=== PATIENT | female | born 1945 | race Caucasian/White ===

== ENCOUNTER → 2016-10-04 | Outpatient (CLI) | payer MEDICARE, OTHER ==
[~2016-10-04] MED LIST: DENOSUMAB 60 MG/ML 1 ML SYRINGE SQ ONE
[2016-10-04 10:45] VITALS: BP 161/76; PULSE 93; RESP 18; TEMP 97.6
== END | disposition home or self-care (01) ==
LOC: PROCWHC3 10:34
PROVIDERS: ATTEND Family Medicine
DX: M81.0 Age-related osteoporosis without current pathological fracture (principal)
CPT/HCPCS: 96372; J0897

== ENCOUNTER 2016-10-30 10:58 | Day surgery (SDC) | payer MEDICARE, OTHER ==
[2016-10-26 15:29] VITALS: BMI 18.6
[~2016-10-30 10:58] MED LIST changes: -DENOSUMAB 60 MG/ML 1 ML SYRINGE SQ ONE; +LACTATED RINGERS 1,000 ML IV SCH; +LIDOCAINE 1% 20 ML VIAL (10MG/ML) FOR IV START INTRADERMA PRN
[2016-10-30 11:48] VITALS: RESP 16; TEMP 98.3
[2016-10-30] MEDS ORDERED: PROPOFOL 10 MG/ML 20 ML VIAL IV ONE (13:12)
[2016-10-30] MEDS ORDERED: LIDOCAINE 1% INJ 10MG/ML (20 ML MDV) ONE (13:12)
--- NOTE | 2016-10-30 13:41 | P.PCN ---
Date of Procedure: 10/30/16 Preoperative Diagnosis: Postoperative Diagnosis: Procedure(s) Performed: Procedure: Esophagogastroduodenoscopy and biopsy. Preoperative diagnosis: Hansen's esophagus. Postoperative diagnosis: Hansen's esophagus, multiple biopsies obtained to rule out dysplasia. Preparation and sedation: Were provided by anesthesia. Brief clinical history: The patient is a 71-year-old female with history of reflux disease and Hansen's esophagus. Last evaluation in November 2014 did not reveal any evidence of dysplasia. This is part of her screening. At this time, she has no complaints or alarm symptoms. Procedure: With the patient on her left lateral decubitus position and after informed consent and adequate sedation, I passed the Olympus-GIF 160 video upper endoscope through the cricopharyngeus down the esophagus. GE junction was irregular and stented at around 29-30 cm from the incisors, as previously described. The tubular esophagus continued to around 36 cm from the incisors defining a segment of Hansen's esophagus then there was a 3 cm sliding hiatal hernia. The esophagus proximal and distal to the GE junction did not show erosions, ulcers or strictures. The stomach was then insufflated with air and inspected in detail including the retroflex view in the cardia. Finally, the endoscope was passed through the pylorus into the duodenum. Pyloric channel, duodenal bulb, post bulbar area and descending duodenum appeared within normal limits. No abnormalities were seen the stomach. I obtained multiple biopsies from the Hansen's segment then the endoscope was withdrawn. The patient tolerated the procedure well. Plan: The patient was reassured. I anticipate repeating this exam in 2-3 years or sooner depending on the pathology results. She will follow-up with you as planned. Implants: Indications for Procedure: Operative Findings: Description of Procedure:
[2016-10-30 14:23] VITALS: BP 131/84; PULSE 76
== END 2016-10-30 14:38 | disposition home or self-care (01) ==
LOC: ORWHC2ENDO 10:58
DX: K22.70 Barrett's esophagus without dysplasia (principal); K21.9 Gastro-esophageal reflux disease without esophagitis; J44.9 Chronic obstructive pulmonary disease, unspecified; M19.90 Unspecified osteoarthritis, unspecified site; E78.5 Hyperlipidemia, unspecified; Z79.82 Long term (current) use of aspirin; Z79.51 Long term (current) use of inhaled steroids; Z79.899 Other long term (current) drug therapy; Z88.8 Allergy status to other drugs, medicaments and biological substances
CPT/HCPCS: 88305; 43239; J2001; J2704

== ENCOUNTER → 2016-12-20 | Outpatient (CLI) | payer MEDICARE, OTHER ==
--- NOTE | 2016-12-21 10:01 | MM ---
Reason for exam: screening (asymptomatic). Last mammogram was performed 1 year ago. History: Patient is postmenopausal, has history of other cancer at age 70, and is nulliparous. Benign u/S right breast needle core of the right breast, June 10, 2013. Cancelled Right Mammotome of the right breast, June 10, 2013. Excisional biopsy of the left breast. Physical Findings: A clinical breast exam by your physician is recommended on an annual basis and results should be correlated with mammographic findings. MG 3D Screening Mammo W/Cad Bilateral CC and MLO view(s) were taken. Prior study comparison: December 20, 2015, bilateral MG 3d screening mammo w/cad. December 28, 2014, left breast MG work up mamm w CAD LT. December 16, 2014, bilateral MG screening mammo w CAD. The breast tissue is heterogeneously dense. This may lower the sensitivity of mammography. Finding: There are few typically benign round calcifications in the right breast. Previous mammotome biopsy in the right breast. There is no discrete abnormality. ASSESSMENT: Benign, BI-RAD 2 RECOMMENDATION: Routine screening mammogram of both breasts in 1 year.
== END | disposition home or self-care (01) ==
LOC: RADMAMWWP 10:40
PROVIDERS: ATTEND Family Medicine
DX: Z12.31 Encounter for screening mammogram for malignant neoplasm of breast (principal)
CPT/HCPCS: 77063; G0202

== ENCOUNTER → 2017-04-09 | Outpatient (CLI) | payer MEDICARE, OTHER ==
[~2017-04-09] MED LIST changes: +DENOSUMAB 60 MG/ML 1 ML SYRINGE SQ ONE; -LACTATED RINGERS 1,000 ML IV SCH; -LIDOCAINE 1% 20 ML VIAL (10MG/ML) FOR IV START INTRADERMA PRN
[2017-04-09 11:00] VITALS: BP 146/80; PULSE 86; RESP 18; TEMP 98.2
== END | disposition home or self-care (01) ==
LOC: PROCWHC3 10:42
PROVIDERS: ATTEND Family Medicine
DX: M81.0 Age-related osteoporosis without current pathological fracture (principal)
CPT/HCPCS: 96372; J0897

== ENCOUNTER → 2017-10-08 | Outpatient (CLI) | payer MEDICARE, OTHER ==
[~2017-10-08] MED LIST changes: +DENOSUMAB 60 MG/ML 1 ML SYRINGE SQ NR; -DENOSUMAB 60 MG/ML 1 ML SYRINGE SQ ONE
[2017-10-08 10:06] VITALS: BP 145/80; PULSE 95; RESP 18; TEMP 97.9
== END | disposition home or self-care (01) ==
LOC: PROCWHC3 09:40
PROVIDERS: ATTEND Physician Assistant
DX: M81.0 Age-related osteoporosis without current pathological fracture (principal)
CPT/HCPCS: 96372; J0897

== ENCOUNTER → 2017-10-26 | Outpatient (CLI) | payer MEDICARE, OTHER ==
--- NOTE | 2017-10-26 13:17 | XR ---
EXAMINATION TYPE: XR Hip Limited LT DATE OF EXAM: 10/26/2017 CLINICAL HISTORY: Left hip pain TECHNIQUE: AP solitary view of the left hip was obtained. COMPARISON: None. FINDINGS: There is no acute fracture/dislocation evident in the left hip on this single frontal view . Moderate femoral acetabular arthropathy is seen as marginal osteophytes, acetabular roof sclerosis and joint space narrowing. Calcific atheromatous changes are seen of the left common iliac artery and its branches. The overlying soft tissue appears unremarkable. IMPRESSION: There is no acute fracture or dislocation in the left hip on this single view. Moderate left femoral acetabular arthropathy.
== END | disposition home or self-care (01) ==
LOC: RADXRMAIN 12:53
PROVIDERS: ATTEND Family Medicine
DX: M16.12 Unilateral primary osteoarthritis, left hip (principal)
CPT/HCPCS: 73501

== ENCOUNTER 2017-12-10 08:01 | Day surgery (SDC) | payer MEDICARE, OTHER ==
[2017-12-06 10:45] VITALS: BMI 18.8
[~2017-12-10 08:01] MED LIST changes: -DENOSUMAB 60 MG/ML 1 ML SYRINGE SQ NR; +LACTATED RINGERS 1,000 ML IV SCH; +LIDOCAINE 1% 20 ML VIAL (10MG/ML) FOR IV START INTRADERMA PRN
[2017-12-10 09:03] VITALS: TEMP 97.9
[2017-12-10] MEDS ORDERED: PROPOFOL 10 MG/ML 20 ML VIAL IV ONE (09:45)
--- NOTE | 2017-12-10 09:46 | P.PCN ---
Date of Procedure: 12/10/17 Procedure(s) Performed: Procedure: Total colonoscopy. Preoperative diagnosis: Screening for neoplasia, patient has history of polyps. Postoperative diagnosis: Sigmoid diverticulosis with no evidence of acute diverticulitis, strictures, significant polyps or other pathology. Preparation: HalfLytely prep. Sedation: Was provided by anesthesia. Brief clinical history: The patient is a 72-year-old female who is scheduled for this evaluation for screening for neoplasia age being her risk factor. She has no abdominal complaints, bleeding or anemia. Her last exam was around 5 years ago. Procedure: With the patient on her left lateral decubitus position and after informed consent and adequate sedation, the perianal area was inspected and it did not show any fissures or fistulas. There were no masses felt on digital rectal examination. The Olympus CFQ 160L video colonoscope was then inserted in the rectum in the usual fashion and advanced to the cecum. There were a few diverticular orifices seen scattered in the sigmoid but I saw no evidence of acute diverticulitis or strictures. No significant polyps or tumors were seen. I retroflexed the endoscope in the rectum before the endoscope was withdrawn. The patient tolerated the procedure well. Plan: The patient was reassured. Discussed dietary measures. She will follow- up with you as planned and I recommended repeat exam in 5 years.
[2017-12-10 10:03] VITALS: BP 130/86; PULSE 79; RESP 18
== END 2017-12-10 10:32 | disposition home or self-care (01) ==
LOC: ORWHC2ENDO 08:01
DX: Z12.11 Encounter for screening for malignant neoplasm of colon (principal); K57.30 Diverticulosis of large intestine without perforation or abscess without bleeding; J44.9 Chronic obstructive pulmonary disease, unspecified; K21.9 Gastro-esophageal reflux disease without esophagitis; M19.90 Unspecified osteoarthritis, unspecified site; E78.5 Hyperlipidemia, unspecified; Z79.51 Long term (current) use of inhaled steroids; Z79.899 Other long term (current) drug therapy; Z88.8 Allergy status to other drugs, medicaments and biological substances
CPT/HCPCS: J2704; G0121; 45378

== ENCOUNTER → 2017-12-21 | Outpatient (CLI) | payer MEDICARE, OTHER ==
--- NOTE | 2017-12-26 10:48 | MM ---
Reason for exam: screening (asymptomatic). Last mammogram was performed 1 year ago. History: Patient is postmenopausal, has history of other cancer at age 70, and is nulliparous. Benign u/S right breast needle core of the right breast, June 10, 2013. Cancelled Right Mammotome of the right breast, June 10, 2013. Excisional biopsy of the left breast. Physical Findings: A clinical breast exam by your physician is recommended on an annual basis and results should be correlated with mammographic findings. MG 3D Screening Mammo Wo Cad Bilateral CC and MLO view(s) were taken. Prior study comparison: December 20, 2016, bilateral MG 3d screening mammo w/cad. December 20, 2015, bilateral MG 3d screening mammo w/cad. The breast tissue is heterogeneously dense. This may lower the sensitivity of mammography. Previous mammotome biopsy in the right breast. There is no discrete abnormality. ASSESSMENT: Benign, BI-RAD 2 RECOMMENDATION: Routine screening mammogram of both breasts in 1 year.
== END | disposition home or self-care (01) ==
LOC: RADMAMWWP 09:42
PROVIDERS: ATTEND Family Medicine
DX: Z12.31 Encounter for screening mammogram for malignant neoplasm of breast (principal)
CPT/HCPCS: 77063; 77067

== ENCOUNTER 2018-01-15 20:42 | Emergency (ER) | payer MEDICARE, OTHER ==
[2018-01-15 21:16] VITALS: RESP 18
[2018-01-15] MEDS ORDERED: AMOXIC-POT CLAV 875MG STARTER 2 EACH TABLET PO STA (22:44)
[2018-01-15] MEDS ORDERED: ACET/COD 300 MG/30 MG STARTER PACK 6 TAB BTL PO STA (22:44)
[2018-01-15] MEDS ORDERED: DIPH,PERTUS(ACELL)TETVAC-LF 0.5 ML VIAL IM ONE (22:44)
--- NOTE | 2018-01-15 23:12 | ED ---
Animal Bite HPI - General Source: patient Mode of arrival: ambulatory Limitations: no limitations <Koki Mcdowell - Last Filed: 01/16/18 03:27> <Kimberlee Napoles - Last Filed: 01/18/18 08:39> - General Chief Complaint: Animal Bite Stated Complaint: Cat Bite Time Seen by Provider: 01/15/18 22:32 - History of Present Illness Initial Comments: 72-year-old female patient presents to the emergency department today with complaints of Bite and scratches to the right arm. Patient states that her neighbor's cat got into her home and started to fight with her cat. States that she picked Up to get him out of her house when he scratched her arm and possibly bit her. Patient is unsure when her last tetanus vaccine was given. States that she does have the address and phone number of the cats home, she is unsure if the cat is up-to-date on his vaccinations. States that she did clean the wounds immediately with both soap and water and peroxide. States that she began to have increased pain to the arm so she presented here for further evaluation and antibiotics. She denies any other injuries. Patient denies any headache, neck pain, back pain, chest pain, shortness of breath, dizziness, weakness, abdominal pain, nausea, vomiting, or difficulties with bowel movements or urination. (Koki Mcdowell) - Related Data Home Medications Medication Instructions Recorded Confirmed Omeprazole [PriLOSEC] 20 mg PO AC-BRKFST 03/31/14 01/16/18 Simvastatin [Zocor] 20 mg PO HS 03/31/14 01/16/18 Albuterol Sulfate [Ventolin HFA] 1 - 2 puff INHALATION RT-QID PRN 04/21/1401/16 Budesonide-Formot 160-4.5 Mcg 2 puff INHALATION RT-BID 04/21/14 01/16/18 [Symbicort 160-4.5 Mcg Inhaler] Multivitamins, Thera [Multivitamin 1 tab PO DAILY 05/01/14 01/16/18 (formulary)] Tiotropium 18 Mcg/Puff [Spiriva] 1 cap INHALATION RT-DAILY 05/29/14 01/16/18 Vitamin B Complex 1 tab PO DAILY 09/22/14 01/16/18 Vitamin E 1,200 unit PO DAILY 09/22/14 01/16/18 Acetaminophen/Diphenhydramine 2 tab PO HS 10/24/14 01/16/18 [Tylenol PM 500-25mg] Denosumab [Prolia] 60 mg SQ Q180D 10/24/14 01/16/18 Aspirin [Adult Low Dose Aspirin EC] 81 mg PO DAILY 04/04/16 01/16/18 Acetaminophen [Tylenol Extra 1,000 mg PO DAILY 12/06/17 01/16/18 Strength] Calcium/Magnesium/Zinc 1 tab PO DAILY 12/06/17 01/16/18 [Ckawrqn-Qvsswruta-Nkbp Tablet] Cholecalciferol [Vitamin D3] 4,000 unit PO DAILY 12/06/17 01/16/18 Previous Rx's Medication Instructions Recorded Amoxic-Pot Clav 875-125Mg 1 tab PO Q12HR #20 tablet 01/15/18 [Augmentin 875-125] Allergies Allergy/AdvReac Type Severity Reaction Status Date / Time bupropion HCl Allergy Rash/Hives Verified 01/16/18 12:25 [From Wellbutrin] Review of Systems ROS Other: All systems not noted in ROS Statement are negative. <Koki Mcdowell M - Last Filed: 01/16/18 03:27> ROS Other: All systems not noted in ROS Statement are negative. <Kimberlee Napoles - Last Filed: 01/18/18 08:39> ROS Statement: Those systems with pertinent positive or pertinent negative responses have been documented in the HPI. Past Medical History Past Medical History: Cancer, COPD, GERD/Reflux, Hyperlipidemia, Osteoarthritis (OA) Additional Past Medical History / Comment(s): HIATAL HERNIA, HX SKIN CANCER & CURRENT SKIN CANCER ON HER BACK. ,JAEGER'S DISEASE, OSTEOPOROSIS., HX OF COLON POLYPS. History of Any Multi-Drug Resistant Organisms: None Reported Past Surgical History: Breast Surgery, Tubal Ligation Additional Past Surgical History / Comment(s): BRONCHOSCOPY, BREAST BX, EGD., PROCEDURE TO "CUT NERVES IN NECK" Past Anesthesia/Blood Transfusion Reactions: Motion Sickness, Postoperative Nausea & Vomiting (PONV) Past Psychological History: No Psychological Hx Reported Smoking Status: Former smoker Past Alcohol Use History: Rare Past Drug Use History: None Reported - Past Family History Brother(s) Family Medical History: Cancer Additional Family Medical History / Comment(s): BROTHER # 1 PANCREAS CA. BROTHER #2 KIDNEY CA <Koki Mcdowell M - Last Filed: 01/16/18 03:27> General Exam Limitations: no limitations General appearance: alert, in no apparent distress, other (This is a well- developed, well-nourished elderly female patient in no acute distress. Vital signs upon presentation are temperature 98.2F, pulse 89, respirations 18, blood pressure 155/84, pulse ox 98% on room air.) Eye exam: Present: normal appearance, PERRL, EOMI. Absent: scleral icterus, conjunctival injection, periorbital swelling Respiratory exam: Present: normal lung sounds bilaterally. Absent: respiratory distress, wheezes, rales, rhonchi, stridor Cardiovascular Exam: Present: regular rate, normal rhythm, normal heart sounds. Absent: systolic murmur, diastolic murmur, rubs, gallop, clicks Extremities exam: Present: full ROM, tenderness (Tenderness surrounding punctures to the right forearm), normal capillary refill, other (Patient has 2 scratches and a puncture wound to the right lateral forearm. There is surrounding swelling and erythema noted to the puncture area. Radial pulses [address] and equal bilaterally. Skin to the right forearm is otherwise pink, warm , and dry. Cap refills less than 3 seconds.). Absent: normal inspection, pedal edema, joint swelling, calf tenderness Neurological exam: Present: alert, oriented X3, CN II-XII intact Psychiatric exam: Present: normal affect, normal mood Skin exam: Present: warm, dry, intact, normal color. Absent: rash <Koki Mcdowell M - Last Filed: 01/16/18 03:27> Vital Signs 01/15/18 01/15/18 21:14 23:23 Temperature 98.2 F 98.3 F Pulse Rate 89 80 Respiratory 18 18 Rate Blood Pressure 155/84 115/73 O2 Sat by Pulse 98 99 Oximetry Medical Decision Making - Radiology Data Radiology results: report reviewed, image reviewed <Koki Mcdowell M - Last Filed: 01/16/18 03:27> <Kimberlee Napoles - Last Filed: 01/18/18 08:39> - Medical Decision Making 72-year-old female patient presents emergency department today for evaluation of cat scratches and a Right the right forearm. Physical examination does reveal surrounding erythema and swelling to one of the puncture sites at the lateral forearm. X-ray was negative for any evidence of foreign body or fracture. A line was drawn around the area of redness. Patient will be started on Augmentin, her tetanus is updated. She is instructed to return if the redness should spread, she has increase in her pain, or she develops any fevers. The cat will be monitored and patient will return for rabies vaccination if necessary. Patient is instructed to follow-up with her primary care physician for recheck in 1-2 days. Return parameters discussed in detail. She verbalizes understanding and agrees with this plan. (Koki Mcdowell) I personally saw and examined the patient. I used a sharpie marker to marked the borders of the patient's cellulitis and advised her that should her cellulitis extend greater than 1 cm beyond these borders within the next 24 hours she needs to return to the ER for possible IV antibiotics. I reviewed and agree with the mid-level provider findings including all diagnostic interpretations and treatment plans as written unless otherwise stated. I was present for lugo portions of any procedures performed. (Kimberlee Napoles) - Radiology Data Two-view x-ray of the right forearm are obtained. There is some calcification at the triangular cartilage. Radius and ulna appear intact. Elbow joint appears intact. Impression by Dr. Stanford shows no fracture seen. Chondrocalcinosis. Did review the image myself, no evidence of foreign body. ( Koki Mcdowell) Disposition Is patient prescribed a controlled substance at d/c from ED?: No Time of Disposition: 23:11 <Koki Mcdowell - Last Filed: 01/16/18 03:27> <Kimberlee Napoles - Last Filed: 01/18/18 08:39> Clinical Impression: Cat bite involving extremity, Cellulitis Disposition: HOME SELF-CARE Condition: Good Instructions: Animal Bite (ED), Cellulitis (ED) Additional Instructions: Complete antibiotic prescription in full. Return here tomorrow if you're redness has worsened, he develop a fever, or start to feel an increase in ear pain. Follow-up with your primary care physician for recheck in 1-2 days. Prescriptions: Amoxic-Pot Clav 875-125Mg [Augmentin 875-125] 1 tab PO Q12HR #20 tablet Referrals: Armando Morgan DO [Primary Care Provider] - 1-2 days
[2018-01-15 23:24] VITALS: BP 115/73; PULSE 80; TEMP 98.3
--- NOTE | 2018-01-15 23:31 | XR ---
EXAMINATION TYPE: XR forearm RT DATE OF EXAM: 01/15/2018 COMPARISON: NONE HISTORY: Cat bites. Pain. TECHNIQUE: 2 views FINDINGS: There is some calcification at the triangular cartilage. Radius and ulna appear intact. Elb ow joint appears intact. IMPRESSION: No fracture seen. Chondrocalcinosis.
== END 2018-01-15 23:24 | disposition home or self-care (01) ==
LOC: EC 20:42
DX: S51.851A Open bite of right forearm, initial encounter (principal); L03.113 Cellulitis of right upper limb; J44.9 Chronic obstructive pulmonary disease, unspecified; K21.9 Gastro-esophageal reflux disease without esophagitis; E78.5 Hyperlipidemia, unspecified; M81.0 Age-related osteoporosis without current pathological fracture; Z87.891 Personal history of nicotine dependence; Z79.82 Long term (current) use of aspirin; Z79.899 Other long term (current) drug therapy; Z88.8 Allergy status to other drugs, medicaments and biological substances; Z85.828 Personal history of other malignant neoplasm of skin; Z23 Encounter for immunization; W55.01XA Bitten by cat, initial encounter; Y92.89 Other specified places as the place of occurrence of the external cause
CPT/HCPCS: 90471; 90715; 99283

== ENCOUNTER 2018-01-16 11:13 | Inpatient (IN) | payer MEDICARE, OTHER ==
[2018-01-16] MEDS ORDERED: PIPERACILLIN-TAZOBACTAM 3.375 GM in DEXTROSE/WATER 1 50ML.BAG IVPB STA (11:22)
--- NOTE | 2018-01-16 11:25 | ED ---
General Adult HPI - General Chief complaint: Recheck/Abnormal Lab/Rx Stated complaint: Cat Bite-Revisit Time Seen by Provider: 01/16/18 11:17 Source: patient, RN notes reviewed Mode of arrival: ambulatory Limitations: no limitations - History of Present Illness Initial comments: 72-year-old female presents emergency department for recheck of right arm infection. Patient states she was given by A few days prior. She was seen in emergency department for infection placed on Augmentin she's taken 2 doses states has worsened. Patient states that she's had no fever no chills. She did notice there is some streaking redness up her right arm. She did have a tetanus was updated. - Related Data Home Medications Medication Instructions Recorded Confirmed Omeprazole [PriLOSEC] 20 mg PO AC-BRKFST 03/31/14 12/06/17 Simvastatin [Zocor] 20 mg PO HS 03/31/14 12/06/17 Albuterol Sulfate [Ventolin HFA] 1 - 2 puff INHALATION Q6HR PRN 04/21/14 Budesonide-Formot 160-4.5 Mcg 2 puff INHALATION DAILY PRN 04/21/14 12/06/17 [Symbicort 160-4.5 Mcg Inhaler] Multivitamins, Thera [Multivitamin 1 tab PO DAILY 05/01/14 12/06/17 (formulary)] Tiotropium 18 Mcg/Puff [Spiriva] 1 puff INHALATION DAILY PRN 05/29/14 12/06/17 Vitamin B Complex 1 tab PO DAILY 09/22/14 12/06/17 Vitamin E 1,200 unit PO DAILY 09/22/14 12/06/17 Acetaminophen/Diphenhydramine 1 - 2 tab PO HS PRN 10/24/14 12/06/17 [Tylenol PM 500-25mg] Denosumab [Prolia] 60 mg SQ Q180D 10/24/14 12/06/17 Aspirin [Adult Low Dose Aspirin EC] 81 mg PO DAILY 04/04/16 12/06/17 Acetaminophen [Tylenol Extra 1,000 mg PO DAILY 12/06/17 12/06/17 Strength] Calcium/Magnesium/Zinc 1 each PO DAILY 12/06/17 12/06/17 [Hzlrodw-Ydzaqjsfl-Otal Tablet] Cholecalciferol [Vitamin D3] 4,000 unit PO DAILY 12/06/17 12/06/17 Previous Rx's Medication Instructions Recorded Amoxic-Pot Clav 875-125Mg 1 tab PO Q12HR #20 tablet 01/15/18 [Augmentin 875-125] Allergies Allergy/AdvReac Type Severity Reaction Status Date / Time bupropion HCl Allergy Rash/Hives Verified 01/16/18 11:16 [From Wellbutrin] Review of Systems ROS Statement: Those systems with pertinent positive or pertinent negative responses have been documented in the HPI. ROS Other: All systems not noted in ROS Statement are negative. Past Medical History Past Medical History: Cancer, COPD, GERD/Reflux, Hyperlipidemia, Osteoarthritis (OA) Additional Past Medical History / Comment(s): HIATAL HERNIA, HX SKIN CANCER & CURRENT SKIN CANCER ON HER BACK. ,JAEGER'S DISEASE, OSTEOPOROSIS., HX OF COLON POLYPS. History of Any Multi-Drug Resistant Organisms: None Reported Past Surgical History: Breast Surgery, Tubal Ligation Additional Past Surgical History / Comment(s): BRONCHOSCOPY, BREAST BX, EGD., PROCEDURE TO "CUT NERVES IN NECK" Past Anesthesia/Blood Transfusion Reactions: Motion Sickness, Postoperative Nausea & Vomiting (PONV) Past Psychological History: No Psychological Hx Reported Smoking Status: Former smoker Past Alcohol Use History: Rare Past Drug Use History: None Reported - Past Family History Brother(s) Family Medical History: Cancer Additional Family Medical History / Comment(s): BROTHER # 1 PANCREAS CA. BROTHER #2 KIDNEY CA General Exam Limitations: no limitations General appearance: alert, in no apparent distress Head exam: Present: atraumatic, normocephalic, normal inspection Respiratory exam: Present: normal lung sounds bilaterally. Absent: respiratory distress, wheezes, rales, rhonchi, stridor Cardiovascular Exam: Present: regular rate, normal rhythm, normal heart sounds. Absent: systolic murmur, diastolic murmur, rubs, gallop, clicks Skin exam: Present: warm, dry, intact, normal color, other (Right arm there is an area of erythema which has doubled in size outside of the marker, there are multiple puncture wounds in streaking erythema to the right antecubital fossa region there is no noted epitrochlear nodes or right axilla nodes). Absent: rash Course Vital Signs 01/16/18 11:14 Temperature 97.8 F Pulse Rate 108 H Respiratory 20 Rate Blood Pressure 120/76 O2 Sat by Pulse 98 Oximetry Medical Decision Making - Lab Data Result diagrams: 01/16/18 11:43 01/16/18 11:43 Lab Results 01/16/18 01/16/18 01/16/18 Range/Units 11:43 11:43 11:43 WBC 12.1 H (3.8-10.6) k/uL RBC 4.47 (3.80-5.40) m/uL Hgb 14.1 (11.4-16.0) gm/dL Hct 41.8 (34.0-46.0) % MCV 93.6 (80.0-100.0) fL MCH 31.6 (25.0-35.0) pg MCHC 33.7 (31.0-37.0) g/dL RDW 13.3 (11.5-15.5) % Plt Count 320 (150-450) k/uL Neutrophils % 76 % Lymphocytes % 14 % Monocytes % 7 % Eosinophils % 2 % Basophils % 0 % Neutrophils # 9.2 H (1.3-7.7) k/uL Lymphocytes # 1.7 (1.0-4.8) k/uL Monocytes # 0.9 (0-1.0) k/uL Eosinophils # 0.2 (0-0.7) k/uL Basophils # 0.0 (0-0.2) k/uL Sodium 133 L (137-145) mmol/L Potassium 4.7 (3.5-5.1) mmol/L Chloride 98 (98-107) mmol/L Carbon Dioxide 24 (22-30) mmol/L Anion Gap 11 mmol/L BUN 18 H (7-17) mg/dL Creatinine 0.68 (0.52-1.04) mg/dL Est GFR (CKD-EPI)AfAm >90 (>60 ml/min/1.73 sqM) Est GFR (CKD-EPI)NonAf 88 (>60 ml/min/1.73 sqM) Glucose 103 H (74-99) mg/dL Plasma Lactic Acid Mohit 1.1 (0.7-2.0) mmol/L Calcium 9.4 (8.4-10.2) mg/dL Total Bilirubin 0.9 (0.2-1.3) mg/dL AST 28 (14-36) U/L ALT 22 (9-52) U/L Alkaline Phosphatase 58 (38-126) U/L Total Protein 6.7 (6.3-8.2) g/dL Albumin 3.9 (3.5-5.0) g/dL Disposition Clinical Impression: Cat bite involving extremity, Infected cat bite of forearm, Failure of outpatient treatment Disposition: ADMITTED IP TO THIS [facility] Condition: Stable Referrals: Armando Morgan DO [Primary Care Provider] - 1-2 days
[2018-01-16 12:01] LABS: Basophils % (A) 0 %; Eosinophils # (A) 0.2 k/uL (0-0.7); Eosinophils % (A) 2 %; HCT 41.8 % (34.0-46.0); HGB 14.1 gm/dL (11.4-16.0); Lymphocytes # (A) 1.7 k/uL (1.0-4.8); Lymphocytes % (A) 14 %; MCH 31.6 pg (25.0-35.0); MCHC 33.7 g/dL (31.0-37.0); MCV 93.6 fL (80.0-100.0); Mean Platelet Volume 6.9; Monocytes # (A) 0.9 k/uL (0-1.0); Monocytes % (A) 7 %; Neutrophils # (A) 9.2 k/uL (1.3-7.7); Neutrophils % (A) 76 %; Platelet Count 320 k/uL (150-450); RBC 4.47 m/uL (3.80-5.40); RDW 13.3 % (11.5-15.5); WBC 12.1 k/uL (3.8-10.6)
[2018-01-16 12:07] LABS: ALT 22 U/L (9-52); AST 28 U/L (14-36); Albumin 3.9 g/dL (3.5-5.0); Alkaline Phosphatase 58 U/L (38-126); Anion Gap 11 mmol/L; Blood Urea Nitrogen 18 mg/dL (7-17); Calcium 9.4 mg/dL (8.4-10.2); Carbon Dioxide 24 mmol/L (22-30); Chloride 98 mmol/L (98-107); Glucose 103 mg/dL (74-99); Potassium 4.7 mmol/L (3.5-5.1); Sodium 133 mmol/L (137-145); Total Bilirubin 0.9 mg/dL (0.2-1.3); Total Protein 6.7 g/dL (6.3-8.2)
[2018-01-16] MEDS ORDERED: ACETAMINOPHEN TAB 325 MG TAB PO PRN (12:23)
[2018-01-16] MEDS ORDERED: ALBUTEROL NEBULIZED 2.5 MG/3 ML INHALATION PRN (14:01)
[2018-01-16] MEDS ORDERED: DENOSUMAB 60 MG/ML 1 ML SYRINGE SQ SCH (14:15)
--- NOTE | 2018-01-16 14:35 | P.HPIM ---
History of Present Illness 72-year-old female came [facility] today with multiple areas of Bite on the right arm with significant cellulitis. Patient was discharged on Augmentin patient had worsening symptoms without any significant impairment because of which she came back to ER and patient was started on Zosyn significant improvement since the patient was given IV antibiotics. Patient is being admitted because of failed outpatient therapy. Patient has some induration and possibility of abscess, but will watch her on antibiotics in the of the cellulitis and possible induration or abscess doesn't improve we'll consult general surgery at that time. Patient denied any fever at home patient does have history of COPD doesn't smoke presently and that not in COPD exacerbation denied any shortness of breath Review of Systems REVIEW OF SYSTEMS: CONSTITUTIONAL: No fever, no malaise, no fatigue. HEENT: No recent visual problems or hearing problems. Denied any sore throat. CARDIOVASCULAR: No chest pain, orthopnea, PND, no palpitations, no syncope. PULMONARY: No shortness of breath, no cough, no hemoptysis. GASTROINTESTINAL: No diarrhea, no nausea, no vomiting, no abdominal pain. Normoactive bowel sounds. NEUROLOGICAL: No headaches, no weakness, no numbness. HEMATOLOGICAL: Denies any bleeding or petechiae. GENITOURINARY: Denies any burning micturition, frequency, or urgency. MUSCULOSKELETAL/RHEUMATOLOGICAL: As mentioned in HPI ENDOCRINE: Denies any polyuria or polydipsia. The rest of the 14-point review of systems is negative. Past Medical History Past Medical History: Cancer, COPD, GERD/Reflux, Hyperlipidemia, Osteoarthritis (OA) Additional Past Medical History / Comment(s): HIATAL HERNIA, HX SKIN CANCER & CURRENT SKIN CANCER ON HER BACK. ,JAEGER'S DISEASE, OSTEOPOROSIS., HX OF COLON POLYPS. History of Any Multi-Drug Resistant Organisms: None Reported Past Surgical History: Breast Surgery, Tubal Ligation Additional Past Surgical History / Comment(s): BRONCHOSCOPY, BREAST BX, EGD., PROCEDURE TO "CUT NERVES IN NECK" Past Anesthesia/Blood Transfusion Reactions: Motion Sickness, Postoperative Nausea & Vomiting (PONV) Past Psychological History: No Psychological Hx Reported Smoking Status: Former smoker Past Alcohol Use History: Rare Past Drug Use History: None Reported - Past Family History Brother(s) Family Medical History: Cancer Additional Family Medical History / Comment(s): BROTHER # 1 PANCREAS CA. BROTHER #2 KIDNEY CA Medications and Allergies Home Medications Medication Instructions Recorded Confirmed Type Omeprazole [PriLOSEC] 20 mg PO AC-BRKFST 03/31/14 01/16/18 History Simvastatin [Zocor] 20 mg PO HS 03/31/14 01/16/18 History Albuterol Sulfate [Ventolin HFA] 1 - 2 puff INHALATION RT-QID PRN 04/21/1401/16 History Budesonide-Formot 160-4.5 Mcg 2 puff INHALATION RT-BID 04/21/14 01/16/18 History [Symbicort 160-4.5 Mcg Inhaler] Multivitamins, Thera [Multivitamin 1 tab PO DAILY 05/01/14 01/16/18 History (formulary)] Tiotropium 18 Mcg/Puff [Spiriva] 1 cap INHALATION RT-DAILY 05/29/14 01/16/18 History Vitamin B Complex 1 tab PO DAILY 09/22/14 01/16/18 History Vitamin E 1,200 unit PO DAILY 09/22/14 01/16/18 History Acetaminophen/Diphenhydramine 2 tab PO HS 10/24/14 01/16/18 History [Tylenol PM 500-25mg] Denosumab [Prolia] 60 mg SQ Q180D 10/24/14 01/16/18 History Aspirin [Adult Low Dose Aspirin EC] 81 mg PO DAILY 04/04/16 01/16/18 History Acetaminophen [Tylenol Extra 1,000 mg PO DAILY 12/06/17 01/16/18 History Strength] Calcium/Magnesium/Zinc 1 tab PO DAILY 12/06/17 01/16/18 History [Lwocjca-Bockunris-Etga Tablet] Cholecalciferol [Vitamin D3] 4,000 unit PO DAILY 12/06/17 01/16/18 History Amoxic-Pot Clav 875-125Mg 1 tab PO Q12HR #20 tablet 01/15/18 01/16/18 Rx [Augmentin 875-125] Allergies Allergy/AdvReac Type Severity Reaction Status Date / Time bupropion HCl Allergy Rash/Hives Verified 01/16/18 12:25 [From Wellbutrin] Physical Exam Vitals: Vital Signs Temp Pulse Resp BP Pulse Ox 01/16/18 13:24 97.8 F 95 18 113/68 98 01/16/18 11:14 97.8 F 108 H 20 120/76 98 Intake and Output 01/15/18 01/16/18 01/16/18 22:59 06:59 14:59 Other: Weight 49.895 kg PHYSICAL EXAMINATION: GENERAL: The patient is alert and oriented x3, not in any acute distress. Well developed, well nourished. HEENT: Pupils are round and equally reacting to light. EOMI. No scleral icterus. No conjunctival pallor. Normocephalic, atraumatic. No pharyngeal erythema. No thyromegaly. CARDIOVASCULAR: S1 and S2 present. No murmurs, rubs, or gallops. PULMONARY: Chest is clear to auscultation, no wheezing or crackles. ABDOMEN: Soft, nontender, nondistended, normoactive bowel sounds. No palpable organomegaly. MUSCULOSKELETAL: No joint swelling or deformity. EXTREMITIES: No cyanosis, clubbing, or pedal edema. NEUROLOGICAL: Gross neurological examination did not reveal any focal deficits. SKIN: Multiple areas of cat bite in the right hand and the right forearm and in the hand as well. Patient does have induration and redness local is of temperature in the mid forearm area posteriorly (dorsal) Results CBC & Chem 7: 01/16/18 11:43 01/16/18 11:43 Labs: Abnormal Lab Results - Last 24 Hours (Table) 01/16/18 01/16/18 Range/Units 11:43 11:43 WBC 12.1 H (3.8-10.6) k/uL Neutrophils # 9.2 H (1.3-7.7) k/uL Sodium 133 L (137-145) mmol/L BUN 18 H (7-17) mg/dL Glucose 103 H (74-99) mg/dL Assessment and Plan Plan: -Cellulitis: Secondary to cat bite there is any duration/abscess will monitor if patient doesn't have improvement in the clinical findings of cellulitis of the right arm will consult general surgery and probably are not an ultrasound to evaluate for an abscess. -COPD without any acute exacerbation, continue with inhaled steroids Spiriva and as needed albuterol -Hyperlipidemia -Gastroesophageal reflux disease -Hyponatremia possibly hypervolemic hyponatremia patient will be started on IV fluids and repeat the basic metabolic profile tomorrow.
[2018-01-16] MEDS: SODIUM CHLORIDE 0.9% 1,000 ML IV SCH ×2 (17:43→23:12)
[2018-01-16] MEDS: PIPERACILLIN-TAZOBACTAM 3.375 GM in DEXTROSE/WATER 1 50ML.BAG IVPB SCH ×2 (18:11→23:10)
[2018-01-16] MEDS: SYMBICORT 160-4.5 MCG INHALER INHALATION SCH (19:02)
[2018-01-16] MEDS: IPRATROPIUM 0.5 MG/2.5 ML NEBU INHALATION SCH (19:03)
[2018-01-16] MEDS: ACETAMINOPHEN TAB 500 MG TAB PO SCH (21:12)
[2018-01-16] MEDS: ATORVASTATIN 10 MG TAB PO SCH (21:13)
[2018-01-16] MEDS: HYDROcodone/APAP 5-325MG 1 EACH TAB PO PRN (21:13)
[2018-01-16] MEDS: diphenhydrAMINE 50 MG CAP PO SCH (21:13)
[2018-01-17] MEDS: SYMBICORT 160-4.5 MCG INHALER INHALATION SCH ×2 (07:10→19:05)
[2018-01-17] MEDS: IPRATROPIUM 0.5 MG/2.5 ML NEBU INHALATION SCH ×4 (07:10→19:05)
[2018-01-17] MEDS: CALCIUM CARBONATE 500 MG CHEWABLE PO SCH (08:08)
[2018-01-17] MEDS: VITAMIN E (DL,TOCOPHERYL ACET) 400 UNIT CAP PO SCH (08:08)
[2018-01-17] MEDS: ZINC SULFATE 220 MG CAP PO SCH (08:08)
[2018-01-17] MEDS: ASPIRIN 81 MG PO SCH (08:09)
[2018-01-17] MEDS: MULTIVITAMINS, THERA 1 EACH TAB PO SCH (08:09)
[2018-01-17] MEDS: CHOLECALCIFEROL 1,000 UNIT TAB PO SCH (08:09)
[2018-01-17] MEDS: PANTOPRAZOLE 40 MG TABLET PO SCH (08:09)
[2018-01-17] MEDS: VITAMIN B COMPLEX PO SCH (08:09)
[2018-01-17] MEDS: MAGNESIUM OXIDE 400 MG TAB PO SCH (08:09)
[2018-01-17] MEDS: ACETAMINOPHEN TAB 500 MG TAB PO SCH ×2 (08:15→20:55)
[2018-01-17] MEDS: PIPERACILLIN-TAZOBACTAM 3.375 GM in DEXTROSE/WATER 1 50ML.BAG IVPB SCH ×2 (08:15→17:56)
[2018-01-17] MEDS: SODIUM CHLORIDE 0.9% 1,000 ML IV SCH ×2 (13:29→20:51)
[2018-01-17] MEDS ORDERED: VANCOMYCIN IV PER PHARMACY 1 EACH MISC MISCELLANE PRN (14:23)
[2018-01-17 14:46] VITALS: BMI 18.8
[2018-01-17] MEDS: VANCOMYCIN 750 MG in SODIUM CHLORIDE 0.9% 250 ML IVPB SCH (16:08)
--- NOTE | 2018-01-17 16:52 | US ---
EXAMINATION TYPE: US extremity nonvascular ltd RT DATE OF EXAM: 01/17/2018 COMPARISON: NONE CLINICAL HISTORY: cat scratch. Pt states recent scratch or bite by cat/ redness and swelling to right forearm/ rule out abscess Soft tissue edema right forearm with 0.8cm hypoechoic area with tract to skin surface at puncture s ite Soft tissue edema channels are present. IMPRESSION: Findings compatible with phlegmon, cellulitis and edema, follow-up as indicated
--- NOTE | 2018-01-17 18:22 | P.PN ---
Subjective Progress Note Date: 01/17/18 Progress note being dictated for Dr. Mortensen. Interval history:72-year-old female came to [facility] today with multiple areas of Bite on the right arm with significant cellulitis. Patient was discharged on Augmentin patient had worsening symptoms without any significant impairment because of which she came back to ER and patient was started on Zosyn significant improvement since the patient was given IV antibiotics. Patient is being admitted because of failed outpatient therapy. Patient has some induration and possibility of abscess, but will watch her on antibiotics in the of the cellulitis and possible induration or abscess doesn't improve we' ll consult general surgery at that time. Patient denied any fever at home patient does have history of COPD doesn't smoke presently and that not in COPD exacerbation denied any shortness of breath Review of Systems REVIEW OF SYSTEMS: CONSTITUTIONAL: No fever, no malaise, no fatigue. HEENT: No recent visual problems or hearing problems. Denied any sore throat. CARDIOVASCULAR: No chest pain, orthopnea, PND, no palpitations, no syncope. PULMONARY: No shortness of breath, no cough, no hemoptysis. GASTROINTESTINAL: No diarrhea, no nausea, no vomiting, no abdominal pain. Normoactive bowel sounds. NEUROLOGICAL: No headaches, no weakness, no numbness. HEMATOLOGICAL: Denies any bleeding or petechiae. GENITOURINARY: Denies any burning micturition, frequency, or urgency. MUSCULOSKELETAL/RHEUMATOLOGICAL: As mentioned in HPI ENDOCRINE: Denies any polyuria or polydipsia. The rest of the 14-point review of systems is negative. 01/17/2018 maintained on Zosyn , redness extended beyond outlined tracings traveling up right forearm. afebrile, preliminary blood cultures negative. Good diet intake, no nausea vomiting or diarrhea. Denies chest pain, palpitations or increased shortness of breath. Objective - Vital Signs Vital signs: Vital Signs Temp 98.5 F 01/17/18 15:00 Pulse 86 01/17/18 16:11 Resp 16 01/17/18 15:00 BP 128/73 01/17/18 15:00 Pulse Ox 95 01/17/18 15:00 Intake & Output 01/16/18 01/17/18 01/17/18 18:59 06:59 18:59 Intake Total 1025 Balance 1025 Weight 49.895 kg 49.895 kg Intake: Oral 1025 Other: Voiding Method Toilet # Voids 1 2 - Exam GENERAL: The patient is alert and oriented x3, not in any acute distress. HEENT: Pupils are round and equally reacting to light. EOMI. No scleral icterus. No conjunctival pallor. Normocephalic, atraumatic. No pharyngeal erythema. No thyromegaly. CARDIOVASCULAR: S1 and S2 present. No murmurs, rubs, or gallops. PULMONARY: Chest is clear to auscultation, no wheezing or crackles. ABDOMEN: Soft, nontender, nondistended, normoactive bowel sounds. No palpable organomegaly. MUSCULOSKELETAL: No joint swelling or deformity. EXTREMITIES: No cyanosis, clubbing, or pedal edema. NEUROLOGICAL: Gross neurological examination did not reveal any focal deficits. SKIN: Multiple areas of cat bite/scratch in the right hand and the right forearm and in the hand as well. No induration and redness local is of temperature in the mid forearm area posteriorly (dorsal),extending beyond outlined tracings, traveling up right forearm. - Labs CBC & Chem 7: 01/16/18 11:43 01/16/18 11:43 Labs: Microbiology - Last 24 Hours (Table) 01/16/18 11:43 Blood Culture - Preliminary Blood No Growth after 24 hours Assessment and Plan Assessment: -Cellulitis: Secondary to cat bite, cat scratch -COPD without any acute exacerbation -Hyperlipidemia -Gastroesophageal reflux disease -Hyponatremia possibly hypervolemic hyponatremia Plan: Continue on current medication regime ,monitoring and symptomatic treatment. Patient stating that cat did not bite her but did scratch her in multiple places. Vancomycin added to antibiotic regime. Infectious disease consulted. Ultrasound ordered to evaluate for abscess. If ultrasound positive for abscess will consult surgery. Close monitoring of electrolytes with repeat labs ordered for a.m. The impression and plan of care has been dictated as directed. : I performed a history and examination of this patient, discussed the same with the dictator. I agree with the dictator's note ,documented as a scribe. Any additional findings or plans will be noted.
[2018-01-17] MEDS: HYDROcodone/APAP 5-325MG 1 EACH TAB PO PRN (18:33)
[2018-01-17] MEDS: diphenhydrAMINE 50 MG CAP PO SCH (20:50)
[2018-01-17] MEDS: ATORVASTATIN 10 MG TAB PO SCH (20:50)
[2018-01-18] MEDS: AMPICILLIN-SULBACTAM 3 GM in SODIUM CHLORIDE 0.9% 100 ML IVPB SCH ×5 (00:09→23:33)
[2018-01-18] MEDS: VANCOMYCIN 750 MG in SODIUM CHLORIDE 0.9% 250 ML IVPB SCH ×2 (04:45→15:51)
[2018-01-18] MEDS: SODIUM CHLORIDE 0.9% 1,000 ML IV SCH ×2 (06:48→17:18)
--- NOTE | 2018-01-18 07:14 | CONS ---
CONSULTATION DATE OF SERVICE: 01/17/2018 REASON FOR CONSULTATION: Right arm cellulitis and cat bite. HISTORY OF PRESENT ILLNESS: The patient is a 72-year-old female who was bitten by a cat that lives in the apartment complex when she was trying to break up a fight between that cat and her own cat that had been on Sunday afternoon. The patient said she had slight bleeding from the area and subsequently because of the pain and the cat bite, she was seen at [facility] ER on 01/15/2018. The patient was diagnosed with cat bite cellulitis. She was prescribed Augmentin. The patient took 2 pills; however, presenting with the next day with more swelling and pain to the right forearm area. The patient described it to be more of a throbbing in nature, 5 to 6 out of 10, no radiation with significant redness. The patient denies high-grade fever however did have some chills. With these symptoms, the patient has been evaluated by the ER physician. She did not have any high fever. White count was elevated at 12.1. Creatinine was 0.68. The patient was started on Zosyn at 3.375 g q.8 hours. She was noticed today to have worsening of the redness. Hence, Infectious Disease was consulted for further recommendation regarding antibiotic therapy. REVIEW OF SYSTEMS: CONSTITUTIONAL: Positive for weakness and chills. EYES: No complaint. ENT: No complaint. RESPIRATORY: No complaint. CARDIOVASCULAR: No complaint. GENITOURINARY: No complaint. GASTROINTESTINAL: No complaint. MUSCULOSKELETAL: As per HPI. INTEGUMENTARY: As per HPI. PSYCHOLOGICAL: No complaint. ENDOCRINE: No complaint. NEUROLOGICAL: No complaint. PAST MEDICAL HISTORY: Her past medical history is significant for COPD, gastroesophageal reflux disease, hyperlipidemia, osteoarthritis, skin cancer, hiatal hernia, Hansen's esophagus, osteoporosis, colon polyps. PAST SURGICAL HISTORY: Bronchoscopy, breast biopsy, EGD, and tubal ligation. SOCIAL HISTORY: Remote history of smoking, rarely drinks. No drug use. FAMILY HISTORY: Brother history of pancreatic cancer and another brother with kidney cancer. ALLERGIES: BUPROPION. MEDICATIONS: Medications include the patient is currently on zinc sulfate, vitamin E, vancomycin, Zosyn, Protonix, vitamin B complex, Theragran, Mag oxide, Benadryl, vitamin D3, Tums, Symbicort, Lipitor, aspirin, [place], Tylenol. PHYSICAL EXAMINATION: On examination, blood pressure 128/73 with a pulse of 79, temperature 98.5. She is 95% on room air. General description is an elderly female up in the bed in no distress. No tachypnea or accessory muscle of respiration use. HEENT examination shows no pallor or scleral icterus. Oral mucous membrane is dry. No pharyngeal erythema or thrush. NECK: Trachea central. No thyromegaly. LUNGS: Unlabored breathing, clear to auscultation anteriorly. No wheeze or crackle. HEART: S1, S2. Regular rate and rhythm. No added sounds. ABDOMEN: Soft, no tenderness. No guarding or rigidity. EXTREMITIES: No edema of feet. Examination the right forearm did show some swelling and redness which is warm to touch, slightly tender. No fluctuation or induration. NEUROLOGICALLY: Patient is awake, alert, oriented x3. Mood and affect normal. LABS: Hemoglobin is 14.8, white count 12.1 with a BUN of 18, creatinine . Electrolytes have been normal. Liver enzymes are normal. Ultrasound was negative for any abscess. DIAGNOSTIC IMPRESSION AND PLAN: Patient with acute right forearm cat bite cellulitis that seemed to have responded not very well to the Zosyn the likely organism will be the oral alondra of the cat including Pasteurella. Clinical suspicion for a gram-positive such as methicillin- resistant Staphylococcus aureus less likely but not entirely excluded. PLAN: 1. We will discontinue the Zosyn and start the patient on Unasyn 3 grams q.6 hours. 2. Vancomycin to continue while watching her kidney function very closely. 3. Keep the right arm elevated. 4. We will follow on her clinical condition and culture to further adjust medication if needed. Thank you for this consultation. Will follow this patient along with you. MMODL / IJN: [id number] /
[2018-01-18] MEDS: SYMBICORT 160-4.5 MCG INHALER INHALATION SCH ×2 (07:20→19:56)
[2018-01-18] MEDS: IPRATROPIUM 0.5 MG/2.5 ML NEBU INHALATION SCH ×4 (07:20→19:56)
[2018-01-18] MEDS: ASPIRIN 81 MG PO SCH (08:18)
[2018-01-18] MEDS: ZINC SULFATE 220 MG CAP PO SCH (08:18)
[2018-01-18] MEDS: CALCIUM CARBONATE 500 MG CHEWABLE PO SCH (08:18)
[2018-01-18] MEDS: MULTIVITAMINS, THERA 1 EACH TAB PO SCH (08:18)
[2018-01-18] MEDS: PANTOPRAZOLE 40 MG TABLET PO SCH (08:18)
[2018-01-18] MEDS: VITAMIN E (DL,TOCOPHERYL ACET) 400 UNIT CAP PO SCH (08:18)
[2018-01-18] MEDS: VITAMIN B COMPLEX PO SCH (08:19)
[2018-01-18] MEDS: MAGNESIUM OXIDE 400 MG TAB PO SCH (08:19)
[2018-01-18] MEDS: CHOLECALCIFEROL 1,000 UNIT TAB PO SCH (08:19)
[2018-01-18] MEDS: HYDROcodone/APAP 5-325MG 1 EACH TAB PO PRN ×2 (08:23→15:50)
[2018-01-18] MEDS: ACETAMINOPHEN TAB 500 MG TAB PO SCH ×2 (08:24→20:57)
[2018-01-18 09:47] LABS: Basophils % (A) 0 %; Eosinophils # (A) 0.3 k/uL (0-0.7); Eosinophils % (A) 4 %; HCT 37.6 % (34.0-46.0); HGB 12.3 gm/dL (11.4-16.0); Lymphocytes # (A) 1.7 k/uL (1.0-4.8); Lymphocytes % (A) 22 %; MCH 31.8 pg (25.0-35.0); MCHC 32.7 g/dL (31.0-37.0); MCV 97.2 fL (80.0-100.0); Mean Platelet Volume 7.1; Monocytes # (A) 0.6 k/uL (0-1.0); Monocytes % (A) 8 %; Neutrophils # (A) 5.1 k/uL (1.3-7.7); Neutrophils % (A) 66 %; Platelet Count 268 k/uL (150-450); RBC 3.87 m/uL (3.80-5.40); RDW 13.4 % (11.5-15.5); WBC 7.7 k/uL (3.8-10.6)
[2018-01-18 10:17] LABS: Anion Gap 9 mmol/L; Blood Urea Nitrogen 17 mg/dL (7-17); Calcium 8.6 mg/dL (8.4-10.2); Carbon Dioxide 23 mmol/L (22-30); Chloride 103 mmol/L (98-107); Glucose 141 mg/dL (74-99); Potassium 4.4 mmol/L (3.5-5.1); Sodium 135 mmol/L (137-145)
--- NOTE | 2018-01-18 18:17 | PN ---
PROGRESS NOTE DATE OF SERVICE: 01/18/2018 REASON FOR FOLLOWUP: Right hand cat bite cellulitis. INTERVAL HISTORY: The patient is afebrile. She still has significant swelling and redness to the right upper extremity. She did have an area of pustules but no drainage. The patient denies having any chest pain, shortness of breath or cough. No abdominal pain or any diarrhea. PHYSICAL EXAMINATION: Blood pressure 142/86, pulse of 76, temperature 97.8. She is 93% on room air. General description is an elderly female up in the bed in no distress. RESPIRATORY SYSTEM: Unlabored breathing. Clear to auscultation anteriorly. HEART: S1, S2. Regular rate and rhythm. ABDOMEN: Soft. No tenderness. Right upper extremity still has some swelling and redness and area of pustules that was cultured. LABS: White count of 7.7, BUN of 17, creatinine 0.66. Blood culture has been negative. DIAGNOSTIC IMPRESSION AND PLAN: Patient with acute right upper extremity cellulitis from a cat bite. Antibiotic was adjusted to Unasyn and vancomycin yesterday. We did obtain a culture from a pustule. Will wait for those cultures and clinical response before determining her discharge antibiotics. Plan of care was discussed with the nurse practitioner on the floor. Will need to monitor her clinical course closely. Continue with supportive care. MMODL / IJN: [id number] /
--- NOTE | 2018-01-18 19:49 | P.PN ---
Subjective Progress Note Date: 01/18/18 Progress note being dictated for Dr. Mortensen. Interval history:72-year-old female came to [facility] today with multiple areas of Bite on the right arm with significant cellulitis. Patient was discharged on Augmentin patient had worsening symptoms without any significant impairment because of which she came back to ER and patient was started on Zosyn significant improvement since the patient was given IV antibiotics. Patient is being admitted because of failed outpatient therapy. Patient has some induration and possibility of abscess, but will watch her on antibiotics in the of the cellulitis and possible induration or abscess doesn't improve we' ll consult general surgery at that time. Patient denied any fever at home patient does have history of COPD doesn't smoke presently and that not in COPD exacerbation denied any shortness of breath Review of Systems REVIEW OF SYSTEMS: CONSTITUTIONAL: No fever, no malaise, no fatigue. HEENT: No recent visual problems or hearing problems. Denied any sore throat. CARDIOVASCULAR: No chest pain, orthopnea, PND, no palpitations, no syncope. PULMONARY: No shortness of breath, no cough, no hemoptysis. GASTROINTESTINAL: No diarrhea, no nausea, no vomiting, no abdominal pain. Normoactive bowel sounds. NEUROLOGICAL: No headaches, no weakness, no numbness. HEMATOLOGICAL: Denies any bleeding or petechiae. GENITOURINARY: Denies any burning micturition, frequency, or urgency. MUSCULOSKELETAL/RHEUMATOLOGICAL: As mentioned in HPI ENDOCRINE: Denies any polyuria or polydipsia. The rest of the 14-point review of systems is negative. 01/17/2018 maintained on Zosyn , redness extended beyond outlined tracings traveling up right forearm. afebrile, preliminary blood cultures negative. Good diet intake, no nausea vomiting or diarrhea. Denies chest pain, palpitations or increased shortness of breath. 01/18/2018 maintained on Unasyn and vancomycin as per infectious disease, slow to improve. Edema, redness persisted up right forearm. Ultrasound of the affected extremity reported phlegmon, cellulitis and edema. Afebrile. Culture of pustule from affected site obtained. Denies any chest pain, palpitations or increasing shortness of breath. Objective - Vital Signs Vital signs: Vital Signs Temp 97.1 F L 01/18/18 15:00 Pulse 84 08/24/18 15:56 Resp 16 01/18/18 15:00 BP 119/67 01/18/18 15:00 Pulse Ox 95 01/18/18 15:00 Intake & Output 01/17/18 01/18/18 01/18/18 18:59 06:59 18:59 Intake Total 1025 Balance 1025 Weight 49.895 kg Intake: Oral 1025 Other: Voiding Method Toilet Toilet # Voids 2 2 4 # Bowel Movements 0 - Exam GENERAL: The patient is alert and oriented x3, not in any acute distress. HEENT: Pupils are round and equally reacting to light. EOMI. No scleral icterus. No conjunctival pallor. Normocephalic, atraumatic. Oral mucosa moist. CARDIOVASCULAR: S1 and S2 present. No murmurs, rubs, or gallops. PULMONARY: Chest is clear to auscultation, no wheezing or crackles. ABDOMEN: Soft, nontender, nondistended, normoactive bowel sounds. No palpable organomegaly. MUSCULOSKELETAL: No joint swelling or deformity. EXTREMITIES: No cyanosis, clubbing, or pedal edema. NEUROLOGICAL: Gross neurological examination did not reveal any focal deficits. SKIN: Multiple areas of cat bite/scratch in the right hand and the right forearm and in the hand as well. No induration;redness , edema, few pustules of mid forearm area posteriorly (dorsal),extending beyond outlined tracings, traveling up right forearm . - Labs CBC & Chem 7: 01/18/18 08:47 01/18/18 08:47 Labs: Abnormal Lab Results - Last 24 Hours (Table) 01/18/18 Range/Units 08:47 Sodium 135 L (137-145) mmol/L Glucose 141 H (74-99) mg/dL Microbiology - Last 24 Hours (Table) 01/16/18 11:43 Blood Culture - Preliminary Blood No Growth after 48 hours Assessment and Plan Assessment: -Cellulitis: Secondary to cat bite, cat scratch -COPD without any acute exacerbation -Hyperlipidemia -Gastroesophageal reflux disease -Hyponatremia possibly hypervolemic hyponatremia Plan: Continue on current medication regime ,monitoring and symptomatic treatment. Culture obtained of affected area- results pending. Continues on Unasyn and vancomycin as per infectious disease. Close monitoring of electrolytes with repeat labs ordered for a.m. The impression and plan of care has been dictated as directed. : I performed a history and examination of this patient, discussed the same with the dictator. I agree with the dictator's note ,documented as a scribe. Any additional findings or plans will be noted.
[2018-01-18] MEDS: diphenhydrAMINE 50 MG CAP PO SCH (20:57)
[2018-01-18] MEDS: ATORVASTATIN 10 MG TAB PO SCH (20:57)
[2018-01-19] MEDS: SODIUM CHLORIDE 0.9% 1,000 ML IV SCH ×2 (01:14→12:16)
[2018-01-19] MEDS: VANCOMYCIN 750 MG in SODIUM CHLORIDE 0.9% 250 ML IVPB SCH ×2 (04:22→17:19)
[2018-01-19] MEDS: AMPICILLIN-SULBACTAM 3 GM in SODIUM CHLORIDE 0.9% 100 ML IVPB SCH ×4 (05:58→18:17)
[2018-01-19] MEDS: IPRATROPIUM 0.5 MG/2.5 ML NEBU INHALATION SCH ×4 (07:16→20:07)
[2018-01-19] MEDS: SYMBICORT 160-4.5 MCG INHALER INHALATION SCH ×2 (07:19→20:07)
[2018-01-19] MEDS: ACETAMINOPHEN TAB 500 MG TAB PO SCH ×2 (08:21→20:55)
[2018-01-19] MEDS: CHOLECALCIFEROL 1,000 UNIT TAB PO SCH (08:22)
[2018-01-19] MEDS: PANTOPRAZOLE 40 MG TABLET PO SCH (08:22)
[2018-01-19] MEDS: ASPIRIN 81 MG PO SCH (08:22)
[2018-01-19] MEDS: MAGNESIUM OXIDE 400 MG TAB PO SCH (08:22)
[2018-01-19] MEDS: MULTIVITAMINS, THERA 1 EACH TAB PO SCH (08:22)
[2018-01-19] MEDS: CALCIUM CARBONATE 500 MG CHEWABLE PO SCH (08:22)
[2018-01-19] MEDS: VITAMIN B COMPLEX PO SCH (08:24)
[2018-01-19] MEDS: VITAMIN E (DL,TOCOPHERYL ACET) 400 UNIT CAP PO SCH (08:24)
[2018-01-19] MEDS: ZINC SULFATE 220 MG CAP PO SCH (08:25)
[2018-01-19] MEDS ORDERED: VANCOMYCIN TROUGH DUE 1 EACH MISC MISCELLANE ONE (16:00)
[2018-01-19] MEDS: diphenhydrAMINE 50 MG CAP PO SCH (20:55)
[2018-01-19] MEDS: ATORVASTATIN 10 MG TAB PO SCH (20:57)
--- NOTE | 2018-01-19 21:21 | PN ---
PROGRESS NOTE DATE OF SERVICE: January 19, 2018. PRESENTING COMPLAINT: Cat bite. INTERVAL HISTORY: This is a patient presented with a neighbor's cat bite who came inside her house and was given Augmentin, discharged home, became worse and got readmitted. The patient has been on IV antibiotics. Pain, swelling and redness is improving. The patient tolerating a diet. Has been up to the bathroom, being followed by Infectious Disease. REVIEW OF SYSTEMS: Done for constitutional, cardiovascular, GI, pulmonary, dermatologic; relevant findings as above. CURRENT MEDICATIONS: Reviewed that include IV Unasyn and vancomycin. PHYSICAL EXAMINATION: VITAL SIGNS: Temperature 97, pulse 79, respiratory 20, blood pressure 127/70. Pulse ox 95 percent on room air. GENERAL APPEARANCE: Sitting up, awake. Comfortable. EYES: Pupils equal. Conjunctivae normal. HEENT external appearance of nose and ears normal. Oral cavity normal. NECK: JVD not raised. Mass not palpable. RESPIRATORY: Effort normal. LUNGS are clear. CARDIOVASCULAR: 1st and second sounds normal. No edema. ABDOMEN: Soft, nontender. Liver and spleen not palpable. PSYCHIATRY: Alert and oriented times three. Mood and affect normal. DERMATOLOGICAL: Areas of redness in the right upper extremity with improvement as noted from the skin carrasco site that is a healing pustule and some redness around the elbow area with some loose skin. INVESTIGATIONS: White count 7.7, potassium 4.4. BUN and creatinine is normal. Wound cultures growing gram-negative bacilli. ASSESSMENT: 1. Acute cellulitis of multiple sites in the right upper extremity secondary to cat bite. 2. Gastroesophageal reflux disease. 3. Hyperlipidemia. 4. Primary osteoarthritis. 5. Hiatal hernia. 6. Chronic obstructive pulmonary disease in an ex-smoker. PLAN: Await culture results to come back. In the meantime, continue current medication and treatment plan including IV antibiotics. Care was discussed with the patient. Told the patient to keep her right arm elevated above the level of the heart. Questions were answered. MMODL / IJN: [id number] /
[2018-01-20] MEDS: AMPICILLIN-SULBACTAM 3 GM in SODIUM CHLORIDE 0.9% 100 ML IVPB SCH ×4 (00:13→18:38)
[2018-01-20] MEDS: SODIUM CHLORIDE 0.9% 1,000 ML IV SCH ×3 (00:22→18:38)
[2018-01-20] MEDS: VANCOMYCIN 750 MG in SODIUM CHLORIDE 0.9% 250 ML IVPB SCH ×2 (05:00→16:43)
[2018-01-20] MEDS: IPRATROPIUM 0.5 MG/2.5 ML NEBU INHALATION SCH ×4 (07:05→19:27)
[2018-01-20] MEDS: SYMBICORT 160-4.5 MCG INHALER INHALATION SCH ×2 (07:05→19:27)
[2018-01-20] MEDS: VITAMIN E (DL,TOCOPHERYL ACET) 400 UNIT CAP PO SCH (07:55)
[2018-01-20] MEDS: HYDROcodone/APAP 5-325MG 1 EACH TAB PO PRN ×2 (07:55→16:43)
[2018-01-20] MEDS: ZINC SULFATE 220 MG CAP PO SCH (07:55)
[2018-01-20] MEDS: CALCIUM CARBONATE 500 MG CHEWABLE PO SCH (07:56)
[2018-01-20] MEDS: MAGNESIUM OXIDE 400 MG TAB PO SCH (07:56)
[2018-01-20] MEDS: CHOLECALCIFEROL 1,000 UNIT TAB PO SCH ×2 (07:56→07:58)
[2018-01-20] MEDS: PANTOPRAZOLE 40 MG TABLET PO SCH (07:56)
[2018-01-20] MEDS: MULTIVITAMINS, THERA 1 EACH TAB PO SCH (07:56)
[2018-01-20] MEDS: ASPIRIN 81 MG PO SCH (07:56)
[2018-01-20] MEDS: ACETAMINOPHEN TAB 500 MG TAB PO SCH ×2 (07:56→21:16)
[2018-01-20] MEDS: VITAMIN B COMPLEX PO SCH (07:57)
[2018-01-20 10:02] LABS: Anion Gap 10 mmol/L; Calcium 8.6 mg/dL (8.4-10.2); Carbon Dioxide 20 mmol/L (22-30); Chloride 106 mmol/L (98-107); Glucose 116 mg/dL (74-99); Sodium 136 mmol/L (137-145)
[2018-01-20 10:03] LABS: Potassium 4.9 mmol/L (3.5-5.1)
[2018-01-20 10:04] LABS: Blood Urea Nitrogen 15 mg/dL (7-17)
[2018-01-20] MEDS: ATORVASTATIN 10 MG TAB PO SCH (21:16)
[2018-01-20] MEDS: diphenhydrAMINE 50 MG CAP PO SCH (21:16)
--- NOTE | 2018-01-20 21:56 | PN ---
PROGRESS NOTE DATE OF SERVICE: 01/20/2018. PRESENTING COMPLAINT: Cat bite. INTERVAL HISTORY: This is a patient who presented after a neighbor's cat bit her after coming in the house. Failed outpatient treatment with Augmentin, on IV antibiotics. Pain, swelling and redness continues to improve. Had got the Oc wrap to done and swelling has gone down. No nausea, vomiting. No fever. Tolerating a diet. REVIEW OF SYSTEMS: Done for constitutional, cardiovascular, GI, pulmonary, dermatological, relevant findings as above. CURRENT MEDICATIONS: Reviewed that include IV Unasyn and vancomycin. EXAMINATION: VITAL SIGNS: Temperature 98.6, pulse 83, respiratory rate 20, blood pressure 149/89, pulse ox 94 percent on room air. GENERAL APPEARANCE: Sitting on bed comfortable. EYES: Pupils equal. Conjunctivae normal. HEENT external appearance of nose and ears normal. Oral cavity normal. NECK: JVD not raised. Mass not palpable. RESPIRATORY effort normal. LUNGS are clear. CARDIOVASCULAR: 1st and 2nd sounds normal. No edema. ABDOMEN: Soft, nontender. Liver is not palpable. PSYCHIATRY: Alert and oriented times three. Mood and affect normal. NEUROLOGICAL: Oc wrap on the right upper extremity. Swelling seems to have gone down proximally. INVESTIGATIONS: Potassium 4.9, BUN and creatinine is normal. Gram stain did grow multocida. ASSESSMENT: 1. Acute cellulitis of multiple sites at the site of the bite on the right upper extremity secondary to cat bite with cultures growing Multocida. 2. Gastroesophageal reflux disease. 3. Hyperlipidemia. 4. Primary osteoarthritis. 5. Hiatal hernia. 6. Chronic obstructive pulmonary disease in an ex-smoker. PLAN: Continue current medication and treatment plan. Care was discussed with the patient. The patient hopefully should be able to switched over to oral antibiotic tomorrow and discharged home. MMODL / IJN: [id number] /
[2018-01-21] MEDS: AMPICILLIN-SULBACTAM 3 GM in SODIUM CHLORIDE 0.9% 100 ML IVPB SCH ×3 (00:38→11:29)
[2018-01-21] MEDS: SODIUM CHLORIDE 0.9% 1,000 ML IV SCH ×2 (06:25→12:44)
--- NOTE | 2018-01-21 06:33 | PN ---
PROGRESS NOTE DATE OF SERVICE: 01/20/2018. REASON FOR FOLLOWUP: Right hand cat bite cellulitis. INTERVAL HISTORY: The patient is currently afebrile. She is breathing comfortably. Denies having any chest pain, shortness of breath or cough. No abdominal pain. Overall pain, swelling and redness of the right arm has slightly decreased. EXAMINATION: Blood pressure 149/89 with a pulse of 80, temperature 98.6. She is 94% on room air. General description is an elderly female up in the bed in no distress. RESPIRATORY SYSTEM: Unlabored breathing. Clear to auscultation anteriorly. HEART: S1, S2. Regular rate and rhythm. ABDOMEN: Soft, no tenderness. Right upper extremity is currently swollen and red, but no drainage. LABS: BUN 15, creatinine 0.58. Wound culture reports Multocida. DIAGNOSTIC IMPRESSION AND PLAN: Patient with right forearm cat bite cellulitis. Culture showing positive Multocida. As no MRSA has been grown, discontinue the vancomycin. The patient continued to improve. To finish therapy with oral Augmentin and close outpatient followup. MMODL / IJN: [id number] /
[2018-01-21 06:38] VITALS: BP 143/78; RESP 16; TEMP 98.3
[2018-01-21] MEDS: VITAMIN B COMPLEX PO SCH (07:45)
[2018-01-21] MEDS: VITAMIN E (DL,TOCOPHERYL ACET) 400 UNIT CAP PO SCH (07:47)
[2018-01-21] MEDS: CALCIUM CARBONATE 500 MG CHEWABLE PO SCH (07:47)
[2018-01-21] MEDS: SYMBICORT 160-4.5 MCG INHALER INHALATION SCH (07:47)
[2018-01-21] MEDS: CHOLECALCIFEROL 1,000 UNIT TAB PO SCH (07:47)
[2018-01-21] MEDS: IPRATROPIUM 0.5 MG/2.5 ML NEBU INHALATION SCH ×2 (07:47→11:12)
[2018-01-21] MEDS: ZINC SULFATE 220 MG CAP PO SCH (07:48)
[2018-01-21] MEDS: MULTIVITAMINS, THERA 1 EACH TAB PO SCH (07:48)
[2018-01-21] MEDS: ASPIRIN 81 MG PO SCH (07:48)
[2018-01-21] MEDS: MAGNESIUM OXIDE 400 MG TAB PO SCH (07:48)
[2018-01-21] MEDS: PANTOPRAZOLE 40 MG TABLET PO SCH (07:48)
[2018-01-21] MEDS: ACETAMINOPHEN TAB 500 MG TAB PO SCH (07:51)
[2018-01-21 11:15] VITALS: PULSE 72
--- NOTE | 2018-01-21 12:09 | PN ---
PROGRESS NOTE DATE OF SERVICE: 01/21/2018 REASON FOR FOLLOWUP: Right forearm cat bite cellulitis. INTERVAL HISTORY: The patient is currently afebrile. She is breathing comfortably. Denies having any chest pain, shortness of breath, cough, no abdominal pain. Right forearm swelling has improved. No drainage. No diarrhea. PHYSICAL EXAMINATION: Blood pressure 143/70 with a pulse of 80, temperature 98.3, she is 94% on room air. General description is an elderly female, up in the bed in no distress. RESPIRATORY SYSTEM: Unlabored breathing, clear to auscultation anteriorly. HEART: S1, S2. Regular rate and rhythm. ABDOMEN: Soft, no tenderness. Right forearm swelling and redness improved, no drainage. LABS: The wound culture is positive for . DIAGNOSTIC IMPRESSION AND PLAN: Patient with right forearm cat bite cellulitis, culture positive for with finishing therapy with Augmentin 875 b.i.d. for 10 days. Prescription sent to pharmacy. Continue supportive care. MMODL / IJN: [id number] /
== END 2018-01-21 14:31 | disposition home or self-care (01) | DRG 603 ==
LOC: EC 11:13 → 4MS4W 12:35 → OBSVTOIN 01-17 08:17
PROVIDERS: ADMIT Hospitalist; ATTEND Hospitalist
DX: L03.113 Cellulitis of right upper limb (principal); E87.1 Hypo-osmolality and hyponatremia; J44.9 Chronic obstructive pulmonary disease, unspecified; S61.451A Open bite of right hand, initial encounter; E78.5 Hyperlipidemia, unspecified; K22.70 Barrett's esophagus without dysplasia; M81.0 Age-related osteoporosis without current pathological fracture; M19.91 Primary osteoarthritis, unspecified site; K44.9 Diaphragmatic hernia without obstruction or gangrene; K21.9 Gastro-esophageal reflux disease without esophagitis; Z79.82 Long term (current) use of aspirin; Z79.51 Long term (current) use of inhaled steroids; Z79.899 Other long term (current) drug therapy; Z85.828 Personal history of other malignant neoplasm of skin; Z86.010 Personal history of colon polyps; Z98.51 Tubal ligation status; Z87.891 Personal history of nicotine dependence; Z88.8 Allergy status to other drugs, medicaments and biological substances; Z80.0 Family history of malignant neoplasm of digestive organs; Z80.51 Family history of malignant neoplasm of kidney; W55.01XA Bitten by cat, initial encounter
CPT/HCPCS: 36415; 80048; 80053; 80202; 83605; 85025; 87040; 87070; 87075; 87205; 90471; 90715; 94640; 96365; 96366; 99283; 99284

== ENCOUNTER 2018-03-11 12:18 | Emergency (ER) | payer MEDICARE, OTHER ==
[2018-03-11 12:35] VITALS: RESP 18
--- NOTE | 2018-03-11 13:23 | ED ---
General Adult HPI - General Chief complaint: Urogenital Stated complaint: Poss UTI Time Seen by Provider: 03/11/18 12:42 Source: patient, RN notes reviewed Mode of arrival: ambulatory Limitations: no limitations - History of Present Illness Initial comments: Patient 72-year-old female presented to the emergency room today with a chief complaint of symptoms of urinary tract infection. Patient admits that over the last few days she's noticed increased pain with urination. She does admit that she's had increased frequency. She is concerned about a urinary tract infection. She states she was unable to the family doctor she came here to the emergency room. She denies any other complaints or symptoms at this time. Patient denies any recent fever, chills, shortness of breath, chest pain, back pain, abdominal pain, nausea or vomiting, numbness or tingling, headaches or visual changes, or any other complaints. - Related Data Home Medications Medication Instructions Recorded Confirmed Omeprazole [PriLOSEC] 20 mg PO AC-BRKFST 03/31/14 03/11/18 Simvastatin [Zocor] 20 mg PO HS 03/31/14 03/11/18 Albuterol Sulfate [Ventolin HFA] 1 - 2 puff INHALATION RT-QID PRN 04/21/1403/11 Budesonide-Formot 160-4.5 Mcg 2 puff INHALATION RT-BID 04/21/14 03/11/18 [Symbicort 160-4.5 Mcg Inhaler] Multivitamins, Thera [Multivitamin 1 tab PO DAILY 05/01/14 03/11/18 (formulary)] Tiotropium 18 Mcg/Puff [Spiriva] 1 cap INHALATION RT-DAILY 05/29/14 03/11/18 Vitamin B Complex 1 tab PO DAILY 09/22/14 03/11/18 Vitamin E 1,200 unit PO DAILY 09/22/14 03/11/18 Acetaminophen/Diphenhydramine 2 tab PO HS 10/24/14 03/11/18 [Tylenol PM 500-25mg] Denosumab [Prolia] 60 mg SQ Q180D 10/24/14 03/11/18 Aspirin [Adult Low Dose Aspirin EC] 81 mg PO DAILY 04/04/16 03/11/18 Calcium/Magnesium/Zinc 1 tab PO DAILY 12/06/17 03/11/18 [Ljdwjjs-Rykdmujht-Baer Tablet] Cholecalciferol [Vitamin D3] 4,000 unit PO DAILY 12/06/17 03/11/18 Previous Rx's Medication Instructions Recorded Acetaminophen Tab [Tylenol] 650 mg PO Q6HR PRN tab 01/18/18 Sulfamethox-Tmp 800-160Mg [Bactrim 1 tab PO Q12HR #14 tab 03/11/18 DS 800-160 mg] Allergies Allergy/AdvReac Type Severity Reaction Status Date / Time bupropion HCl Allergy Rash/Hives Verified 03/11/18 14:01 [From Wellbutrin] Review of Systems ROS Statement: Those systems with pertinent positive or pertinent negative responses have been documented in the HPI. ROS Other: All systems not noted in ROS Statement are negative. Past Medical History Past Medical History: Cancer, COPD, GERD/Reflux, Hyperlipidemia, Osteoarthritis (OA) Additional Past Medical History / Comment(s): 01/16/18 cat bite rt arm/ infection. other pmh:HIATAL HERNIA, HX SKIN CANCER & CURRENT SKIN CANCER ON HER BACK. ,JAEGER'S DISEASE, OSTEOPOROSIS., HX OF COLON POLYPS. History of Any Multi-Drug Resistant Organisms: None Reported Past Surgical History: Breast Surgery, Tubal Ligation Additional Past Surgical History / Comment(s): BRONCHOSCOPY, BREAST BX, EGD., PROCEDURE TO "CUT NERVES IN NECK" Past Anesthesia/Blood Transfusion Reactions: Motion Sickness, Postoperative Nausea & Vomiting (PONV) Past Psychological History: No Psychological Hx Reported Smoking Status: Former smoker Past Alcohol Use History: None Reported Past Drug Use History: None Reported - Past Family History Brother(s) Family Medical History: Cancer Additional Family Medical History / Comment(s): BROTHER # 1 PANCREAS CA. BROTHER #2 KIDNEY CA General Exam - General Exam Comments Initial Comments: General: The patient is awake and alert, in no distress, and does not appear acutely ill. Eye: Pupils are equal, round and reactive to light. Extra-ocular movements are intact. No nystagmus. There is normal conjunctiva bilaterally. No signs of icterus. Ears, nose, mouth and throat: There are moist mucous membranes and no oral lesions. Neck: The neck is supple, there is no tenderness or JVD. Cardiovascular: There is a regular rate and rhythm. No murmur, rub or gallop is appreciated. Respiratory: Lungs are clear to auscultation, respirations are non-labored, breath sounds are equal. No wheezes, stridor, rales, or rhonchi. Gastrointestinal: Soft, non-distended, non-tender abdomen without masses or organomegaly noted. There is no rebound or guarding present. No CVA tenderness. Musculoskeletal: Normal ROM, no tenderness. Sensation intact. Strength 5/5. Pulses equal bilaterally 2+. Neurological: A&O x 3. CN II-XII intact, There are no obvious motor or sensory deficits. Coordination appears grossly intact. Speech is normal. Skin: Skin is warm and dry and no rashes or lesions are noted. Psychiatric: Cooperative, appropriate mood & affect, normal judgment. Limitations: no limitations Course Vital Signs 03/11/18 12:33 Temperature 98 F Pulse Rate 87 Respiratory 18 Rate Blood Pressure 122/74 O2 Sat by Pulse 96 Oximetry Medical Decision Making - Medical Decision Making Patient's urinalysis does show evidence for urinary tract infection. Patient given dose Rocephin here in emergency room discharged home continue on antibiotics advised follow-up family doctor have repeat urinalysis later in the week. Advised return to emergency room if any symptoms increase or worsen. She states understanding and is in agreement - Lab Data Lab Results 03/11/18 Range/Units 13:03 Urine Color Yellow Urine Appearance Cloudy H (Clear) Urine pH 5.5 (5.0-8.0) Ur Specific [place] 1.012 (1.001-1.035) Urine Protein 1+ H (Negative) Urine Glucose (UA) Negative (Negative) Urine Ketones Negative (Negative) Urine Blood Moderate H (Negative) Urine Nitrite Negative (Negative) Urine Bilirubin Negative (Negative) Urine Urobilinogen <2.0 (<2.0) mg/dL Ur Leukocyte Esterase Large H (Negative) Urine RBC 82 H (0-5) /hpf Urine WBC >182 H (0-5) /hpf Urine WBC Clumps Many H (None) /hpf Ur Squamous Epith Cells 1 (0-4) /hpf Urine Bacteria Moderate H (None) /hpf Urine Mucus Rare H (None) /hpf Disposition Clinical Impression: UTI (urinary tract infection) Disposition: HOME SELF-CARE Condition: Good Instructions: Urinary Tract Infection in Women (ED) Additional Instructions: Please use medication as discussed. Please follow-up with family doctor in the next 2 days of symptoms have not improved. Please return to emergency room if the symptoms increase or worsen or for any other concerns. Prescriptions: Sulfamethox-Tmp 800-160Mg [Bactrim DS 800-160 mg] 1 tab PO Q12HR #14 tab Is patient prescribed a controlled substance at d/c from ED?: No Referrals: Armando Morgan DO [Primary Care Provider] - 1-2 days Time of Disposition: 14:27
[2018-03-11 13:36] LABS: Appearance,Urine Cloudy (Clear); Bacteria,Urine Moderate /hpf; Bilirubin,Urine Negative (Negative); Blood,Urine Moderate (Negative); Color,Urine Yellow; Glucose,Urine (UA) Negative (Negative); Ketones,Urine Negative (Negative); Leukocyte Esterase,Urine Large (Negative); Mucus,Urine Rare /hpf; Nitrite,Urine Negative (Negative); PH, Urine 5.5 (5.0-8.0); Protein,Urine 1+ (Negative); RBC,Urine 82 /hpf (0-5); Specific Gravity,Urine 1.012 (1.001-1.035); Squamous Epithelial Cell,Urine 1 /hpf (0-4); Urobilinogen,Urine <2.0 mg/dL (<2.0); WBC,Urine >182 /hpf (0-5)
[2018-03-11] MEDS ORDERED: cefTRIAXone 1,000 MG VIAL (IM USE) IM STA (14:21)
[2018-03-11 14:44] VITALS: BP 138/75; PULSE 73; TEMP 98.1
== END 2018-03-11 14:40 | disposition home or self-care (01) ==
LOC: EC 12:18
DX: N39.0 Urinary tract infection, site not specified (principal); J44.9 Chronic obstructive pulmonary disease, unspecified; K21.9 Gastro-esophageal reflux disease without esophagitis; E78.5 Hyperlipidemia, unspecified; M81.0 Age-related osteoporosis without current pathological fracture; Z87.891 Personal history of nicotine dependence; Z85.828 Personal history of other malignant neoplasm of skin; Z79.51 Long term (current) use of inhaled steroids; Z79.82 Long term (current) use of aspirin; Z79.899 Other long term (current) drug therapy; Z88.8 Allergy status to other drugs, medicaments and biological substances
CPT/HCPCS: 81001; 87086; 99283; 96372; J0696; 87077; 87186

== ENCOUNTER 2018-05-26 12:47 | Emergency (ER) | payer MEDICARE, OTHER ==
[2018-05-26 13:12] VITALS: BP 147/89; PULSE 99; RESP 20; TEMP 97.4
--- NOTE | 2018-05-26 14:29 | XR ---
EXAMINATION TYPE: XR chest 2V DATE OF EXAM: 05/26/2018 COMPARISON: 05/15/2015 HISTORY: Cough and congestion TECHNIQUE: Frontal and lateral views of the chest are obtained. FINDINGS: Heart and mediastinum are normal. Lungs are clear. Costophrenic angles are clear. Thoracic aorta shows mild atheromatous change. Bony thorax is intact. IMPRESSION: No active cardiopulmonary disease. There is probably COPD. No change.
[2018-05-26] MEDS ORDERED: AMOXIC-POT CLAV 875MG STARTER 2 EACH TABLET PO STA (14:35)
--- NOTE | 2018-05-26 14:37 | ED ---
URI HPI - General Chief Complaint: Upper Respiratory Infection Stated Complaint: Ear pain Time Seen by Provider: 05/26/18 13:59 Source: patient Mode of arrival: ambulatory Limitations: no limitations - History of Present Illness Initial Comments: This is a pleasant well-appearing 73-year-old male past medical history of COPD , Jaeger's esophagus and skin cancer presenting today for chief complaint of congestion, ear and sinus pressurex 5 days. Patient states that she began experiencing congestion and sinus pressure beginning . She also noted a mild cough and sore throat with cough. Patient denies any chest pain, dyspnea on exertion, or shortness of breath. Patient states she comes down with sinusitis every year and this feels identical to when she's had in the past. Patient does admit to bilateral ear pressure. Patient denies any ear drainage. Patient denies any headache, visual changes, diplopia, nausea, vomiting, abdominal pain, diarrhea, fever, chills or night sweats. Remainder of ROS negative. Upon arrival patient is well-appearing, afebrile vital signs within acceptable limits. - Related Data Home Medications Medication Instructions Recorded Confirmed Omeprazole [PriLOSEC] 20 mg PO AC-BRKFST 03/31/14 04/11/18 Simvastatin [Zocor] 20 mg PO HS 03/31/14 04/11/18 Albuterol Sulfate [Ventolin HFA] 1 - 2 puff INHALATION RT-QID PRN 04/21/1404/11 Budesonide-Formot 160-4.5 Mcg 2 puff INHALATION RT-BID 04/21/14 04/11/18 [Symbicort 160-4.5 Mcg Inhaler] Multivitamins, Thera [Multivitamin 1 tab PO DAILY 05/01/14 04/11/18 (formulary)] Tiotropium 18 Mcg/Puff [Spiriva] 1 cap INHALATION RT-DAILY 05/29/14 04/11/18 Vitamin B Complex 1 tab PO DAILY 09/22/14 04/11/18 Vitamin E 1,200 unit PO DAILY 09/22/14 04/11/18 Acetaminophen/Diphenhydramine 2 tab PO HS 10/24/14 04/11/18 [Tylenol PM 500-25mg] Denosumab [Prolia] 60 mg SQ Q180D 10/24/14 04/11/18 Aspirin [Adult Low Dose Aspirin EC] 81 mg PO DAILY 04/04/16 04/11/18 Calcium/Magnesium/Zinc 1 tab PO DAILY 12/06/17 04/11/18 [Wnayxrs-Zavwzbhst-Lxss Tablet] Cholecalciferol [Vitamin D3] 4,000 unit PO DAILY 12/06/17 04/11/18 Previous Rx's Medication Instructions Recorded Acetaminophen Tab [Tylenol] 650 mg PO Q6HR PRN tab 01/18/18 Amoxicillin/Potassium Clav 1 tab PO Q12HR 5 Days #10 tab 05/26/18 [Augmentin 875-125 Tablet] Ipratropium [place] 0.06%Nasal 2 spray EA NOSTRIL BID 4 Days #1 05/26/18 [Atrovent Nasal 0.06%] bottle Allergies Allergy/AdvReac Type Severity Reaction Status Date / Time bupropion HCl Allergy Rash/Hives Verified 05/26/18 13:12 [From Wellbutrin] Review of Systems ROS Statement: Those systems with pertinent positive or pertinent negative responses have been documented in the HPI. ROS Other: All systems not noted in ROS Statement are negative. Constitutional: Denies: fever, chills, night sweats Eyes: Denies: vision change ENT: Reports: throat pain, congestion (Sinus pressure), other. Denies: ear pain Respiratory: Reports: cough. Denies: dyspnea, wheezes, hemoptysis, stridor Cardiovascular: Denies: chest pain, palpitations, dyspnea on exertion Endocrine: Denies: fatigue Gastrointestinal: Denies: abdominal pain, nausea, vomiting, diarrhea Genitourinary: Denies: urgency, dysuria, frequency, hematuria Skin: Denies: rash, lesions Neurological: Denies: headache, weakness Past Medical History Past Medical History: Cancer, COPD, GERD/Reflux, Hyperlipidemia, Osteoarthritis (OA) Additional Past Medical History / Comment(s): HIATAL HERNIA, SKIN CANCER,JAEGER 'S DISEASE History of Any Multi-Drug Resistant Organisms: None Reported Past Surgical History: Breast Surgery, Tubal Ligation Additional Past Surgical History / Comment(s): BRONCHOSCOPY, BREAST BX, EGD., PROCEDURE TO "CUT NERVES IN NECK" Past Anesthesia/Blood Transfusion Reactions: Motion Sickness, Postoperative Nausea & Vomiting (PONV) Past Psychological History: No Psychological Hx Reported Smoking Status: Former smoker Past Alcohol Use History: None Reported Past Drug Use History: None Reported - Past Family History Brother(s) Family Medical History: Cancer Additional Family Medical History / Comment(s): BROTHER # 1 PANCREAS CA. BROTHER #2 KIDNEY CA General Exam - General Exam Comments Initial Comments: General: The patient is awake and alert, in no distress, and does not appear acutely ill. Eye: Pupils are equal, round and reactive to light, extra-ocular movements are intact. No nystagmus. There is normal conjunctiva bilaterally. No signs of icterus. Ears, nose, mouth and throat: There are moist mucous membranes and no oral lesions. Oropharynx is nonerythematous, no tonsillar enlargement To lesion. Uvula midline. Tympanic membranes are pearly, cone of light and malleus present bilaterally. No evidence of bulging or retractions, no effusion. Within normal limits bilaterally. External auditory canal not edematous or erythematous. No pain to palpation of the tragus or pulling of the auricle. No pain to palpation of the mastoid. No skin anterior cervical lymphadenopathy. Patient is tender to patient over the maxillary sinuses b/l. Pt admits to increased pressure with downward head position. Neck: The neck is supple, there is no tenderness or JVD. No nuchal rigidity Cardiovascular: There is a regular rate and rhythm. No murmur, rub or gallop is appreciated. Respiratory: Lungs are clear to auscultation, respirations are non-labored, breath sounds are equal. No wheezes, stridor, rales, or rhonchi. Musculoskeletal: Normal ROM, no tenderness. Strength 5/5. Sensation intact. Pulses equal bilaterally 2+. Neurological: A&O x 3. CN II-XII intact, There are no obvious motor or sensory deficits. Coordination appears grossly intact. Speech is normal. Skin: Skin is warm and dry and no rashes or lesions are noted. Psychiatric: Cooperative, appropriate mood & affect, normal judgment. Limitations: no limitations Course Vital Signs 05/26/18 13:09 Temperature 97.4 F L Pulse Rate 99 Respiratory 20 Rate Blood Pressure 147/89 O2 Sat by Pulse 98 Oximetry Medical Decision Making - Medical Decision Making 73-year-old female presenting today with sinus pressure. Ear exam within normal limits. She does have maxillary sinus pressure to palpation. Remainder of examination no marked findings. Chest x-ray negative. Patient denies any shortness of breath or chest pain. Patient's vital signs within acceptable limits. Patient is well-appearing. At this time I do feel patient has sinusitis. Patient be treated with Augmentin. Given normal examination with upper respiratory symptoms I feel patient has eustachian tube dysfunction. Patient was given nasal spray for symptomatic treatment. Discussed case with Dr. Almendarez, who agrees with impression and plan. Patient be discharged with primary care follow-up in the next 1-2 days. Patient is agreeable discharge. Patient appears happy with plan denies questions at this time. All return parameters discussed at length prior to discharge. Disposition Clinical Impression: Sinusitis, Eustachian tube dysfunction Disposition: HOME SELF-CARE Condition: Good Instructions: Sinusitis (ED) Additional Instructions: Please use medication as discussed. Please follow-up with family doctor in the next 2 days. Please return to emergency room if the symptoms increase or worsen or for any other concerns. Prescriptions: Amoxicillin/Potassium Clav [Augmentin 875-125 Tablet] 1 tab PO Q12HR 5 Days #10 tab Is patient prescribed a controlled substance at d/c from ED?: No Referrals: Armando Morgan DO [Primary Care Provider] - 1-2 days Time of Disposition: 14:37
== END 2018-05-26 14:49 | disposition home or self-care (01) ==
LOC: EC 12:47
DX: J32.9 Chronic sinusitis, unspecified (principal); H69.83 Other specified disorders of Eustachian tube, bilateral; J44.9 Chronic obstructive pulmonary disease, unspecified; K22.70 Barrett's esophagus without dysplasia; K21.9 Gastro-esophageal reflux disease without esophagitis; E78.5 Hyperlipidemia, unspecified; Z79.899 Other long term (current) drug therapy; Z79.51 Long term (current) use of inhaled steroids; Z79.82 Long term (current) use of aspirin; Z88.8 Allergy status to other drugs, medicaments and biological substances; Z87.891 Personal history of nicotine dependence; Z85.828 Personal history of other malignant neoplasm of skin
CPT/HCPCS: 71046; 99283

== ENCOUNTER → 2018-10-11 | Outpatient (CLI) | payer MEDICARE, OTHER ==
[~2018-10-11] MED LIST changes: +DENOSUMAB 60 MG/ML 1 ML SYRINGE SQ ONE; -LACTATED RINGERS 1,000 ML IV SCH; -LIDOCAINE 1% 20 ML VIAL (10MG/ML) FOR IV START INTRADERMA PRN
[2018-10-11 14:33] VITALS: BP 113/76; PULSE 99; RESP 16; TEMP 97.7
== END | disposition home or self-care (01) ==
LOC: PROCWHC3 13:39
PROVIDERS: ATTEND Family Medicine
DX: M81.0 Age-related osteoporosis without current pathological fracture (principal)
CPT/HCPCS: 96372; J0897

== ENCOUNTER → 2019-01-03 | Outpatient (CLI) | payer MEDICARE, OTHER ==
--- NOTE | 2019-01-03 15:26 | BD ---
EXAMINATION TYPE: Axial Bone Density DATE OF EXAM: 01/03/2019 COMPARISON: 10/30/2013 CLINICAL HISTORY: M 81.0 Height: 62.5 IN Weight: 110 LBS FRAX RISK QUESTIONS: Glucocorticoids (More than 3mos): SYMBICORT INHALER FOR 3 YEARS TWICE A DAY. PT DOES NOT KNOW DOSE. (Ex: prednisone, prednisolone, methylprednisolone, dexamethasone, and hydrocortisone). RISK FACTORS HISTORY OF: Family History of Osteoporosis: YES MATERNAL GRANDMOTHER Active: YES Postmenopausal woman: AGE 51 MEDICATIONS: Prednisone or other steroids: SYMBICORT INHALER TWICE A DAY FOR 3 YEARS. PT DOES NOT KNOW DOSE Osteoporosis Medications: YES Which medication: Prolia How Lon YEARS Additional Medications: CALCIUM, MAGNESIUM, VIT D, PROLIA, MULTI VIT, ZOCOR, OMEPRAZOLE, EXAM MEASUREMENTS: Bone mineral densitometry was performed using the [employer]. Bone mineral density as measured about the Lumbar spine is: ----- L1-L4(G/cm2): 1.229 T Score Values are as follows: ----- L2: -0.5 ----- L3: 0.6 ----- L4: 1.5 ----- L1-L4: 0.4 Bone mineral density has: Increased 13.0% since study of: 10/30/2013 Bone mineral density about the R hip (g/cm2): 0.689 Bone mineral density about the L hip (g/cm2): 0.714 T Score values are as follows: -----R Neck: -2.5 -----L Neck: -2.3 -----R Total: -1.7 -----L Total: -1.7 Bone mineral density has: Increased 7.4% since study of: 10/30/2013 IMPRESSION: Osteopenia (T Score between -2.5 and -1). Borderline osteoporosis. There is slightly increased risk of fracture and the patient may be considered for treatment. Re-Screen 2-5 years. NOTE: T-SCORE=SD OF THE YOUNG ADULT MEAN.
--- NOTE | 2019-01-06 10:06 | MM ---
Reason for exam: screening (asymptomatic). Last mammogram was performed 1 year ago. History: Patient is postmenopausal, has history of other cancer at age 70, and is nulliparous. Benign u/S right breast needle core of the right breast, June 10, 2013. Cancelled Right Mammotome of the right breast, June 10, 2013. Excisional biopsy of the left breast. Physical Findings: A clinical breast exam by your physician is recommended on an annual basis and results should be correlated with mammographic findings. MG 3D Screening Mammo W/Cad Bilateral CC and MLO view(s) were taken. Prior study comparison: December 21, 2017, bilateral MG 3d screening mammo wo cad. December 20, 2016, bilateral MG 3d screening mammo w/cad. The breast tissue is heterogeneously dense. This may lower the sensitivity of mammography. Previous mammotome biopsy in the right breast. No significant changes when compared with prior studies. ASSESSMENT: Benign, BI-RAD 2 RECOMMENDATION: Routine screening mammogram of both breasts in 1 year.
== END | disposition home or self-care (01) ==
LOC: RADMAMWWP 13:36
PROVIDERS: ATTEND Family Medicine
DX: Z12.31 Encounter for screening mammogram for malignant neoplasm of breast (principal); M85.80 Other specified disorders of bone density and structure, unspecified site
CPT/HCPCS: 77063; 77067; 77080

== ENCOUNTER → 2019-04-14 | Outpatient (CLI) | payer MEDICARE, OTHER ==
--- NOTE | 2019-04-14 14:09 | XR ---
EXAMINATION TYPE: XR chest 2V DATE OF EXAM: 04/14/2019 COMPARISON: 05/26/2018 HISTORY: Night sweats and COPD TECHNIQUE: Frontal and lateral views of the chest are obtained. FINDINGS: There is no focal air space opacity, pleural effusion, or pneumothorax seen. Pulmonary hyp erinflation and biapical lucency is indicative of underlying COPD. The cardiac silhouette size is wit hin normal limits. There is diffuse osseous demineralization seen. The osseous structures are intact . IMPRESSION: No acute cardiopulmonary process. Underlying advanced COPD.
== END | disposition home or self-care (01) ==
LOC: RADXRMAIN 13:29
PROVIDERS: ATTEND Family Medicine
DX: J44.9 Chronic obstructive pulmonary disease, unspecified (principal)
CPT/HCPCS: 71046

== ENCOUNTER → 2019-04-14 | Outpatient (CLI) | payer MEDICARE, OTHER ==
[2019-04-14 13:18] VITALS: BP 127/79; PULSE 93; RESP 16; TEMP 97.6
== END | disposition home or self-care (01) ==
LOC: PROCWHC3 12:48
PROVIDERS: ATTEND Family Medicine
DX: M81.0 Age-related osteoporosis without current pathological fracture (principal)
CPT/HCPCS: 96372; J0897

== ENCOUNTER 2019-05-05 08:30 | Day surgery (SDC) | payer MEDICARE, OTHER ==
[2019-05-01 10:04] VITALS: BMI 18.3
[~2019-05-05 08:30] MED LIST changes: -DENOSUMAB 60 MG/ML 1 ML SYRINGE SQ ONE; +LACTATED RINGERS 1,000 ML IV SCH; +LIDOCAINE 1% 20 ML VIAL (10MG/ML) FOR IV START INTRADERMA PRN
[2019-05-05 09:07] VITALS: TEMP 98.5
[2019-05-05] MEDS ORDERED: LIDOCAINE 1% INJ 10MG/ML (20 ML MDV) ONE (09:25)
[2019-05-05] MEDS ORDERED: PROPOFOL 10 MG/ML 20 ML VIAL IV ONE (09:25)
--- NOTE | 2019-05-05 09:58 | P.PCN ---
Date of Procedure: 05/05/19 Description of Procedure: BRIEF HISTORY: Patient is a 73-year-old, pleasant, female patient with a known history of reflux disease and Hansen's esophagus who is been seen in the past for follow- up of the Hansen's esophagus with prior EGDs and 2015 and 2017 which were negative for dysplasia consistent with history of Hansen's esophagus. She presents at this time reporting symptoms being fairly well-controlled on daily PPI therapy. No dysphagia or odynophagia. PROCEDURE PERFORMED: Esophagogastroduodenoscopy with biopsy. PREOPERATIVE DIAGNOSIS: Hansen's esophagus. ESTIMATED BLOOD LOSS: Minimal. IV sedation per anesthesia. PROCEDURE: After informed consent was obtained, the patient was brought into the endoscopy unit. IV sedation was administered by Anesthesia under continuous monitoring. Initially the Olympus GIF-190 video endoscope was inserted into the mouth. Esophagus intubated without any difficulty. It was gradually advanced into the stomach and duodenum and carefully examined. The bulb and the second part of the duodenum appeared normal, with biopsies taken. The scope at this time was withdrawn to the stomach, adequately insufflated with air, and upon careful examination, mucosa of the antrum, body, cardia and the fundus appeared normal, with biopsies taken of the antrum and body to rule out Helicobacter pylori . The scope was then withdrawn into the esophagus. The GE junction was located at 35 cm from the incisors, with a 5 cm hiatal hernia noted. The esophagus was significant for 10 cm of salmon-colored mucosa in the mid to distal esophagus from 25 cm to 35 cm from the incisors which was extensively biopsied. The patient tolerated the procedure well. IMPRESSION: 1. Hansen's esophagus, biopsied. 2. Large hiatal hernia. 3. Biopsies of the antrum and body and duodenum RECOMMENDATIONS: The findings of this examination were discussed with the patient and her family. Okay to resume diet. Okay to resume medications. Await pathology from biopsies. Anticipate repeat EGD in 2-3 years pending pathology from biopsies.
[2019-05-05 10:13] VITALS: BP 131/77; PULSE 80; RESP 15
== END 2019-05-05 10:45 | disposition home or self-care (01) ==
LOC: ORWHC2ENDO 08:30
PROVIDERS: ATTEND Internal Medicine
DX: K29.50 Unspecified chronic gastritis without bleeding (principal); K22.70 Barrett's esophagus without dysplasia; K44.9 Diaphragmatic hernia without obstruction or gangrene; E78.5 Hyperlipidemia, unspecified; J44.9 Chronic obstructive pulmonary disease, unspecified; Z85.828 Personal history of other malignant neoplasm of skin; K21.9 Gastro-esophageal reflux disease without esophagitis; Z80.51 Family history of malignant neoplasm of kidney; Z87.891 Personal history of nicotine dependence; Z80.0 Family history of malignant neoplasm of digestive organs; Z98.51 Tubal ligation status; Z97.2 Presence of dental prosthetic device (complete) (partial); Z79.82 Long term (current) use of aspirin; Z79.51 Long term (current) use of inhaled steroids; Z79.899 Other long term (current) drug therapy; Z88.8 Allergy status to other drugs, medicaments and biological substances
CPT/HCPCS: 88305; 43239; J2001; J2704

== ENCOUNTER 2019-05-31 02:13 | Emergency (ER) | payer MEDICARE, OTHER ==
[2019-05-31 02:29] VITALS: TEMP 98.1
[2019-05-31] MEDS ORDERED: IPRATROPIUM-ALBUTEROL 3 ML NEB INHALATION STA (02:45)
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
[2019-05-31 05:39] VITALS: BP 175/91; PULSE 90; RESP 18
== END 2019-05-31 06:11 | disposition home or self-care (01) ==
LOC: EC 02:13
DX: J70.5 Respiratory conditions due to smoke inhalation (principal); J44.9 Chronic obstructive pulmonary disease, unspecified; Z79.82 Long term (current) use of aspirin; Z79.899 Other long term (current) drug therapy; Z88.8 Allergy status to other drugs, medicaments and biological substances; Z85.828 Personal history of other malignant neoplasm of skin; Z87.891 Personal history of nicotine dependence
CPT/HCPCS: 71046; 93005; 94640; 99284

== ENCOUNTER → 2019-10-28 | Outpatient (CLI) | payer MEDICARE, OTHER ==
[~2019-10-28] MED LIST changes: +DENOSUMAB 60 MG/ML 1 ML SYRINGE SQ NR; -LACTATED RINGERS 1,000 ML IV SCH; -LIDOCAINE 1% 20 ML VIAL (10MG/ML) FOR IV START INTRADERMA PRN
[2019-10-28 13:25] VITALS: BP 109/58; PULSE 85; RESP 14; TEMP 98.1
== END | disposition home or self-care (01) ==
LOC: PROCWHC3 13:10
PROVIDERS: ATTEND Family Medicine
DX: M81.0 Age-related osteoporosis without current pathological fracture (principal)

== ENCOUNTER → 2020-02-12 | Outpatient (CLI) | payer MEDICARE, OTHER ==
--- NOTE | 2020-02-16 08:54 | MM ---
Reason for exam: screening (asymptomatic). Last mammogram was performed 1 year and 1 month ago. History: Patient is postmenopausal, has history of other cancer at age 70, and is nulliparous. Benign u/S right breast needle core of the right breast, June 10, 2013. Cancelled Right Mammotome of the right breast, June 10, 2013. Excisional biopsy of the left breast. Physical Findings: A clinical breast exam by your physician is recommended on an annual basis and results should be correlated with mammographic findings. MG 3D Screening Mammo W/Cad Bilateral CC and MLO view(s) were taken. Prior study comparison: January 03, 2019, bilateral MG 3d screening mammo w/cad. December 21, 2017, bilateral MG 3d screening mammo wo cad. The breast tissue is heterogeneously dense. This may lower the sensitivity of mammography. Benign calcifications in the right breast. No significant changes when compared with prior studies. ASSESSMENT: Benign, BI-RAD 2 RECOMMENDATION: Routine screening mammogram of both breasts in 1 year.
== END | disposition home or self-care (01) ==
LOC: RADMAMWWP 13:20
PROVIDERS: ATTEND Family Medicine
DX: Z12.31 Encounter for screening mammogram for malignant neoplasm of breast (principal)
CPT/HCPCS: 77063; 77067

== ENCOUNTER → 2020-02-26 | Outpatient (CLI) | payer MEDICARE, OTHER | END | disposition home or self-care (01) | LOC: LABWHC1 11:37 | PROVIDERS: ATTEND Family Medicine | DX: Z20.828 Contact with and (suspected) exposure to other viral communicable diseases (principal) ==

== ENCOUNTER → 2020-05-04 | Outpatient (CLI) | payer MEDICARE, OTHER ==
[2020-05-04 10:59] VITALS: BP 133/76; PULSE 91; RESP 16; TEMP 97.7
== END | disposition home or self-care (01) ==
LOC: PROCWHC3 10:47
PROVIDERS: ATTEND Family Medicine
DX: M81.0 Age-related osteoporosis without current pathological fracture (principal)
CPT/HCPCS: 96372; J0897

== ENCOUNTER 2020-10-24 11:31 | Emergency (ER) | payer MEDICARE, OTHER ==
[2020-10-24 11:40] VITALS: RESP 18
[2020-10-24 12:23] LABS: Basophils % (A) 0 %; Eosinophils # (A) 0.1 k/uL (0-0.7); Eosinophils % (A) 1 %; HCT 38.5 % (34.0-46.0); HGB 12.9 gm/dL (11.4-16.0); Lymphocytes # (A) 0.8 k/uL (1.0-4.8); Lymphocytes % (A) 7 %; MCHC 33.4 g/dL (31.0-37.0); MCV 92.8 fL (80.0-100.0); Mean Platelet Volume 7.1; Monocytes # (A) 0.8 k/uL (0-1.0); Monocytes % (A) 7 %; Neutrophils # (A) 10.3 k/uL (1.3-7.7); Neutrophils % (A) 84 %; Platelet Count 230 k/uL (150-450); RBC 4.15 m/uL (3.80-5.40); WBC 12.3 k/uL (3.8-10.6)
[2020-10-24 12:33] LABS: ALT 44 U/L (4-34); AST 57 U/L (14-36); African American GFR (CKD) >90 (>60 ml/min/1.73 sqM); Albumin 3.6 g/dL (3.5-5.0); Alkaline Phosphatase 79 U/L (38-126); Anion Gap 9 mmol/L; Blood Urea Nitrogen 11 mg/dL (7-17); Calcium 9.1 mg/dL (8.4-10.2); Carbon Dioxide 23 mmol/L (22-30); Chloride 95 mmol/L (98-107); Glucose 106 mg/dL (74-99); Magnesium 1.5 mg/dL (1.6-2.3); Non-African American GFR(CKD) 88 (>60 ml/min/1.73 sqM); Sodium 127 mmol/L (137-145); Total Bilirubin 0.6 mg/dL (0.2-1.3); Total Protein 6.1 g/dL (6.3-8.2)
[2020-10-24 12:38] LABS: Appearance,Urine Clear (Clear); Bacteria,Urine Rare /hpf; Bilirubin,Urine Negative (Negative); Blood,Urine Large (Negative); Color,Urine Yellow; Glucose,Urine (UA) Negative (Negative); Ketones,Urine Negative (Negative); Leukocyte Esterase,Urine Small (Negative); Mucus,Urine Rare /hpf; Nitrite,Urine Negative (Negative); Protein,Urine 2+ (Negative); RBC,Urine 29 /hpf (0-5); Specific Gravity,Urine 1.008 (1.001-1.035); Squamous Epithelial Cell,Urine <1 /hpf (0-4); Urobilinogen,Urine <2.0 mg/dL (<2.0); WBC,Urine 6 /hpf (0-5)
--- NOTE | 2020-10-24 12:39 | XR ---
EXAMINATION TYPE: XR chest 2V DATE OF EXAM: 10/24/2020 COMPARISON: Chest x-ray 05/31/2019 HISTORY: Difficulty breathing, cough and fever TECHNIQUE: Frontal and lateral views of the chest are obtained. FINDINGS: There has been interval development of some patchy increased density in the right upper lo be. No evident pneumothorax or pleural effusion. Prominent lung volumes consistent with COPD. The aor ta is dense. Cardiac mediastinal silhouette is stable. IMPRESSION: Findings suggest right upper lobe pneumonia. Patient with pre-existing emphysema. Follow -up is recommended to resolution.
[2020-10-24 12:49] LABS: D-Dimer 0.54 mg/L FEU (<0.60); INR 0.9 (<1.2); Partial Thromboplastin Time 25.5 sec (22.0-30.0); Prothrombin Time 10.2 sec (9.0-12.0)
--- NOTE | 2020-10-24 13:29 | ED ---
SOB HPI - General Source: patient Mode of arrival: ambulatory Limitations: no limitations <Venancio Daniels - Last Filed: 10/24/20 13:38> <Jesus Han - Last Filed: 10/24/20 13:55> - General Chief Complaint: Shortness of Breath Stated Complaint: SOB/Fever Time Seen by Provider: 10/24/20 11:47 - History of Present Illness Initial Comments: 75-year-old female presents to the emergency department with a chief complaint of shortness of breath. Patient reports she has history of COPD and uses multiple inhalers daily but is not oxygen dependent. Reports this feels somewhat like her COPD exacerbation but she denies any wheezing. She reports a chest discomfort in the right upper region whenever she states in a deep breath. She does report having night sweats in the morning but denies any fevers. She denies any significant coughing and has already been vaccinated for Covid. She denies any nausea vomiting lightheaded and his dizziness headache vision changes. (Venancio Daniels) - Related Data Home Medications Medication Instructions Recorded Confirmed Omeprazole [PriLOSEC] 20 mg PO AC-BRKFST 03/31/14 05/04/20 Simvastatin [Zocor] 10 mg PO HS 03/31/14 05/04/20 Albuterol Sulfate [Ventolin HFA] 1 - 2 puff INHALATION RT-QID PRN 04/21/14 1 07/05/19 Budesonide-Formot 160-4.5 Mcg 2 puff INHALATION RT-BID 04/21/14 05/04/20 [Symbicort 160-4.5 Mcg Inhaler] Multivitamins, Thera [Multivitamin 1 tab PO DAILY 05/01/14 05/04/20 (formulary)] Tiotropium 18 Mcg/Puff [Spiriva] 1 cap INHALATION RT-DAILY 05/29/14 05/04/20 Vitamin B Complex 1 tab PO DAILY 09/22/14 05/04/20 Vitamin E (Dl,Tocopheryl Acet) 1,200 unit PO DAILY 09/22/14 05/04/20 [Vitamin E] Acetaminophen/Diphenhydramine 2 tab PO HS 10/24/14 05/04/20 [Tylenol PM 500-25mg] Denosumab [Prolia] 60 mg SQ Q180D 10/24/14 05/04/20 Aspirin [Adult Low Dose Aspirin EC] 81 mg PO DAILY 04/04/16 05/04/20 Calcium/Magnesium/Zinc 1 tab PO DAILY 12/06/17 05/04/20 [Glcrdqt-Qsgawxope-Bveo Tablet] Cholecalciferol [Vitamin D3 (25 4,000 unit PO DAILY 12/06/17 05/04/20 Mcg = 1000 Iu)] Biotin 5 mg PO DAILY 10/11/18 05/04/20 Sertraline [Zoloft] 100 mg PO DAILY 10/28/19 05/04/20 Previous Rx's Medication Instructions Recorded Acetaminophen Tab [Tylenol] 650 mg PO Q6HR PRN tab 01/18/18 Amoxicillin/Potassium Clav 1 tab PO Q12HR #20 tab 10/24/20 [Augmentin 875-125 Tablet] Azithromycin [Zithromax Z-pack (6 0 mg PO DIRECTED #1 pack 10/24/20 tabs)] Allergies Allergy/AdvReac Type Severity Reaction Status Date / Time bupropion HCl Allergy Rash/Hives Verified 10/24/20 11:39 [From Wellbutrin] Review of Systems ROS Other: All systems not noted in ROS Statement are negative. <Venancio Daniels - Last Filed: 10/24/20 13:38> ROS Other: All systems not noted in ROS Statement are negative. <Jesus Han - Last Filed: 10/24/20 13:55> ROS Statement: Those systems with pertinent positive or pertinent negative responses have been documented in the HPI. Past Medical History Past Medical History: COPD Additional Past Medical History / Comment(s): HIATAL HERNIA, SKIN CANCER,JAEGER'S DISEASE History of Any Multi-Drug Resistant Organisms: None Reported Past Surgical History: Breast Surgery, Tubal Ligation Additional Past Surgical History / Comment(s): BRONCHOSCOPY, BREAST BX, EGD., PROCEDURE TO "CUT NERVES IN NECK" Past Anesthesia/Blood Transfusion Reactions: Motion Sickness, Postoperative Nausea & Vomiting (PONV) Past Psychological History: No Psychological Hx Reported Smoking Status: Former smoker Past Alcohol Use History: None Reported Past Drug Use History: None Reported - Past Family History Brother(s) Family Medical History: Cancer Additional Family Medical History / Comment(s): BROTHER # 1 PANCREAS CA. BROTHER #2 KIDNEY CA <Venancio Daniels - Last Filed: 10/24/20 13:38> General Exam Limitations: no limitations General appearance: alert, in no apparent distress Head exam: Present: atraumatic, normocephalic, normal inspection Eye exam: Present: normal appearance, PERRL, EOMI Pupils: Present: normal accommodation ENT exam: Present: normal exam, normal oropharynx, mucous membranes moist, TM's normal bilaterally, normal external ear exam Neck exam: Present: normal inspection, full ROM. Absent: tenderness Respiratory exam: Present: normal lung sounds bilaterally. Absent: respiratory distress, wheezes, rales, rhonchi, stridor Cardiovascular Exam: Present: regular rate, normal rhythm, normal heart sounds. Absent: systolic murmur GI/Abdominal exam: Present: soft. Absent: distended, tenderness, guarding, rebound Extremities exam: Present: normal inspection, full ROM, normal capillary refill. Absent: tenderness, pedal edema, joint swelling Back exam: Present: normal inspection, full ROM. Absent: tenderness, CVA tenderness (R), CVA tenderness (L) Neurological exam: Present: alert, oriented X3 Psychiatric exam: Present: normal affect, normal mood Skin exam: Present: warm, dry, intact, normal color <Venancio Daniels - Last Filed: 10/24/20 13:38> Course <Jesus Han - Last Filed: 10/24/20 13:55> Vital Signs 10/24/20 10/24/20 11:36 12:55 Temperature 98.3 F Pulse Rate 97 88 Respiratory 18 18 Rate Blood Pressure 140/82 124/85 O2 Sat by Pulse 97 99 Oximetry - Reevaluation(s) Reevaluation #1: 10/24/20 13:53 PA supervision: I personally evaluate this case with the present with complaints shortness of breath. She was found have evidence of a infiltrate on the right upper lobe. Patient was offered admission and would rather be discharged at this time she is breathing with improvement. Strict return parameters were suggested patient will discharged and follow-up with her doctor. (Jesus Han) Medical Decision Making - Lab Data Result diagrams: 10/24/20 12:12 10/24/20 12:12 <Venancio Daniels - Last Filed: 10/24/20 13:38> - Lab Data Result diagrams: 10/24/20 12:12 10/24/20 12:12 <Jesus Han - Last Filed: 10/24/20 13:55> - Medical Decision Making 75-year-old female with history of COPD presents to emergency Department with a chief complaint shortness of breath. On physical examination, patient is well- appearing with lungs sounding clear and auscultation. CBC reveals mild leukocytosis of 12.2 K. CMP reveals hyponatremia with a sodium of 127. Magnesium of 1.5. Potassium within normal limits. No acute EKG changes. Chest x-ray reveals a right upper lobe pneumonia. Negative d-dimer. I recommended admission, she declined. I will start patient 1 g Rocephin give her an incentive spirometer. We'll discharge her with Augmentin and a Z-Bogdan. Advised her to continue using the inhalers at home. Strict return parameters were thoroughly discussed the patient is standing and agreeable. Case discussed with Dr. Han. (Venancio Daniels) - Lab Data Lab Results 10/24/20 10/24/20 10/24/20 Range/Units 12:12 12:12 12:12 WBC 12.3 H (3.8-10.6) k/uL RBC 4.15 (3.80-5.40) m/uL Hgb 12.9 (11.4-16.0) gm/dL Hct 38.5 (34.0-46.0) % MCV 92.8 (80.0-100.0) fL MCH 31.0 (25.0-35.0) pg MCHC 33.4 (31.0-37.0) g/dL RDW 13.0 (11.5-15.5) % Plt Count 230 (150-450) k/uL MPV 7.1 Neutrophils % 84 % Lymphocytes % 7 % Monocytes % 7 % Eosinophils % 1 % Basophils % 0 % Neutrophils # 10.3 H (1.3-7.7) k/uL Lymphocytes # 0.8 L (1.0-4.8) k/uL Monocytes # 0.8 (0-1.0) k/uL Eosinophils # 0.1 (0-0.7) k/uL Basophils # 0.0 (0-0.2) k/uL PT 10.2 (9.0-12.0) sec INR 0.9 (<1.2) APTT 25.5 (22.0-30.0) sec D-Dimer 0.54 (<0.60) mg/L FEU Sodium 127 L (137-145) mmol/L Potassium 4.0 (3.5-5.1) mmol/L Chloride 95 L (98-107) mmol/L Carbon Dioxide 23 (22-30) mmol/L Anion Gap 9 mmol/L BUN 11 (7-17) mg/dL Creatinine 0.64 (0.52-1.04) mg/dL Est GFR (CKD-EPI)AfAm >90 (>60 ml/min/1.73 sqM) Est GFR (CKD-EPI)NonAf 88 (>60 ml/min/1.73 sqM) Glucose 106 H (74-99) mg/dL Calcium 9.1 (8.4-10.2) mg/dL Magnesium 1.5 L (1.6-2.3) mg/dL Total Bilirubin 0.6 (0.2-1.3) mg/dL AST 57 H (14-36) U/L ALT 44 H (4-34) U/L Alkaline Phosphatase 79 (38-126) U/L Troponin I (0.000-0.034) ng/mL Total Protein 6.1 L (6.3-8.2) g/dL Albumin 3.6 (3.5-5.0) g/dL Urine Color Urine Appearance (Clear) Urine pH (5.0-8.0) Ur Specific Lolo (1.001-1.035) Urine Protein (Negative) Urine Glucose (UA) (Negative) Urine Ketones (Negative) Urine Blood (Negative) Urine Nitrite (Negative) Urine Bilirubin (Negative) Urine Urobilinogen (<2.0) mg/dL Ur Leukocyte Esterase (Negative) Urine RBC (0-5) /hpf Urine WBC (0-5) /hpf Ur Squamous Epith Cells (0-4) /hpf Urine Bacteria (None) /hpf Urine Mucus (None) /hpf Coronavirus (PCR) (Not Detectd) 10/24/20 10/24/20 10/24/20 Range/Units 12:12 12:12 12:12 WBC (3.8-10.6) k/uL RBC (3.80-5.40) m/uL Hgb (11.4-16.0) gm/dL Hct (34.0-46.0) % MCV (80.0-100.0) fL MCH (25.0-35.0) pg MCHC (31.0-37.0) g/dL RDW (11.5-15.5) % Plt Count (150-450) k/uL MPV Neutrophils % % Lymphocytes % % Monocytes % % Eosinophils % % Basophils % % Neutrophils # (1.3-7.7) k/uL Lymphocytes # (1.0-4.8) k/uL Monocytes # (0-1.0) k/uL Eosinophils # (0-0.7) k/uL Basophils # (0-0.2) k/uL PT (9.0-12.0) sec INR (<1.2) APTT (22.0-30.0) sec D-Dimer (<0.60) mg/L FEU Sodium (137-145) mmol/L Potassium (3.5-5.1) mmol/L Chloride (98-107) mmol/L Carbon Dioxide (22-30) mmol/L Anion Gap mmol/L BUN (7-17) mg/dL Creatinine (0.52-1.04) mg/dL Est GFR (CKD-EPI)AfAm (>60 ml/min/1.73 sqM) Est GFR (CKD-EPI)NonAf (>60 ml/min/1.73 sqM) Glucose (74-99) mg/dL Calcium (8.4-10.2) mg/dL Magnesium (1.6-2.3) mg/dL Total Bilirubin (0.2-1.3) mg/dL AST (14-36) U/L ALT (4-34) U/L Alkaline Phosphatase (38-126) U/L Troponin I <0.012 (0.000-0.034) ng/mL Total Protein (6.3-8.2) g/dL Albumin (3.5-5.0) g/dL Urine Color Yellow Urine Appearance Clear (Clear) Urine pH 6.0 (5.0-8.0) Ur Specific Lolo 1.008 (1.001-1.035) Urine Protein 2+ H (Negative) Urine Glucose (UA) Negative (Negative) Urine Ketones Negative (Negative) Urine Blood Large H (Negative) Urine Nitrite Negative (Negative) Urine Bilirubin Negative (Negative) Urine Urobilinogen <2.0 (<2.0) mg/dL Ur Leukocyte Esterase Small H (Negative) Urine RBC 29 H (0-5) /hpf Urine WBC 6 H (0-5) /hpf Ur Squamous Epith Cells <1 (0-4) /hpf Urine Bacteria Rare H (None) /hpf Urine Mucus Rare H (None) /hpf Coronavirus (PCR) Not Detected (Not Detectd) - EKG Data EKG Comments: Sinus rhythm without acute ischemic changes Ventricular rate 91, NE 144, QRS 6, QTC 423. (Venancio Daniels) Disposition Is patient prescribed a controlled substance at d/c from ED?: No Time of Disposition: 13:41 <Venancio Daniels - Last Filed: 10/24/20 13:38> <Jesus Han - Last Filed: 10/24/20 13:55> Clinical Impression: Pneumonia Disposition: HOME SELF-CARE Condition: Stable Instructions (If sedation given, give patient instructions): Community Acquired Pneumonia (DC) Additional Instructions: Take prescribed medication as directed. Drink plenty of fluids. Return to emergency department if symptoms worsen. Follow with the primary care physician. Prescriptions: Amoxicillin/Potassium Clav [Augmentin 875-125 Tablet] 1 tab PO Q12HR #20 tab Azithromycin [Zithromax Z-pack (6 tabs)] 0 mg PO DIRECTED #1 pack Referrals: Armando Morgan DO [Primary Care Provider] - 1-2 days
[2020-10-24] MEDS ORDERED: cefTRIAXone IN SWFI 1,000 MG/10 ML SYRINGE IVP STA (13:42)
[2020-10-24 13:54] VITALS: BP 142/79; PULSE 90; TEMP 98.1
== END 2020-10-24 14:24 | disposition home or self-care (01) ==
LOC: EC 11:31
DX: J18.9 Pneumonia, unspecified organism (principal); J44.0 Chronic obstructive pulmonary disease with (acute) lower respiratory infection; Z98.51 Tubal ligation status; Z87.891 Personal history of nicotine dependence; Z79.82 Long term (current) use of aspirin; Z85.828 Personal history of other malignant neoplasm of skin
CPT/HCPCS: 36415; 93005; 85379; 80053; 83735; 84484; 85025; 85610; 85730; 81001; 87635; 71046; 99285; 96374; J0696

== ENCOUNTER → 2020-11-03 | Outpatient (CLI) | payer MEDICARE, OTHER ==
[2020-11-03 13:15] VITALS: BP 159/82; PULSE 76; RESP 15; TEMP 97.7
== END ==
LOC: PROCWHC3 13:01
PROVIDERS: ATTEND Family Medicine
DX: M81.0 Age-related osteoporosis without current pathological fracture (principal); Z88.5 Allergy status to narcotic agent; Z87.891 Personal history of nicotine dependence
CPT/HCPCS: 96372; J0897

== ENCOUNTER → 2021-03-02 | Outpatient (CLI) | payer MEDICARE, OTHER ==
--- NOTE | 2021-03-02 15:11 | XR ---
EXAMINATION TYPE: XR chest 2V DATE OF EXAM: 03/02/2021 CLINICAL HISTORY: COPD with pneumonia. TECHNIQUE: Frontal and lateral views of the chest are obtained. COMPARISON: Chest x-ray October 24, 2020 FINDINGS: There is background chronic emphysematous change without suspicious focal air space opacit y, pleural effusion, or pneumothorax seen. The cardiac silhouette size is stable and within normal l imits with atherosclerotic change aortic knob. The osseous structures are demineralized. IMPRESSION: Chronic emphysematous change without acute pulmonary process.
== END | disposition home or self-care (01) ==
LOC: RADXRMAIN 14:46
PROVIDERS: ATTEND Family Medicine
DX: J44.9 Chronic obstructive pulmonary disease, unspecified (principal)
CPT/HCPCS: 71046

== ENCOUNTER → 2021-03-10 | Outpatient (CLI) | payer MEDICARE, OTHER ==
--- NOTE | 2021-03-11 10:37 | MM ---
Reason for exam: screening (asymptomatic). Last mammogram was performed 1 year and 1 month ago. History: Patient is postmenopausal, has history of other cancer at age 70, and is nulliparous. Benign u/S right breast needle core of the right breast, June 10, 2013. Cancelled Right Mammotome of the right breast, June 10, 2013. Excisional biopsy of the left breast. Physical Findings: A clinical breast exam by your physician is recommended on an annual basis and results should be correlated with mammographic findings. MG 3D Screening Mammo W/Cad Bilateral CC and MLO view(s) were taken. Prior study comparison: February 12, 2020, bilateral MG 3d screening mammo w/cad. January 03, 2019, bilateral MG 3d screening mammo w/cad. The breast tissue is heterogeneously dense. This may lower the sensitivity of mammography. Finding #1: There is a new 2.7cm architectural distortion in the posterior position of the left breast on MLO 13/39. Finding #2: There are typically benign dystrophic, round calcifications in both breasts. Previous mammotome biopsy in the right breast. Stable distortion anterior lower outer left breast. ASSESSMENT: Incomplete: need additional imaging evaluation, BI-RAD 0 RECOMMENDATION: Ultrasound of the left breast. [facility] will attempt to contact patient to return for ultrasound.
== END | disposition home or self-care (01) ==
LOC: RADMAMWWP 12:04
PROVIDERS: ATTEND Family Medicine
DX: Z12.31 Encounter for screening mammogram for malignant neoplasm of breast (principal); Z78.0 Asymptomatic menopausal state
CPT/HCPCS: 77063; 77067

== ENCOUNTER → 2021-03-24 | Outpatient (CLI) | payer MEDICARE, OTHER ==
--- NOTE | 2021-03-25 09:56 | USB ---
Reason for exam: additional evaluation requested from abnormal screening. History: Patient is postmenopausal, has history of other cancer at age 70, and is nulliparous. Benign u/S right breast needle core of the right breast, June 10, 2013. Cancelled Right Mammotome of the right breast, June 10, 2013. Excisional biopsy of the left breast. Physical Findings: Nurse Summary: 1cm movable nodule left breast 2-3 o'clock (nurse TM). US Breast Workup Limited LT Left limited breast ultrasound including focal area of concern, retroareolar and axilla demonstrates a 0.9 x 0.8 x 0.7cm irregular, hypoechoic lesion at 3 o'clock. Biopsy recommended. These results were verbally communicated with the patient and result sheet given to the patient on 03/24/21. ASSESSMENT: Suspicious, BI-RAD 4 RECOMMENDATION: Ultrasound core biopsy of the left breast. Called office with mammographic findings and has scheduled an appointment for the patient for 05/02/21 at 1:[address] Morgan. Biopsy scheduled for 04/25/21 at 1:00. PRELIMINARY REPORT CALLED AND FAXED TO DR. MORGAN ON 03/25/21.
== END | disposition home or self-care (01) ==
LOC: RADUSWWP 14:49
PROVIDERS: ATTEND Family Medicine
DX: N63.21 Unspecified lump in the left breast, upper outer quadrant (principal); N64.89 Other specified disorders of breast

== ENCOUNTER → 2021-04-25 | Day surgery (SDC) | payer MEDICARE, OTHER ==
[2021-04-25 12:24] VITALS: RESP 16
[2021-04-25 13:44] VITALS: BP 138/79; PULSE 85; TEMP 98
--- NOTE | 2021-04-25 13:49 | USB ---
Ultrasound core biopsy left 3:00 breast. HISTORY: N63 BREAST LUMP The lesion in question within the left 3:00 breast were targeted by the undersigned. Procedure was performed by the undersigned. Informed consent was obtained and all of the patients questions were answered. The standard sterile technique was utilized and appropriate local anesthesia was obtained with 1% lidocaine. Mammotome probe was advanced and multiple core samples were obtained and sent to pathology for interpretation. Microclip marker was deployed at the site of biopsy. Post procedural mammogram demonstrates appropriate deployment of radiopaque clip marker. The patient tolerated the procedure well and left the department in stable condition. Pathology results are pending. IMPRESSION: Successful ultrasound core biopsy left 3:00 breast with pathology results pending. Pathology Results: Malignant LEFT BREAST, 3:00 POSITION, CORE BIOPSY: Invasive lobular carcinoma, Grade 2, with background fibrocystic change and focal microcalcification. See Surgical Pathology Cancer Case Summary and comment. Recommendation Surgical consult of the left breast. ANNA
== END ==
LOC: RADUSWWP 11:50
PROVIDERS: ATTEND Family Medicine
DX: C50.912 Malignant neoplasm of unspecified site of left female breast (principal); Z17.0 Estrogen receptor positive status [ER+]; Z91.09 Other allergy status, other than to drugs and biological substances
CPT/HCPCS: 19083; 88305; 88342; 88341; 77065; A4648; J2001

== ENCOUNTER → 2021-05-06 | Outpatient (CLI) | payer MEDICARE, OTHER ==
[2021-05-06 12:48] VITALS: BP 130/76; PULSE 94; RESP 16; TEMP 98.5
--- NOTE | 2021-05-06 13:31 | P.GSHP ---
History of Present Illness H&P Date: 05/06/21 Chief Complaint: invasive lobular cancer left breast Roxy is a 75 -year-old white female status post bilateral screening mammogram on [id number]. This revealed an area of concern in the left breast for which an ultrasound was recommended. This was performed on [id number] and revealed an 0.9 x 0.7 cm irregular lesion at 3:00 and biopsy was recommended. Biopsy was done on [id number] which revealed invasive lobular carcinoma. The patient is seen in consultation for Dr. Morgan. The patient does not feel anything of concern in her breast. She has had breast biopsies in the past and these have always been benign. She is not complaining of any nipple discharge or skin changes. She is not complaining of any trauma or infection in the breast. 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; no liver damage Family History: brother: pancreatic cancer brother: kidney cancer paternal aunt: colon cancer Hormonal History: menarche: 15 G0 menopause: 51 BCP: 2 years in 20's hormones: none Surgical History: bilateral breast biopsies skin cancers removed basal cell (follows with dermatology) tubaligation Medical History: COPD osteo high cholesterol Jaeger's esophagitis Social History: Nicotine: A 30 pack per day stopped for 2 years but at the most both smoked 1 pack per day 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 Drugs: none - Constitutional Constitutional: Reports sweats - EENT Comment: macular degeneration Eyes: denies blurred vision, denies pain Ears: bilateral: decreased hearing Ears, nose, mouth and throat: Denies headache, Denies sore throat - Breasts Breasts: bilateral: as per HPI - Cardiovascular Cardiovascular: Reports shortness of breath, Denies chest pain - Respiratory Comment: COPD/smoker - Gastrointestinal Gastrointestinal: Reports as per HPI, Denies abdominal pain, Denies diarrhea, Denies nausea, Denies vomiting - Menstruation Menstruation: Reports postmenopausal - Musculoskeletal Musculoskeletal: Reports as per HPI - Integumentary Integumentary: Denies pruritus, Denies rash - Neurological Neurological: Denies numbness, Denies weakness - Psychiatric Psychiatric: Reports anxiety - Endocrine Endocrine: Denies fatigue, Denies weight change - Hematologic/Lymphatic Comment: none - Allergic/Immunologic Allergic/Immunologic: Reports as per HPI Past Medical History Past Medical History: COPD Additional Past Medical History / Comment(s): HIATAL HERNIA, SKIN CANCER,JAEGER'S DISEASE History of Any Multi-Drug Resistant Organisms: None Reported Past Surgical History: Breast Surgery, Tubal Ligation Additional Past Surgical History / Comment(s): BRONCHOSCOPY, BREAST BX, EGD., PROCEDURE TO "CUT NERVES IN NECK" Past Anesthesia/Blood Transfusion Reactions: Motion Sickness, Postoperative Nausea & Vomiting (PONV) Past Psychological History: No Psychological Hx Reported Additional Psychological History / Comment(s): [place] [facility] [place] [facility] 12 steps to reach. pt is independant Smoking Status: Former smoker Past Alcohol Use History: None Reported Additional Past Alcohol Use History / Comment(s): STARTED SMOKING AT AGE 19 QUIT JULY 2016 SMOKED 1PPD Past Drug Use History: None Reported - Past Family History Brother(s) Family Medical History: Cancer Additional Family Medical History / Comment(s): BROTHER # 1 PANCREAS CA. BROTHER #2 KIDNEY CA Medications and Allergies Home Medications Medication Instructions Recorded Confirmed Type Omeprazole [PriLOSEC] 20 mg PO AC-BRKFST 03/31/14 05/06/21 History Simvastatin [Zocor] 10 mg PO HS 03/31/14 05/06/21 History Albuterol Sulfate [Ventolin HFA] 1 - 2 puff INHALATION RT-QID PRN 04/21/14 05/06/21 History Budesonide-Formot 160-4.5 Mcg 2 puff INHALATION RT-BID 04/21/14 05/06/21 History [Symbicort 160-4.5 Mcg Inhaler] Multivitamins, Thera [Multivitamin 1 tab PO DAILY 05/01/14 05/06/21 History (formulary)] Vitamin B Complex 1 tab PO DAILY 09/22/14 05/06/21 History Vitamin E (Dl,Tocopheryl Acet) 1,200 unit PO DAILY 09/22/14 05/06/21 History [Vitamin E] Acetaminophen/Diphenhydramine 2 tab PO HS 10/24/14 05/06/21 History [Tylenol PM 500-25mg] Denosumab [Prolia] 60 mg SQ Q180D 10/24/14 05/06/21 History Aspirin [Adult Low Dose Aspirin EC] 81 mg PO DAILY 04/04/16 05/06/21 History Calcium/Magnesium/Zinc 1 tab PO DAILY 12/06/17 05/06/21 History [Arfdoxs-Yuwicnffk-Cryo Tablet] Cholecalciferol [Vitamin D3 (25 5,000 unit PO DAILY 12/06/17 05/06/21 History Mcg = 1000 Iu)] Acetaminophen Tab [Tylenol] 650 mg PO Q6HR PRN tab 01/18/18 05/06/21 Rx Biotin 5 mg PO DAILY 10/11/18 05/06/21 History Lutein 20 mg PO DAILY 11/03/20 05/06/21 History Gordon-3 Fatty Acids [Gordon-3] 1,200 mg PO DAILY 11/03/20 05/06/21 History Tiotropium 2.5 Mcg/Puff [Spiriva 2 puff INHALATION DAILY 11/03/20 05/06/21 History Respimat 2.5 Mcg] Magnesium Oxide [Mag-Oxide] 250 mg PO BID 04/12/21 05/06/21 History Allergies Allergy/AdvReac Type Severity Reaction Status Date / Time bupropion HCl Allergy Rash/Hives Verified 05/06/21 12:40 [From Wellbutrin] Surgical - Exam Vital Signs Temp Pulse Resp BP 98.5 F 94 16 130/76 05/06/21 12:43 05/06/21 12:43 05/06/21 12:43 05/06/21 12:43 BMI 18.9 - General moderate distress - Eyes normal ocular movement - ENT no hearing loss, no congestion - Neck trachea midline - Respiratory normal respiratory effort - Cardiovascular Heart Sounds: normal: S1, S2 - Abdomen Abdomen: soft - Integumentary normal turgor - Neurologic no disoriented, no combative - Musculoskeletal normal gait - Psychiatric oriented to time, oriented to person, oriented to place, speech is normal, memory intact Breast Exam: BRA: 34A inspection: grade 2 ptosis bilateral palpation: right breast: Positional exam, fibrocystic changes no dominant masses or nodules of concern Right axilla: Shoddy adenopathy Patient has a soft tissue fullness in the border of the posterior right axillary fold probable lipoma Left breast: Multi-positional exam fibrocystic changes without dominant masses or nodules of concern Left axilla: No adenopathy of concern Results Patient's mammogram and ultrasound reviewed in detail with Dr. Rahman Assessment and Plan Assessment: Impression: 1. Stage IA invasive lobular carcinoma left breast 2. Probable lipoma right axillary posterior forearm 3. Prior history of alcohol use 4. COPD Plan: 1. Presentation of case at tumor board 2. Clearance from Dr. Morgan 3. Probable surgical intervention at this time for the invasive lobular carcinoma left breast/ patient would prefer lumpectomy 4. Bilateral breast MRI/ if not ultrasound 5. right axillary ultrasound and ultrasound of soft tissue lesion 6. appointment after tumor board 7. Surgery to be scheduled 8. follow up after presentation at tumor board Cc: Dr. Morgan
== END ==
LOC: WWCWWP 12:16
PROVIDERS: ATTEND Surgery
DX: C50.912 Malignant neoplasm of unspecified site of left female breast (principal); J44.9 Chronic obstructive pulmonary disease, unspecified; E78.00 Pure hypercholesterolemia, unspecified; Z86.59 Personal history of other mental and behavioral disorders; Z87.891 Personal history of nicotine dependence; Z79.51 Long term (current) use of inhaled steroids; Z79.899 Other long term (current) drug therapy; Z88.8 Allergy status to other drugs, medicaments and biological substances

== ENCOUNTER → 2021-05-06 | Outpatient (CLI) | payer MEDICARE, OTHER ==
--- NOTE | 2021-05-09 09:54 | USB ---
Reason for exam: clinical finding. History: Patient is postmenopausal, has history of breast cancer at age 75, has history of other cancer at age 70, and is nulliparous. Malignant US biopsy breast VAD LT of the left breast, April 25, 2021. Benign u/S right breast needle core of the right breast, June 10, 2013. Cancelled Right Mammotome of the right breast, June 10, 2013. Excisional biopsy of the left breast. US Breast Limited BILAT Technologist: Kimberlee Stephens Left complete breast ultrasound includes all four quadrants, the retroareolar region and axilla. Finding demonstrates a 1.0 x 0.7 x 0.6cm spiculated, solid lesion at 3 o'clock, biopsy proven neoplasm and a 0.7 x 0.6 x 0.4cm questionable small hematoma at 3 o'clock. Left limited breast ultrasound including focal area of concern, retroareolar and axilla demonstrates a 4.0 x 3.0 x 1.0cm mobile, probable benign lesion inferior to axilla. These results were verbally communicated with the patient and result sheet given to the patient on 05/06/21. ASSESSMENT: Probably benign, BI-RAD 3 RECOMMENDATION: Treatment plan of the right breast. Therapy and follow up for invasive lobular cancer.
== END | disposition home or self-care (01) ==
LOC: RADUSWWP 14:20
PROVIDERS: ATTEND Surgery
DX: C50.812 Malignant neoplasm of overlapping sites of left female breast (principal); Z78.0 Asymptomatic menopausal state

== ENCOUNTER → 2021-05-06 | Outpatient (CLI) | payer MEDICARE, OTHER ==
[2021-05-06 13:52] VITALS: BP 136/77; PULSE 98; RESP 15; TEMP 98.5
== END ==
LOC: PROCWHC3 13:40
PROVIDERS: ATTEND Family Medicine
DX: M81.0 Age-related osteoporosis without current pathological fracture (principal); Z87.891 Personal history of nicotine dependence; Z88.8 Allergy status to other drugs, medicaments and biological substances
CPT/HCPCS: 96372; J0897

== ENCOUNTER 2021-05-11 09:26 | Day surgery (SDC) | payer MEDICARE, OTHER ==
[2021-05-09 14:15] VITALS: BMI 18.8
[~2021-05-11 09:26] MED LIST changes: -DENOSUMAB 60 MG/ML 1 ML SYRINGE SQ NR; +LACTATED RINGERS 1,000 ML IV SCH; +LIDOCAINE 1% (10MG/ML) FOR IV START INTRADERMA PRN
[2021-05-11 09:57] VITALS: RESP 16; TEMP 97.6
[2021-05-11] MEDS ORDERED: LIDOCAINE 1% INJ 10MG/ML (20 ML MDV) ONE (10:27)
[2021-05-11] MEDS ORDERED: PROPOFOL 10 MG/ML 20 ML VIAL IV ONE (10:27)
[2021-05-11] MEDS ORDERED: ONDANSETRON 4 MG/2 ML VIAL ONE (10:27)
--- NOTE | 2021-05-11 10:45 | P.PCN ---
Date of Procedure: 05/11/21 Procedure(s) Performed: BRIEF HISTORY: Patient is a 75-year-old, pleasant, white female scheduled for an upper endoscopy as a part of evaluation of GERD and Hansen's esophagus. Presently maintained on omeprazole 20 mg daily.. PROCEDURE PERFORMED: Esophagogastroduodenoscopy. PREOPERATIVE DIAGNOSIS: Lungs any history of GERD/Hansen's esophagus. IV sedation per anesthesia. PROCEDURE: After informed consent was obtained, the patient was brought into the endoscopy unit. IV sedation was administered by Anesthesia under continuous monitoring. Initially the Olympus GIF-140 video endoscope was inserted into the mouth. Esophagus intubated without any difficulty. It was gradually advanced into the stomach and duodenum and carefully examined. The bulb and the second part of the duodenum appeared normal. The scope at this time was withdrawn to the stomach, adequately insufflated with air, and upon careful examination, mucosa of the antrum, body, cardia and the fundus appeared normal. The scope was then withdrawn into the esophagus. Small hiatal hernia noted. The GE junction was located at 39 cm from the incisors. Long segment of Hansen's esophagus extending from 28-38 cm from the incisors and multiple biopsies were done from the segment of Hansen's esophagus. There were no nodules identified. The rest of the esophagus appeared normal. There were no erosions or ulcerations seen and the patient tolerated the procedure well. IMPRESSION: 1. Long segment of Hansen's esophagus extending from 28-38 cm from the incisors status post multiple biopsies to rule out dysplasia. 2. Small hiatal hernia.. RECOMMENDATIONS: The findings of this examination were discussed with the patien t well as her family. She was advised to follow with the biopsy results. If the biopsy does not reveal any evidence of dysplasia, she can have a repeat upper endoscopy in 3 years. In the meantime she will continue with omeprazole 20 mg daily and follow antireflux measures..
[2021-05-11 11:19] VITALS: BP 124/68; PULSE 80
== END 2021-05-11 11:38 | disposition home or self-care (01) ==
LOC: ORWHC2ENDO 09:26
PROVIDERS: ATTEND Internal Medicine Gastroenterology
DX: K22.70 Barrett's esophagus without dysplasia (principal); K21.9 Gastro-esophageal reflux disease without esophagitis
CPT/HCPCS: 43239; 88305; J2405; J2001; J2704

== ENCOUNTER → 2021-06-16 | Outpatient (CLI) | payer MEDICARE, OTHER ==
[2021-06-16 11:43] VITALS: BP 146/82; PULSE 75; RESP 18; TEMP 97.7
--- NOTE | 2021-06-16 12:22 | P.PN ---
Subjective Progress Note Date: 06/16/21 Principal diagnosis: left breast invasive lobular cancer Roxy is a 76 -year-old white female status post bilateral screening mammogram on [id number]. This revealed an area of concern in the left breast for which an ultrasound was recommended. This was performed on 865531 and revealed an 0.9 x 0.7 cm irregular lesion at 3:00 and biopsy was recommended. Biopsy was done on 129814 which revealed invasive lobular carcinoma. The patient was seen in consultation for Dr. Morgan. The patient did not feel anything of concern in her breast. She had had breast biopsies in the past and these have always been benign. She was not complaining of any nipple discharge or skin changes. She was not complaining of any trauma or infection in the breast. Her case was presented at tumor board and genetic testing and MRI of the breast was suggested. She was given the option of genetic testing which she declined. She had a bilateral MRI performed on 1821. This really feel the lesion of concern in the left breast with no additional lesions in the left breast and no evidence for any suspicious lesion in the right breast. She also had a bilateral breast ultrasound which revealed in the right axillary area most likely a lipoma. No new lesion of concern was identified in the left breast. This was performed on [id number]. 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; no liver damage Family History: brother: pancreatic cancer brother: kidney cancer paternal aunt: colon cancer Hormonal History: menarche: 15 G0 menopause: 51 BCP: 2 years in 20's hormones: none Surgical History: bilateral breast biopsies skin cancers removed basal cell (follows with dermatology) tubaligation Medical History: COPD osteoarthritis high cholesterol Hansen's esophagitis Social History: Nicotine: A 30 pack per day stopped for 2 years but at the most both smoked 1 pack per day 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 Drugs: none - Constitutional Constitutional: Reports sweats - EENT Comment: macular degeneration Eyes: denies blurred vision, denies pain Ears: bilateral: decreased hearing Ears, nose, mouth and throat: Denies headache, Denies sore throat - Breasts Breasts: bilateral: as per HPI - Cardiovascular Cardiovascular: Reports shortness of breath, Denies chest pain - Respiratory Comment: COPD/smoker - Gastrointestinal Gastrointestinal: Reports as per HPI, Denies abdominal pain, Denies diarrhea, Denies nausea, Denies vomiting - Menstruation Menstruation: Reports postmenopausal - Musculoskeletal Musculoskeletal: Reports as per HPI - Integumentary Integumentary: Denies pruritus, Denies rash - Neurological Neurological: Denies numbness, Denies weakness - Psychiatric Psychiatric: Reports anxiety - Endocrine Endocrine: Denies fatigue, Denies weight change - Hematologic/Lymphatic Comment: none - Allergic/Immunologic Allergic/Immunologic: Reports as per HPI Objective - Vital Signs Vital signs: Vital Signs Temp 97.7 F 06/16/21 11:33 Pulse 75 06/16/21 11:33 Resp 18 06/16/21 11:33 BP 146/82 06/16/21 11:33 Pulse Ox 99 06/16/21 11:33 Intake & Output 06/15/21 06/16/21 06/16/21 18:59 06:59 18:59 Weight 49.895 kg - Constitutional General appearance: Present: cooperative - EENT Eyes: Present: EOMI ENT: Present: hearing grossly normal - Neck Neck: Present: normal ROM - Respiratory Respiratory: bilateral: CTA - Cardiovascular Heart sounds: normal: S1, S2 - Gastrointestinal General gastrointestinal: Present: soft - Integumentary Integumentary: Present: normal turgor - Musculoskeletal Musculoskeletal: Present: gait normal - Psychiatric Psychiatric: Present: A&O x's 3, appropriate affect, intact judgment & insight - Additional findings Additional findings: Breast Exam: BRA: 34A inspection: Bilateral grade 2 ptosis Palpation: Right breast: Multi-positional exam fibrocystic changes no dominant masses or nodules of concern Right axilla shotty adenopathy posterior axillary soft tissue fullness most likely lipoma Left breast: Multi-positional exam fibrocystic changes without dominant masses or nodules of concern Left axilla: No adenopathy of concern Assessment and Plan Assessment: Impression: 1. Stage I invasive lobular left breast carcinoma 2. Bilateral MRI no evidence of right breast lesion or multifocal disease in the left breast 3. COPD Plan: 1. Needle localization left breast lumpectomy, sentinel node injection left, left sentinel node biopsy, possible left axillary node dissection, possible bronchoplasty tissue transfer 2. Medical clearance from Dr. Morgan The skin benefits of the procedure I discussed with the patient. Risks include but are not limited to bleeding, infection, reaction to the anesthetic. She understands that if the margins were to be negative she may require further surgery to re-excise that area. Additionally we have discussed sentinel node biopsy and the patient understands that we could forego the biopsy but she wishes it to be performed for peace of mind. She also understands that if the nodes were to be positive that further treatment will be discussed. CC: Dr. Morgan
== END ==
LOC: WWCWWP 11:08
PROVIDERS: ATTEND Surgery
DX: C50.912 Malignant neoplasm of unspecified site of left female breast (principal); J44.9 Chronic obstructive pulmonary disease, unspecified; M19.90 Unspecified osteoarthritis, unspecified site; Z87.891 Personal history of nicotine dependence; Z88.5 Allergy status to narcotic agent

== ENCOUNTER 2021-06-28 09:49 | Day surgery (SDC) | payer MEDICARE, OTHER ==
[2021-06-23 11:16] VITALS: BMI 18.8
[~2021-06-28 09:49] MED LIST changes: +DEXAMETHASONE SOD PHOSPHATE 4 MG/ML 1 ML VIAL IV ONE; +HEPARIN SODIUM,PORCINE/PF 5,000 UNIT/0.5 ML SYRINGE SQ PRN; +HYDROmorphone 0.5 MG/0.5 ML SYRINGE IVP PRN; +ONDANSETRON 4 MG/2 ML VIAL IVP ONE; +Pre Op ABX Message 1 EACH MISC MISCELLANE ONE
[2021-06-28] MEDS ORDERED: ALPRAZolam 0.25 MG TAB ONE (10:48)
[2021-06-28] MEDS ORDERED: LIDOCAINE 1% INJ 10MG/ML (20 ML MDV) SQ ONE (11:23)
--- NOTE | 2021-06-28 12:31 | NM ---
EXAMINATION TYPE: NM sentinel node injection DATE OF EXAM: 06/28/2021 COMPARISON: NONE HISTORY: Left-sided breast cancer TECHNIQUE AND FINDINGS: The procedure of sentinel lymph node injection was explained to the patient. The benefits, alternatives, and risks were discussed. An informed consent was then obtained. Overlying skin is cleaned with sterile alcohol. Following this, 479 uCi Tc99m Tilmanocept was inject ed in the upper outer aspect of the left nipple intradermally. The patient tolerated the procedure well without any immediate complication. The patient was kept in the radiology department for short stay after the procedure and then taken to surgery for surgical p rocedure what is presumed intraoperative gamma probe will be used for sentinel lymph node detection. IMPRESSION: Left breast radiotracer injection for sentinel node localization as above.
--- NOTE | 2021-06-28 13:42 | P.NAPBC ---
NAPBC Queries - NAPBC Queries Was patient's case review presented at [facility] tumor board? If no, comment.: Yes Was patient's pathology reviewed at [facility]? If no, comment.: Yes Was breast conservation surgery offered? If no, comment.: Yes Was sentinel node biopsy offered? If no, comment.: Yes Was diagnosis confirmed by percutaneous core biopsy? If no, comment.: Yes Is patient mastectomy patient?: No Was a preop referral to reconstructive surgeon offered?: No Clinical Stage: stage IA; patient given option of no SNB and declined; she wishes one to be done for peace of mind
[2021-06-28] MEDS ORDERED: GLYCOPYRROLATE 0.2 MG/ML 2 ML VIAL ONE (14:39)
[2021-06-28] MEDS ORDERED: PROPOFOL 10 MG/ML 20 ML VIAL IV ONE (14:39)
[2021-06-28] MEDS ORDERED: LIDOCAINE 1% INJ 10MG/ML (20 ML MDV) ONE (14:39)
[2021-06-28] MEDS ORDERED: NEOSTIGMINE 1 MG/ML 10 ML VIAL ONE (14:39)
[2021-06-28] MEDS ORDERED: ONDANSETRON 4 MG/2 ML VIAL ONE (14:39)
[2021-06-28] MEDS ORDERED: SUCCINYLCHOLINE CHLORIDE 100 MG/5 ML SYR IV ONE (14:39)
[2021-06-28] MEDS ORDERED: fentaNYL (PF) 50 MCG/ML 2 ML AMP ONE (14:39)
[2021-06-28] MEDS ORDERED: ROCURONIUM 10 MG/ML (5 ML VIAL) IV ONE (14:39)
[2021-06-28] MEDS ORDERED: LACTATED RINGERS 1,000 ML IV ONE (15:56)
--- NOTE | 2021-06-28 16:15 | P.OP ---
Date of Procedure: 06/28/21 Preoperative Diagnosis: Left breast invasive ductal carcinoma Postoperative Diagnosis: Same Procedure(s) Performed: Left breast needle localization lumpectomy," onco-plastic tissue transfer cavity approximately 15 cm, superior pillar 15 cm, inferior pillar 10 cm, total tissue transfer 40 cm, left sentinel node biopsy Anesthesia: FLORENCE Surgeon: Nisha Romero Estimated Blood Loss (ml): 10 IV fluids (ml): 800 Pathology: other (Breast tissue and sentinel node) Condition: stable Disposition: same day Indications for Procedure: Biopsy-proven left breast invasive ductal carcinoma Operative Findings: Fibrofatty breast tissue Description of Procedure: The patient was taken to the operating room following needle localization of the area of concern in the left breast and injection for radioactive lymph node. The patient was brought to the operating room and following induction of anesthesia the axilla was interrogated for radioactivity. Radioactivity was noted to be present in the axilla. The left breast and axilla were then prepped and draped in a sterile fashion. The area of the axilla was approached initially. Using the [place] counter the area of greatest radioactivity was iden tified. An incision was made at this site. The tissues were grasped using an Allis clamp. Dissection was performed and the lymph node was identified. This was excised. The 10 second radioactive count was 3417. The background 10 second count was 27. The wound was irrigated. No other lymph nodes of concern were identified. The deep tissues were closed using 3-0 Vicryl suture. The skin was closed using 4-0 Monocryl. The area of the breast was then approached. An incision was made near the hook of the needle. Dissection was performed down to the area of the needle. Surrounding tissue was excised. The cavity was approximately 5 cm x 3 cm for 15 cm total. The specimen was painted for orientation and radiograph revealed the clip of concern was in the specimen. There was some concern that the superior and anterior margin may be close and new superior and anterior margins were obtained. Posterior dissection was carried down to the pectoralis muscle. The superior pillar was mobilized this was 5 x 3 cm 15 cm, and inferior pillar was 5 x 2 cm for 10 cm. A total of 40 cm were mobalized. Titanium clips were placed. The pillars were brought together using 3-0 Vicryl suture. The subcutaneous tissue was closed using 3-0 Vicryl suture. The skin was closed using 4-0 Monocryl. Steri-Strips were applied. The patient tolerated the procedure in stable condition. All instruments and sponge counts were correct at the end of the case.
--- NOTE | 2021-06-28 16:16 | P.NAPBC ---
NAPBC Queries - NAPBC Queries Was patient's case review presented at [facility] tumor board? If no, comment.: Yes Was patient's pathology reviewed at [facility]? If no, comment.: Yes Was breast conservation surgery offered? If no, comment.: Yes Was sentinel node biopsy offered? If no, comment.: Yes Was diagnosis confirmed by percutaneous core biopsy? If no, comment.: Yes Is patient mastectomy patient?: No Was a preop referral to reconstructive surgeon offered?: No Clinical Stage: stage IA
--- NOTE | 2021-06-28 16:18 | P.DS ---
Providers Attending physician: Nisha Romero Primary care physician: Armando Morgan Plan - Discharge Summary Discharge Rx Participant: Yes New Discharge Prescriptions: No Action Simvastatin [Zocor] 10 mg PO HS Omeprazole [PriLOSEC] 20 mg PO AC-BRKFST Budesonide-Formot 160-4.5 Mcg [Symbicort 160-4.5 Mcg Inhaler] 2 puff INHALATION BID Albuterol Sulfate [Ventolin HFA] 1 - 2 puff INHALATION QID Multivitamins, Thera [Multivitamin (formulary)] 1 tab PO DAILY Vitamin E (Dl,Tocopheryl Acet) [Vitamin E] 1,200 unit PO DAILY Vitamin B Complex 1 tab PO DAILY Acetaminophen/Diphenhydramine [Tylenol PM 500-25mg] 2 tab PO HS PRN PRN Reason: Insomnia Denosumab [Prolia] 60 mg SQ Q180D Aspirin [Adult Low Dose Aspirin EC] 81 mg PO DAILY Cholecalciferol [Vitamin D3 (25 Mcg = 1000 Iu)] 5,000 unit PO DAILY Acetaminophen Tab [Tylenol] 650 mg PO Q6HR PRN tab PRN Reason: Mild Pain Or Fever > 100.5 Biotin 5 mg PO DAILY Sterling-3 Fatty Acids [Sterling-3] 1,200 mg PO DAILY Lutein 20 mg PO DAILY Vitamin C (Unknown Dose) 1 tab PO DAILY Tiotropium 2.5 Mcg/Puff [Spiriva Respimat 2.5 Mcg] 2 puff INHALATION DAILY Magnesium Oxide [Mag-Oxide] 250 mg PO BID Zinc 25 mg PO DAILY Discharge Medication List Omeprazole [PriLOSEC] 20 mg PO AC-BRKFST 03/31/14 [History] Simvastatin [Zocor] 10 mg PO HS 03/31/14 [History] Albuterol Sulfate [Ventolin HFA] 1 - 2 puff INHALATION QID 04/21/14 [History] Budesonide-Formot 160-4.5 Mcg [Symbicort 160-4.5 Mcg Inhaler] 2 puff INHALATION BID 04/21/14 [History] Multivitamins, Thera [Multivitamin (formulary)] 1 tab PO DAILY 05/01/14 [Histor y] Vitamin B Complex 1 tab PO DAILY 09/22/14 [History] Vitamin E (Dl,Tocopheryl Acet) [Vitamin E] 1,200 unit PO DAILY 09/22/14 [History] Acetaminophen/Diphenhydramine [Tylenol PM 500-25mg] 2 tab PO HS PRN 10/24/14 [History] Denosumab [Prolia] 60 mg SQ Q180D 10/24/14 [History] Aspirin [Adult Low Dose Aspirin EC] 81 mg PO DAILY 04/04/16 [History] Cholecalciferol [Vitamin D3 (25 Mcg = 1000 Iu)] 5,000 unit PO DAILY 12/06/17 [History] Acetaminophen Tab [Tylenol] 650 mg PO Q6HR PRN tab 01/18/18 [Rx] Biotin 5 mg PO DAILY 10/11/18 [History] Lutein 20 mg PO DAILY 11/03/20 [History] Sterling-3 Fatty Acids [Sterling-3] 1,200 mg PO DAILY 11/03/20 [History] Tiotropium 2.5 Mcg/Puff [Spiriva Respimat 2.5 Mcg] 2 puff INHALATION DAILY 11/03/20 [History] Magnesium Oxide [Mag-Oxide] 250 mg PO BID 04/12/21 [History] Vitamin C (Unknown Dose) 1 tab PO DAILY 05/09/21 [History] Zinc 25 mg PO DAILY 05/09/21 [History] Follow up Appointment(s)/Referral(s): Nisha Romero MD [STAFF PHYSICIAN] - 07/08/21 2:40 pm Activity/Diet/Wound Care/Special Instructions: may shower after [address] if taking narcotic pain medicine, or for 24 hours after discharge wear bra at all times Discharge Disposition: HOME SELF-CARE
[2021-06-28 16:42] VITALS: TEMP 96.8
[2021-06-28 17:23] VITALS: RESP 15
[2021-06-28 17:41] VITALS: BP 164/72; PULSE 82
--- NOTE | 2021-06-28 22:47 | USB ---
EXAM: Needle localization with wire placement. CLINICAL HISTORY: Biopsy proven cancer left breast, invasive lobular carcinoma. TECHNIQUE: Needle localization with wire placement and surgical excision of area of concern in the left breast. COMPARISON: Prior mammogram and ultrasound April 25, 2021 and older studies FINDINGS: The procedure of needle localization with wire placement and than surgical excision was explained to the patient. Benefits, alternatives, and risks were discussed. An informed consent was then obtained. Ultrasound-guided approach shows as original lesion was sampled under ultrasound. Preprocedure ultrasound redemonstrates roughly 10 mm regular hypoechoic lesion 3:00 position left breast. The overlying skin was prepped and draped in usual sterile fashion. Lidocaine is used as anesthetic into the skin and subcutaneous tissue up to the level of area of concern. A 5 cm needle was used. It was placed via ultrasound guidance. At this point, wire was placed and the needle was withdrawn. The wire was fixed to patient's skin. Images were marked for surgeon. Post procedure mammogram performed as surgeon desires mammographic views for surgical planning. There is successful visualization of wire tip at level of the biopsy clip from a lateral approach. The patient tolerated the procedure well without any immediate complication. The patient was kept in the radiology department for short stay after the procedure and then taken to surgery for surgical excision. Targeted biopsy clip and wire are identified in specimen mammogram. The patient was kept in hospital for short stay after the procedure and then discharged home in stable condition. IMPRESSION: Successful, uncomplicated needle localization with wire placement and surgical excision of targeted lesion and clip in the left breast, full pathology results to follow. Pathology Results: Malignant A. LEFT SENTINEL LYMPH NODE, EXCISION: One sentinel lymph node, negative for metastatic macrometastasis or micrometastasis. CK7 on blocks A1 and A2 negative. DARWIN staining on block A2 negative. DARWIN staining on block A1 positive within rare single subcapsular cell, cannot exclude incidence of isolated tumor cell within block A1. All immunostains for specimen A performed with appropriate controls. B. BREAST, NEW ANTERIOR MARGIN, EXCISION: Invasive lobular carcinoma, grade 2, with focal adjacent ALH/LCIS (see Surgical Pathology Cancer Case Summary and Comment). New anterior margin negative for invasive carcinoma. Carcinoma measures greater than 1 mm from true new anterior margin. C. BREAST, NEW SUPERIOR MARGIN, EXCISION: Focal invasive lobular carcinoma, grade 2 (see Surgical Pathology Cancer Case Summary and Comment). New superior margin negative for invasive carcinoma with carcinoma measuring 2 mm from the closest new superior margin. D. LEFT BREAST, LUMPECTOMY: Invasive lobular carcinoma, grade 2, with associated focal ALH/LCIS (see Surgical Pathology Cancer Case Summary and Comment). Anterior margin positive for invasive lobular carcinoma. All other margins negative for invasive lobular carcinoma. Recommendation Surgical consult of the left breast. MTDD
== END 2021-06-28 17:47 | disposition home or self-care (01) ==
LOC: OR 09:49
PROVIDERS: ATTEND Surgery
DX: C50.912 Malignant neoplasm of unspecified site of left female breast (principal); F17.210 Nicotine dependence, cigarettes, uncomplicated; Z80.0 Family history of malignant neoplasm of digestive organs; Z80.51 Family history of malignant neoplasm of kidney; Z85.828 Personal history of other malignant neoplasm of skin; Z98.890 Other specified postprocedural states; J44.9 Chronic obstructive pulmonary disease, unspecified; Z98.51 Tubal ligation status; M19.90 Unspecified osteoarthritis, unspecified site; E78.00 Pure hypercholesterolemia, unspecified; K22.70 Barrett's esophagus without dysplasia; F41.9 Anxiety disorder, unspecified; Z79.82 Long term (current) use of aspirin; Z79.51 Long term (current) use of inhaled steroids; Z79.899 Other long term (current) drug therapy
CPT/HCPCS: 19301; 38525; 14301; 88342; 88307; 77065; 76098; 19285; 38792; A9520; J1100; J2710; J2405; J2001; J3010; J0330; J2704; J1644

== ENCOUNTER → 2021-07-08 | Outpatient (CLI) | payer MEDICARE, OTHER ==
[2021-07-08 14:50] VITALS: BP 147/76; PULSE 77; RESP 18; TEMP 97.6
--- NOTE | 2021-07-08 15:02 | P.PN ---
Progress Note - Text Progress Note Date: 07/08/21 Roxy is status post left breast lumpectomy and sentinel node biopsy on 2121 for invasive lobular carcinoma. Initial anterior margin was positive but new excised anterior margin is negative. She has a question of one isolated tumor cell and sentinel lymph node. Physical Exam: lungs: clear heart: RRR Left breast incision clean and dry no evidence of infection, left axillary incision clean and dry Patient's bilateral mammogram had been performed on [id number] this led to an ultrasound bilateral in the left breast was demonstrated a 1 x 0.7 cm spiculated solid lesion biopsy-proven neoplasia and in the believed to be right breast a 1 cm mobile probable benign lesion inferior to the axilla patient subsequently underwent bilateral MRI on 1821 which revealed no lesions of concern in the right breast and biopsy-proven cancer left breast Impression: Patient status post left breast lumpectomy and sentinel node biopsy on 06-28-21; initial anterior margin positive new anterior margin negative, sentinel lymph node question of isolated tumor cell Plan: Follow up radiation oncology Follow-up medical oncology Bone density Ultrasound right breast in 4 months with physician exam here at that time CC: Dr. Morgan
== END ==
LOC: WWCWWP 14:37
PROVIDERS: ATTEND Surgery
DX: C50.912 Malignant neoplasm of unspecified site of left female breast (principal); Z98.890 Other specified postprocedural states; Z88.5 Allergy status to narcotic agent; Z87.891 Personal history of nicotine dependence

== ENCOUNTER → 2021-07-11 | Outpatient (CLI) | payer MEDICARE, OTHER ==
--- NOTE | 2021-07-11 15:37 | BD ---
EXAMINATION TYPE: Axial Bone Density DATE OF EXAM: 07/11/2021 COMPARISON: 01/03/2019 CLINICAL HISTORY: Postmenopausal screening Height: 62 IN Weight: 107 LBS RISK FACTORS HISTORY OF: Family History of Osteoporosis: GRANDMOTHER Active: YES Postmenopausal woman: AGE 51 MEDICATIONS: Additional Medications: CALCIUM, VIT D, ZOCOR, OMEPRAZOLE, TYLENOL, TYLENOL PM, PROLIA EVERY 6 MONTHS Additional History: BREAST CANCER EXAM MEASUREMENTS: Bone mineral densitometry was performed using the [employer] System. Bone mineral density as measured about the Lumbar spine is: ----- L1-L4(G/cm2): 1.293 T Score Values are as follows: ----- L2: 0.3 ----- L3: 1.2 ----- L4: 1.7 ----- L1-L4: 0.9 Bone mineral density has: Increased 4.8% since study of: 01/03/2019 Bone mineral density about the R hip (g/cm2): 0.700 Bone mineral density about the L hip (g/cm2): 0.740 T Score values are as follows: -----R Neck: -2.4 -----L Neck: -2.1 -----R Total: -1.5 -----L Total: -1.6 Bone mineral density has: Increased 2.0% since study of: 01/03/2019 IMPRESSION: Osteopenia (T Score between -2.5 and -1). Note that measurements border on osteoporosis at the right hip. There is slightly increased risk of fracture and the patient may be considered for treatment. Re-Screen 2-5 years. NOTE: T-SCORE=SD OF THE YOUNG ADULT MEAN.
== END | disposition home or self-care (01) ==
LOC: RADBDWWP 13:21
PROVIDERS: ATTEND Family Medicine
DX: M85.89 Other specified disorders of bone density and structure, multiple sites (principal); Z78.0 Asymptomatic menopausal state
CPT/HCPCS: 77080

== ENCOUNTER → 2021-11-07 | Outpatient (CLI) | payer MEDICARE, OTHER ==
[~2021-11-07] MED LIST changes: +DENOSUMAB 60 MG/ML 1 ML SYRINGE SQ NR; -DEXAMETHASONE SOD PHOSPHATE 4 MG/ML 1 ML VIAL IV ONE; -HEPARIN SODIUM,PORCINE/PF 5,000 UNIT/0.5 ML SYRINGE SQ PRN; -HYDROmorphone 0.5 MG/0.5 ML SYRINGE IVP PRN; -LACTATED RINGERS 1,000 ML IV SCH; -LIDOCAINE 1% (10MG/ML) FOR IV START INTRADERMA PRN; -ONDANSETRON 4 MG/2 ML VIAL IVP ONE; -Pre Op ABX Message 1 EACH MISC MISCELLANE ONE
[2021-11-07 13:18] VITALS: BP 139/76; PULSE 88; RESP 16; TEMP 97.2
== END ==
LOC: PROCWHC3 12:57
PROVIDERS: ATTEND Family Medicine
DX: M81.0 Age-related osteoporosis without current pathological fracture (principal); Z87.891 Personal history of nicotine dependence; Z88.8 Allergy status to other drugs, medicaments and biological substances
CPT/HCPCS: 96372; J0897

== ENCOUNTER → 2021-11-08 | Outpatient (CLI) | payer MEDICARE, OTHER ==
--- NOTE | 2021-11-08 15:01 | USB ---
Reason for Exam: Clinical finding. Patient History: Menarche at age 15. Patient has no children. Postmenopausal. Other cancer, age 70. Breast cancer, age 75. Excisional Biopsy on the Left side. 06/28/2021, Lumpectomy on the Left side. Malignant Core Biopsy. 04/25/2021, Malignant Core Biopsy on the left side. 06/10/2013, Benign Core Biopsy on the right side. 06/10/2013, Cancelled Right Mammotome on the right side. Technique: Method: Whole Breast Handheld. Prior Study Comparison: 03/10/2021 Bilateral Screening Mammogram, [facility]. 04/25/2021 Left Diagnostic Mammogram, [facility]. 06/28/2021 Left Diagnostic Mammogram, [facility]. Findings: The whole breast of the right breast, the axilla of the right breast and the retroareolar of the right breast were scanned. Finding 1: Mass. Laterality: Right. Size 6 x 4 x 6 mm. 11 O'clock Quadrant: Upper outer. 8 cm cm from nipple. Shape: Oval. Margin: Circumscribed (Well-Defined or Sharply-Defined). Finding 2: Lymph Nodes - Axillary findings. Laterality: Right. Size 5 mm. Region: Axilla. Finding 3: Mass. Laterality: Right. Palpable Abnormality seen. Size 38 x 10 x 33 mm. Region: Axilla. Shape: Oval. Margin: Circumscribed (Well-Defined or Sharply-Defined). Whole right breast ultrasound was performed including scanning of the subareolar region and axilla. At the 11:00 position, 8 cm from the nipple, there is an oval hypoechoic lesion measuring 6 x 6 x 4 mm. This corresponds to a previously biopsied lesion in 2013 which measured 6 mm at that time as well. Within the posterior right axilla at the patient's palpable site, there is a benign 3.8 x 3.3 x 1.0 cm oval, circumscribed, isoechoic lesion within the subcutaneous adipose layer abutting the superficial muscular fascia. No internal vascularity. This lesion was present on 05/06/2021. This is compatible with a benign lipoma. No other solid or cystic lesion. An incidental benign nonenlarged lymph nodes seen in the right axilla. Patient due for her annual exam in 4 months. Overall Assessment: Benign, BI-RAD 2 Management: Diagnostic Mammogram of both breasts in 4 months. 1. Benign 3.8 cm subcutaneous lipoma at the patient's palpable site posterior right axilla. Also, benign 6 mm lesion at 11:00, previously biopsied in 2013. 2. Patient due for annual exam in 4 months. This should be performed in diagnostic clinic. 3. Continue monthly self breast exams. Electronically signed and approved by: Robbie Power M.D. Radiologist
== END | disposition home or self-care (01) ==
LOC: RADUSWWP 13:52
PROVIDERS: ATTEND Surgery
DX: N64.89 Other specified disorders of breast (principal); Z85.3 Personal history of malignant neoplasm of breast; Z78.0 Asymptomatic menopausal state

== ENCOUNTER → 2021-11-17 | Outpatient (CLI) | payer MEDICARE, OTHER ==
[2021-11-17 13:35] VITALS: BP 152/79; PULSE 79; RESP 18; TEMP 98.1
--- NOTE | 2021-11-17 13:49 | P.PN ---
Subjective Progress Note Date: 11/17/21 Principal diagnosis: left breast stage IA invasive lobular cancer Plan: Needle localization breast lumpectomy, sentinel node injection, left sentinel node biopsy, possible left axillary node dissection, possible onco- plastic tissue transfer Addendum entered and electronically signed by Nisha Romero MD 06/16/21 12:27: Repeat right breast ultrasound and right axillary ultrasound in 6 months. Original Note: Subjective Progress Note Date: 06/16/21 Principal diagnosis: left breast invasive lobular cancer Roxy is a 76 -year-old white female status post bilateral screening mammogram on [id number]. This revealed an area of concern in the left breast for which an ultrasound was recommended. This was performed on [id number] and revealed an 0.9 x 0.7 cm irregular lesion at 3:00 and biopsy was recommended. Biopsy was done on [id number] which revealed invasive lobular carcinoma. The patient was seen in consultation for Dr. Morgan. The patient did not feel anything of concern in her breast. She had had breast biopsies in the past and these have always been benign. She was not complaining of any nipple discharge or skin changes. She was not complaining of any trauma or infection in the breast. Her case was presented at tumor board and genetic testing and MRI of the breast was suggested. She was given the option of genetic testing which she declined. She had a bilateral MRI performed on 1821. This really feel the lesion of concern in the left breast with no additional lesions in the left breast and no evidence for any suspicious lesion in the right breast. She also had a bilateral breast ultrasound which revealed in the right axillary area most likely a lipoma. No new lesion of concern was identified in the left breast. This was performed on [id number]. 11-17-21 [id number] invasive lobular cancer left breast The patient underwent a left breast lumpectomy and SNB on 06-28-21. Questioin isolated tumor cell in sentinal node. finished radiation on 08-22-21 Note radiation oncology 09-20-21 reviewed Patient is on Anestrazole US right breast done on 11-08-21 benign BIRAD 2 She is not complaining of any new nodules in her breast. 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; no liver damage Family History: brother: pancreatic cancer brother: kidney cancer paternal aunt: colon cancer Hormonal History: menarche: 15 G0 menopause: 51 BCP: 2 years in 20's hormones: none Surgical History: bilateral breast biopsies skin cancers removed basal cell (follows with dermatology) tubaligation left lumpectomy and SNB Medical History: COPD osteoarthritis high cholesterol Hansen's esophagitis Social History: Nicotine: A 30 pack per day stopped for 2 years but at the most both smoked 1 pack per day 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 Drugs: none - Constitutional Constitutional: Reports sweats - EENT Comment: macular degeneration Eyes: denies blurred vision, denies pain Ears: bilateral: decreased hearing Ears, nose, mouth and throat: Denies headache, Denies sore throat - Breasts Breasts: bilateral: as per HPI - Cardiovascular Cardiovascular: Reports shortness of breath, Denies chest pain - Respiratory Comment: COPD/smoker - Gastrointestinal Gastrointestinal: Reports as per HPI, Denies abdominal pain, Denies diarrhea, Denies nausea, Denies vomiting - Menstruation Menstruation: Reports postmenopausal - Musculoskeletal Musculoskeletal: Reports as per HPI - Integumentary Integumentary: Denies pruritus, Denies rash - Neurological Neurological: Denies numbness, Denies weakness - Psychiatric Psychiatric: Reports anxiety - Endocrine Endocrine: Denies fatigue, Denies weight change - Hematologic/Lymphatic Comment: none - Allergic/Immunologic Allergic/Immunologic: Reports as per HPI Objective - Vital Signs Vital signs: Vital Signs Temp 98.1 F 11/17/21 13:33 Pulse 79 11/17/21 13:33 Resp 18 11/17/21 13:33 BP 152/79 11/17/21 13:33 Pulse Ox 99 11/17/21 13:33 FiO2 Intake & Output 11/16/21 11/17/21 11/17/21 18:59 06:59 18:59 Weight 50.349 kg - Exam BMI: 20.3 - Constitutional General appearance: Present: cooperative - EENT Eyes: Present: EOMI ENT: Present: hearing grossly normal - Neck Neck: Present: normal ROM - Respiratory Respiratory: bilateral: CTA - Cardiovascular Rhythm: regular Heart sounds: normal: S1, S2 - Gastrointestinal General gastrointestinal: Present: soft - Integumentary Integumentary: Present: normal turgor - Musculoskeletal Musculoskeletal: Present: gait normal - Psychiatric Psychiatric: Present: A&O x's 3, appropriate affect, intact judgment & insight - Additional findings Additional findings: Breast Exam: BRA: 34A inspection: bilateral grade 2 ptosis palpation: right breast: Multiple positional exam no dominant masses or nodules of concern Right axilla: No adenopathy of concern Left breast: Multiple positional exam no dominant masses or nodules of concern well-healed scar from prior surgery Left axilla: No adenopathy of concern Assessment and Plan Assessment: Impression: 1. Patient status post lumpectomy for left breast stage IA invasive lobular carcinoma no evidence of recurrence 2. Patient has completed radiation therapy 3. Patient has completed is presently on anastrozole Plan: Bilateral mammogram in 4 months with physician exam here at that time Continue to follow with medical and radiation oncology Patient has some questions regarding bone pain and anastrozole which she will ad dressed with medical oncology Cc: Dr. Morgan
== END ==
LOC: WWCWWP 13:08
PROVIDERS: ATTEND Surgery
DX: Z08 Encounter for follow-up examination after completed treatment for malignant neoplasm (principal); Z85.3 Personal history of malignant neoplasm of breast; Z98.890 Other specified postprocedural states; Z92.3 Personal history of irradiation; Z79.811 Long term (current) use of aromatase inhibitors; J44.9 Chronic obstructive pulmonary disease, unspecified; M19.90 Unspecified osteoarthritis, unspecified site; E78.00 Pure hypercholesterolemia, unspecified; Z87.891 Personal history of nicotine dependence; Z88.8 Allergy status to other drugs, medicaments and biological substances

== ENCOUNTER → 2022-03-30 | Outpatient (CLI) | payer MEDICARE, OTHER ==
[2022-03-30 13:43] VITALS: BP 147/79; PULSE 78; RESP 18; TEMP 97.9
--- NOTE | 2022-03-30 14:15 | P.PN ---
Subjective Progress Note Date: 03/30/22 Principal diagnosis: Left breast invasive lobular carcinoma 2020 Progress Note Date: 06/16/21 Principal diagnosis: left breast invasive lobular cancer Roxy is a 76 -year-old white female status post bilateral screening mammogram on [id number]. This revealed an area of concern in the left breast for which an ultrasound was recommended. This was performed on [id number] and revealed an 0.9 x 0.7 cm irregular lesion at 3:00 and biopsy was recommended. Biopsy was done on [id number] which revealed invasive lobular carcinoma. The patient was seen in consultation for Dr. Morgan. The patient did not feel anything of concern in her breast. She had had breast biopsies in the past and these have always been benign. She was not complaining of any nipple discharge or skin changes. She was not complaining of any trauma or infection in the breast. Her case was presented at tumor board and genetic testing and MRI of the breast was suggested. She was given the option of genetic testing which she declined. She had a bilateral MRI performed on 1821. This really feel the lesion of concern in the left breast with no additional lesions in the left breast and no evidence for any suspicious lesion in the right breast. She also had a bilateral breast ultrasound which revealed in the right axillary area most likely a lipoma. No new lesion of concern was identified in the left breast. This was performed on [id number]. 11-17-21 [id number] invasive lobular cancer left breast The patient underwent a left breast lumpectomy and SNB on 06-28-21. Questioin isolated tumor cell in sentinal node. finished radiation on 08-22-21 Note radiation oncology 09-20-21 reviewed Patient is on Anestrazole US right breast done on 11-08-21 benign BIRAD 2 She is not complaining of any new nodules in her breast. 03-30-22 The patient had a bilateral mammogram on 03-30-22. She does not complain of any new lumps pressor nodules of concern in either breast. The patient is continuing the anastrozole and is tolerating that without difficulty. 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; no liver damage Family History: brother: pancreatic cancer brother: kidney cancer paternal aunt: colon cancer Hormonal History: menarche: 15 G0 menopause: 51 BCP: 2 years in 20's hormones: none Surgical History: bilateral breast biopsies skin cancers removed basal cell (follows with dermatology) tubaligation left lumpectomy and SNB Medical History: COPD osteoarthritis high cholesterol Hansen's esophagitis Social History: Nicotine: A 30 pack per day stopped for 2 years but at the most both smoked 1 pack per day 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 Drugs: none - Constitutional Constitutional: Reports sweats - EENT Comment: macular degeneration Eyes: denies blurred vision, denies pain Ears: bilateral: decreased hearing Ears, nose, mouth and throat: Denies headache, Denies sore throat - Breasts Breasts: bilateral: as per HPI - Cardiovascular Cardiovascular: Reports shortness of breath, Denies chest pain - Respiratory Comment: COPD/smoker - Gastrointestinal Gastrointestinal: Reports as per HPI, Denies abdominal pain, Denies diarrhea, Denies nausea, Denies vomiting - Menstruation Menstruation: Reports postmenopausal - Musculoskeletal Musculoskeletal: Reports as per HPI - Integumentary Integumentary: Denies pruritus, Denies rash - Neurological Neurological: Denies numbness, Denies weakness - Psychiatric Psychiatric: Reports anxiety - Endocrine Endocrine: Denies fatigue, Denies weight change - Hematologic/Lymphatic Comment: none - Allergic/Immunologic Allergic/Immunologic: Reports as per HPI Objective - Vital Signs Vital signs: Vital Signs Temp 97.9 F 03/30/22 13:41 Pulse 78 03/30/22 13:41 Resp 18 03/30/22 13:41 BP 147/79 03/30/22 13:41 Pulse Ox 98 03/30/22 13:41 FiO2 Intake & Output 03/29/22 03/30/22 03/30/22 18:59 06:59 18:59 Weight 49.895 kg - Constitutional General appearance: Present: cooperative - EENT Eyes: Present: EOMI ENT: Present: hearing grossly normal - Neck Neck: Present: normal ROM - Respiratory Respiratory: bilateral: CTA - Cardiovascular Heart sounds: normal: S1, S2 - Integumentary Integumentary: Present: normal turgor - Musculoskeletal Musculoskeletal: Present: gait normal - Psychiatric Psychiatric: Present: A&O x's 3, appropriate affect, intact judgment & insight - Additional findings Additional findings: Breast Exam: BRA: 34A Inspection: Well-healed scar left breast from prior surgery, bilateral grade 2 ptosis Palpation: Right breast: Multiple positional exam fibrocystic changes no discrete dominant masses or notches of concern Right axilla: Shotty adenopathy, soft tissue fullness posterior area of the axilla consistent with a lipoma Left breast: Well-healed scar from prior surgery, no dominant masses or nodules of concern multi-positional exam Left axilla: No adenopathy of concern Assessment and Plan Assessment: Impression: Stage I invasive lobular carcinoma left breast/status post lumpectomy, sentinel node biopsy, radiation therapy, patient on anastrozole, patient did not have any chemotherapy Plan: Repeat left breast mammogram in 6 months with physician exam at that time Continue anastrozole Continue follow-up with medical and radiation oncology CC: Dr. Morgan
== END | disposition home or self-care (01) ==
LOC: WWCWWP 12:54
PROVIDERS: ATTEND Surgery
DX: Z53.9 Procedure and treatment not carried out, unspecified reason (principal)

== ENCOUNTER → 2022-05-11 | Outpatient (CLI) | payer MEDICARE, OTHER ==
[2022-05-11 11:45] VITALS: BP 155/87; PULSE 105; RESP 15; TEMP 97.4
== END ==
LOC: PROCWHC3 11:30
PROVIDERS: ATTEND Family Medicine
DX: M81.0 Age-related osteoporosis without current pathological fracture (principal); Z87.891 Personal history of nicotine dependence; Z88.8 Allergy status to other drugs, medicaments and biological substances
CPT/HCPCS: 96372

== ENCOUNTER 2022-08-23 03:21 | Emergency (ER) | payer MEDICARE, OTHER ==
[2022-08-23 03:30] VITALS: PULSE 81; RESP 16; TEMP 98.8
--- NOTE | 2022-08-23 03:56 | ED ---
General Adult HPI - General Chief complaint: Recheck/Abnormal Lab/Rx Stated complaint: Hypertension Time Seen by Provider: 08/23/22 03:21 Source: patient, EMS, RN notes reviewed, old records reviewed Mode of arrival: EMS Limitations: no limitations - History of Present Illness Initial comments: 77-year-old female presenting for evaluation of elevated blood pressure. Patient has no prior history of hypertension. She is currently being treated for upper respiratory infection and was diagnosed with coronavirus within the last 1 week. Her symptoms have been present for 7 days. She is currently finishing a course of steroids. No fever. She states overall she feels quite well but she has been checking her blood pressure at home and had noted that it was high. Denies chest pain or abdominal pain. No focal numbness or weakness. - Related Data Home Medications Medication Instructions Recorded Confirmed Omeprazole [PriLOSEC] 20 mg PO AC-BRKFST 03/31/14 05/11/22 Simvastatin [Zocor] 10 mg PO HS 03/31/14 05/11/22 Albuterol Sulfate [Ventolin HFA] 1 - 2 puff INHALATION QID 04/21/14 05/11/22 Budesonide-Formot 160-4.5 Mcg 2 puff INHALATION BID 04/21/14 05/11/22 [Symbicort 160-4.5 Mcg Inhaler] Multivitamins, Thera [Multivitamin 1 tab PO DAILY 05/01/14 05/11/22 (formulary)] Vitamin B Complex 1 tab PO DAILY 09/22/14 05/11/22 Vitamin E (Dl,Tocopheryl Acet) 1,200 unit PO DAILY 09/22/14 05/11/22 [Vitamin E] Acetaminophen/Diphenhydramine 2 tab PO HS PRN 10/24/14 05/11/22 [Tylenol PM 500-25mg] Denosumab [Prolia] 60 mg SQ Q180D 10/24/14 05/11/22 Aspirin [Adult Low Dose Aspirin EC] 81 mg PO DAILY 04/04/16 05/11/22 Cholecalciferol [Vitamin D3 (25 5,000 unit PO DAILY 12/06/17 05/11/22 Mcg = 1000 Iu)] Biotin 5 mg PO DAILY 10/11/18 05/11/22 Lutein 20 mg PO DAILY 11/03/20 05/11/22 Ibapah-3 Fatty Acids [Ibapah-3] 1,200 mg PO DAILY 11/03/20 05/11/22 Tiotropium 2.5 Mcg/Puff [Spiriva 2 puff INHALATION DAILY 11/03/20 05/11/22 Respimat 2.5 Mcg] Magnesium Oxide [Mag-Oxide] 250 mg PO BID 04/12/21 05/11/22 Vitamin C (Unknown Dose) 1 tab PO DAILY 05/09/21 05/11/22 Zinc 25 mg PO DAILY 05/09/21 05/11/22 Anastrozole [Arimidex] 1 mg PO DAILY 11/17/21 05/11/22 Previous Rx's Medication Instructions Recorded Acetaminophen Tab [Tylenol] 650 mg PO Q6HR PRN tab 01/18/18 Allergies Allergy/AdvReac Type Severity Reaction Status Date / Time bupropion HCl Allergy Rash/Hives Verified 03/30/22 13:38 [From Wellbutrin] Review of Systems ROS Statement: Those systems with pertinent positive or pertinent negative responses have been documented in the HPI. ROS Other: All systems not noted in ROS Statement are negative. Past Medical History Past Medical History: Cancer, COPD Additional Past Medical History / Comment(s): HIATAL HERNIA, SKIN CANCER, NEWLY DIAGNOSED BREAST CANCER- had radiation only, JAEGER'S DISEASE History of Any Multi-Drug Resistant Organisms: None Reported Past Surgical History: Breast Surgery, Tubal Ligation Additional Past Surgical History / Comment(s): BRONCHOSCOPY, BREAST BX, EGD., PROCEDURE TO "CUT NERVES IN NECK" Past Anesthesia/Blood Transfusion Reactions: Motion Sickness, Postoperative Nausea & Vomiting (PONV) Past Psychological History: No Psychological Hx Reported Smoking Status: Never smoker Past Alcohol Use History: None Reported Past Drug Use History: None Reported - Past Family History Brother(s) Family Medical History: Cancer Additional Family Medical History / Comment(s): BROTHER # 1 PANCREATIC CANCER. BROTHER #2 KIDNEY CANCER. General Exam Limitations: no limitations General appearance: alert, in no apparent distress Head exam: Present: atraumatic, normocephalic Eye exam: Present: normal appearance, PERRL ENT exam: Present: mucous membranes moist Neck exam: Present: normal inspection. Absent: tenderness, meningismus Respiratory exam: Present: normal lung sounds bilaterally. Absent: respiratory distress, wheezes, rales Cardiovascular Exam: Present: regular rate, normal rhythm GI/Abdominal exam: Present: soft. Absent: distended, tenderness Extremities exam: Present: normal inspection, normal capillary refill. Absent: pedal edema Neurological exam: Present: alert, oriented X3, CN II-XII intact. Absent: motor sensory deficit Psychiatric exam: Present: normal affect, normal mood Skin exam: Present: warm, dry, intact. Absent: cyanosis, diaphoretic Course Vital Signs 08/23/22 03:25 Temperature 98.8 F Pulse Rate 81 Respiratory 16 Rate Blood Pressure 175/91 O2 Sat by Pulse 98 Oximetry EKG Findings - EKG Comments: EKG Findings:: EKG: Sinus rhythm rate of 78, ID interval 157, QRS duration 80, QTC 398, no ST segment elevation - EKG Results: EKG: interpreted by DRU Medical Decision Making - Medical Decision Making Was pt. sent in by a medical professional or institution (JOE William, COMB MACHINE OPERATOR, urgent care, hospital, or fpc...) When possible be specific @ -No Did you speak to anyone other than the patient for history (EMS, parent, family, police, friend...)? What history was obtained from this source @ -No Did you review nursing and triage notes (agree or disagree)? Why? @ -I reviewed and agree with nursing and triage notes Were old charts reviewed (outside hosp., previous admission, EMS record, old EKG, old radiological studies, urgent care reports/EKG's, fpc records)? Report findings @ -No old charts were reviewed Differential Diagnosis (chest pain, altered mental status, abdominal pain women, abdominal pain men, vaginal bleeding, weakness, fever, dyspnea, syncope, headache, dizziness, GI bleed, back pain, seizure, CVA, palpatations, mental health, musculoskeletal)? @ -Hypertension EKG interpreted by me (3pts min.). @ -As above X-rays interpreted by me (1pt min.). @ -Chest x-ray reviewed, hyperinflation, no focal pneumonia or acute findings CT interpreted by me (1pt min.). @ -None done U/S interpreted by me (1pt. min.). @ -None done What testing was considered but not performed or refused? (CT, X-rays, U/S, labs)? Why? @ -None What meds were considered but not given or refused? Why? @ -None Did you discuss the management of the patient with other professionals (professionals i.e. , PA, COMB MACHINE OPERATOR, lab, RT, psych nurse, manager social, ironworker, teacher, community liaison officer, classification case manager)? Give summary @ -No Was smoking cessation discussed for >3mins.? @ -No Was critical care preformed (if so, how long)? @ -No Were there social determinants of health that impacted care today? How? (Homelessness, low income, unemployed, alcoholism, drug addiction, transporta tion, low edu. Level, literacy, decrease access to med. care, usp, rehab)? @ -No Was there de-escalation of care discussed even if they declined (Discuss DNR or withdrawal of care, Hospice)? DNR status @ -No What co-morbidities impacted this encounter? (DM, HTN, Smoking, COPD, CAD, Cancer, CVA, ARF, Chemo, Hep., AIDS, mental health diagnosis, sleep apnea, morbid obesity)? @ -None Was patient admitted / discharged? Hospital course, mention meds given and route, prescriptions, significant lab abnormalities, going to OR and other pertinent info. @ -77-year-old female with asymptomatic hypertension likely related to steroids that the patient is currently on. Other vital signs are stable. No chest pain or abdominal pain. Patient will monitor symptoms and return with any new symptoms including chest pain, headache, abdominal pain. Undiagnosed new problem with uncertain prognosis? @ -No Drug Therapy requiring intensive monitoring for toxicity (Heparin, Nitro, Insulin, Cardizem)? @ -No Were any procedures done? @ -No Diagnosis/symptom? @ -[Hypertension Acute, or Chronic, or Acute on Chronic? @ -Acute Disposition Clinical Impression: Hypertension Disposition: HOME SELF-CARE Condition: Good Instructions (If sedation given, give patient instructions): Hypertension (ED) Additional Instructions: Please monitor blood pressure at home. Please follow up with her primary care physician. Return to the emergency department with new or worsening symptoms. Is patient prescribed a controlled substance at d/c from ED?: No Referrals: None,Stated [Primary Care Provider] - 1-2 days Time of Disposition: 04:21
--- NOTE | 2022-08-23 04:40 | XR ---
EXAMINATION TYPE: XR chest 2V DATE OF EXAM: 08/23/2022 COMPARISON: 03/02/2021 HISTORY: Pneumonia TECHNIQUE: 2 view FINDINGS: There is pulmonary hyperinflation and flattening of the diaphragm. Heart size is normal. Th oracic aorta is atheromatous. No pleural effusion. There are chest leads. The bony thorax is intact. IMPRESSION: No active cardiopulmonary disease. COPD. No change.
[2022-08-23 04:45] VITALS: BP 150/76
== END 2022-08-23 04:59 | disposition home or self-care (01) ==
LOC: EC 03:21
DX: I10 Essential (primary) hypertension (principal); J44.9 Chronic obstructive pulmonary disease, unspecified; Z79.82 Long term (current) use of aspirin; Z79.51 Long term (current) use of inhaled steroids; Z79.899 Other long term (current) drug therapy; Z88.8 Allergy status to other drugs, medicaments and biological substances
CPT/HCPCS: 71046; 93005; 99284

== ENCOUNTER 2022-08-24 14:24 | Inpatient (IN) | payer MEDICARE, OTHER ==
[2022-08-24] MEDS ORDERED: ONDANSETRON 4 MG/2 ML VIAL IVP STA (14:52)
[2022-08-24] MEDS ORDERED: SODIUM CHLORIDE 0.9% 1,000 ML IV STA (14:52)
--- NOTE | 2022-08-24 14:56 | ED ---
General Adult HPI - General Chief complaint: Weakness Stated complaint: weakness Time Seen by Provider: 08/24/22 14:25 Source: patient, EMS, RN notes reviewed, old records reviewed Mode of arrival: EMS Limitations: no limitations - History of Present Illness Initial comments: This is a 77-year-old female presents emergency Department complaining of gene ralized weakness. Patient states she had a diagnosis of COVID 1 week ago and since then she seems to got progressively more weak and just extremely fatigued. Patient denies any recent fever chills per patient denies any chest pain shortness of breath or fever. Patient denies any abdominal pain patient states she did vomit once about 4 hours ago and is a little nauseous still. Patient denies any diarrhea. Patient denies any dysuria hematuria urinary frequency - Related Data Home Medications Medication Instructions Recorded Confirmed Omeprazole [PriLOSEC] 20 mg PO DAILY 03/31/14 08/24/22 Albuterol Sulfate [Ventolin HFA] 2 puff INHALATION RT-Q6H PRN 04/21/14 08/24/22 Budesonide-Formot 160-4.5 Mcg 2 puff INHALATION RT-BID 04/21/14 08/24/22 [Symbicort 160-4.5 Mcg Inhaler] Vitamin B Complex 1 cap PO DAILY 09/22/14 08/24/22 Vitamin E (Dl,Tocopheryl Acet) 1,000 unit PO DAILY 09/22/14 08/24/22 [Vitamin E] Acetaminophen/Diphenhydramine 2 tab PO HS 10/24/14 08/24/22 [Tylenol PM 500-25mg] Denosumab [Prolia] 60 mg SQ Q180D 10/24/14 08/24/22 Aspirin [Adult Low Dose Aspirin EC] 81 mg PO DAILY 04/04/16 08/24/22 Biotin 5 mg PO DAILY 10/11/18 08/24/22 Lutein 20 mg PO DAILY 11/03/20 08/24/22 Tiotropium 2.5 Mcg/Puff [Spiriva 2 puff INHALATION RT-DAILY 11/03/20 08/24/22 Respimat 2.5 Mcg] Magnesium Oxide [Mag-Oxide] 250 mg PO BID 04/12/21 08/24/22 Zinc 50 mg PO DAILY 05/09/21 08/24/22 Anastrozole [Arimidex] 1 mg PO DAILY 11/17/21 08/24/22 Acetaminophen [Tylenol Extra 1,000 mg PO DAILY 08/24/22 08/24/22 Strength] Ascorbic Acid [Vitamin C] 1,000 mg PO DAILY 08/24/22 08/24/22 Cholecalciferol [Vitamin D3 (125 125 mcg PO DAILY 08/24/22 08/24/22 Mcg = 5000 Iu)] Magnesium 250 mg PO BID 08/24/22 08/24/22 Simvastatin [Zocor] 10 mg PO HS 08/24/22 08/24/22 Vitamin A 2,400 mcg PO DAILY 08/24/22 08/24/22 Allergies Allergy/AdvReac Type Severity Reaction Status Date / Time bupropion HCl Allergy Rash/Hives Verified 08/24/22 14:40 [From Wellbutrin] Review of Systems ROS Statement: Those systems with pertinent positive or pertinent negative responses have been documented in the HPI. ROS Other: All systems not noted in ROS Statement are negative. Past Medical History Past Medical History: Cancer, COPD Additional Past Medical History / Comment(s): HIATAL HERNIA, SKIN CANCER, NEWLY DIAGNOSED BREAST CANCER- had radiation only, JAEGER'S DISEASE History of Any Multi-Drug Resistant Organisms: None Reported Past Surgical History: Breast Surgery, Tubal Ligation Additional Past Surgical History / Comment(s): BRONCHOSCOPY, BREAST BX, EGD., PROCEDURE TO "CUT NERVES IN NECK" Past Anesthesia/Blood Transfusion Reactions: Motion Sickness, Postoperative Nausea & Vomiting (PONV) Past Psychological History: No Psychological Hx Reported Smoking Status: Never smoker Past Alcohol Use History: None Reported Past Drug Use History: None Reported - Past Family History Brother(s) Family Medical History: Cancer Additional Family Medical History / Comment(s): BROTHER # 1 PANCREATIC CANCER. BROTHER #2 KIDNEY CANCER. General Exam - General Exam Comments Initial Comments: GENERAL: Patient is well-developed and well-nourished. Patient is nontoxic and well- hydrated and is in mild distress. ENT: Neck is soft and supple. No significant lymphadenopathy is noted. Oropharynx is clear. Moist mucous membranes. Neck has full range of motion without eliciting any pain. EYES: The sclera were anicteric and conjunctiva were pink and moist. Extraocular movements were intact and pupils were equal round and reactive to light. Eyelids were unremarkable. PULMONARY: Unlabored respirations. Good breath sounds bilaterally. No audible rales rhonchi or wheezing was noted. CARDIOVASCULAR: There is a regular rate and rhythm without any murmurs gallops or rubs. ABDOMEN: Soft and nontender with normal bowel sounds. SKIN: Skin is clear with no lesions or rashes and otherwise unremarkable. NEUROLOGIC: Patient is alert and oriented x3. Cranial nerves II through XII are grossly intact. Motor and sensory are also intact. Normal speech, volume and content. Symmetrical smile. MUSCULOSKELETAL: Normal extremities with adequate strength and full range of motion. No lower extremity swelling or edema. No calf tenderness. LYMPHATICS: No significant lymphadenopathy is noted PSYCHIATRIC: Normal psychiatric evaluation. [id number] Limitations: no limitations Course Vital Signs 08/24/22 08/24/22 08/24/22 14:29 14:37 15:00 Temperature 98.9 F Pulse Rate 80 80 82 Respiratory 18 Rate Blood Pressure 169/90 164/90 O2 Sat by Pulse 99 99 99 Oximetry 08/24/22 08/24/22 08/24/22 15:30 16:00 16:30 Temperature Pulse Rate 80 87 Respiratory Rate Blood Pressure 167/90 150/126 172/94 O2 Sat by Pulse 96 Oximetry 08/24/22 08/24/22 17:00 17:30 Temperature 97.8 F Pulse Rate 84 Respiratory Rate Blood Pressure 141/84 153/85 O2 Sat by Pulse 95 Oximetry Medical Decision Making - Medical Decision Making EKG was reviewed by myself EKG shows sinus rhythm at 82 bpm DE interval 256 QRS is 86 QT interval 372 QTC is 411. Patient's EKG shows no ST segment elevation or depression. Was pt. sent in by a medical professional or institution (, PA, FISHER EEL, urgent care, hospital, or custodial...) When possible be specific @ -No Did you speak to anyone other than the patient for history (EMS, parent, family, police, friend...)? What history was obtained from this source @ -No Did you review nursing and triage notes (agree or disagree)? Why? @ -I reviewed and agree with nursing and triage notes Were old charts reviewed (outside hosp., previous admission, EMS record, old EKG, old radiological studies, urgent care reports/EKG's, custodial records)? Report findings @ -I reviewed prior lab work and compared to today's. Differential Diagnosis (chest pain, altered mental status, abdominal pain women, abdominal pain men, vaginal bleeding, weakness, fever, dyspnea, syncope, headache, dizziness, GI bleed, back pain, seizure, CVA, palpatations, mental health, musculoskeletal)? @ -Differential Weakness: Hypoglycemia, shock, sepsis, hyponatremia, anemia, infection, [place], ETOH, adverse medicine reaction, overdose, stroke, this is not meant to be an all-inclusive list. EKG interpreted by me (3pts min.). @ -As above X-rays interpreted by me (1pt min.). @ -Chest x-ray was interpreted by myself as no acute abnormalities. CT interpreted by me (1pt min.). @ -None done U/S interpreted by me (1pt. min.). @ -None done What testing was considered but not performed or refused? (CT, X-rays, U/S, labs)? Why? @ -None What meds were considered but not given or refused? Why? @ -None Did you discuss the management of the patient with other professionals (professionals i.e. , PA, FISHER EEL, lab, RT, psych nurse, social insurance administrator, geriatrics physician, teacher, credit control officer, block and case maker)? Give summary @ -I discussed the case with [facility] hospitalist and they agreed to admit the patient Was smoking cessation discussed for >3mins.? @ -No Was critical care preformed (if so, how long)? @ -35 minutes Were there social determinants of health that impacted care today? How? (Homelessness, low income, unemployed, alcoholism, drug addiction, transportation, low edu. Level, literacy, decrease access to med. care, alf, rehab)? @ -No Was there de-escalation of care discussed even if they declined (Discuss DNR or withdrawal of care, Hospice)? DNR status @ -No What co-morbidities impacted this encounter? (DM, HTN, Smoking, COPD, CAD, Cancer, CVA, ARF, Chemo, Hep., AIDS, mental health diagnosis, sleep apnea, morbid obesity)? @ -None Was patient admitted / discharged? Hospital course, mention meds given and route, prescriptions, significant lab abnormalities, going to OR and other pertinent info. @ -Patient was seen for weakness and fatigue. Patient had a sodium of 116. Patient was given a bolus of normal saline emergency department. I spoke with [facility] agreed to admit the patient admitted the patient and wrote admitting orders and I consult the nephrology Undiagnosed new problem with uncertain prognosis? @ -No Drug Therapy requiring intensive monitoring for toxicity (Heparin, Nitro, Insulin, Cardizem)? @ -No Were any procedures done? @ -No Diagnosis/symptom? @ -Hyponatremia Acute, or Chronic, or Acute on Chronic? @ -Acute Uncomplicated (without systemic symptoms) or Complicated (systemic symptoms)? @ -Complicated Side effects of treatment? @ -No Exacerbation, Progression, or Severe Exacerbation? @ -No Poses a threat to life or bodily function? How? (Chest pain, [place], [place], pneumonia, PE, COPD, DKA, ARF, appy, cholecystitis, CVA, Diverticulitis, Homicidal, Suicidal, threat to staff... and all critical care pts) @ -Yes is currently to continued weakness and altered mental status Diagnosis/symptom? @ -COVID Acute, or Chronic, or Acute on Chronic? @ -default Uncomplicated (without systemic symptoms) or Complicated (systemic symptoms)? @ -default Side effects of treatment? @ -none Exacerbation, Progression, or Severe Exacerbation] @ -no Poses a threat to life or bodily function? @ -no - Lab Data Result diagrams: 08/24/22 15:45 08/24/22 15:45 Lab Results 08/24/22 08/24/22 08/24/22 Range/Units 15:45 15:45 15:45 WBC 7.3 (3.8-10.6) k/uL RBC 4.51 (3.80-5.40) m/uL Hgb 14.5 (11.4-16.0) gm/dL Hct 40.6 (34.0-46.0) % MCV 90.1 (80.0-100.0) fL MCH 32.1 (25.0-35.0) pg MCHC 35.6 (31.0-37.0) g/dL RDW 12.2 (11.5-15.5) % Plt Count 295 (150-450) k/uL MPV 7.3 Neutrophils % 62 % Lymphocytes % 21 % Monocytes % 13 % Eosinophils % 1 % Basophils % 0 % Neutrophils # 4.6 (1.3-7.7) k/uL Lymphocytes # 1.5 (1.0-4.8) k/uL Monocytes # 1.0 (0-1.0) k/uL Eosinophils # 0.1 (0-0.7) k/uL Basophils # 0.0 (0-0.2) k/uL PT 10.0 (9.0-12.0) sec INR 0.9 (<1.2) APTT 21.5 L (22.0-30.0) sec Sodium (137-145) mmol/L Potassium (3.5-5.1) mmol/L Chloride (98-107) mmol/L Carbon Dioxide (22-30) mmol/L Anion Gap mmol/L BUN (7-17) mg/dL Creatinine (0.52-1.04) mg/dL Est GFR (CKD-EPI)AfAm (>60 ml/min/1.73 sqM) Est GFR (CKD-EPI)NonAf (>60 ml/min/1.73 sqM) Glucose (74-99) mg/dL Plasma Lactic Acid [place] (0.7-2.0) mmol/L Calcium (8.4-10.2) mg/dL Magnesium (1.6-2.3) mg/dL Total Bilirubin (0.2-1.3) mg/dL AST (14-36) U/L ALT (4-34) U/L Alkaline Phosphatase (38-126) U/L Troponin I (0.000-0.034) ng/mL Total Protein (6.3-8.2) g/dL Albumin (3.5-5.0) g/dL Urine Color Urine Appearance (Clear) Urine pH (5.0-8.0) Ur Specific [place] (1.001-1.035) Urine Protein (Negative) Urine Glucose (UA) (Negative) Urine Ketones (Negative) Urine Blood (Negative) Urine Nitrite (Negative) Urine Bilirubin (Negative) Urine Urobilinogen (<2.0) mg/dL Ur Leukocyte Esterase (Negative) Urine RBC (0-5) /hpf Urine WBC (0-5) /hpf Ur Squamous Epith Cells (0-4) /hpf Urine Mucus (None) /hpf Coronavirus (PCR) Detected A (Not Detectd) 08/24/22 08/24/22 08/24/22 Range/Units 15:45 15:45 15:45 WBC (3.8-10.6) k/uL RBC (3.80-5.40) m/uL Hgb (11.4-16.0) gm/dL Hct (34.0-46.0) % MCV (80.0-100.0) fL MCH (25.0-35.0) pg MCHC (31.0-37.0) g/dL RDW (11.5-15.5) % Plt Count (150-450) k/uL MPV Neutrophils % % Lymphocytes % % Monocytes % % Eosinophils % % Basophils % % Neutrophils # (1.3-7.7) k/uL Lymphocytes # (1.0-4.8) k/uL Monocytes # (0-1.0) k/uL Eosinophils # (0-0.7) k/uL Basophils # (0-0.2) k/uL PT (9.0-12.0) sec INR (<1.2) APTT (22.0-30.0) sec Sodium 116 L* (137-145) mmol/L Potassium 3.9 (3.5-5.1) mmol/L Chloride 81 L (98-107) mmol/L Carbon Dioxide 26 (22-30) mmol/L Anion Gap 9 mmol/L BUN 11 (7-17) mg/dL Creatinine 0.49 L (0.52-1.04) mg/dL Est GFR (CKD-EPI)AfAm >90 (>60 ml/min/1.73 sqM) Est GFR (CKD-EPI)NonAf >90 (>60 ml/min/1.73 sqM) Glucose 93 (74-99) mg/dL Plasma Lactic Acid [place] 1.2 (0.7-2.0) mmol/L Calcium 9.1 (8.4-10.2) mg/dL Magnesium 1.6 (1.6-2.3) mg/dL Total Bilirubin 0.9 (0.2-1.3) mg/dL AST 36 (14-36) U/L ALT 36 H (4-34) U/L Alkaline Phosphatase 63 (38-126) U/L Troponin I <0.012 (0.000-0.034) ng/mL Total Protein 6.1 L (6.3-8.2) g/dL Albumin 3.6 (3.5-5.0) g/dL Urine Color Urine Appearance (Clear) Urine pH (5.0-8.0) Ur Specific [place] (1.001-1.035) Urine Protein (Negative) Urine Glucose (UA) (Negative) Urine Ketones (Negative) Urine Blood (Negative) Urine Nitrite (Negative) Urine Bilirubin (Negative) Urine Urobilinogen (<2.0) mg/dL Ur Leukocyte Esterase (Negative) Urine RBC (0-5) /hpf Urine WBC (0-5) /hpf Ur Squamous Epith Cells (0-4) /hpf Urine Mucus (None) /hpf Coronavirus (PCR) (Not Detectd) 08/24/22 Range/Units 17:34 WBC (3.8-10.6) k/uL RBC (3.80-5.40) m/uL Hgb (11.4-16.0) gm/dL Hct (34.0-46.0) % MCV (80.0-100.0) fL MCH (25.0-35.0) pg MCHC (31.0-37.0) g/dL RDW (11.5-15.5) % Plt Count (150-450) k/uL MPV Neutrophils % % Lymphocytes % % Monocytes % % Eosinophils % % Basophils % % Neutrophils # (1.3-7.7) k/uL Lymphocytes # (1.0-4.8) k/uL Monocytes # (0-1.0) k/uL Eosinophils # (0-0.7) k/uL Basophils # (0-0.2) k/uL PT (9.0-12.0) sec INR (<1.2) APTT (22.0-30.0) sec Sodium (137-145) mmol/L Potassium (3.5-5.1) mmol/L Chloride (98-107) mmol/L Carbon Dioxide (22-30) mmol/L Anion Gap mmol/L BUN (7-17) mg/dL Creatinine (0.52-1.04) mg/dL Est GFR (CKD-EPI)AfAm (>60 ml/min/1.73 sqM) Est GFR (CKD-EPI)NonAf (>60 ml/min/1.73 sqM) Glucose (74-99) mg/dL Plasma Lactic Acid [place] (0.7-2.0) mmol/L Calcium (8.4-10.2) mg/dL Magnesium (1.6-2.3) mg/dL Total Bilirubin (0.2-1.3) mg/dL AST (14-36) U/L ALT (4-34) U/L Alkaline Phosphatase (38-126) U/L Troponin I (0.000-0.034) ng/mL Total Protein (6.3-8.2) g/dL Albumin (3.5-5.0) g/dL Urine Color Colorless Urine Appearance Clear (Clear) Urine pH 8.0 (5.0-8.0) Ur Specific [place] 1.003 (1.001-1.035) Urine Protein Trace H (Negative) Urine Glucose (UA) Negative (Negative) Urine Ketones Negative (Negative) Urine Blood Small H (Negative) Urine Nitrite Negative (Negative) Urine Bilirubin Negative (Negative) Urine Urobilinogen <2.0 (<2.0) mg/dL Ur Leukocyte Esterase Negative (Negative) Urine RBC 5 (0-5) /hpf Urine WBC <1 (0-5) /hpf Ur Squamous Epith Cells <1 (0-4) /hpf Urine Mucus Rare H (None) /hpf Coronavirus (PCR) (Not Detectd) Critical Care Time Critical Care Time: Yes Total Critical Care Time: 35 Disposition Clinical Impression: Hyponatremia, COVID Disposition: ADMITTED IP TO THIS [facility] Time of Disposition: 18:23
--- NOTE | 2022-08-24 16:15 | XR ---
EXAMINATION TYPE: XR chest 2V DATE OF EXAM: 08/24/2022 COMPARISON: 08/23/2022 INDICATION: Weakness code with TECHNIQUE: Frontal and lateral views of the chest are obtained. FINDINGS: The heart size is normal. The pulmonary vasculature is normal. The lungs are clear. There is hyperinflation and flattening the diaphragms compatible COPD. IMPRESSION: 1. No acute pulmonary process. 2. COPD
[2022-08-24 16:23] LABS: Basophils % (A) 0 %; Eosinophils # (A) 0.1 k/uL (0-0.7); Eosinophils % (A) 1 %; HCT 40.6 % (34.0-46.0); HGB 14.5 gm/dL (11.4-16.0); Lymphocytes # (A) 1.5 k/uL (1.0-4.8); Lymphocytes % (A) 21 %; MCH 32.1 pg (25.0-35.0); MCHC 35.6 g/dL (31.0-37.0); MCV 90.1 fL (80.0-100.0); Mean Platelet Volume 7.3; Monocytes % (A) 13 %; Neutrophils # (A) 4.6 k/uL (1.3-7.7); Neutrophils % (A) 62 %; Platelet Count 295 k/uL (150-450); RBC 4.51 m/uL (3.80-5.40); RDW 12.2 % (11.5-15.5); WBC 7.3 k/uL (3.8-10.6)
[2022-08-24 16:35] LABS: ALT 36 U/L (4-34); AST 36 U/L (14-36); African American GFR (CKD) >90 (>60 ml/min/1.73 sqM); Albumin 3.6 g/dL (3.5-5.0); Alkaline Phosphatase 63 U/L (38-126); Anion Gap 9 mmol/L; Blood Urea Nitrogen 11 mg/dL (7-17); Calcium 9.1 mg/dL (8.4-10.2); Carbon Dioxide 26 mmol/L (22-30); Chloride 81 mmol/L (98-107); Glucose 93 mg/dL (74-99); Magnesium 1.6 mg/dL (1.6-2.3); Non-African American GFR(CKD) >90 (>60 ml/min/1.73 sqM); Potassium 3.9 mmol/L (3.5-5.1); Total Bilirubin 0.9 mg/dL (0.2-1.3); Total Protein 6.1 g/dL (6.3-8.2)
[2022-08-24 16:48] LABS: INR 0.9 (<1.2)
[2022-08-24 16:53] LABS: Partial Thromboplastin Time 21.5 sec (22.0-30.0); Sodium 116 mmol/L (137-145)
[2022-08-24 18:23] LABS: Appearance,Urine Clear (Clear); Bilirubin,Urine Negative (Negative); Blood,Urine Small (Negative); Color,Urine Colorless; Glucose,Urine (UA) Negative (Negative); Ketones,Urine Negative (Negative); Leukocyte Esterase,Urine Negative (Negative); Mucus,Urine Rare /hpf; Nitrite,Urine Negative (Negative); Protein,Urine Trace (Negative); RBC,Urine 5 /hpf (0-5); Specific Gravity,Urine 1.003 (1.001-1.035); Squamous Epithelial Cell,Urine <1 /hpf (0-4); Urobilinogen,Urine <2.0 mg/dL (<2.0); WBC,Urine <1 /hpf (0-5)
[2022-08-24] MEDS ORDERED: SODIUM CHLORIDE 0.9% 1,000 ML IV ONE (18:24)
[2022-08-24] MEDS ORDERED: ONDANSETRON 4 MG/2 ML VIAL IVP PRN (23:28)
[2022-08-24] MEDS: ACETAMINOPHEN TAB 500 MG TAB PO PRN (23:56)
[2022-08-24] MEDS: diphenhydrAMINE 25 MG CAP PO PRN (23:56)
[2022-08-25] MEDS: SODIUM CHLORIDE 0.9% 1,000 ML IV SCH (08:00)
[2022-08-25] MEDS: TIOTROPIUM 2.5 MCG INHALER INHALATION SCH (09:49)
[2022-08-25] MEDS: ALBUTEROL HFA INHALER INHALATION PRN ×4 (09:49→21:15)
[2022-08-25] MEDS: SYMBICORT 160-4.5 MCG INHALER INHALATION SCH ×2 (09:49→21:14)
[2022-08-25 10:19] LABS: ALT 34 U/L (4-34); AST 38 U/L (14-36); African American GFR (CKD) >90 (>60 ml/min/1.73 sqM); Albumin 3.6 g/dL (3.5-5.0); Alkaline Phosphatase 54 U/L (38-126); Anion Gap 8 mmol/L; Blood Urea Nitrogen 8 mg/dL (7-17); Calcium 8.7 mg/dL (8.4-10.2); Carbon Dioxide 27 mmol/L (22-30); Chloride 93 mmol/L (98-107); Glucose 89 mg/dL (74-99); Magnesium 1.7 mg/dL (1.6-2.3); Non-African American GFR(CKD) >90 (>60 ml/min/1.73 sqM); Potassium 3.9 mmol/L (3.5-5.1); Sodium 128 mmol/L (137-145); Total Bilirubin 0.8 mg/dL (0.2-1.3)
--- NOTE | 2022-08-25 10:27 | P.NPCON ---
History of Present Illness - Reason for Consult hyponatremia - History of Present Illness Patient is a 77-year-old female with history of dyslipidemia and gastroesophageal reflux disease. Patient is admitted to the hospital with complaints of increased weakness extreme fatigue, nausea and emesis times one. Patient states she has not been eating much for the last week or so but was drinking large amounts of water. Patient admits to history of hyponatremia about 2-3 years ago. Sodium was 116 on admission. Blood pressure was not low. Patient was maintained on normal saline. Now discontinued. We do not have a repeat sodium back yet. Patient has been voiding. No history of any new medications started recently. No significant pain No diuretics on board. Patient tested positive for COVID-19. O2 sats 94% room air. Chest x-ray shows no acute findings. Review of Systems As per HPI Past Medical History Past Medical History: Cancer, COPD Additional Past Medical History / Comment(s): HIATAL HERNIA, SKIN CANCER, NEWLY DIAGNOSED BREAST CANCER- had radiation only, JAEGER'S DISEASE History of Any Multi-Drug Resistant Organisms: None Reported Past Surgical History: Breast Surgery, Tubal Ligation Additional Past Surgical History / Comment(s): BRONCHOSCOPY, BREAST BX, EGD., PROCEDURE TO "CUT NERVES IN NECK" Past Anesthesia/Blood Transfusion Reactions: Motion Sickness, Postoperative Nausea & Vomiting (PONV) Past Psychological History: No Psychological Hx Reported Additional Psychological History / Comment(s): . Smoking Status: Former smoker Past Alcohol Use History: None Reported Additional Past Alcohol Use History / Comment(s): STARTED SMOKING AT AGE 19 QUIT JULY 2016 Past Drug Use History: None Reported - Past Family History Brother(s) Family Medical History: Cancer Additional Family Medical History / Comment(s): BROTHER # 1 PANCREATIC CANCER. BROTHER #2 KIDNEY CANCER. Medications and Allergies Home Medications Medication Instructions Recorded Confirmed Type Omeprazole [PriLOSEC] 20 mg PO DAILY 03/31/14 08/24/22 History Albuterol Sulfate [Ventolin HFA] 2 puff INHALATION RT-Q6H PRN 04/21/14 08/24/22 History Budesonide-Formot 160-4.5 Mcg 2 puff INHALATION RT-BID 04/21/14 08/24/22 History [Symbicort 160-4.5 Mcg Inhaler] Vitamin B Complex 1 cap PO DAILY 09/22/14 08/24/22 History Vitamin E (Dl,Tocopheryl Acet) 1,000 unit PO DAILY 09/22/14 08/24/22 History [Vitamin E] Acetaminophen/Diphenhydramine 2 tab PO HS 10/24/14 08/24/22 History [Tylenol PM 500-25mg] Denosumab [Prolia] 60 mg SQ Q180D 10/24/14 08/24/22 History Aspirin [Adult Low Dose Aspirin EC] 81 mg PO DAILY 04/04/16 08/24/22 History Biotin 5 mg PO DAILY 10/11/18 08/24/22 History Lutein 20 mg PO DAILY 11/03/20 08/24/22 History Tiotropium 2.5 Mcg/Puff [Spiriva 2 puff INHALATION RT-DAILY 11/03/20 08/24/22 History Respimat 2.5 Mcg] Magnesium Oxide [Mag-Oxide] 250 mg PO BID 04/12/21 08/24/22 History Zinc 50 mg PO DAILY 05/09/21 08/24/22 History Anastrozole [Arimidex] 1 mg PO DAILY 11/17/21 08/24/22 History Acetaminophen [Tylenol Extra 1,000 mg PO DAILY 08/24/22 08/24/22 History Strength] Ascorbic Acid [Vitamin C] 1,000 mg PO DAILY 08/24/22 08/24/22 History Cholecalciferol [Vitamin D3 (125 125 mcg PO DAILY 08/24/22 08/24/22 History Mcg = 5000 Iu)] Magnesium 250 mg PO BID 08/24/22 08/24/22 History Simvastatin [Zocor] 10 mg PO HS 08/24/22 08/24/22 History Vitamin A 2,400 mcg PO DAILY 08/24/22 08/24/22 History Allergies Allergy/AdvReac Type Severity Reaction Status Date / Time bupropion HCl Allergy Rash/Hives Verified 08/24/22 14:40 [From Wellbutrin] Physical Exam Vitals: Vital Signs Temp Pulse Pulse Resp BP BP Pulse Ox 08/25/22 04:00 97.3 F L 94 18 131/79 94 L 08/25/22 02:00 82 18 08/25/22 00:00 98.3 F 82 18 134/77 92 L 08/24/22 21:57 86 18 08/24/22 21:38 98.0 F 86 18 142/81 95 08/24/22 19:00 98.6 F 80 175/91 08/24/22 18:00 155/84 08/24/22 17:30 97.8 F 153/85 08/24/22 17:00 84 141/84 95 08/24/22 16:30 87 172/94 96 08/24/22 16:00 80 150/126 08/24/22 15:30 167/90 08/24/22 15:00 82 164/90 99 08/24/22 14:37 80 99 08/24/22 14:29 98.9 F 80 18 169/90 99 Intake and Output 08/24/22 08/25/22 08/25/22 22:59 06:59 14:59 Other: Voiding Method Toilet Toilet # Voids 1 Weight 47.627 kg Patient is awake, comfortable, alert oriented 3 No acute distress Examination of the heart S1 and S2 Examination of the lungs bilateral breath sounds are heard Abdomen is soft nontender Examination of the lower extremity shows no edema JACK SPINNER exam grossly intact Results - Lab Results Most recent lab results Calcium 9.1 mg/dL (8.4-10.2) 08/24/22 15:45 Magnesium 1.6 mg/dL (1.6-2.3) 08/24/22 15:45 08/24/22 15:45 08/24/22 15:45 Assessment and Plan Assessment: 1. Hyponatremia, possibly hypovolemic. Status post normal saline, repeat sodium is currently pending. Check urine osmolality and random urine sodium. Blood pressure was not low on initial admission. Patient did admit to excessive intake of free water. 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 We will follow-up on the urine osmolality. 2. COVID-19 infection 3. Gastroesophageal reflux disease 4. Dyslipidemia Plan: Recheck sodium now Check urine osmolality and random urine sodium Patient is advised to decrease intake of plain water Increase oral protein intake Thank you for the consultation. We will continue to follow the patient with you during her hospitalization.
[2022-08-25 12:14] LABS: African American GFR (CKD) >90 (>60 ml/min/1.73 sqM); Anion Gap 5 mmol/L; Blood Urea Nitrogen 12 mg/dL (7-17); Calcium 8.3 mg/dL (8.4-10.2); Carbon Dioxide 27 mmol/L (22-30); Chloride 94 mmol/L (98-107); Glucose 94 mg/dL (74-99); Non-African American GFR(CKD) 88 (>60 ml/min/1.73 sqM); Potassium 3.9 mmol/L (3.5-5.1); Sodium 126 mmol/L (137-145)
[2022-08-25] MEDS: ASCORBIC ACID 500 MG TAB PO SCH (12:29)
[2022-08-25] MEDS: ZINC SULFATE 220 MG CAP PO SCH (12:29)
[2022-08-25] MEDS: ASPIRIN 81 MG PO SCH (12:29)
[2022-08-25] MEDS: CHOLECALCIFEROL 125 MCG (5000 IU) TABLET PO SCH (12:29)
[2022-08-25] MEDS: ACETAMINOPHEN TAB 500 MG TAB PO PRN ×2 (12:30→23:03)
[2022-08-25] MEDS: diphenhydrAMINE 25 MG CAP PO SCH (12:31)
[2022-08-25] MEDS: PANTOPRAZOLE 40 MG TABLET PO SCH (12:32)
[2022-08-25 12:40] LABS: Basophils % (A) 0 %; Eosinophils # (A) 0.1 k/uL (0-0.7); Eosinophils % (A) 1 %; HCT 37.8 % (34.0-46.0); HGB 13.2 gm/dL (11.4-16.0); Lymphocytes # (A) 0.8 k/uL (1.0-4.8); Lymphocytes % (A) 14 %; MCH 32.4 pg (25.0-35.0); MCHC 34.8 g/dL (31.0-37.0); MCV 93.3 fL (80.0-100.0); Monocytes # (A) 0.8 k/uL (0-1.0); Monocytes % (A) 13 %; Neutrophils # (A) 4.2 k/uL (1.3-7.7); Neutrophils % (A) 71 %; Platelet Count 297 k/uL (150-450); RBC 4.05 m/uL (3.80-5.40); RDW 12.4 % (11.5-15.5)
[2022-08-25 12:56] LABS: C Reactive Protein 0.6 mg/dL (<1.0)
--- NOTE | 2022-08-25 14:31 | P.CNPUL ---
History of Present Illness Consult date: 08/25/22 Reason for consult: COPD History of present illness: 77-year-old female patient with known history of COPD, who started getting sick approximately 10 days ago. She started having generalized weakness, fatigue, tiredness, nausea, emesis and diarrhea. She is known to have COPD and there was no significant worsening in her shortness of breath. No reported fever or chills. She came into the hospital for the above-mentioned complaint. The pa charo was diagnosed having Covid 19 infection approximately a week ago. She has not been vaccinated in the past and she has taken to original vaccination in addition to 3 boosters. The patient was hospitalized as the patient also has significant electrode abnormalities. Sodium level was 116 and the patient also had a potassium level of 3.9. BUN was 11 with creatinine 0.49. Normal CBC. D-dimer was 0.39. Normal cognition profile. CRP level was 0.6. Lactic acid level was at 1.2. Chest x-ray was not was consistent with COPD without any acute abnormalities. Chest x-ray showed no evidence of pneumonia. The patient remains on room air oxygen. Pulse ox is in order of 92%. The patient is limited on examination Spiriva and Symbicort on outpatient basis. She is currently on a routine inhalers. No interval worsening in her breathing. Review of Systems Constitutional: Reports fatigue, Reports lethargy, Reports poor appetite, Reports weakness Eyes: denies as per HPI, denies blurred vision, denies bulging eye, denies d ecreased vision, denies diplopia, denies discharge, denies dry eye, denies irritation, denies itching, denies pain, denies photophobia, denies loss of peripheral vision, denies loss of vision, denies tunnel vision/blind spots Ears: deny: decreased hearing, ear discharge, earache, tinnitus Ears, nose, mouth and throat: Reports as per HPI Breasts: absent: as per HPI, change in shape, gynecomastia, masses, nipple discharge, pain, skin changes, swelling Cardiovascular: Reports decreased exercise tolerance Respiratory: Reports dyspnea (Chronic) Gastrointestinal: Reports diarrhea, Reports nausea, Reports vomiting Genitourinary: Reports as per HPI Menstruation: Reports as per HPI Musculoskeletal: Reports as per HPI Musculoskeletal: absent: ankle pain, ankle stiffness, ankle swelling Integumentary: Reports as per HPI Neurological: Reports as per HPI Psychiatric: Reports as per HPI Endocrine: Reports as per HPI Hematologic/Lymphatic: Reports as per HPI Allergic/Immunologic: Reports as per HPI Past Medical History Past Medical History: Cancer, COPD Additional Past Medical History / Comment(s): HIATAL HERNIA, SKIN CANCER, NEWLY DIAGNOSED BREAST CANCER- had radiation only, JAEGER'S DISEASE History of Any Multi-Drug Resistant Organisms: None Reported Past Surgical History: Breast Surgery, Tubal Ligation Additional Past Surgical History / Comment(s): BRONCHOSCOPY, BREAST BX, EGD., PROCEDURE TO "CUT NERVES IN NECK" Past Anesthesia/Blood Transfusion Reactions: Motion Sickness, Postoperative Nausea & Vomiting (PONV) Past Psychological History: No Psychological Hx Reported Additional Psychological History / Comment(s): . Smoking Status: Former smoker Past Alcohol Use History: None Reported Additional Past Alcohol Use History / Comment(s): STARTED SMOKING AT AGE 19 QUIT JULY 2016 Past Drug Use History: None Reported - Past Family History Brother(s) Family Medical History: Cancer Additional Family Medical History / Comment(s): BROTHER # 1 PANCREATIC CANCER. BROTHER #2 KIDNEY CANCER. Medications and Allergies Home Medications Medication Instructions Recorded Confirmed Type Omeprazole [PriLOSEC] 20 mg PO DAILY 03/31/14 08/24/22 History Albuterol Sulfate [Ventolin HFA] 2 puff INHALATION RT-Q6H PRN 04/21/14 08/24/22 History Budesonide-Formot 160-4.5 Mcg 2 puff INHALATION RT-BID 04/21/14 08/24/22 History [Symbicort 160-4.5 Mcg Inhaler] Vitamin B Complex 1 cap PO DAILY 09/22/14 08/24/22 History Vitamin E (Dl,Tocopheryl Acet) 1,000 unit PO DAILY 09/22/14 08/24/22 History [Vitamin E] Acetaminophen/Diphenhydramine 2 tab PO HS 10/24/14 08/24/22 History [Tylenol PM 500-25mg] Denosumab [Prolia] 60 mg SQ Q180D 10/24/14 08/24/22 History Aspirin [Adult Low Dose Aspirin EC] 81 mg PO DAILY 04/04/16 08/24/22 History Biotin 5 mg PO DAILY 10/11/18 08/24/22 History Lutein 20 mg PO DAILY 11/03/20 08/24/22 History Tiotropium 2.5 Mcg/Puff [Spiriva 2 puff INHALATION RT-DAILY 11/03/20 08/24/22 History Respimat 2.5 Mcg] Magnesium Oxide [Mag-Oxide] 250 mg PO BID 04/12/21 08/24/22 History Zinc 50 mg PO DAILY 05/09/21 08/24/22 History Anastrozole [Arimidex] 1 mg PO DAILY 11/17/21 08/24/22 History Acetaminophen [Tylenol Extra 1,000 mg PO DAILY 08/24/22 08/24/22 History Strength] Ascorbic Acid [Vitamin C] 1,000 mg PO DAILY 08/24/22 08/24/22 History Cholecalciferol [Vitamin D3 (125 125 mcg PO DAILY 08/24/22 08/24/22 History Mcg = 5000 Iu)] Magnesium 250 mg PO BID 08/24/22 08/24/22 History Simvastatin [Zocor] 10 mg PO HS 08/24/22 08/24/22 History Vitamin A 2,400 mcg PO DAILY 08/24/22 08/24/22 History Allergies Allergy/AdvReac Type Severity Reaction Status Date / Time bupropion HCl Allergy Rash/Hives Verified 08/24/22 14:40 [From Wellbutrin] Physical Exam Vitals: Vital Signs Temp Pulse Pulse Resp BP BP Pulse Ox 08/25/22 08:00 97.6 F 92 18 157/89 92 L 08/25/22 04:00 97.3 F L 94 18 131/79 94 L 08/25/22 02:00 82 18 08/25/22 00:00 98.3 F 82 18 134/77 92 L 08/24/22 21:57 86 18 08/24/22 21:38 98.0 F 86 18 142/81 95 08/24/22 19:00 98.6 F 80 175/91 08/24/22 18:00 155/84 08/24/22 17:30 97.8 F 153/85 08/24/22 17:00 84 141/84 95 08/24/22 16:30 87 172/94 96 08/24/22 16:00 80 150/126 08/24/22 15:30 167/90 08/24/22 15:00 82 164/90 99 08/24/22 14:37 80 99 08/24/22 14:29 98.9 F 80 18 169/90 99 Intake and Output 08/24/22 08/25/22 08/25/22 22:59 06:59 14:59 Intake Total 1615 Balance 1615 Intake: IV 1375 Sodium Chloride 0.9% 1, 375 000 ml @ 75 mls/hr IV . [id number] Rx#:[id number] Sodium Chloride 0.9% 1, 1000 000 ml @ 999 mls/hr IV . Q1H1M STA Rx#:[id number] Oral 240 Other: Voiding Method Toilet Toilet Toilet # Voids 1 Weight 47.627 kg Gen. appearance the patient is calm and comfortable currently on room air oxygen The patient appeared well nourished and normally developed. Vital signs as documented. Head exam is unremarkable. No scleral icterus or corneal arcus noted. Neck is without jugular venous distension, thyromegaly, or carotid bruits. Carotid upstrokes are brisk bilaterally. Lungs are clear to auscultation and percussion. Lung sounds are showing diminished breath tones bilaterally. Cardiac exam reveals the PMI to be normally sized and situated. Rhythm is regular. First and second heart sounds normal. No murmurs, rubs or gallops. Abdominal exam reveals normal bowel sounds, no masses, no organomegaly and no aortic enlargement. Extremities are nonedematous and both femoral and pedal pulses are normal. Examination of the skin revealed no evidence of significant rashes, suspicious appearing nevi or other concerning lesions. Neurologically, the patient is awake and alert and the patient does not have any focal neurological deficit. Cranial nerves are essentially intact. Results - Laboratory Findings CBC and BMP: 08/25/22 12:02 08/25/22 11:55 PT/INR, D-dimer PT 10.0 sec (9.0-12.0) 08/24/22 15:45 INR 0.9 (<1.2) 08/24/22 15:45 D-Dimer 0.39 mg/L FEU (<0.60) 08/25/22 12:02 Abnormal lab findings: Abnormal Labs 08/24/22 08/24/22 08/24/22 15:45 15:45 15:45 Lymphocytes # APTT 21.5 L Sodium 116 L* Chloride 81 L Creatinine 0.49 L Calcium AST ALT 36 H Total Protein 6.1 L Urine Protein Urine Blood Urine Mucus Coronavirus (PCR) Detected A 08/24/22 08/25/22 08/25/22 17:34 09:04 11:55 Lymphocytes # APTT Sodium 128 L 126 L Chloride 93 L 94 L Creatinine Calcium 8.3 L AST 38 H ALT Total Protein 6.0 L Urine Protein Trace H Urine Blood Small H Urine Mucus Rare H Coronavirus (PCR) 08/25/22 12:02 Lymphocytes # 0.8 L APTT Sodium Chloride Creatinine Calcium AST ALT Total Protein Urine Protein Urine Blood Urine Mucus Coronavirus (PCR) - Diagnostic Findings Chest x-ray: image reviewed Assessment and Plan Plan: Acute Covid 19 infection. The patient's symptoms started more than a week ago. She does have essentially gastrointestinal symptoms and she presented to the hospital because of an generalized weakness and electronically balance. No evidence of pneumonia at this point in time. Note that this is the patient's first infection and the patient has been heavily vaccinated for Covid 19. Inflammatory markers are lower including d-dimer and CRP Acute hypernatremia, improving with fluids Hypokalemia, replace COPD metabolic accommodation Symbicort Spiriva on outpatient basis. No interval worsening oxygenation the patient overall respiratory status is stable Early stage breast cancer post lumpectomy radiation therapy and the patient is currently on hormonal treatment History of Jaeger's esophagus with hiatal hernia History of skin cancer Plan No need for steroids No need for any alternative treatments regarding Covid 19 are then supportive treatment and the placement of fluid and electrolyte imbalance Resume all medication in form of Spiriva and Symbicort Monitor oxygenation Continue IV fluids Clinically the patient is improving. Resume all medications.
[2022-08-25 14:49] VITALS: BMI 18.6
--- NOTE | 2022-08-25 16:48 | P.HPIM ---
History of Present Illness H&P Date: 08/25/22 Chief Complaint: Generalized weakness/fatigue 77-year-old female presents emergency Department complaining of generalized weakness. Patient states she had a diagnosis of COVID 1 week ago and since then she seems to got progressively more weak and just extremely fatigued. Patient denies any recent fever chills per patient denies any chest pain shortness of breath or fever. Patient denies any abdominal pain patient states she did vomit once about 4 hours ago and is a little nauseous still. Patient denies any diarrhea. Patient denies any dysuria hematuria urinary frequency Sodium level was 116 and the patient also had a potassium level of 3.9. BUN was 11 with creatinine 0.49. Normal CBC. D-dimer was 0.39. Normal cognition profile. CRP level was 0.6. Lactic acid level was at 1.2. Chest x-ray was not was consistent with COPD without any acute abnormalities. Chest x-ray showed no evidence of pneumonia. Review of Systems REVIEW OF SYSTEMS: CONSTITUTIONAL: No fever, malaise, fatigue. HEENT: No recent visual problems or hearing problems. Denied any sore throat. CARDIOVASCULAR: No chest pain, orthopnea, PND, no palpitations, no syncope. PULMONARY: No shortness of breath, no cough, no hemoptysis. GASTROINTESTINAL: No diarrhea, no nausea, no vomiting, no abdominal pain. NEUROLOGICAL: No headaches, no weakness, no numbness. HEMATOLOGICAL: Denies any bleeding or petechiae. GENITOURINARY: Denies any burning micturition, frequency, or urgency. MUSCULOSKELETAL/RHEUMATOLOGICAL: Denies any joint pain, swelling, or any muscle pain. ENDOCRINE: Denies any polyuria or polydipsia. The rest of the 14-point review of systems is negative. Past Medical History Past Medical History: Cancer, COPD Additional Past Medical History / Comment(s): HIATAL HERNIA, SKIN CANCER, NEWLY DIAGNOSED BREAST CANCER- had radiation only, JAEGER'S DISEASE History of Any Multi-Drug Resistant Organisms: None Reported Past Surgical History: Breast Surgery, Tubal Ligation Additional Past Surgical History / Comment(s): BRONCHOSCOPY, BREAST BX, EGD., PROCEDURE TO "CUT NERVES IN NECK" Past Anesthesia/Blood Transfusion Reactions: Motion Sickness, Postoperative Nausea & Vomiting (PONV) Past Psychological History: No Psychological Hx Reported Additional Psychological History / Comment(s): . Smoking Status: Former smoker Past Alcohol Use History: None Reported Additional Past Alcohol Use History / Comment(s): STARTED SMOKING AT AGE 19 QUIT JULY 2016 Past Drug Use History: None Reported - Past Family History Brother(s) Family Medical History: Cancer Additional Family Medical History / Comment(s): BROTHER # 1 PANCREATIC CANCER. BROTHER #2 KIDNEY CANCER. Medications and Allergies Home Medications Medication Instructions Recorded Confirmed Type Omeprazole [PriLOSEC] 20 mg PO DAILY 03/31/14 08/24/22 History Albuterol Sulfate [Ventolin HFA] 2 puff INHALATION RT-Q6H PRN 04/21/14 08/24/22 History Budesonide-Formot 160-4.5 Mcg 2 puff INHALATION RT-BID 04/21/14 08/24/22 History [Symbicort 160-4.5 Mcg Inhaler] Vitamin B Complex 1 cap PO DAILY 09/22/14 08/24/22 History Vitamin E (Dl,Tocopheryl Acet) 1,000 unit PO DAILY 09/22/14 08/24/22 History [Vitamin E] Acetaminophen/Diphenhydramine 2 tab PO HS 10/24/14 08/24/22 History [Tylenol PM 500-25mg] Denosumab [Prolia] 60 mg SQ Q180D 10/24/14 08/24/22 History Aspirin [Adult Low Dose Aspirin EC] 81 mg PO DAILY 04/04/16 08/24/22 History Biotin 5 mg PO DAILY 10/11/18 08/24/22 History Lutein 20 mg PO DAILY 11/03/20 08/24/22 History Tiotropium 2.5 Mcg/Puff [Spiriva 2 puff INHALATION RT-DAILY 11/03/20 08/24/22 History Respimat 2.5 Mcg] Magnesium Oxide [Mag-Oxide] 250 mg PO BID 04/12/21 08/24/22 History Zinc 50 mg PO DAILY 05/09/21 08/24/22 History Anastrozole [Arimidex] 1 mg PO DAILY 11/17/21 08/24/22 History Acetaminophen [Tylenol Extra 1,000 mg PO DAILY 08/24/22 08/24/22 History Strength] Ascorbic Acid [Vitamin C] 1,000 mg PO DAILY 08/24/22 08/24/22 History Cholecalciferol [Vitamin D3 (125 125 mcg PO DAILY 08/24/22 08/24/22 History Mcg = 5000 Iu)] Magnesium 250 mg PO BID 08/24/22 08/24/22 History Simvastatin [Zocor] 10 mg PO HS 08/24/22 08/24/22 History Vitamin A 2,400 mcg PO DAILY 08/24/22 08/24/22 History Allergies Allergy/AdvReac Type Severity Reaction Status Date / Time bupropion HCl Allergy Rash/Hives Verified 08/24/22 14:40 [From Wellbutrin] Physical Exam Vitals: Vital Signs Temp Pulse Pulse Resp BP BP Pulse Ox 08/25/22 08:00 97.6 F 92 18 157/89 92 L 08/25/22 04:00 97.3 F L 94 18 131/79 94 L 08/25/22 02:00 82 18 08/25/22 00:00 98.3 F 82 18 134/77 92 L 08/24/22 21:57 86 18 08/24/22 21:38 98.0 F 86 18 142/81 95 08/24/22 19:00 98.6 F 80 175/91 08/24/22 18:00 155/84 08/24/22 17:30 97.8 F 153/85 08/24/22 17:00 84 141/84 95 08/24/22 16:30 87 172/94 96 08/24/22 16:00 80 150/126 08/24/22 15:30 167/90 08/24/22 15:00 82 164/90 99 08/24/22 14:37 80 99 08/24/22 14:29 98.9 F 80 18 169/90 99 Intake and Output 08/24/22 08/25/22 08/25/22 22:59 06:59 14:59 Intake Total 1615 Balance 1615 Intake: IV 1375 Sodium Chloride 0.9% 1, 375 000 ml @ 75 mls/hr IV . [id number] Rx#:[id number] Sodium Chloride 0.9% 1, 1000 000 ml @ 999 mls/hr IV . Q1H1M STA Rx#:[id number] Oral 240 Other: Voiding Method Toilet Toilet Toilet # Voids 1 Weight 47.627 kg PHYSICAL EXAMINATION: GENERAL: The patient is alert and oriented x3, not in any acute distress. Well developed, well nourished. HEENT: Pupils are round and equally reacting to light. EOMI. No scleral icterus. No conjunctival pallor. Normocephalic, atraumatic. No pharyngeal erythema. No thyromegaly. CARDIOVASCULAR: S1 and S2 present. No murmurs, rubs, or gallops. PULMONARY: Chest is clear to auscultation, no wheezing or crackles. ABDOMEN: Soft, nontender, nondistended, normoactive bowel sounds. No palpable organomegaly. MUSCULOSKELETAL: No joint swelling or deformity. EXTREMITIES: No cyanosis, clubbing, or pedal edema. NEUROLOGICAL: Gross neurological examination did not reveal any focal deficits. SKIN: No rashes. Results CBC & Chem 7: 08/25/22 12:02 08/25/22 11:55 Labs: Abnormal Lab Results - Last 24 Hours (Table) 08/24/22 08/24/22 08/24/22 Range/Units 15:45 15:45 15:45 APTT 21.5 L (22.0-30.0) sec Sodium 116 L* (137-145) mmol/L Chloride 81 L (98-107) mmol/L Creatinine 0.49 L (0.52-1.04) mg/dL AST (14-36) U/L ALT 36 H (4-34) U/L Total Protein 6.1 L (6.3-8.2) g/dL Urine Protein (Negative) Urine Blood (Negative) Urine Mucus (None) /hpf Coronavirus (PCR) Detected A (Not Detectd) 08/24/22 08/25/22 Range/Units 17:34 09:04 APTT (22.0-30.0) sec Sodium 128 L (137-145) mmol/L Chloride 93 L (98-107) mmol/L Creatinine (0.52-1.04) mg/dL AST 38 H (14-36) U/L ALT (4-34) U/L Total Protein 6.0 L (6.3-8.2) g/dL Urine Protein Trace H (Negative) Urine Blood Small H (Negative) Urine Mucus Rare H (None) /hpf Coronavirus (PCR) (Not Detectd) Thrombosis Risk Factor Assmnt - Choose All That Apply Any of the Below Risk Factors Present?: Yes Each Factor Represents 1 point: Abnormal pulmonary function (COPD) Other Risk Factors: Yes Each Risk Factor Represents 3 Points: Age 75 years or older Thrombosis Risk Factor Assessment Total Risk Factor Score: 4 Thrombosis Risk Factor Assessment Level: Moderate Risk Assessment and Plan Assessment: 1. COVID-19 viral infection - Chest x-ray is negative for pneumonia; d-dimer is negative - We will place patient on vitamin D, vitamin C and zinc sulfate - Patient has been evaluated by pulmonary service and no further treatment is r ecommended 2. Critical hyponatremia; patient is being followed by nephrology and remains on IV fluids; sodium levels are improving; we will continue to monitor 3. Hypokalemia; supplemented; we will monitor x-rays closely 4. COPD; not in exacerbation; continue with home inhaler therapy in form of Symbicort and Spiriva 5. Hyperlipidemia; continue with home dose of Zocor 6. History of breast cancer; status post lumpectomy/radiation therapy; currently on hormone therapy DVT prophylaxis; SCDs/heparin CODE STATUS; full code
[2022-08-25] MEDS: ATORVASTATIN 10 MG TAB PO SCH (20:46)
[2022-08-25] MEDS: HEPARIN SODIUM,PORCINE/PF 5,000 UNIT/0.5 ML SYRINGE SQ SCH (20:46)
[2022-08-25] MEDS: MAGNESIUM OXIDE 400 MG TAB PO SCH (20:46)
[2022-08-25] MEDS: diphenhydrAMINE 25 MG CAP PO PRN (23:04)
[2022-08-26] MEDS: PANTOPRAZOLE 40 MG TABLET PO SCH (06:13)
[2022-08-26] MEDS: SODIUM CHLORIDE 0.9% 1,000 ML IV SCH ×2 (06:14→20:05)
[2022-08-26 08:53] LABS: African American GFR (CKD) >90 (>60 ml/min/1.73 sqM); Anion Gap 6 mmol/L; Blood Urea Nitrogen 17 mg/dL (7-17); Calcium 8.2 mg/dL (8.4-10.2); Carbon Dioxide 27 mmol/L (22-30); Chloride 98 mmol/L (98-107); Glucose 70 mg/dL (74-99); Non-African American GFR(CKD) >90 (>60 ml/min/1.73 sqM); Potassium 4.1 mmol/L (3.5-5.1); Sodium 131 mmol/L (137-145)
[2022-08-26] MEDS: ZINC SULFATE 220 MG CAP PO SCH (09:11)
[2022-08-26] MEDS: ANASTROZOLE 1 MG TAB PO SCH (09:11)
[2022-08-26] MEDS: MAGNESIUM OXIDE 400 MG TAB PO SCH ×2 (09:11→20:04)
[2022-08-26] MEDS: ASPIRIN 81 MG PO SCH (09:11)
[2022-08-26] MEDS: CHOLECALCIFEROL 125 MCG (5000 IU) TABLET PO SCH (09:11)
[2022-08-26] MEDS: ASCORBIC ACID 500 MG TAB PO SCH (09:11)
[2022-08-26] MEDS: HEPARIN SODIUM,PORCINE/PF 5,000 UNIT/0.5 ML SYRINGE SQ SCH ×2 (09:11→20:04)
[2022-08-26] MEDS: diphenhydrAMINE 25 MG CAP PO SCH (09:12)
[2022-08-26] MEDS: ACETAMINOPHEN TAB 500 MG TAB PO PRN ×2 (09:17→21:28)
--- NOTE | 2022-08-26 09:28 | P.PN ---
Subjective Progress Note Date: 08/26/22 77-year-old female patient with known history of COPD, who started getting sick approximately 10 days ago. She started having generalized weakness, fatigue, tiredness, nausea, emesis and diarrhea. She is known to have COPD and there was no significant worsening in her shortness of breath. No reported fever or chills. She came into the hospital for the above-mentioned complaint. The patient was diagnosed having Covid 19 infection approximately a week ago. She has not been vaccinated in the past and she has taken to original vaccination in addition to 3 boosters. The patient was hospitalized as the patient also has significant electrode abnormalities. Sodium level was 116 and the patient also had a potassium level of 3.9. BUN was 11 with creatinine 0.49. Normal CBC. D- dimer was 0.39. Normal cognition profile. CRP level was 0.6. Lactic acid level was at 1.2. Chest x-ray was not was consistent with COPD without any acute abnormalities. Chest x-ray showed no evidence of pneumonia. The patient remains on room air oxygen. Pulse ox is in order of 92%. The patient is limited on examination Spiriva and Symbicort on outpatient basis. She is currently on a routine inhalers. No interval worsening in her breathing. On 08/26/22, the patient remains on room air oxygen.Is being seen for a follow- up. On today's evaluation, she is feeling slightly sluggish. No chest pain. No shortness of breath. No cough or sputum production. Electrodes are all sta ble, sodium level has come up to 131 with a BUN of 17 and a creatinine of 0.5. Bicarb is at 27. The patient remains on routine bronchodilators. She is on room air oxygen. Objective - Vital Signs Vital signs: Vital Signs Temp 98.3 F 08/26/22 04:00 Pulse 69 08/26/22 04:00 Resp 16 08/26/22 04:00 BP 144/74 08/26/22 04:00 Pulse Ox 96 08/26/22 04:00 FiO2 Intake & Output 08/25/22 08/26/22 08/26/22 18:59 06:59 18:59 Intake Total 1979 10 420 Balance 1979 10 420 Weight 47.627 kg Intake: IV 1385 10 Invasive Line 2 10 10 Sodium Chloride 0.9% 1, 375 000 ml @ 75 mls/hr IV . [id number] ONE Rx#:[id number] Sodium Chloride 0.9% 1, 1000 000 ml @ 999 mls/hr IV . Q1H1M STA Rx#:[id number] Oral 595 420 Other: Voiding Method Toilet Toilet # Voids 1 1 - Exam Gen. appearance the patient is calm and comfortable currently on room air oxygen The patient appeared well nourished and normally developed. Vital signs as documented. Head exam is unremarkable. No scleral icterus or corneal arcus noted. Neck is without jugular venous distension, thyromegaly, or carotid bruits. Carotid upstrokes are brisk bilaterally. Lungs are clear to auscultation and percussion. Lung sounds are showing diminished breath tones bilaterally. Cardiac exam reveals the PMI to be normally sized and situated. Rhythm is regular. First and second heart sounds normal. No murmurs, rubs or gallops. Abdominal exam reveals normal bowel sounds, no masses, no organomegaly and no aortic enlargement. Extremities are nonedematous and both femoral and pedal pulses are normal. Examination of the skin revealed no evidence of significant rashes, suspicious appearing nevi or other concerning lesions. Neurologically, the patient is awake and alert and the patient does not have any focal neurological deficit. Cranial nerves are essentially intact. - Labs CBC & Chem 7: 08/25/22 12:02 08/26/22 07:19 Labs: Abnormal Lab Results - Last 24 Hours (Table) 08/25/22 08/25/22 08/25/22 Range/Units 09:04 11:55 12:02 Lymphocytes # 0.8 L (1.0-4.8) k/uL Sodium 128 L 126 L (137-145) mmol/L Chloride 93 L 94 L (98-107) mmol/L Glucose (74-99) mg/dL Calcium 8.3 L (8.4-10.2) mg/dL AST 38 H (14-36) U/L Total Protein 6.0 L (6.3-8.2) g/dL 08/25/22 08/26/22 Range/Units 19:40 07:19 Lymphocytes # (1.0-4.8) k/uL Sodium 127 L 131 L (137-145) mmol/L Chloride (98-107) mmol/L Glucose 70 L (74-99) mg/dL Calcium 8.2 L (8.4-10.2) mg/dL AST (14-36) U/L Total Protein (6.3-8.2) g/dL Assessment and Plan Plan: Acute Covid 19 infection. The patient's symptoms started more than a week ago. She does have essentially gastrointestinal symptoms and she presented to the hospital because of an generalized weakness and electronically balance. No evidence of pneumonia at this point in time. Note that this is the patient's first infection and the patient has been heavily vaccinated for Covid 19. Inflammatory markers are lower including d-dimer and CRP Acute hypernatremia, recovered Hypokalemia, replace COPD metabolic accommodation Symbicort Spiriva on outpatient basis. No interval worsening oxygenation the patient overall respiratory status is stable Early stage breast cancer post lumpectomy radiation therapy and the patient is currently on hormonal treatment History of Hansen's esophagus with hiatal hernia History of skin cancer Plan Clinically stable Sodium level is normalized No active pulmonary manifestations of Covid 19 No need for steroids No need for any alternative treatments regarding Covid 19 are then supportive treatment and the placement of fluid and electrolyte imbalance Resume all medication in form of Spiriva and Symbicort Monitor oxygenation Continue IV fluids Clinically the patient is improving. Resume all medications. Possible home within the next 24 hours
[2022-08-26] MEDS: TIOTROPIUM 2.5 MCG INHALER INHALATION SCH (09:51)
[2022-08-26] MEDS: SYMBICORT 160-4.5 MCG INHALER INHALATION SCH ×2 (09:51→20:36)
--- NOTE | 2022-08-26 14:43 | P.PN ---
Subjective Progress Note Date: 08/26/22 Follow-up for hyponatremia. Feeling better today, tolerating diet. Objective - Vital Signs Vital signs: Vital Signs Temp 97.8 F 08/26/22 12:12 Pulse 72 08/26/22 12:12 Resp 16 08/26/22 12:12 BP 137/89 08/26/22 12:12 Pulse Ox 99 08/26/22 12:12 FiO2 Intake & Output 08/25/22 08/26/22 08/26/22 18:59 06:59 18:59 Intake Total 1979 10 1160 Balance 1979 10 1160 Weight 47.627 kg Intake: IV 1385 10 Invasive Line 2 10 10 Sodium Chloride 0.9% 1, 375 000 ml @ 75 mls/hr IV . [id number] ONE Rx#:[id number] Sodium Chloride 0.9% 1, 1000 000 ml @ 999 mls/hr IV . Q1H1M STA Rx#:[id number] Oral 595 1160 Other: Voiding Method Toilet Toilet Toilet # Voids 1 1 1 - Exam No acute distress S1-S2 Lungs clear No edema - Labs CBC & Chem 7: 08/25/22 12:02 08/26/22 07:19 Labs: Abnormal Lab Results - Last 24 Hours (Table) 08/25/22 08/26/22 Range/Units 19:40 07:19 Sodium 127 L 131 L (137-145) mmol/L Glucose 70 L (74-99) mg/dL Calcium 8.2 L (8.4-10.2) mg/dL Assessment and Plan Assessment: #1 hypovolemic hypotonic hyponatremia #2 Covid 19 infection #3 GERD Plan: #1 sodium improving. #2 tolerating diet, continue with IV fluids today. #3 repeat sodium in the morning. If stable can be discharged
[2022-08-26] MEDS: ALBUTEROL HFA INHALER INHALATION PRN ×2 (14:59→20:39)
[2022-08-26] MEDS: ATORVASTATIN 10 MG TAB PO SCH (20:04)
[2022-08-26] MEDS: diphenhydrAMINE 25 MG CAP PO PRN (21:28)
[2022-08-27] MEDS: PANTOPRAZOLE 40 MG TABLET PO SCH (06:22)
[2022-08-27] MEDS: SODIUM CHLORIDE 0.9% 1,000 ML IV SCH (06:22)
[2022-08-27 08:19] VITALS: RESP 18
[2022-08-27] MEDS: MAGNESIUM OXIDE 400 MG TAB PO SCH ×2 (08:19→20:28)
[2022-08-27] MEDS: ZINC SULFATE 220 MG CAP PO SCH (08:19)
[2022-08-27] MEDS: ASCORBIC ACID 500 MG TAB PO SCH (08:19)
[2022-08-27] MEDS: ASPIRIN 81 MG PO SCH (08:19)
[2022-08-27] MEDS: CHOLECALCIFEROL 125 MCG (5000 IU) TABLET PO SCH (08:19)
[2022-08-27] MEDS: diphenhydrAMINE 25 MG CAP PO SCH ×2 (08:29→23:13)
[2022-08-27] MEDS: ANASTROZOLE 1 MG TAB PO SCH (08:31)
[2022-08-27] MEDS: ACETAMINOPHEN TAB 500 MG TAB PO PRN ×2 (08:31→23:13)
[2022-08-27] MEDS: SYMBICORT 160-4.5 MCG INHALER INHALATION SCH ×2 (09:16→20:49)
[2022-08-27] MEDS: TIOTROPIUM 2.5 MCG INHALER INHALATION SCH (09:17)
[2022-08-27] MEDS: ALBUTEROL HFA INHALER INHALATION PRN ×3 (09:17→20:49)
[2022-08-27 09:22] LABS: African American GFR (CKD) >90 (>60 ml/min/1.73 sqM); Anion Gap 6 mmol/L; Blood Urea Nitrogen 19 mg/dL (7-17); Calcium 8.3 mg/dL (8.4-10.2); Carbon Dioxide 26 mmol/L (22-30); Chloride 96 mmol/L (98-107); Glucose 94 mg/dL (74-99); Non-African American GFR(CKD) 89 (>60 ml/min/1.73 sqM); Sodium 128 mmol/L (137-145)
--- NOTE | 2022-08-27 09:34 | P.PN ---
Subjective Progress Note Date: 08/27/22 77-year-old female patient with known history of COPD, who started getting sick approximately 10 days ago. She started having generalized weakness, fatigue, tiredness, nausea, emesis and diarrhea. She is known to have COPD and there was no significant worsening in her shortness of breath. No reported fever or chills. She came into the hospital for the above-mentioned complaint. The patient was diagnosed having Covid 19 infection approximately a week ago. She has not been vaccinated in the past and she has taken to original vaccination in addition to 3 boosters. The patient was hospitalized as the patient also has significant electrode abnormalities. Sodium level was 116 and the patient also had a potassium level of 3.9. BUN was 11 with creatinine 0.49. Normal CBC. D- dimer was 0.39. Normal cognition profile. CRP level was 0.6. Lactic acid level was at 1.2. Chest x-ray was not was consistent with COPD without any acute abnormalities. Chest x-ray showed no evidence of pneumonia. The patient remains on room air oxygen. Pulse ox is in order of 92%. The patient is limited on examination Spiriva and Symbicort on outpatient basis. She is currently on a routine inhalers. No interval worsening in her breathing. On 08/26/22, the patient remains on room air oxygen.Is being seen for a follow- up. On today's evaluation, she is feeling slightly sluggish. No chest pain. No shortness of breath. No cough or sputum production. Electrodes are all sta ble, sodium level has come up to 131 with a BUN of 17 and a creatinine of 0.5. Bicarb is at 27. The patient remains on routine bronchodilators. She is on room air oxygen. 08/27/2022, the patient is doing well and there is no respiratory difficulties. Blood pressure is mildly elevated this morning. Otherwise, the patient is hemodynamically stable. No nausea. No vomiting. No diarrhea.The sodium level is at 128, BUN is at 19 with a creatinine is 0.5. Objective - Vital Signs Vital signs: Vital Signs Temp 97.5 F L 08/27/22 08:18 Pulse 80 08/27/22 08:18 Resp 18 08/27/22 08:18 BP 160/76 08/27/22 08:18 Pulse Ox 95 08/27/22 08:18 FiO2 21 08/26/22 20:41 Intake & Output 08/26/22 08/27/22 08/27/22 18:59 06:59 18:59 Intake Total 1700 240 Balance 1700 240 Intake: Oral 1700 240 Other: Voiding Method Toilet Toilet # Voids 2 1 3 - Exam Gen. appearance the patient is calm and comfortable currently on room air oxygen The patient appeared well nourished and normally developed. Vital signs as documented. Head exam is unremarkable. No scleral icterus or corneal arcus noted. Neck is without jugular venous distension, thyromegaly, or carotid bruits. Carotid upstrokes are brisk bilaterally. Lungs are clear to auscultation and percussion. Lung sounds are showing diminished breath tones bilaterally. Cardiac exam reveals the PMI to be normally sized and situated. Rhythm is regular. First and second heart sounds normal. No murmurs, rubs or gallops. Abdominal exam reveals normal bowel sounds, no masses, no organomegaly and no aortic enlargement. Extremities are nonedematous and both femoral and pedal pulses are normal. Examination of the skin revealed no evidence of significant rashes, suspicious appearing nevi or other concerning lesions. Neurologically, the patient is awake and alert and the patient does not have any focal neurological deficit. Cranial nerves are essentially intact. - Labs CBC & Chem 7: 08/25/22 12:02 08/27/22 08:48 Labs: Abnormal Lab Results - Last 24 Hours (Table) 08/27/22 Range/Units 08:48 Sodium 128 L (137-145) mmol/L Chloride 96 L (98-107) mmol/L BUN 19 H (7-17) mg/dL Calcium 8.3 L (8.4-10.2) mg/dL Assessment and Plan Plan: Acute Covid 19 infection. The patient's symptoms started more than a week ago. She does have essentially gastrointestinal symptoms and she presented to the hospital because of an generalized weakness and electronically balance. No evidence of pneumonia at this point in time. Note that this is the patient's first infection and the patient has been heavily vaccinated for Covid 19. Inflammatory markers are lower including d-dimer and CRP Acute hypernatremia, recovered Hypokalemia, replace COPD metabolic accommodation Symbicort Spiriva on outpatient basis. No interval worsening oxygenation the patient overall respiratory status is stable Early stage breast cancer post lumpectomy radiation therapy and the patient is currently on hormonal treatment History of Hansen's esophagus with hiatal hernia History of skin cancer Plan Clinically stable Patient is on room air oxygen Sodium level is improving No active pulmonary manifestations of Covid 19 No need for steroids No need for any alternative treatments regarding Covid 19 are then supportive treatment and the placement of fluid and electrolyte imbalance Resume all medication in form of Spiriva and Symbicort Monitor oxygenation Continue IV fluids Clinically the patient is improving. Resume all medications. Possible home today Pulmonary will see this patient as needed
--- NOTE | 2022-08-27 09:42 | P.PN ---
Subjective Progress Note Date: 08/26/22 77-year-old female presents emergency Department complaining of generalized weakness. Patient states she had a diagnosis of COVID 1 week ago and since then she seems to got progressively more weak and just extremely fatigued. Patient denies any recent fever chills per patient denies any chest pain shortness of breath or fever. Patient denies any abdominal pain patient states she did vomit once about 4 hours ago and is a little nauseous still. Patient denies any diarrhea. Patient denies any dysuria hematuria urinary frequency Sodium level was 116 and the patient also had a potassium level of 3.9. BUN was 11 with creatinine 0.49. Normal CBC. D-dimer was 0.39. Normal cognition profile. CRP level was 0.6. Lactic acid level was at 1.2. Chest x-ray was not was consistent with COPD without any acute abnormalities. Chest x-ray showed no evidence of pneumonia. ---patient remains on room air oxygen.Is being seen for a follow-up. On today's evaluation, she is feeling slightly sluggish. No chest pain. No shortness of breath. No cough or sputum production. Electrodes are all stable, sodium level has come up to 131 with a BUN of 17 and a creatinine of 0.5. Bicarb is at 27. The patient remains on routine bronchodilators. She is on room air oxygen. Objective - Vital Signs Vital signs: Vital Signs Temp 98.4 F 08/26/22 08:15 Pulse 79 08/26/22 08:15 Resp 18 08/26/22 08:15 BP 128/64 08/26/22 08:15 Pulse Ox 95 08/26/22 08:15 FiO2 Intake & Output 08/25/22 08/26/22 08/26/22 18:59 06:59 18:59 Intake Total 1979 10 660 Balance 1979 10 660 Weight 47.627 kg Intake: IV 1385 10 Invasive Line 2 10 10 Sodium Chloride 0.9% 1, 375 000 ml @ 75 mls/hr IV . [id number] ONE Rx#:[id number] Sodium Chloride 0.9% 1, 1000 000 ml @ 999 mls/hr IV . Q1H1M STA Rx#:[id number] Oral 595 660 Other: Voiding Method Toilet Toilet Toilet # Voids 1 1 1 - Exam GENERAL: The patient is alert and oriented x3, not in any acute distress. Well developed, well nourished. HEENT: Pupils are round and equally reacting to light. EOMI. No scleral icterus. No conjunctival pallor. Normocephalic, atraumatic. No pharyngeal erythema. No thyromegaly. CARDIOVASCULAR: S1 and S2 present. No murmurs, rubs, or gallops. PULMONARY: Chest is clear to auscultation, no wheezing or crackles. ABDOMEN: Soft, nontender, nondistended, normoactive bowel sounds. No palpable organomegaly. MUSCULOSKELETAL: No joint swelling or deformity. EXTREMITIES: No cyanosis, clubbing, or pedal edema. NEUROLOGICAL: Gross neurological examination did not reveal any focal deficits. SKIN: No rashes. - Labs CBC & Chem 7: 08/25/22 12:02 08/27/22 08:48 Labs: Abnormal Lab Results - Last 24 Hours (Table) 08/25/22 08/25/22 08/25/22 Range/Units 11:55 12:02 19:40 Lymphocytes # 0.8 L (1.0-4.8) k/uL Sodium 126 L 127 L (137-145) mmol/L Chloride 94 L (98-107) mmol/L Glucose (74-99) mg/dL Calcium 8.3 L (8.4-10.2) mg/dL 08/26/22 Range/Units 07:19 Lymphocytes # (1.0-4.8) k/uL Sodium 131 L (137-145) mmol/L Chloride (98-107) mmol/L Glucose 70 L (74-99) mg/dL Calcium 8.2 L (8.4-10.2) mg/dL Assessment and Plan Assessment: 1. COVID-19 viral infection - Chest x-ray is negative for pneumonia; d-dimer is negative - We will place patient on vitamin D, vitamin C and zinc sulfate - Patient has been evaluated by pulmonary service and no further treatment is recommended 2. Critical hyponatremia; patient is being followed by nephrology and remains on IV fluids; sodium levels are improving; we will continue to monitor 3. Hypokalemia; supplemented; we will monitor x-rays closely 4. COPD; not in exacerbation; continue with home inhaler therapy in form of Symbicort and Spiriva 5. Hyperlipidemia; continue with home dose of Zocor 6. History of breast cancer; status post lumpectomy/radiation therapy; currently on hormone therapy DVT prophylaxis; SCDs/heparin CODE STATUS; full code
[2022-08-27] MEDS: HEPARIN SODIUM,PORCINE/PF 5,000 UNIT/0.5 ML SYRINGE SQ SCH ×2 (12:49→20:28)
--- NOTE | 2022-08-27 15:18 | P.PN ---
Subjective Progress Note Date: 08/27/22 Follow-up for hyponatremia. Feeling better today, tolerating diet. Objective - Vital Signs Vital signs: Vital Signs Temp 98.0 F 08/27/22 12:17 Pulse 79 08/27/22 12:17 Resp 18 08/27/22 12:17 BP 150/85 08/27/22 12:17 Pulse Ox 96 08/27/22 12:17 FiO2 21 08/26/22 20:41 Intake & Output 08/26/22 08/27/22 08/27/22 18:59 06:59 18:59 Intake Total 1700 358 Balance 1700 358 Intake: Oral 1700 358 Other: Voiding Method Toilet Toilet Toilet # Voids 2 1 1 - Exam No acute distress S1-S2 Lungs clear No edema - Labs CBC & Chem 7: 08/25/22 12:02 08/27/22 08:48 Labs: Abnormal Lab Results - Last 24 Hours (Table) 08/27/22 Range/Units 08:48 Sodium 128 L (137-145) mmol/L Chloride 96 L (98-107) mmol/L BUN 19 H (7-17) mg/dL Calcium 8.3 L (8.4-10.2) mg/dL Assessment and Plan Assessment: #1 hypotonic hyponatremia multi factorial. 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 #2 tolerating diet, stop IV fluids #3 Samsca 15 mg today, repeat labs in the morning if stable can be discharged tomorrow
--- NOTE | 2022-08-27 15:59 | P.PN ---
Subjective Progress Note Date: 08/27/22 Principal diagnosis: COVID-19 viral infection Electrolyte imbalance 77-year-old female presents emergency Department complaining of generalized weakness. Patient states she had a diagnosis of COVID 1 week ago and since then she seems to got progressively more weak and just extremely fatigued. Patient denies any recent fever chills per patient denies any chest pain shortness of breath or fever. Patient denies any abdominal pain patient states she did vomit once about 4 hours ago and is a little nauseous still. Patient denies any diarrhea. Patient denies any dysuria hematuria urinary frequency Sodium level was 116 and the patient also had a potassium level of 3.9. BUN was 11 with creatinine 0.49. Normal CBC. D-dimer was 0.39. Normal cognition profile. CRP level was 0.6. Lactic acid level was at 1.2. Chest x-ray was not was consistent with COPD without any acute abnormalities. Chest x-ray showed no evidence of pneumonia. ---patient remains on room air oxygen.Is being seen for a follow-up. On today's evaluation, she is feeling slightly sluggish. No chest pain. No shortness of breath. No cough or sputum production. Electrodes are all stable, sodium level has come up to 131 with a BUN of 17 and a creatinine of 0.5. Bicarb is at 27. The patient remains on routine bronchodilators. She is on room air oxygen. 08/27/2022 - Patient is seen and evaluated; reports feeling somewhat exhausted today; denies any chest pain or shortness of breath - Vital signs are reviewed which reveal slightly elevated blood pressure at 160/76 with O2 saturation 95% - Blood work reviewed reveals a sodium of 128 which is a trend down from 131 yesterday; we will continue with current IV fluids and continued to monitor electrolytes closely Objective - Vital Signs Vital signs: Vital Signs Temp 97.5 F L 08/27/22 08:18 Pulse 80 08/27/22 08:18 Resp 18 08/27/22 08:18 BP 160/76 08/27/22 08:18 Pulse Ox 95 08/27/22 08:18 FiO2 21 08/26/22 20:41 Intake & Output 08/26/22 08/27/22 08/27/22 18:59 06:59 18:59 Intake Total 1700 240 Balance 1700 240 Intake: Oral 1700 240 Other: Voiding Method Toilet Toilet # Voids 2 1 3 - Exam GENERAL: The patient is alert and oriented x3, not in any acute distress. Well developed, well nourished. HEENT: Pupils are round and equally reacting to light. EOMI. No scleral icterus. No conjunctival pallor. Normocephalic, atraumatic. No pharyngeal erythema. No thyromegaly. CARDIOVASCULAR: S1 and S2 present. No murmurs, rubs, or gallops. PULMONARY: Chest is clear to auscultation, no wheezing or crackles. ABDOMEN: Soft, nontender, nondistended, normoactive bowel sounds. No palpable organomegaly. MUSCULOSKELETAL: No joint swelling or deformity. EXTREMITIES: No cyanosis, clubbing, or pedal edema. NEUROLOGICAL: Gross neurological examination did not reveal any focal deficits. SKIN: No rashes. - Labs CBC & Chem 7: 08/25/22 12:02 08/27/22 08:48 Labs: Abnormal Lab Results - Last 24 Hours (Table) 08/27/22 Range/Units 08:48 Sodium 128 L (137-145) mmol/L Chloride 96 L (98-107) mmol/L BUN 19 H (7-17) mg/dL Calcium 8.3 L (8.4-10.2) mg/dL Assessment and Plan Assessment: 1. COVID-19 viral infection - Chest x-ray is negative for pneumonia; d-dimer is negative - We will place patient on vitamin D, vitamin C and zinc sulfate - Patient has been evaluated by pulmonary service and no further treatment is recommended 2. Critical hyponatremia; patient is being followed by nephrology and remains on IV fluids; sodium levels are improving; we will continue to monitor 3. Hypokalemia; supplemented; we will monitor x-rays closely 4. COPD; not in exacerbation; continue with home inhaler therapy in form of Symbicort and Spiriva 5. Hyperlipidemia; continue with home dose of Zocor 6. History of breast cancer; status post lumpectomy/radiation therapy; currently on hormone therapy DVT prophylaxis; SCDs/heparin CODE STATUS; full code
[2022-08-27] MEDS ORDERED: TOLVAPTAN 15 MG 1/2 TABLET PO ONE (17:00)
[2022-08-27] MEDS: ATORVASTATIN 10 MG TAB PO SCH (20:28)
[2022-08-28] MEDS: PANTOPRAZOLE 40 MG TABLET PO SCH (06:44)
[2022-08-28] MEDS: ACETAMINOPHEN TAB 500 MG TAB PO PRN (06:46)
[2022-08-28 08:47] LABS: African American GFR (CKD) >90 (>60 ml/min/1.73 sqM); Anion Gap 8 mmol/L; Blood Urea Nitrogen 24 mg/dL (7-17); Calcium 9.3 mg/dL (8.4-10.2); Carbon Dioxide 28 mmol/L (22-30); Chloride 98 mmol/L (98-107); Glucose 109 mg/dL (74-99); Non-African American GFR(CKD) >90 (>60 ml/min/1.73 sqM); Potassium 4.5 mmol/L (3.5-5.1); Sodium 134 mmol/L (137-145)
[2022-08-28] MEDS: TIOTROPIUM 2.5 MCG INHALER INHALATION SCH (09:09)
[2022-08-28] MEDS: ALBUTEROL HFA INHALER INHALATION PRN (09:09)
[2022-08-28] MEDS: SYMBICORT 160-4.5 MCG INHALER INHALATION SCH (09:09)
[2022-08-28] MEDS: ASCORBIC ACID 500 MG TAB PO SCH (09:19)
[2022-08-28] MEDS: ZINC SULFATE 220 MG CAP PO SCH (09:19)
[2022-08-28] MEDS: MAGNESIUM OXIDE 400 MG TAB PO SCH (09:19)
[2022-08-28] MEDS: HEPARIN SODIUM,PORCINE/PF 5,000 UNIT/0.5 ML SYRINGE SQ SCH (09:19)
[2022-08-28] MEDS: ASPIRIN 81 MG PO SCH (09:19)
[2022-08-28] MEDS: ANASTROZOLE 1 MG TAB PO SCH (09:19)
[2022-08-28] MEDS: CHOLECALCIFEROL 125 MCG (5000 IU) TABLET PO SCH (09:19)
--- NOTE | 2022-08-28 10:25 | P.PN ---
Subjective Patient is seen in follow-up for hyponatremia. Sodium level improved. Oral intake also better. No vomiting or diarrhea. No chest pain or shortness of breath. Vital signs are stable. General: No acute distress. HEENT: Head exam is unremarkable. LUNGS: No audible rhonchi or wheezes. HEART: Rate and Rhythm are regular. ABDOMEN: No distention. Nontender. EXTREMITITES: No edema. Objective - Vital Signs Vital signs: Vital Signs Temp 98.9 F 08/28/22 09:18 Pulse 83 08/28/22 09:18 Resp 18 08/28/22 09:18 BP 132/73 08/28/22 09:18 Pulse Ox 94 L 08/28/22 09:18 FiO2 21 08/26/22 20:41 Intake & Output 08/27/22 08/28/22 08/28/22 18:59 06:59 18:59 Intake Total 598 358 Balance 598 358 Intake: Oral 598 358 Other: Voiding Method Toilet Toilet # Voids 1 1 - Labs CBC & Chem 7: 08/25/22 12:02 08/28/22 07:46 Labs: Abnormal Lab Results - Last 24 Hours (Table) 08/28/22 Range/Units 07:46 Sodium 134 L (137-145) mmol/L BUN 24 H (7-17) mg/dL Glucose 109 H (74-99) mg/dL Assessment and Plan Plan: Assessment: 1. Hypotonic hypovolemic hyponatremia with component of excessive fluid intake and SIADH from respiratory infection. Improved. Status post [facility] this admission. Urine osmolality 146. TSH normal. 2. COVID-19 infection. 3. History of breast cancer. Plan: Encouraged oral intake, especially protein. Advised patient to maintain fluid restriction of less than 50 ounces per day. Repeat BMP 2-3 days postdischarge. Follow up outpatient in 1-2 weeks.
[2022-08-28 12:34] VITALS: BP 160/89; PULSE 74; TEMP 97.9
--- NOTE | 2022-08-29 19:54 | P.DS ---
Providers Date of admission: 08/24/22 18:26 Attending physician: Fidencio Donnelly Consults: 08/24/22 18:24 Consult Physician Urgent Consulting Provider: Lauren Colmenares Consult Reason/Comments: Hyponatremia Do you want consulting provider notified?: Yes 08/25/22 11:42 Consult Physician Routine Consulting Provider: Marisela Flores Consult Reason/Comments: COVID-19 infection Do you want consulting provider notified?: Yes Primary care physician: Armando Morgan [facility] Course: Final Diagnosis Acute covid 19 viral infection with no evidence of acute pneumonia Critical hyponatremia improved Hypokalemia resolved COPD with no acute exacerbation Hyperlipidemia History of breast cancer status post lumpectomy/radiation therapy maintained on daily hormone therapy Full Code Discharge Disposition Patient is stable for discharge home. Sodium has improved. Patient has been cleared by nephrology. Recommending repeat BMP and magnesium in 2 to 3 days. Patient is also recommended to limit fluid intake to less than 50 oz daily. Patient is recommended to see PCP in 1 to 2 days. Patient to follow up with nephrology in 1 week. Hospital Course This is a pleasant 77-year-old female presents emergency Department complaining of generalized weakness. Patient was diagnosed with covid 19 1 week and has become progressively weak and fatigued at home. Patient denies fever or chills. Denies shortness of breath. Patient denies chest pain. Does report feeling nauseas and had 1 episode of emesis, no diarrhea. Appetite is fair. Patient has been increasing her oral water intake at home. Initial work up reveals a sodium level of 116. Potassium of 3.9, BUN 11, creatinine 0.49. D-Dimor normal for age. Chest x-ray was not was consistent with COPD without any acute abnormalities. Chest x-ray showed no evidence of pneumonia. Patient was admitted for electrolyte replacement. Patient was hydrated. Nephrology and pulmonology evaluated the patient. Sodium improved to 134, kidney function remains stable. Patient is cleared for discharge. 08/28/2022 Patient is evaluated today sitting up in chair. Reports weakness has improved. Sodium has normalized. She is denying cough, no shortness of breath. Appetite has also improved. Lungs are clear, S1 S2 auscultated regular rate and rhythm. Alert x 3 and focal neurological exam is negative. Patient remains afebrile, oxygen saturation 96% on room air. Please see medication reconciliation for a list of current medication. Thank you for allowing us to participate in the care of this patient. The impression and plan of care has been dictated by Dea Polo, Nurse Practitioner as directed. Dr. Balbina MD I have performed a history and physical examination and medical decision making of this patient, discussed the same with the dictator, and agree with the dictators assessment and plan as written, documented as a scribe. Based on total visit time, I have performed more than 50% of this visit. Patient Condition at Discharge: Stable Plan - Discharge Summary Discharge Rx Participant: Yes New Discharge Prescriptions: Continue Omeprazole [PriLOSEC] 20 mg PO DAILY Budesonide-Formot 160-4.5 Mcg [Symbicort 160-4.5 Mcg Inhaler] 2 puff INHALATION RT-BID Albuterol Sulfate [Ventolin HFA] 2 puff INHALATION RT-Q6H PRN PRN Reason: Shortness Of Breath Vitamin E (Dl,Tocopheryl Acet) [Vitamin E] 1,000 unit PO DAILY Vitamin B Complex 1 cap PO DAILY Acetaminophen/Diphenhydramine [Tylenol PM 500-25mg] 2 tab PO HS Denosumab [Prolia] 60 mg SQ Q180D Aspirin [Adult Low Dose Aspirin EC] 81 mg PO DAILY Biotin 5 mg PO DAILY Lutein 20 mg PO DAILY Simvastatin [Zocor] 10 mg PO HS Magnesium 250 mg PO BID Ascorbic Acid [Vitamin C] 1,000 mg PO DAILY Tiotropium 2.5 Mcg/Puff [Spiriva Respimat 2.5 Mcg] 2 puff INHALATION RT-DAILY Zinc 50 mg PO DAILY Anastrozole [Arimidex] 1 mg PO DAILY Acetaminophen [Tylenol Extra Strength] 1,000 mg PO DAILY Cholecalciferol [Vitamin D3 (125 Mcg = 5000 Iu)] 125 mcg PO DAILY Vitamin A 2,400 mcg PO DAILY Magnesium Oxide [Mag-Oxide] 250 mg PO BID #30 tab Discharge Medication List Omeprazole [PriLOSEC] 20 mg PO DAILY 03/31/14 [History] Albuterol Sulfate [Ventolin HFA] 2 puff INHALATION RT-Q6H PRN 04/21/14 [History] Budesonide-Formot 160-4.5 Mcg [Symbicort 160-4.5 Mcg Inhaler] 2 puff INHALATION RT-BID 04/21/14 [History] Vitamin B Complex 1 cap PO DAILY 09/22/14 [History] Vitamin E (Dl,Tocopheryl Acet) [Vitamin E] 1,000 unit PO DAILY 09/22/14 [History] Acetaminophen/Diphenhydramine [Tylenol PM 500-25mg] 2 tab PO HS 10/24/14 [History] Denosumab [Prolia] 60 mg SQ Q180D 10/24/14 [History] Aspirin [Adult Low Dose Aspirin EC] 81 mg PO DAILY 04/04/16 [History] Biotin 5 mg PO DAILY 10/11/18 [History] Lutein 20 mg PO DAILY 11/03/20 [History] Tiotropium 2.5 Mcg/Puff [Spiriva Respimat 2.5 Mcg] 2 puff INHALATION RT-DAILY 11/03/20 [History] Zinc 50 mg PO DAILY 05/09/21 [History] Anastrozole [Arimidex] 1 mg PO DAILY 11/17/21 [History] Acetaminophen [Tylenol Extra Strength] 1,000 mg PO DAILY 08/24/22 [History] Ascorbic Acid [Vitamin C] 1,000 mg PO DAILY 08/24/22 [History] Cholecalciferol [Vitamin D3 (125 Mcg = 5000 Iu)] 125 mcg PO DAILY 08/24/22 [History] Magnesium 250 mg PO BID 08/24/22 [History] Simvastatin [Zocor] 10 mg PO HS 08/24/22 [History] Vitamin A 2,400 mcg PO DAILY 08/24/22 [History] Magnesium Oxide [Mag-Oxide] 250 mg PO BID #30 tab 08/28/22 [Rx] Follow up Appointment(s)/Referral(s): Armando Morgan DO [Primary Care Provider] - 09/05/22 9:15 am Jayce Day DO [STAFF PHYSICIAN] - 1 Week (Office will call you to schedule appoitment) [facility] Visiting Nurse, [NON-STAFF] - Ambulatory/Diagnostic Orders: Basic Metabolic Panel [LAB.AMB] Time Frame: 2 Days, Location: None Selected Patient Instructions/Handouts: Coronavirus Disease 2019 (COVID-19), Hyponatremia (GEN) Activity/Diet/Wound Care/Special Instructions: Limit oral water intake to less 50 fl oz per day Repeat labs in 2 to 3 days Follow up with PCP in 1 to 2 days See nephrology in 1 week Discharge Disposition: HOME SELF-CARE
== END 2022-08-28 16:36 | disposition home or self-care (01) | DRG 178 ==
LOC: EC 14:24 → 3SCARD 18:26
PROVIDERS: ADMIT Hospitalist; ATTEND Hospitalist
DX: U07.1 COVID-19 (principal); E22.2 Syndrome of inappropriate secretion of antidiuretic hormone; E87.0 Hyperosmolality and hypernatremia; E87.6 Hypokalemia; E78.5 Hyperlipidemia, unspecified; K21.9 Gastro-esophageal reflux disease without esophagitis; E86.1 Hypovolemia; K22.70 Barrett's esophagus without dysplasia; K44.9 Diaphragmatic hernia without obstruction or gangrene; Z85.828 Personal history of other malignant neoplasm of skin; Z85.3 Personal history of malignant neoplasm of breast; Z82.3 Family history of stroke; Z87.891 Personal history of nicotine dependence; Z79.899 Other long term (current) drug therapy; Z79.51 Long term (current) use of inhaled steroids; Z79.82 Long term (current) use of aspirin; Z79.811 Long term (current) use of aromatase inhibitors; Z88.8 Allergy status to other drugs, medicaments and biological substances; Z79.890 Hormone replacement therapy
CPT/HCPCS: 36415; 71046; 80048; 80053; 81001; 82728; 83605; 83735; 83935; 84145; 84295; 84443; 84484; 85025; 85379; 85610; 85730; 86140; 87635; 93005; 94640; 94760; 96374; 99291

== ENCOUNTER → 2022-09-28 | Outpatient (CLI) | payer MEDICARE, OTHER ==
[2022-09-28 13:17] VITALS: BP 135/76; PULSE 94; RESP 18; TEMP 97.9
--- NOTE | 2022-09-28 14:06 | P.PN ---
Subjective Progress Note Date: 09/28/22 Principal diagnosis: invasive lobular cancer [id number]- (dx. 2020) Left breast invasive lobular carcinoma 2020 Progress Note Date: 06/16/21 left breast invasive lobular cancer Roxy is a 76 -year-old white female status post bilateral screening mammogram on [id number]. This revealed an area of concern in the left breast for which an ultrasound was recommended. This was performed on [id number] and revealed an 0.9 x 0.7 cm irregular lesion at 3:00 and biopsy was recommended. Biopsy was done on [id number] which revealed invasive lobular carcinoma. The patient was seen in consultation for Dr. Morgan. The patient did not feel anything of concern in her breast. She had had breast biopsies in the past and these have always been benign. She was not complaining of any nipple discharge or skin changes. She was not complaining of any trauma or infection in the breast. Her case was presented at tumor board and genetic testing and MRI of the breast was suggested. She was given the option of genetic testing which she declined. She had a bilateral MRI performed on 1821. This really feel the lesion of concern in the left breast with no additional lesions in the left breast and no evidence for any suspicious lesion in the right breast. She also had a bilateral breast ultrasound which revealed in the right axillary area most likely a lipoma. No new lesion of concern was identified in the left breast. This was performed on [id number]. 11-17-21 [id number] invasive lobular cancer left breast The patient underwent a left breast lumpectomy and SNB on 06-28-21. Questioin isolated tumor cell in sentinal node. finished radiation on 08-22-21 Note radiation oncology 09-20-21 reviewed Patient is on Anestrazole US right breast done on 11-08-21 benign BIRAD 2 She is not complaining of any new nodules in her breast. 03-30-22 The patient had a bilateral mammogram on 03-30-22. She does not complain of any new lumps pressor nodules of concern in either breast. The patient is continuing the anastrozole and is tolerating that without difficulty. 09-28-22 left breast lumpectomy and SNB on 06-28-21. Question of isolated tumor cell in sentinal node. note radiation oncology 06-21-22 reviewed left breast mammogram 09-28-22 BIRAD 2 follow up bilateral mammogram in 6 months The patient was concerned about a small lump in her left breast scar, she was evaluated by Dr. Combs and he felt it was scar tissue. As no lumps masses or nodules of concern. 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 Drugs: none - Constitutional Constitutional: Reports sweats - EENT Comment: macular degeneration Eyes: denies blurred vision, denies pain Ears: bilateral: decreased hearing Ears, nose, mouth and throat: Denies headache, Denies sore throat - Breasts Breasts: bilateral: as per HPI - Cardiovascular Cardiovascular: Reports shortness of breath, Denies chest pain - Respiratory Comment: COPD/smoker - Gastrointestinal Gastrointestinal: Reports as per HPI, Denies abdominal pain, Denies diarrhea, Denies nausea, Denies vomiting - Menstruation Menstruation: Reports postmenopausal - Musculoskeletal Musculoskeletal: Reports as per HPI - Integumentary Integumentary: Denies pruritus, Denies rash - Neurological Neurological: Denies numbness, Denies weakness - Psychiatric Psychiatric: Reports anxiety - Endocrine Endocrine: Denies fatigue, Denies weight change - Hematologic/Lymphatic Comment: none - Allergic/Immunologic Allergic/Immunologic: Reports as per HPI Objective - Vital Signs Vital signs: Vital Signs Temp 97.9 F 09/28/22 13:11 Pulse 94 09/28/22 13:11 Resp 18 09/28/22 13:11 BP 135/76 09/28/22 13:11 Pulse Ox 96 09/28/22 13:11 FiO2 Intake & Output 09/27/22 09/28/22 09/28/22 18:59 06:59 18:59 Weight 49.442 kg - Constitutional General appearance: Present: cooperative - EENT Eyes: Present: EOMI ENT: Present: hearing grossly normal - Neck Neck: Present: normal ROM - Respiratory Respiratory: bilateral: CTA - Cardiovascular Rhythm: regular Heart sounds: normal: S1, S2 - Gastrointestinal General gastrointestinal: Present: soft - Integumentary Integumentary: Present: normal turgor - Musculoskeletal Musculoskeletal: Present: gait normal - Psychiatric Psychiatric: Present: A&O x's 3, appropriate affect, intact judgment & insight - Additional findings Additional findings: Breast Exam: BRA: 34A Inspection: Well-healed scar left breast from prior surgery, bilateral grade 2 ptosis Palpation: Right breast: Multi positional exam fibrocystic changes no discrete dominant masses or notches of concern Right axilla: no adenopathy of concern soft tissue fullness posterior area of the axilla consistent with a lipoma Left breast: Well-healed scar from prior surgery, no dominant masses or nodules of concern multi-positional exam Left axilla: No adenopathy of concern Assessment and Plan Assessment: Impression: Stage I invasive lobular carcinoma left breast/status post lumpectomy, sentinel node biopsy, radiation therapy, patient on anastrozole, patient did not have any chemotherapy Plan: Continue anastrozole Continue follow-up with medical and radiation oncology follow up in 6 months with a bilateral mammogram CC: Dr. Morgan
== END ==
LOC: WWCWWP 12:38
PROVIDERS: ATTEND Surgery
DX: C50.912 Malignant neoplasm of unspecified site of left female breast (principal); E78.00 Pure hypercholesterolemia, unspecified; J44.9 Chronic obstructive pulmonary disease, unspecified; M19.90 Unspecified osteoarthritis, unspecified site; Z79.811 Long term (current) use of aromatase inhibitors; Z80.0 Family history of malignant neoplasm of digestive organs; Z87.19 Personal history of other diseases of the digestive system; Z92.3 Personal history of irradiation; Z88.6 Allergy status to analgesic agent; Z79.82 Long term (current) use of aspirin; Z87.891 Personal history of nicotine dependence

== ENCOUNTER → 2022-09-28 | Outpatient (CLI) | payer MEDICARE, OTHER ==
--- NOTE | 2022-09-28 13:01 | MM ---
Reason for Exam: Follow-up at short interval from prior study. Last screening mammogram was performed 6 month(s) ago. Patient History: Menarche at age 15. Patient has no children. Postmenopausal. Other cancer, age 70. Breast cancer, left, age 75. Excisional Biopsy on the Left side. 06/28/2021, Lumpectomy on the Left side. Malignant Core Biopsy. 04/25/2021, Malignant Core Biopsy on the left side. 06/10/2013, Benign Core Biopsy on the right side. 06/10/2013, Cancelled Right Mammotome on the right side. Prior Study Comparison: 04/25/2021 Left Diagnostic Mammogram, [facility]. 06/28/2021 Left Diagnostic Mammogram, [facility]. 03/30/2022 Bilateral MG 3D diag mammo w/cad JANES, [facility]. Tissue Density: Left: The breast tissue is heterogeneously dense. This may lower the sensitivity of mammography. Findings: Analyzed By CAD. Persistent posttreatment change to the left breast with surgical clips posteriorly is again seen. Occasional tiny benign-appearing punctate calcifications in the left breast is redemonstrated. No suspicious new mass or distortion. Overall Assessment: Benign, BI-RAD 2 Management: Diagnostic Mammogram of both breasts in 6 months. Patient is due for bilateral breast mammogram in 6 months time. Results were given to the patient verbally at the time of exam. Patient should continue monthly self-breast exams. A clinical breast exam by your physician is recommended on an annual basis. This exam should not preclude additional follow-up of suspicious palpable abnormalities. Note on Iwona scores and lifetime risk: 1. A Iwona score greater than 3% is considered moderate risk. If this is the case, consider specialist referral to assess eligibility for a risk reducing agent. 2. If overall lifetime risk for the development of breast cancer is 20% or higher, the patient may qualify for future screening with alternating mammogram and breast MRI. Electronically signed and approved by: Richi Castillo M.D.
== END | disposition home or self-care (01) ==
LOC: RADMAMWWP 12:35
PROVIDERS: ATTEND Surgery
DX: R92.1 Mammographic calcification found on diagnostic imaging of breast (principal); Z78.0 Asymptomatic menopausal state; Z85.3 Personal history of malignant neoplasm of breast
CPT/HCPCS: 77065; G0279; 77061

== ENCOUNTER → 2022-11-10 | Outpatient (CLI) | payer MEDICARE, OTHER ==
[2022-11-10 13:28] VITALS: BP 154/76; PULSE 87; RESP 16; TEMP 97.9
== END ==
LOC: PROCWHC3 13:10
PROVIDERS: ATTEND Family Medicine
DX: M81.0 Age-related osteoporosis without current pathological fracture (principal)
CPT/HCPCS: 96372; J0897

== ENCOUNTER 2022-11-19 19:08 | Emergency (ER) | payer MEDICARE, OTHER ==
--- NOTE | 2022-11-19 20:33 | XR ---
EXAMINATION TYPE: XR chest 2V DATE OF EXAM: 11/19/2022 8:07 PM COMPARISON: Chest radiographs from 08/24/2022 TECHNIQUE: XR chest 2V Frontal and lateral views of the chest. CLINICAL INDICATION:Female, 77 years old with history of cough; FINDINGS: Lungs/Pleura: There is flattening of the diaphragm with increased lucency of the lungs. No evidence o f pneumothorax, pleural effusion or focal consolidation. Pulmonary vascularity: Unremarkable. Heart/mediastinum: Cardiomediastinal silhouette is unremarkable. Musculoskeletal: No acute osseous pathology. IMPRESSION: 1. No acute cardiopulmonary disease process. 2. COPD changes.
[2022-11-19 20:58] LABS: Appearance,Urine Clear (Clear); Bacteria,Urine Rare /hpf; Bilirubin,Urine Negative (Negative); Blood,Urine Moderate (Negative); Color,Urine Yellow; Glucose,Urine (UA) Negative (Negative); Ketones,Urine Negative (Negative); Leukocyte Esterase,Urine Negative (Negative); Nitrite,Urine Negative (Negative); PH, Urine 6.5 (5.0-8.0); Protein,Urine 1+ (Negative); RBC,Urine 30 /hpf (0-5); Squamous Epithelial Cell,Urine <1 /hpf (0-4); Urobilinogen,Urine <2.0 mg/dL (<2.0); WBC,Urine 1 /hpf (0-5)
[2022-11-19 20:59] LABS: Basophils # (A) 0.1 k/uL (0-0.2); Basophils % (A) 0 %; Eosinophils # (A) 0.1 k/uL (0-0.7); Eosinophils % (A) 1 %; HCT 41.2 % (34.0-46.0); HGB 13.7 gm/dL (11.4-16.0); Lymphocytes # (A) 1.1 k/uL (1.0-4.8); Lymphocytes % (A) 6 %; MCHC 33.2 g/dL (31.0-37.0); MCV 96.2 fL (80.0-100.0); Mean Platelet Volume 7.3; Monocytes # (A) 1.1 k/uL (0-1.0); Monocytes % (A) 6 %; Neutrophils # (A) 15.3 k/uL (1.3-7.7); Neutrophils % (A) 86 %; Platelet Count 312 k/uL (150-450); RBC 4.28 m/uL (3.80-5.40); RDW 12.7 % (11.5-15.5); WBC 17.8 k/uL (3.8-10.6)
[2022-11-19 21:14] LABS: ALT 23 U/L (4-34); AST 31 U/L (14-36); African American GFR (CKD) >90 (>60 ml/min/1.73 sqM); Alkaline Phosphatase 60 U/L (38-126); Anion Gap 10 mmol/L; Blood Urea Nitrogen 30 mg/dL (7-17); Calcium 9.4 mg/dL (8.4-10.2); Carbon Dioxide 25 mmol/L (22-30); Chloride 92 mmol/L (98-107); Glucose 110 mg/dL (74-99); Non-African American GFR(CKD) 85 (>60 ml/min/1.73 sqM); Potassium 4.8 mmol/L (3.5-5.1); Sodium 127 mmol/L (137-145); Total Bilirubin 0.8 mg/dL (0.2-1.3); Total Protein 6.5 g/dL (6.3-8.2)
--- NOTE | 2022-11-19 21:16 | ED ---
General Adult HPI - General Chief complaint: Fever Stated complaint: Left side poss jaw infection Source: patient Mode of arrival: ambulatory Limitations: no limitations - History of Present Illness Initial comments: 71-year-old female on Prolia presents to the ED with a chief complaint of left tooth infection/jaw pain. Patient states recently had tooth pulled however states that she was supposed to have 2 teeth pulled and mistakenly only had one tooth pulled. Patient states one day history of fever today T-max 102 via oral thermometer with associated dental pain/jaw pain. Jaw pain/dental pain started 3 days ago. Since onset patient states pain has been well controlled with ibuprofen and Tylenol however states that pain is still worsening in severity. Patient had tooth pulled on 10/20/22. Denies URI symptoms. No cough, sore throat, ear pain, congestion. Denies chest pain or shortness of breath. Note, patient states history of hyponatremia and notes that she currently follows with her doctor for this. No other complaints. - Related Data Home Medications Medication Instructions Recorded Confirmed Omeprazole [PriLOSEC] 20 mg PO DAILY 03/31/14 11/10/22 Albuterol Sulfate [Ventolin HFA] 2 puff INHALATION RT-Q6H PRN 04/21/14 11/10/22 Vitamin B Complex 1 cap PO DAILY 09/22/14 11/10/22 Vitamin E (Dl,Tocopheryl Acet) 1,000 unit PO DAILY 09/22/14 11/10/22 [Vitamin E] Acetaminophen/Diphenhydramine 2 tab PO HS 10/24/14 11/10/22 [Tylenol PM 500-25mg] Denosumab [Prolia] 60 mg SQ Q180D 10/24/14 11/10/22 Aspirin [Adult Low Dose Aspirin EC] 81 mg PO DAILY 04/04/16 11/10/22 Biotin 5 mg PO DAILY 10/11/18 11/10/22 Lutein 20 mg PO DAILY 11/03/20 11/10/22 Tiotropium 2.5 Mcg/Puff [Spiriva 2 puff INHALATION RT-DAILY 11/03/20 11/10/22 Respimat 2.5 Mcg] Zinc 50 mg PO DAILY 05/09/21 11/10/22 Anastrozole [Arimidex] 1 mg PO DAILY 11/17/21 11/10/22 Acetaminophen [Tylenol Extra 1,000 mg PO DAILY 08/24/22 11/10/22 Strength] Ascorbic Acid [Vitamin C] 1,000 mg PO DAILY 08/24/22 11/10/22 Cholecalciferol [Vitamin D3 (125 125 mcg PO DAILY 08/24/22 11/10/22 Mcg = 5000 Iu)] Magnesium 250 mg PO BID 08/24/22 11/10/22 Simvastatin [Zocor] 10 mg PO HS 08/24/22 11/10/22 Vitamin A 2,400 mcg PO DAILY 08/24/22 11/10/22 Calcium Carbonate [Calcium] 600 mg PO BID 09/20/22 11/10/22 Fluticasone/Vilanterol [Breo 1 puff INHALATION RT-DAILY 09/20/22 11/10/22 Ellipta 200-25 Mcg Inhaler] Mupirocin 2% Oint [Bactroban 2% 1 applic TOPICAL TID 09/20/22 11/10/22 Oint] Previous Rx's Medication Instructions Recorded Amoxic-Pot Clav 875-125Mg 1 tab PO Q12HR 7 Days #14 tab 11/20/22 [Augmentin 875-125] Allergies Allergy/AdvReac Type Severity Reaction Status Date / Time bupropion HCl Allergy Rash/Hives Verified 11/10/22 13:23 [From Wellbutrin] Review of Systems ROS Statement: Those systems with pertinent positive or pertinent negative responses have been documented in the HPI. ROS Other: All systems not noted in ROS Statement are negative. Past Medical History Past Medical History: Cancer, COPD Additional Past Medical History / Comment(s): HIATAL HERNIA, SKIN CANCER, NEWLY DIAGNOSED BREAST CANCER- had radiation only, JAEGER'S DISEASE History of Any Multi-Drug Resistant Organisms: None Reported Past Surgical History: Breast Surgery, Tubal Ligation Additional Past Surgical History / Comment(s): BRONCHOSCOPY, BREAST BX, EGD., PROCEDURE TO "CUT NERVES IN NECK" Past Anesthesia/Blood Transfusion Reactions: Motion Sickness, Postoperative Nausea & Vomiting (PONV) Past Psychological History: No Psychological Hx Reported Smoking Status: Former smoker Past Alcohol Use History: None Reported Past Drug Use History: None Reported - Past Family History Brother(s) Family Medical History: Cancer Additional Family Medical History / Comment(s): BROTHER # 1 PANCREATIC CANCER. BROTHER #2 KIDNEY CANCER. General Exam Limitations: no limitations Head exam: Present: atraumatic, normocephalic Eye exam: Present: normal appearance ENT exam: Present: mucous membranes moist, other (Cavity of the second molar with no surrounding abscess. Gums show no evidence of necrosis.) Respiratory exam: Present: normal lung sounds bilaterally Cardiovascular Exam: Present: regular rate, normal rhythm GI/Abdominal exam: Present: soft Neurological exam: Present: alert, oriented X3 Psychiatric exam: Present: normal affect, normal mood Skin exam: Present: warm, dry Course Vital Signs 11/19/22 11/19/22 19:31 23:58 Temperature 97.4 F L 99.7 F H Pulse Rate 92 Respiratory 16 Rate Blood Pressure 123/75 O2 Sat by Pulse 95 Oximetry Medical Decision Making - Medical Decision Making Was pt. sent in by a medical professional or institution (JOE William, MAIL OPENER, urgent care, hospital, or group home...) When possible be specific @ -No Did you speak to anyone other than the patient for history (EMS, parent, family, police, friend...)? What history was obtained from this source @ -No Did you review nursing and triage notes (agree or disagree)? Why? @ -I reviewed and agree with nursing and triage notes Were old charts reviewed (outside hosp., previous admission, EMS record, old EKG, old radiological studies, urgent care reports/EKG's, group home records)? Report findings @ -Charts reviewed showing history of hyponatremia and osteoporosis Differential Diagnosis (chest pain, altered mental status, abdominal pain women, abdominal pain men, vaginal bleeding, weakness, fever, dyspnea, syncope, headache, dizziness, GI bleed, back pain, seizure, CVA, palpatations, mental health, musculoskeletal)? @ -Pierre's angina, ANUG, periapical abscess, not meant to be an all-inclusive list EKG interpreted by me (3pts min.). @ -None X-rays interpreted by me (1pt min.). @ -X-ray showed no evidence of osteonecrosis however recommended computed tomography scan for further evaluation CT interpreted by me (1pt min.). @ -CT showed no evidence of osteonecrosis U/S interpreted by me (1pt. min.). @ -None done What testing was considered but not performed or refused? (CT, X-rays, U/S, labs)? Why? @ -None What meds were considered but not given or refused? Why? @ -None Did you discuss the management of the patient with other professionals (professionals i.e. , PA, MAIL OPENER, lab, RT, psych nurse, clinical social worker, die trimmer, teacher, commissioned police officer, upper caser)? Give summary @ -No Was smoking cessation discussed for >3mins.? @ -No Was critical care preformed (if so, how long)? @ -No Were there social determinants of health that impacted care today? How? (Homelessness, low income, unemployed, alcoholism, drug addiction, transportation, low edu. Level, literacy, decrease access to med. care, [facility], rehab)? @ -No Was there de-escalation of care discussed even if they declined (Discuss DNR or withdrawal of care, Hospice)? DNR status @ -No What co-morbidities impacted this encounter? (DM, HTN, Smoking, COPD, CAD, Cancer, CVA, ARF, Chemo, Hep., AIDS, mental health diagnosis, sleep apnea, morbid obesity)? @ -Osteoporosis Was patient admitted / discharged? Hospital course, mention meds given and route, prescriptions, significant lab abnormalities, going to OR and other pertinent info. @ -Discharge. Imaging showed no evidence of osteonecrosis. Laboratory studies significant for sodium of 127 however patient notes that this is a chronic issue and currently has no symptoms. CBC also significant for a white count of 17.8 consistent with current dental infection. Patient given starter pack of Augmentin here in the ED and discharged home with prescription for Augmentin. Patient has follow up with dentist tomorrow. Discussed return precautions with patient verbalizes agreement. Undiagnosed new problem with uncertain prognosis? @ -No Drug Therapy requiring intensive monitoring for toxicity (Heparin, Nitro, Insulin, Cardizem)? @ -No Were any procedures done? @ -No Diagnosis/symptom? @ -Dental cavity Acute, or Chronic, or Acute on Chronic? @ -Acute Uncomplicated (without systemic symptoms) or Complicated (systemic symptoms)? @ -Uncomplicated Side effects of treatment? @ -No Exacerbation, Progression, or Severe Exacerbation? @ -No Poses a threat to life or bodily function? How? (Chest pain, USA, LA, pneumonia, PE, COPD, DKA, ARF, appy, cholecystitis, CVA, Diverticulitis, Homicidal, Suicidal, threat to staff... and all critical care pts) @ -Yes, rule out osteonecrosis - Lab Data Result diagrams: 11/19/22 20:44 11/19/22 20:44 Lab Results 11/19/22 11/19/22 11/19/22 Range/Units 19:38 20:44 20:44 WBC 17.8 H (3.8-10.6) k/uL RBC 4.28 (3.80-5.40) m/uL Hgb 13.7 (11.4-16.0) gm/dL Hct 41.2 (34.0-46.0) % MCV 96.2 (80.0-100.0) fL MCH 32.0 (25.0-35.0) pg MCHC 33.2 (31.0-37.0) g/dL RDW 12.7 (11.5-15.5) % Plt Count 312 (150-450) k/uL MPV 7.3 Neutrophils % 86 % Lymphocytes % 6 % Monocytes % 6 % Eosinophils % 1 % Basophils % 0 % Neutrophils # 15.3 H (1.3-7.7) k/uL Lymphocytes # 1.1 (1.0-4.8) k/uL Monocytes # 1.1 H (0-1.0) k/uL Eosinophils # 0.1 (0-0.7) k/uL Basophils # 0.1 (0-0.2) k/uL Sodium (137-145) mmol/L Potassium (3.5-5.1) mmol/L Chloride (98-107) mmol/L Carbon Dioxide (22-30) mmol/L Anion Gap mmol/L BUN (7-17) mg/dL Creatinine (0.52-1.04) mg/dL Est GFR (CKD-EPI)AfAm (>60 ml/min/1.73 sqM) Est GFR (CKD-EPI)NonAf (>60 ml/min/1.73 sqM) Glucose (74-99) mg/dL Calcium (8.4-10.2) mg/dL Total Bilirubin (0.2-1.3) mg/dL AST (14-36) U/L ALT (4-34) U/L Alkaline Phosphatase (38-126) U/L Total Protein (6.3-8.2) g/dL Albumin (3.5-5.0) g/dL Urine Color Yellow Urine Appearance Clear (Clear) Urine pH 6.5 (5.0-8.0) Ur Specific [place] 1.010 (1.001-1.035) Urine Protein 1+ H (Negative) Urine Glucose (UA) Negative (Negative) Urine Ketones Negative (Negative) Urine Blood Moderate H (Negative) Urine Nitrite Negative (Negative) Urine Bilirubin Negative (Negative) Urine Urobilinogen <2.0 (<2.0) mg/dL Ur Leukocyte Esterase Negative (Negative) Urine RBC 30 H (0-5) /hpf Urine WBC 1 (0-5) /hpf Ur Squamous Epith Cells <1 (0-4) /hpf Urine Bacteria Rare H (None) /hpf Influenza Type A (PCR) Not Detected (Not Detectd) Influenza Type B (PCR) Not Detected (Not Detectd) RSV (PCR) Not Detected (Not Detectd) SARS-CoV-2 (PCR) Not Detected (Not Detectd) 11/19/22 Range/Units 20:44 WBC (3.8-10.6) k/uL RBC (3.80-5.40) m/uL Hgb (11.4-16.0) gm/dL Hct (34.0-46.0) % MCV (80.0-100.0) fL MCH (25.0-35.0) pg MCHC (31.0-37.0) g/dL RDW (11.5-15.5) % Plt Count (150-450) k/uL MPV Neutrophils % % Lymphocytes % % Monocytes % % Eosinophils % % Basophils % % Neutrophils # (1.3-7.7) k/uL Lymphocytes # (1.0-4.8) k/uL Monocytes # (0-1.0) k/uL Eosinophils # (0-0.7) k/uL Basophils # (0-0.2) k/uL Sodium 127 L (137-145) mmol/L Potassium 4.8 (3.5-5.1) mmol/L Chloride 92 L (98-107) mmol/L Carbon Dioxide 25 (22-30) mmol/L Anion Gap 10 mmol/L BUN 30 H (7-17) mg/dL Creatinine 0.68 (0.52-1.04) mg/dL Est GFR (CKD-EPI)AfAm >90 (>60 ml/min/1.73 sqM) Est GFR (CKD-EPI)NonAf 85 (>60 ml/min/1.73 sqM) Glucose 110 H (74-99) mg/dL Calcium 9.4 (8.4-10.2) mg/dL Total Bilirubin 0.8 (0.2-1.3) mg/dL AST 31 (14-36) U/L ALT 23 (4-34) U/L Alkaline Phosphatase 60 (38-126) U/L Total Protein 6.5 (6.3-8.2) g/dL Albumin 4.0 (3.5-5.0) g/dL Urine Color Urine Appearance (Clear) Urine pH (5.0-8.0) Ur Specific [place] (1.001-1.035) Urine Protein (Negative) Urine Glucose (UA) (Negative) Urine Ketones (Negative) Urine Blood (Negative) Urine Nitrite (Negative) Urine Bilirubin (Negative) Urine Urobilinogen (<2.0) mg/dL Ur Leukocyte Esterase (Negative) Urine RBC (0-5) /hpf Urine WBC (0-5) /hpf Ur Squamous Epith Cells (0-4) /hpf Urine Bacteria (None) /hpf Influenza Type A (PCR) (Not Detectd) Influenza Type B (PCR) (Not Detectd) RSV (PCR) (Not Detectd) SARS-CoV-2 (PCR) (Not Detectd) Disposition Clinical Impression: Dental cavity Disposition: HOME SELF-CARE Condition: Good Additional Instructions: Please return to the Emergency Department if symptoms worsen or any other concerns. Prescriptions: Amoxic-Pot Clav 875-125Mg [Augmentin 875-125] 1 tab PO Q12HR 7 Days #14 tab Is patient prescribed a controlled substance at d/c from ED?: No Referrals: Armando Morgan DO [Primary Care Provider] - 1-2 days Time of Disposition: 00:15
--- NOTE | 2022-11-19 21:46 | XR ---
EXAMINATION TYPE: XR mandible complete DATE OF EXAM: 11/19/2022 9:37 PM INDICATION: Patient age:Female; 77 years old; Reason for study: r/o osteonecrosis; . COMPARISON: None TECHNIQUE: 4 views of the mandible were obtained. FINDINGS: There is no fracture identified. No lytic or sclerotic bony lesion is present. The TMJs are within no rmal limits. The visualized facial bones are intact. The mastoid air cells and paranasal sinuses appe ar well-aerated. Hearing aid devices as well as dental work are noted. IMPRESSION: CT as a more sensitive exam for ruling out osteomyelitis. Consider CT evaluation for oste omyelitis.
--- NOTE | 2022-11-19 23:39 | CT ---
EXAMINATION TYPE: CT facial bones w con DATE OF EXAM: 11/19/2022 COMPARISON: Same date mandible x-ray. HISTORY: r/o osteonecrosis of the jaw on prilia. recent dental procedure 10/20. Pain. CT DLP: 381.1 mGycm Automated exposure control for dose reduction was used. CONTRAST: CT scan of the facial bones is performed with IV Contrast, patient injected with 100 mL of Isovue 300 . TECHNIQUE: CT scan of the facial bones is performed without contrast, axial images are obtained, rico nal reformatted images are also reviewed. FINDINGS: Exam is suboptimal as there is some motion artifact at level of the mandible angles. No acu te displaced fracture clearly seen otherwise. No suspicious bony destruction is seen. Streak artifact from dental cavities and crowns makes evaluation slightly suboptimal also. There is lack of dentitio n in the maxilla. Visualized airway remains patent. Visualized paranasal sinuses are clear. Bilateral aphakia incidentally noted. No well-formed fluid collection or abscess seen. IMPRESSION: Suboptimal study. No suspicious bony destruction of the mandible. No focal drainable abs cess noted.
[2022-11-19 23:58] VITALS: TEMP 99.7
[2022-11-20] MEDS ORDERED: ACETAMINOPHEN TAB 325 MG TAB PO STA
[2022-11-20] MEDS ORDERED: AMOXIC-POT CLAV 875MG STARTER PACK 2 TAB BTL PO STA (00:27)
[2022-11-20 00:46] VITALS: BP 122/67; PULSE 95; RESP 18
== END 2022-11-20 00:51 | disposition home or self-care (01) ==
LOC: EC 19:08
DX: K02.9 Dental caries, unspecified (principal); J44.9 Chronic obstructive pulmonary disease, unspecified; Z87.891 Personal history of nicotine dependence; Z79.82 Long term (current) use of aspirin; Z79.51 Long term (current) use of inhaled steroids; Z79.899 Other long term (current) drug therapy; Z88.8 Allergy status to other drugs, medicaments and biological substances; Z20.822 Contact with and (suspected) exposure to COVID-19
CPT/HCPCS: 36415; 80053; 85025; 81001; 87636; 70110; 71046; 70487; 99284; Q9967

== ENCOUNTER 2022-11-21 15:50 | Inpatient (IN) | payer MEDICARE, OTHER ==
[2022-11-21] MEDS ORDERED: NITROGLYCERIN OINT 1 INCH/GM PACKET TOPICAL STA (16:44)
[2022-11-21] MEDS ORDERED: ASPIRIN 81 MG PO STA (16:44)
[2022-11-21] MEDS ORDERED: SODIUM CHLORIDE 0.9% 500 ML 500 ML IV STA (16:44)
--- NOTE | 2022-11-21 16:46 | ED ---
General Adult HPI - General Chief complaint: Chest Pain Stated complaint: weakness Time Seen by Provider: 11/21/22 16:00 Source: patient, RN notes reviewed, old records reviewed Mode of arrival: EMS Limitations: no limitations - History of Present Illness Initial comments: This is a 77-year-old female presents emergency Department complaining that this morning she woke up with left-sided chest pain radiates to her back. Patient states it does seem a little bit worse with taking a deep breath. Patient states it does make her short of breath per patient denies any diaphoretic episode. Patient has any nausea. Patient denies any recent fever chills or cough per patient denies headache patient denies lightheadedness or dizziness. - Related Data Home Medications Medication Instructions Recorded Confirmed Omeprazole [PriLOSEC] 20 mg PO DAILY 03/31/14 11/21/22 Albuterol Sulfate [Ventolin HFA] 2 puff INHALATION RT-Q6H PRN 04/21/14 11/21/22 Vitamin B Complex 1 cap PO DAILY 09/22/14 11/21/22 Vitamin E (Dl,Tocopheryl Acet) 1,000 unit PO DAILY 09/22/14 11/21/22 [Vitamin E] Acetaminophen/Diphenhydramine 2 tab PO HS 10/24/14 11/21/22 [Tylenol PM 500-25mg] Denosumab [Prolia] 60 mg SQ Q180D 10/24/14 11/21/22 Aspirin [Adult Low Dose Aspirin EC] 81 mg PO DAILY 04/04/16 11/21/22 Biotin 5 mg PO DAILY 10/11/18 11/21/22 Lutein 20 mg PO DAILY 11/03/20 11/21/22 Tiotropium 2.5 Mcg/Puff [Spiriva 2 puff INHALATION RT-DAILY 11/03/20 11/21/22 Respimat 2.5 Mcg] Zinc 50 mg PO DAILY 05/09/21 11/21/22 Anastrozole [Arimidex] 1 mg PO DAILY 11/17/21 11/21/22 Acetaminophen [Tylenol Extra 1,000 mg PO DAILY 08/24/22 11/21/22 Strength] Ascorbic Acid [Vitamin C] 1,000 mg PO DAILY 08/24/22 11/21/22 Cholecalciferol [Vitamin D3 (125 125 mcg PO DAILY 08/24/22 11/21/22 Mcg = 5000 Iu)] Magnesium 250 mg PO BID 08/24/22 11/21/22 Simvastatin [Zocor] 10 mg PO HS 08/24/22 11/21/22 Vitamin A 2,400 mcg PO DAILY 08/24/22 11/21/22 Calcium Carbonate [Calcium] 600 mg PO BID 09/20/22 11/21/22 Fluticasone/Vilanterol [Breo 1 puff INHALATION RT-DAILY 09/20/22 11/21/22 Ellipta 200-25 Mcg Inhaler] Mupirocin 2% Oint [Bactroban 2% 1 applic TOPICAL TID 09/20/22 11/21/22 Oint] Amoxic-Pot Clav 875-125Mg 1 tab PO BID 11/21/22 11/21/22 [Augmentin 875-125] Allergies Allergy/AdvReac Type Severity Reaction Status Date / Time bupropion HCl Allergy Rash/Hives Verified 11/21/22 17:35 [From Wellbutrin] Review of Systems ROS Statement: Those systems with pertinent positive or pertinent negative responses have been documented in the HPI. ROS Other: All systems not noted in ROS Statement are negative. Past Medical History Past Medical History: Cancer, COPD Additional Past Medical History / Comment(s): HIATAL HERNIA, SKIN CANCER, NEWLY DIAGNOSED BREAST CANCER- had radiation only, JAEGER'S DISEASE History of Any Multi-Drug Resistant Organisms: None Reported Past Surgical History: Breast Surgery, Tubal Ligation Additional Past Surgical History / Comment(s): BRONCHOSCOPY, BREAST BX, EGD., PROCEDURE TO "CUT NERVES IN NECK" Past Anesthesia/Blood Transfusion Reactions: Motion Sickness, Postoperative Nausea & Vomiting (PONV) Past Psychological History: No Psychological Hx Reported Smoking Status: Former smoker Past Alcohol Use History: None Reported Past Drug Use History: None Reported - Past Family History Brother(s) Family Medical History: Cancer Additional Family Medical History / Comment(s): BROTHER # 1 PANCREATIC CANCER. BROTHER #2 KIDNEY CANCER. General Exam - General Exam Comments Initial Comments: GENERAL: Patient is well-developed and well-nourished. Patient is nontoxic and well- hydrated and is in mild distress. ENT: Neck is soft and supple. No significant lymphadenopathy is noted. Oropharynx is clear. Moist mucous membranes. Neck has full range of motion without eliciting any pain. EYES: The sclera were anicteric and conjunctiva were pink and moist. Extraocular movements were intact and pupils were equal round and reactive to light. Eyelids were unremarkable. PULMONARY: Unlabored respirations. Good breath sounds bilaterally. No audible rales rhonchi or wheezing was noted. CARDIOVASCULAR: There is a regular rate and rhythm without any murmurs gallops or rubs. Chest pain is not reproducible ABDOMEN: Soft and nontender with normal bowel sounds. SKIN: Skin is clear with no lesions or rashes and otherwise unremarkable. NEUROLOGIC: Patient is alert and oriented x3. Cranial nerves II through XII are grossly intact. Motor and sensory are also intact. Normal speech, volume and content. Symmetrical smile. MUSCULOSKELETAL: Normal extremities with adequate strength and full range of motion. No lower extremity swelling or edema. No calf tenderness. LYMPHATICS: No significant lymphadenopathy is noted PSYCHIATRIC: Normal psychiatric evaluation. Limitations: no limitations Course Vital Signs 11/21/22 15:53 Temperature 98.6 F Pulse Rate 89 Respiratory 16 Rate Blood Pressure 113/58 O2 Sat by Pulse 96 Oximetry Medical Decision Making - Medical Decision Making EKG shows sinus rhythm at 87 bpm [place] interval 155 QRS is 88 QT interval 336 QTC i s 31 per patient's EKG shows no ST segment elevation or depression. Was pt. sent in by a medical professional or institution (, PA, MANAGER RESTAURANT, urgent care, hospital, or longterm...) When possible be specific @ -No Did you speak to anyone other than the patient for history (EMS, parent, family, police, friend...)? What history was obtained from this source @ -No Did you review nursing and triage notes (agree or disagree)? Why? @ -I reviewed and agree with nursing and triage notes Were old charts reviewed (outside hosp., previous admission, EMS record, old EKG , old radiological studies, urgent care reports/EKG's, longterm records)? Report findings @ -Prior charts prior lab work and prior radiological studies in this patient Differential Diagnosis (chest pain, altered mental status, abdominal pain women, abdominal pain men, vaginal bleeding, weakness, fever, dyspnea, syncope, headache, dizziness, GI bleed, back pain, seizure, CVA, palpatations, mental health, musculoskeletal)? @ -Differential Chest Pain: Stable Angina, Unstable Angina, STEMI, NSTEMI Aortic Dissection, Pneumothorax, Musculoskeletal, Esophageal Spasm GERD, Cholecystitis, Pancreatitis, Zoster, this is not meant to be an all-inclusive list. EKG interpreted by me (3pts min.). @ -As above X-rays interpreted by me (1pt min.). @ -Chest x-ray showed infiltrate in the left side consistent with an atypical pneumonia CT interpreted by me (1pt min.). @ -None done U/S interpreted by me (1pt. min.). @ -None done What testing was considered but not performed or refused? (CT, X-rays, U/S, labs)? Why? @ -None What meds were considered but not given or refused? Why? @ -None Did you discuss the management of the patient with other professionals (professionals i.e. , PA, MANAGER RESTAURANT, lab, RT, psych nurse, social research assistant, ball assembler, teacher, media liaison officer, insurance case manager)? Give summary @ -I spoke with [facility] say agreed to admit the patient Was smoking cessation discussed for >3mins.? @ -No Was critical care preformed (if so, how long)? @ -No Were there social determinants of health that impacted care today? How? (Homelessness, low income, unemployed, alcoholism, drug addiction, transportation, low edu. Level, literacy, decrease access to med. care, fdc, rehab)? @ -No Was there de-escalation of care discussed even if they declined (Discuss DNR or withdrawal of care, Hospice)? DNR status @ -No What co-morbidities impacted this encounter? (DM, HTN, Smoking, COPD, CAD, Cancer, CVA, ARF, Chemo, Hep., AIDS, mental health diagnosis, sleep apnea, morbid obesity)? @ -None Was patient admitted / discharged? Hospital course, mention meds given and route, prescriptions, significant lab abnormalities, going to OR and other pertinent info. @ -Patient had pneumonia in the high white count on x-ray and lab work. Patient afebrile also indicated hyponatremia. I spoke with [facility] say agreed to admit the patient to the patient started antibiotics I did blood cultures. Undiagnosed new problem with uncertain prognosis? @ -No Drug Therapy requiring intensive monitoring for toxicity (Heparin, Nitro, Insulin, Cardizem)? @ -No Were any procedures done? @ -No Diagnosis/symptom? @ -Pneumonia Acute, or Chronic, or Acute on Chronic? @ -Acute Uncomplicated (without systemic symptoms) or Complicated (systemic symptoms)? @ -Complicated Side effects of treatment? @ -No Exacerbation, Progression, or Severe Exacerbation? @ -No Poses a threat to life or bodily function? How? (Chest pain, [place], [place], pneumonia, PE, COPD, DKA, ARF, appy, cholecystitis, CVA, Diverticulitis, Homicidal, Suicidal, threat to staff... and all critical care pts) @ -Yes this could lead to hypoxia and end organ dysfunction Diagnosis/symptom? @ -Hyponatremia Acute, or Chronic, or Acute on Chronic? @ -Acute Uncomplicated (without systemic symptoms) or Complicated (systemic symptoms)? @ -Complicated Side effects of treatment? @ -none Exacerbation, Progression, or Severe Exacerbation] @ -no Poses a threat to life or bodily function? @ -no Diagnosis/symptom? @ -Chest pain Acute, or Chronic, or Acute on Chronic? @ -Acute Uncomplicated (without systemic symptoms) or Complicated (systemic symptoms)? @ -Complicated Side effects of treatment? @ -none Exacerbation, Progression, or Severe Exacerbation] @ -no Poses a threat to life or bodily function? @ -no - Lab Data Result diagrams: 11/21/22 16:46 11/21/22 16:46 Lab Results 11/21/22 11/21/22 11/21/22 Range/Units 16:46 16:46 16:46 WBC 18.6 H (3.8-10.6) k/uL RBC 3.96 (3.80-5.40) m/uL Hgb 12.6 (11.4-16.0) gm/dL Hct 37.8 (34.0-46.0) % MCV 95.5 (80.0-100.0) fL MCH 31.9 (25.0-35.0) pg MCHC 33.4 (31.0-37.0) g/dL RDW 12.6 (11.5-15.5) % Plt Count 238 (150-450) k/uL MPV 7.6 Neutrophils % 93 % Lymphocytes % 2 % Monocytes % 3 % Eosinophils % 1 % Basophils % 0 % Neutrophils # 17.3 H (1.3-7.7) k/uL Lymphocytes # 0.4 L (1.0-4.8) k/uL Monocytes # 0.6 (0-1.0) k/uL Eosinophils # 0.2 (0-0.7) k/uL Basophils # 0.0 (0-0.2) k/uL PT 10.9 (9.0-12.0) sec INR 1.0 (<1.2) APTT 26.1 (22.0-30.0) sec Sodium 120 L (137-145) mmol/L Potassium 3.8 (3.5-5.1) mmol/L Chloride 88 L (98-107) mmol/L Carbon Dioxide 21 L (22-30) mmol/L Anion Gap 11 mmol/L BUN 35 H (7-17) mg/dL Creatinine 0.90 (0.52-1.04) mg/dL Est GFR (CKD-EPI)AfAm 72 (>60 ml/min/1.73 sqM) Est GFR (CKD-EPI)NonAf 63 (>60 ml/min/1.73 sqM) Glucose 126 H (74-99) mg/dL Calcium 9.0 (8.4-10.2) mg/dL Magnesium 1.9 (1.6-2.3) mg/dL Total Bilirubin 0.5 (0.2-1.3) mg/dL AST 57 H (14-36) U/L ALT 54 H (4-34) U/L Alkaline Phosphatase 96 (38-126) U/L Troponin I (0.000-0.034) ng/mL Total Protein 6.0 L (6.3-8.2) g/dL Albumin 3.4 L (3.5-5.0) g/dL 11/21/22 Range/Units 16:46 WBC (3.8-10.6) k/uL RBC (3.80-5.40) m/uL Hgb (11.4-16.0) gm/dL Hct (34.0-46.0) % MCV (80.0-100.0) fL MCH (25.0-35.0) pg MCHC (31.0-37.0) g/dL RDW (11.5-15.5) % Plt Count (150-450) k/uL MPV Neutrophils % % Lymphocytes % % Monocytes % % Eosinophils % % Basophils % % Neutrophils # (1.3-7.7) k/uL Lymphocytes # (1.0-4.8) k/uL Monocytes # (0-1.0) k/uL Eosinophils # (0-0.7) k/uL Basophils # (0-0.2) k/uL PT (9.0-12.0) sec INR (<1.2) APTT (22.0-30.0) sec Sodium (137-145) mmol/L Potassium (3.5-5.1) mmol/L Chloride (98-107) mmol/L Carbon Dioxide (22-30) mmol/L Anion Gap mmol/L BUN (7-17) mg/dL Creatinine (0.52-1.04) mg/dL Est GFR (CKD-EPI)AfAm (>60 ml/min/1.73 sqM) Est GFR (CKD-EPI)NonAf (>60 ml/min/1.73 sqM) Glucose (74-99) mg/dL Calcium (8.4-10.2) mg/dL Magnesium (1.6-2.3) mg/dL Total Bilirubin (0.2-1.3) mg/dL AST (14-36) U/L ALT (4-34) U/L Alkaline Phosphatase (38-126) U/L Troponin I 0.014 (0.000-0.034) ng/mL Total Protein (6.3-8.2) g/dL Albumin (3.5-5.0) g/dL Disposition Clinical Impression: Pneumonia, Chest pain, Hyponatremia Disposition: ADMITTED IP TO THIS HOSP Referrals: Armando Morgan DO [Primary Care Provider] - 1-2 days Time of Disposition: 19:57
[2022-11-21 17:14] LABS: Basophils % (A) 0 %; Eosinophils # (A) 0.2 k/uL (0-0.7); Eosinophils % (A) 1 %; HCT 37.8 % (34.0-46.0); HGB 12.6 gm/dL (11.4-16.0); Lymphocytes # (A) 0.4 k/uL (1.0-4.8); Lymphocytes % (A) 2 %; MCH 31.9 pg (25.0-35.0); MCHC 33.4 g/dL (31.0-37.0); MCV 95.5 fL (80.0-100.0); Mean Platelet Volume 7.6; Monocytes # (A) 0.6 k/uL (0-1.0); Monocytes % (A) 3 %; Neutrophils # (A) 17.3 k/uL (1.3-7.7); Neutrophils % (A) 93 %; Platelet Count 238 k/uL (150-450); RBC 3.96 m/uL (3.80-5.40); RDW 12.6 % (11.5-15.5); WBC 18.6 k/uL (3.8-10.6)
[2022-11-21 17:31] LABS: ALT 54 U/L (4-34); AST 57 U/L (14-36); African American GFR (CKD) 72 (>60 ml/min/1.73 sqM); Albumin 3.4 g/dL (3.5-5.0); Alkaline Phosphatase 96 U/L (38-126); Anion Gap 11 mmol/L; Blood Urea Nitrogen 35 mg/dL (7-17); Carbon Dioxide 21 mmol/L (22-30); Chloride 88 mmol/L (98-107); Glucose 126 mg/dL (74-99); Magnesium 1.9 mg/dL (1.6-2.3); Non-African American GFR(CKD) 63 (>60 ml/min/1.73 sqM); Potassium 3.8 mmol/L (3.5-5.1); Sodium 120 mmol/L (137-145); Total Bilirubin 0.5 mg/dL (0.2-1.3)
[2022-11-21 17:37] LABS: Partial Thromboplastin Time 26.1 sec (22.0-30.0); Prothrombin Time 10.9 sec (9.0-12.0)
--- NOTE | 2022-11-21 18:36 | XR ---
EXAMINATION TYPE: XR chest 2V DATE OF EXAM: 11/21/2022 COMPARISON: 11/19/2022 HISTORY: Shortness of breath TECHNIQUE: Frontal and lateral views of the chest are obtained. FINDINGS: Scattered senescent parenchymal changes noted. Hyperinflation compatible with COPD. There is reticulonodular infiltrate within the left upper lobe. Correlate for pneumonia or atypical p neumonia. The right lung is clear at this time. Heart size is stable. Mediastinal structures are stable and grossly unremarkable. No evidence for hilar prominence. Degenerative changes dorsal spine. IMPRESSION: 1. There is reticulonodular infiltrate within the left upper lobe. Correlate for pneumonia or atypica l pneumonia.
[2022-11-21] MEDS ORDERED: cefTRIAXone IN SWFI 1,000 MG/10 ML SYRINGE IVP STA (19:05)
[2022-11-21] MEDS ORDERED: AZITHROMYCIN 500 MG in SODIUM CHLORIDE 0.9% 250 ML IVPB STA ×2 (19:58→20:31)
[2022-11-21] MEDS ORDERED: PNEUMONIA PROTOCOL UTILIZED 1 EACH MISC PO PRN (19:58)
[2022-11-21] MEDS: SODIUM CHLORIDE 0.9% 1,000 ML IV SCH (20:57)
[2022-11-21] MEDS: ATORVASTATIN 10 MG TAB PO SCH (22:49)
[2022-11-21] MEDS: ACETAMINOPHEN TAB 325 MG TAB PO PRN (22:49)
[2022-11-21] MEDS: diphenhydrAMINE 25 MG CAP PO PRN (22:50)
--- NOTE | 2022-11-22 07:24 | XR ---
EXAMINATION TYPE: XR chest 1V portable DATE OF EXAM: 11/22/2022 6:06 AM COMPARISON: Chest radiograph from one day prior. TECHNIQUE: XR chest 1V portable Frontal view of the chest. CLINICAL INDICATION:Female, 77 years old with history of pneumonia; FINDINGS: Lungs/Pleura: Scattered reticular and hazy opacities throughout the left lung flattening of the diaph ragms bilaterally with increased lucency of the right lung apex. Here is no evidence of pleural effus ion, focal consolidation, or pneumothorax. Pulmonary vascularity: Unremarkable. Heart/mediastinum: Cardiomediastinal silhouette is unremarkable. Musculoskeletal: No acute osseous pathology. IMPRESSION: 1. Somewhat diffuse reticular left airspace opacities compatible with pneumonia. 2. COPD changes.
[2022-11-22] MEDS: SODIUM CHLORIDE 0.9% 1,000 ML IV SCH (08:49)
[2022-11-22] MEDS ORDERED: AZITHROMYCIN 500 MG TAB PO SCH (09:00)
[2022-11-22] MEDS: ASCORBIC ACID 500 MG TAB PO SCH (10:28)
[2022-11-22] MEDS: CHOLECALCIFEROL 125 MCG (5000 IU) TABLET PO SCH (10:28)
[2022-11-22] MEDS: ASPIRIN 81 MG PO SCH (10:28)
[2022-11-22] MEDS: ZINC SULFATE 220 MG CAP PO SCH (10:28)
[2022-11-22] MEDS: CALCIUM CARBONATE 500 MG CHEWABLE PO SCH ×2 (10:28→19:54)
[2022-11-22] MEDS: ACETAMINOPHEN TAB 325 MG TAB PO PRN ×2 (10:28→23:17)
[2022-11-22] MEDS: ANASTROZOLE 1 MG TAB PO SCH (10:30)
[2022-11-22 10:50] LABS: Basophils % (A) 0 %; Eosinophils # (A) 0.1 k/uL (0-0.7); Eosinophils % (A) 1 %; HGB 11.5 gm/dL (11.4-16.0); Lymphocytes # (A) 0.3 k/uL (1.0-4.8); Lymphocytes % (A) 2 %; MCH 32.5 pg (25.0-35.0); MCHC 34.7 g/dL (31.0-37.0); MCV 93.6 fL (80.0-100.0); Mean Platelet Volume 7.6; Monocytes # (A) 0.9 k/uL (0-1.0); Monocytes % (A) 6 %; Neutrophils # (A) 13.7 k/uL (1.3-7.7); Neutrophils % (A) 90 %; Platelet Count 236 k/uL (150-450); RBC 3.53 m/uL (3.80-5.40); RDW 12.8 % (11.5-15.5); WBC 15.2 k/uL (3.8-10.6)
--- NOTE | 2022-11-22 11:05 | P.CRDCN ---
History of Present Illness History of present illness: HISTORY OF PRESENT ILLNESS: This is a 77-year-old female with a past medical history significant for hyperlipidemia and former nicotine dependence. 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 We have been asked to see the patient in consultation for chest pain. Patient examined at the bedside. Patient states that she began to feel unwell on Sunday. Patient states on Sunday morning to began to have chest discomfort. She states that she was coughing quite a bit at home. She states the chest pain was worse with coughing and deep inspiration. She reports having fever and chills at home. She states that she did not feel short of breath initially but she feels short of breath this morning. The patient was found to have pneumonia and was started on antibiotics. * EKG sinus mechanism with no signs of acute ischemia * Chest xray reticular nodule infiltrate within the left upper lobe; correlate for pneumonia * Laboratory data: WBC 15.2. Hemoglobin 11.5. Platelet count 236. Sodium 120. Potassium 3.8. BUN 35. Creatinine 0.90. Magnesium 1.9. Troponin negative 3. * Current home cardiac medications include simvastatin 10 mg at night and aspirin 81 mg daily REVIEW OF SYSTEMS: At the time of my exam: CONSTITUTIONAL: Denies fever or chills. HEENT: Denies blurred vision, vision changes, or eye pain. Denies hemoptysis CARDIOVASCULAR: Denies chest pain. Denies orthopnea. Denies PND. Denies palpitations RESPIRATORY: Denies shortness of breath. GASTROINTESTINAL: Denies abdominal pain. Denies nausea or vomiting. HEMATOLOGIC: Denies bleeding disorders. GENITOURINARY: Denies any blood in urine. SKIN: Denies pruitis. Denies rash. PHYSICAL EXAM: VITAL SIGNS: Reviewed. GENERAL: Well-developed in no acute distress. HEENT: Head is normocephalic. Pupils are equal, round. Sclerae anicteric. Mucous membranes of the mouth are moist. Neck supple. No JVD or thyromegaly LUNGS: Respirations even and unlabored. Lungs essentially clear to auscultation bilaterally. HEART: Regular rate and rhythm. S1 and S2 heard. ABDOMEN: Soft. Nondistended. Nontender. EXTREMITIES: Normal range of motion. No clubbing or cyanosis. Peripheral pulses intact. No lower extremity edema NEUROLOGIC: Awake and alert. Oriented x 3. ASSESSMENT: Pneumonia Chest pain, pleuritic, troponin negative 3 Hyponatremia Leukocytosis with fever Hyperlipidemia Former nicotine dependence PLAN: An acute coronary event has been ruled out Obtain 2-D echo to assess cardiac structure and function Resume home cardiac medications Recommend outpatient stress testing once patient's acute medical conditions have resolved Further recommendations pain patient course Nurse practitioner note has been reviewed by physician. Signing provider agrees with the documented findings, assessment, and plan of care. Past Medical History Past Medical History: Cancer, COPD Additional Past Medical History / Comment(s): HIATAL HERNIA, SKIN CANCER, NEWLY DIAGNOSED BREAST CANCER- had radiation only, JAEGER'S DISEASE History of Any Multi-Drug Resistant Organisms: None Reported Past Surgical History: Breast Surgery, Tubal Ligation Additional Past Surgical History / Comment(s): BRONCHOSCOPY, BREAST BX, EGD., PROCEDURE TO "CUT NERVES IN NECK" Past Anesthesia/Blood Transfusion Reactions: Motion Sickness, Postoperative Nausea & Vomiting (PONV) Past Psychological History: No Psychological Hx Reported Additional Psychological History / Comment(s): . Smoking Status: Former smoker Past Alcohol Use History: None Reported Additional Past Alcohol Use History / Comment(s): STARTED SMOKING AT AGE 19 QUIT JULY 2016 Past Drug Use History: None Reported - Past Family History Brother(s) Family Medical History: Cancer Additional Family Medical History / Comment(s): BROTHER # 1 PANCREATIC CANCER. BROTHER #2 KIDNEY CANCER. Medications and Allergies Home Medications Medication Instructions Recorded Confirmed Type Omeprazole [PriLOSEC] 20 mg PO DAILY 03/31/14 11/21/22 History Albuterol Sulfate [Ventolin HFA] 2 puff INHALATION RT-Q6H PRN 04/21/14 11/21/22 History Vitamin B Complex 1 cap PO DAILY 09/22/14 11/21/22 History Vitamin E (Dl,Tocopheryl Acet) 1,000 unit PO DAILY 09/22/14 11/21/22 History [Vitamin E] Acetaminophen/Diphenhydramine 2 tab PO HS 10/24/14 11/21/22 History [Tylenol PM 500-25mg] Denosumab [Prolia] 60 mg SQ Q180D 10/24/14 11/21/22 History Aspirin [Adult Low Dose Aspirin EC] 81 mg PO DAILY 04/04/16 11/21/22 History Biotin 5 mg PO DAILY 10/11/18 11/21/22 History Lutein 20 mg PO DAILY 11/03/20 11/21/22 History Tiotropium 2.5 Mcg/Puff [Spiriva 2 puff INHALATION RT-DAILY 11/03/20 11/21/22 History Respimat 2.5 Mcg] Zinc 50 mg PO DAILY 05/09/21 11/21/22 History Anastrozole [Arimidex] 1 mg PO DAILY 11/17/21 11/21/22 History Acetaminophen [Tylenol Extra 1,000 mg PO DAILY 08/24/22 11/21/22 History Strength] Ascorbic Acid [Vitamin C] 1,000 mg PO DAILY 08/24/22 11/21/22 History Cholecalciferol [Vitamin D3 (125 125 mcg PO DAILY 08/24/22 11/21/22 History Mcg = 5000 Iu)] Magnesium 250 mg PO BID 08/24/22 11/21/22 History Simvastatin [Zocor] 10 mg PO HS 08/24/22 11/21/22 History Vitamin A 2,400 mcg PO DAILY 08/24/22 11/21/22 History Calcium Carbonate [Calcium] 600 mg PO BID 09/20/22 11/21/22 History Fluticasone/Vilanterol [Breo 1 puff INHALATION RT-DAILY 09/20/22 11/21/22 History Ellipta 200-25 Mcg Inhaler] Mupirocin 2% Oint [Bactroban 2% 1 applic TOPICAL TID 09/20/22 11/21/22 History Oint] Amoxic-Pot Clav 875-125Mg 1 tab PO BID 11/21/22 11/21/22 History [Augmentin 875-125] Allergies Allergy/AdvReac Type Severity Reaction Status Date / Time bupropion HCl Allergy Rash/Hives Verified 11/21/22 17:35 [From Wellbutrin] Physical Exam Vitals: Vital Signs Temp Pulse Pulse Resp BP BP Pulse Ox 11/22/22 04:00 101 H 16 118/59 93 L 11/21/22 22:15 98.9 F 106 H 16 120/63 91 L 11/21/22 21:00 100.7 F H 104 H 18 99/52 94 L 11/21/22 20:00 99.1 F 100 18 135/68 90 L 11/21/22 15:53 98.6 F 89 16 113/58 96 Intake and Output 11/21/22 11/22/22 11/22/22 22:59 06:59 14:59 Intake Total 540 Balance 540 Intake: Oral 540 Other: Voiding Method Toilet # Voids 1 Weight 49.895 kg Results 11/22/22 10:28 11/21/22 16:46 Cardiac Enzymes 11/21/22 11/21/22 11/21/22 Range/Units 16:46 16:46 20:46 AST 57 H (14-36) U/L Troponin I 0.014 <0.012 (0.000-0.034) ng/mL 11/21/22 Range/Units 23:24 AST (14-36) U/L Troponin I <0.012 (0.000-0.034) ng/mL Coagulation 11/21/22 Range/Units 16:46 PT 10.9 (9.0-12.0) sec APTT 26.1 (22.0-30.0) sec CBC 11/21/22 Range/Units 16:46 WBC 18.6 H (3.8-10.6) k/uL RBC 3.96 (3.80-5.40) m/uL Hgb 12.6 (11.4-16.0) gm/dL Hct 37.8 (34.0-46.0) % Plt Count 238 (150-450) k/uL Comprehensive Metabolic Panel 11/21/22 Range/Units 16:46 Sodium 120 L (137-145) mmol/L Potassium 3.8 (3.5-5.1) mmol/L Chloride 88 L (98-107) mmol/L Carbon Dioxide 21 L (22-30) mmol/L BUN 35 H (7-17) mg/dL Creatinine 0.90 (0.52-1.04) mg/dL Glucose 126 H (74-99) mg/dL Calcium 9.0 (8.4-10.2) mg/dL AST 57 H (14-36) U/L ALT 54 H (4-34) U/L Alkaline Phosphatase 96 (38-126) U/L Total Protein 6.0 L (6.3-8.2) g/dL Albumin 3.4 L (3.5-5.0) g/dL Current Medications Generic Name Dose Route Start Last Admin Trade Name Freq PRN Reason Stop Dose Admin Acetaminophen 650 mg 11/21/22 22:35 11/21/22 22:49 Acetaminophen Tab 325 Mg Tab PO 650 mg Q6HR PRN Administration Fever and/ or Pain Atorvastatin Calcium 10 mg 11/21/22 22:45 11/21/22 22:49 Atorvastatin 10 Mg Tab PO 10 mg HS GISSELLE Administration Azithromycin 500 mg 11/22/22 09:00 Azithromycin 500 Mg Tab PO 11/23/22 09:01 DAILY GISSELLE Protocol Diphenhydramine HCl 25 mg 11/21/22 22:35 11/21/22 22:50 Diphenhydramine 25 Mg Cap PO 25 mg HS PRN Administration Insomnia Ceftriaxone Sodium 2 gm/ 50 mls @ 100 mls/hr 11/22/22 09:00 Sodium Chloride IVPB 11/25/22 09:29 Q24HR GISSELLE Protocol Sodium Chloride 1,000 mls @ 75 mls/hr 11/21/22 20:15 11/21/22 20:57 Saline 0.9% IV 75 mls/hr .[id number] GISSELLE Administration Miscellaneous Information 1 each 11/21/22 19:58 Pneumonia Protocol Utilized 1 Each Misc PO ONCE PRN Per Protocol Intake and Output 11/21/22 11/22/22 11/22/22 22:59 06:59 14:59 Intake Total 540 Balance 540 Intake: Oral 540 Other: Voiding Method Toilet # Voids 1 Weight 49.895 kg 11/21/22 16:46 11/21/22 16:46
[2022-11-22 11:06] LABS: ALT 42 U/L (4-34); AST 39 U/L (14-36); African American GFR (CKD) >90 (>60 ml/min/1.73 sqM); Albumin 2.7 g/dL (3.5-5.0); Alkaline Phosphatase 104 U/L (38-126); Anion Gap 10 mmol/L; Blood Urea Nitrogen 20 mg/dL (7-17); Carbon Dioxide 19 mmol/L (22-30); Chloride 95 mmol/L (98-107); Glucose 125 mg/dL (74-99); Magnesium 1.8 mg/dL (1.6-2.3); Non-African American GFR(CKD) 89 (>60 ml/min/1.73 sqM); Potassium 3.7 mmol/L (3.5-5.1); Sodium 124 mmol/L (137-145); Total Bilirubin 0.2 mg/dL (0.2-1.3)
[2022-11-22] MEDS ORDERED: BUTALB/APAP/CAFF 50-325-40MG TAB PO STA (12:07)
--- NOTE | 2022-11-22 17:12 | P.HPIM ---
History of Present Illness H&P Date: 11/22/22 This is a pleasant 77 year old female with medical history of COPD, skin cancer, breast cancer with radiation, acevedo's disease, former smoker, hyponatremia. Presents to the with left sided chest pain radiates to the back reports as worse with deep breathing. Patient was recently diagnosed with covid pneumonia back in July of 2022, and a second hospitalization for hand cellulitis. Has been on and off antibiotics. Patient recently had a molar extracted with oral surgeon Dr. Cerna and has had pain to the left mandible since and felt possibly infected. Had fever of 104 at home. Sunday patient was evaluated in the [facility] had a facial CT done showing no drainable abscess of the tooth extraction site. Patient had viral panel done was negative for covid, influenza and RSV and patient was sent home. Patient returns to the [facility] not improving now with productive cough and shortness of breath. Worried about infection. Patient is requiring oxygen at 2L nasal cannula. Chest xray reveals a reticulonodular infiltrate within the left upper lobe, correlate for pneumonia or atypical pneumonia. There are COPD changes. Cardiology consulted for the chest pain. Echocardiogram has been ordered, troponin level is negative x 3. Patient does have significant elevated procalcitonin level at 5.33. Patient does have leukocytosis, and sputum culture and blood culture are ordered. Patient is started on antibiotics and admitted for pneumonia and cardiac work up. REVIEW OF SYSTEMS: CONSTITUTIONAL: No fever, no malaise, no fatigue. HEENT: No recent visual problems or hearing problems. Denied any sore throat. Reports dull achy pain to the left mandible. CARDIOVASCULAR: No chest pain, orthopnea, PND, no palpitations, no syncope. PULMONARY: No shortness of breath, Reports cough with sputum, no hemoptysis. GASTROINTESTINAL: No diarrhea, no nausea, no vomiting, no abdominal pain. NEUROLOGICAL: No headaches, no weakness, no numbness. HEMATOLOGICAL: Denies any bleeding or petechiae. GENITOURINARY: Denies any burning micturition, frequency, or urgency. MUSCULOSKELETAL/RHEUMATOLOGICAL: Denies any joint pain, swelling, or any muscle pain. ENDOCRINE: Denies any polyuria or polydipsia. The rest of the 14-point review of systems is negative. PHYSICAL EXAMINATION: GENERAL: The patient is alert and oriented x3, not in any acute distress. Well developed, well nourished. HEENT: Pupils are round and equally reacting to light. EOMI. No scleral icterus. No conjunctival pallor. Normocephalic, atraumatic. No pharyngeal erythema. No thyromegaly. Gum line is not reddened no facial swelling or erythema. CARDIOVASCULAR: S1 and S2 present. No murmurs, rubs, or gallops. PULMONARY: Chest is diminished with congested cough ABDOMEN: Soft, nontender, nondistended, normoactive bowel sounds. No palpable organomegaly. MUSCULOSKELETAL: No joint swelling or deformity. EXTREMITIES: No cyanosis, clubbing, or pedal edema. NEUROLOGICAL: Gross neurological examination did not reveal any focal deficits. SKIN: No rashes. Assessment Acute hypoxic respiratory failure secondary to acute COPD exacerbation and community acquired pneumonia present on admission Leukocytosis/fever and Sepsis secondary to above Chest pain pleuritic in nature ACS has been ruled out Hyponatremia from dehydration and poor oral intake, does have issues with low sodium follows with nephrology outpatient Elevated transaminases monitor trends Hyperlipidemia Former smoker History of Acevedo's esophagus with hiatal hernia History of skin cancer Hx breast cancer with lumpectomy and radiation on hormone therapy Recent hospitalization for acute covid infection GI prophylaxis DVT prophylaxis Plan Cardiology consultation, echocardiogram pending Outpatient stress test recommended when medically stable Blood culture and sputum culture pending Continue empiric antibiotics Continue supportive care Infectious disease consultation Follow up labs in AM The impression and plan of care has been dictated by Dea Polo Nurse Practitioner as directed. Dr. Balbina MD I have performed a history and physical examination and medical decision making of this patient, discussed the same with the dictator, and agree with the dictators assessment and plan as written, documented as a scribe. Based on total visit time, I have performed more than 50% of this visit. Past Medical History Past Medical History: Cancer, COPD Additional Past Medical History / Comment(s): HIATAL HERNIA, SKIN CANCER, NEWLY DIAGNOSED BREAST CANCER- had radiation only, ACEVEDO'S DISEASE History of Any Multi-Drug Resistant Organisms: None Reported Past Surgical History: Breast Surgery, Tubal Ligation Additional Past Surgical History / Comment(s): BRONCHOSCOPY, BREAST BX, EGD., PROCEDURE TO "CUT NERVES IN NECK" Past Anesthesia/Blood Transfusion Reactions: Motion Sickness, Postoperative Nausea & Vomiting (PONV) Past Psychological History: No Psychological Hx Reported Additional Psychological History / Comment(s): . Smoking Status: Former smoker Past Alcohol Use History: None Reported Additional Past Alcohol Use History / Comment(s): STARTED SMOKING AT AGE 19 QUIT JULY 2016 Past Drug Use History: None Reported - Past Family History Brother(s) Family Medical History: Cancer Additional Family Medical History / Comment(s): BROTHER # 1 PANCREATIC CANCER. BROTHER #2 KIDNEY CANCER. Medications and Allergies Home Medications Medication Instructions Recorded Confirmed Type Omeprazole [PriLOSEC] 20 mg PO DAILY 03/31/14 11/21/22 History Albuterol Sulfate [Ventolin HFA] 2 puff INHALATION RT-Q6H PRN 04/21/14 11/21/22 History Vitamin B Complex 1 cap PO DAILY 09/22/14 11/21/22 History Vitamin E (Dl,Tocopheryl Acet) 1,000 unit PO DAILY 09/22/14 11/21/22 History [Vitamin E] Acetaminophen/Diphenhydramine 2 tab PO HS 10/24/14 11/21/22 History [Tylenol PM 500-25mg] Denosumab [Prolia] 60 mg SQ Q180D 10/24/14 11/21/22 History Aspirin [Adult Low Dose Aspirin EC] 81 mg PO DAILY 04/04/16 11/21/22 History Biotin 5 mg PO DAILY 10/11/18 11/21/22 History Lutein 20 mg PO DAILY 11/03/20 11/21/22 History Tiotropium 2.5 Mcg/Puff [Spiriva 2 puff INHALATION RT-DAILY 11/03/20 11/21/22 History Respimat 2.5 Mcg] Zinc 50 mg PO DAILY 05/09/21 11/21/22 History Anastrozole [Arimidex] 1 mg PO DAILY 11/17/21 11/21/22 History Acetaminophen [Tylenol Extra 1,000 mg PO DAILY 08/24/22 11/21/22 History Strength] Ascorbic Acid [Vitamin C] 1,000 mg PO DAILY 08/24/22 11/21/22 History Cholecalciferol [Vitamin D3 (125 125 mcg PO DAILY 08/24/22 11/21/22 History Mcg = 5000 Iu)] Magnesium 250 mg PO BID 08/24/22 11/21/22 History Simvastatin [Zocor] 10 mg PO HS 08/24/22 11/21/22 History Vitamin A 2,400 mcg PO DAILY 08/24/22 11/21/22 History Calcium Carbonate [Calcium] 600 mg PO BID 09/20/22 11/21/22 History Fluticasone/Vilanterol [Breo 1 puff INHALATION RT-DAILY 09/20/22 11/21/22 History Ellipta 200-25 Mcg Inhaler] Mupirocin 2% Oint [Bactroban 2% 1 applic TOPICAL TID 09/20/22 11/21/22 History Oint] Amoxic-Pot Clav 875-125Mg 1 tab PO BID 11/21/22 11/21/22 History [Augmentin 875-125] Allergies Allergy/AdvReac Type Severity Reaction Status Date / Time bupropion HCl Allergy Rash/Hives Verified 11/21/22 17:35 [From Wellbutrin] Physical Exam Vitals: Vital Signs Temp Pulse Pulse Resp BP BP Pulse Ox 11/22/22 14:00 94 18 11/22/22 11:46 91 L 11/22/22 08:00 98.5 F 94 18 124/64 94 L 11/22/22 04:00 101 H 16 118/59 93 L 11/21/22 22:15 98.9 F 106 H 16 120/63 91 L 11/21/22 21:00 100.7 F H 104 H 18 99/52 94 L 11/21/22 20:00 99.1 F 100 18 135/68 90 L Intake and Output 11/22/22 11/22/22 11/22/22 06:59 14:59 22:59 Intake Total 401 Balance 401 Intake: Oral 401 Other: Voiding Method Toilet # Voids 1 Results CBC & Chem 7: 11/22/22 10:28 11/22/22 10:28 Labs: Abnormal Lab Results - Last 24 Hours (Table) 11/21/22 11/21/22 11/22/22 Range/Units 16:46 16:46 10:28 WBC 18.6 H 15.2 H (3.8-10.6) k/uL RBC 3.53 L (3.80-5.40) m/uL Hct 33.0 L (34.0-46.0) % Neutrophils # 17.3 H 13.7 H (1.3-7.7) k/uL Lymphocytes # 0.4 L 0.3 L (1.0-4.8) k/uL Sodium 120 L (137-145) mmol/L Chloride 88 L (98-107) mmol/L Carbon Dioxide 21 L (22-30) mmol/L BUN 35 H (7-17) mg/dL Glucose 126 H (74-99) mg/dL Calcium (8.4-10.2) mg/dL AST 57 H (14-36) U/L ALT 54 H (4-34) U/L Total Protein 6.0 L (6.3-8.2) g/dL Albumin 3.4 L (3.5-5.0) g/dL Procalcitonin (0.02-0.09) ng/mL 11/22/22 11/22/22 Range/Units 10:28 10:28 WBC (3.8-10.6) k/uL RBC (3.80-5.40) m/uL Hct (34.0-46.0) % Neutrophils # (1.3-7.7) k/uL Lymphocytes # (1.0-4.8) k/uL Sodium 124 L (137-145) mmol/L Chloride 95 L (98-107) mmol/L Carbon Dioxide 19 L (22-30) mmol/L BUN 20 H (7-17) mg/dL Glucose 125 H (74-99) mg/dL Calcium 8.0 L (8.4-10.2) mg/dL AST 39 H (14-36) U/L ALT 42 H (4-34) U/L Total Protein 5.0 L (6.3-8.2) g/dL Albumin 2.7 L (3.5-5.0) g/dL Procalcitonin 5.33 H (0.02-0.09) ng/mL Assessment and Plan Time with Patient: Greater than 30
[2022-11-22] MEDS: ATORVASTATIN 10 MG TAB PO SCH (19:54)
[2022-11-22] MEDS: HEPARIN SODIUM,PORCINE/PF 5,000 UNIT/0.5 ML SYRINGE SQ SCH (19:55)
[2022-11-22] MEDS: MAGNESIUM OXIDE 400 MG TAB PO SCH (19:55)
[2022-11-22] MEDS: SYMBICORT 160-4.5 MCG INHALER INHALATION SCH (20:54)
[2022-11-22] MEDS: diphenhydrAMINE 25 MG CAP PO PRN (23:17)
[2022-11-23] MEDS: SODIUM CHLORIDE 0.9% 1,000 ML IV SCH ×3 (01:31→22:42)
[2022-11-23] MEDS: PANTOPRAZOLE 40 MG TABLET PO SCH (06:03)
[2022-11-23 07:50] LABS: Basophils % (A) 0 %; Eosinophils # (A) 0.2 k/uL (0-0.7); Eosinophils % (A) 2 %; HCT 34.5 % (34.0-46.0); HGB 11.6 gm/dL (11.4-16.0); Lymphocytes # (A) 0.5 k/uL (1.0-4.8); Lymphocytes % (A) 5 %; MCH 32.2 pg (25.0-35.0); MCHC 33.7 g/dL (31.0-37.0); MCV 95.6 fL (80.0-100.0); Mean Platelet Volume 7.5; Monocytes # (A) 1.1 k/uL (0-1.0); Monocytes % (A) 10 %; Neutrophils # (A) 8.7 k/uL (1.3-7.7); Neutrophils % (A) 80 %; Platelet Count 234 k/uL (150-450); RBC 3.61 m/uL (3.80-5.40); WBC 10.8 k/uL (3.8-10.6)
[2022-11-23] MEDS: IPRATROPIUM 0.5 MG/2.5 ML NEBU INHALATION SCH ×4 (08:37→21:12)
[2022-11-23] MEDS: SYMBICORT 160-4.5 MCG INHALER INHALATION SCH ×2 (08:38→21:12)
[2022-11-23 08:43] LABS: ALT 181 U/L (4-34); AST 255 U/L (14-36); African American GFR (CKD) >90 (>60 ml/min/1.73 sqM); Albumin 2.5 g/dL (3.5-5.0); Alkaline Phosphatase 182 U/L (38-126); Anion Gap 6 mmol/L; Blood Urea Nitrogen 15 mg/dL (7-17); Calcium 7.8 mg/dL (8.4-10.2); Carbon Dioxide 21 mmol/L (22-30); Chloride 98 mmol/L (98-107); Glucose 103 mg/dL (74-99); Non-African American GFR(CKD) >90 (>60 ml/min/1.73 sqM); Potassium 4.1 mmol/L (3.5-5.1); Sodium 125 mmol/L (137-145); Total Bilirubin 0.3 mg/dL (0.2-1.3); Total Protein 4.9 g/dL (6.3-8.2)
--- NOTE | 2022-11-23 10:25 | CA ---
Transthoracic Echo Report Name: Roxy Cheung Age: 77 Gender: F : 1945 Exam Date: 11/22/2022 10:04 Exam Location: [facility] Ht (in): 63 Wt (lb): 110 Ordering Physician: Heena Early Attending/Referring Phys: [id number], Sharath Customer Service Representative Teller Katherine Chappell [facility] Procedure CPT: Indications: LV function Cardiac Hx: Technical Quality: Fair Contrast 1: Total Dose (mL): Contrast 2: Total Dose (mL): MEASUREMENTS (Male / Female) Normal Values 2D ECHO LV Diastolic Diameter PLAX 4.6 cm 4.2 - 5.9 / 3.9 - 5.3 cm LV Systolic Diameter PLAX 3.0 cm IVS Diastolic Thickness 0.7 cm 0.6 - 1.0 / 0.6 - 0.9 cm LVPW Diastolic Thickness 0.8 cm 0.6 - 1.0 / 0.6 - 0.9 cm LV Relative Wall Thickness 0.3 Ascending Aorta Diameter 3.2 cm M-MODE Aortic Root Diameter MM 3.2 cm LA Systolic Diameter MM 3.5 cm LA Ao Ratio MM 1.1 AV Cusp Separation MM 2.2 cm DOPPLER AV Peak Velocity 146.0 cm/s AV Peak Gradient 8.5 mmHg AV Mean Velocity 114.2 cm/s AV Mean Gradient 5.5 mmHg AV Velocity Time Integral 26.1 cm AI Peak Velocity 331.5 cm/s AI Peak Gradient 44.0 mmHg AI Pressure Half Time 351.6 ms LVOT Peak Velocity 136.9 cm/s LVOT Peak Gradient 7.5 mmHg LVOT Velocity Time Integral 22.6 cm Mitral E Point Velocity 72.4 cm/s Mitral A Point Velocity 95.5 cm/s Mitral E to A Ratio 0.8 MV Deceleration Time 216.5 ms LV E' Lateral Velocity 5.8 cm/s Mitral E to LV E' Lateral Ratio 12.5 LV E' Septal Velocity 5.8 cm/s Mitral E to LV E' Septal Ratio 12.5 TR Peak Velocity 272.7 cm/s TR Peak Gradient 29.7 mmHg Right Atrial Pressure 3.0 mmHg Pulmonary Artery Systolic Pressu 32.7 mmHg Right Ventricular Systolic Press 34.7 mmHg FINDINGS Left Ventricle Normal Left ventricular size, wall thickness, systolic function with no obvious regional wall motion abnormalities. Left ventricular ejection fraction is estimated at 55-60%. Right Ventricle Mild right ventricular dilatation. Right Atrium Normal right atrial size. Left Atrium Normal left atrial size. Mitral Valve Mild thickening/calcification of the posterior mitral valve leaflet. No mitral regurgitation. Aortic Valve Aortic valve not well visualized. Trace-mild aortic regurgitation. Tricuspid Valve Structurally normal tricuspid valve. Trace to mild tricuspid regurgitation. Pulmonic Valve Pulmonic valve not well visualized. Pericardium No pericardial effusion. Aorta Normal size aortic root and proximal ascending aorta. CONCLUSIONS Normal LV size and systolic function. There is some tachycardia noted but ejection fraction is normal in contractility is vigorous. There is trace to mild mitral tricuspid and aortic insufficiency. No significant pulmonary hypertension. No pericardial effusion. There is mild mitral annular calcification Previewed by: Dr. Eduardo Miller MD (Electronically Signed) Final Date: 23 November 2022 10:24
[2022-11-23] MEDS: ASCORBIC ACID 500 MG TAB PO SCH (10:28)
[2022-11-23] MEDS: ACETAMINOPHEN TAB 325 MG TAB PO PRN ×2 (10:28→21:38)
[2022-11-23] MEDS: ZINC SULFATE 220 MG CAP PO SCH (10:28)
[2022-11-23] MEDS: CHOLECALCIFEROL 125 MCG (5000 IU) TABLET PO SCH (10:29)
[2022-11-23] MEDS: CALCIUM CARBONATE 500 MG CHEWABLE PO SCH ×2 (10:29→20:16)
[2022-11-23] MEDS: MAGNESIUM OXIDE 400 MG TAB PO SCH ×2 (10:29→20:16)
[2022-11-23] MEDS: HEPARIN SODIUM,PORCINE/PF 5,000 UNIT/0.5 ML SYRINGE SQ SCH ×2 (10:29→20:16)
[2022-11-23] MEDS: ASPIRIN 81 MG PO SCH (10:29)
[2022-11-23] MEDS: ANASTROZOLE 1 MG TAB PO SCH (10:29)
[2022-11-23] MEDS: AZITHROMYCIN 1,200 MG/30 ML BOTTLE PO SCH (10:30)
[2022-11-23] MEDS ORDERED: guaiFENesin SYRUP 100MG/5ML 200 MG/10 ML CUP PO PRN (12:27)
[2022-11-23] MEDS ORDERED: BENZOCAINE/MENTHOL LOZENG 1 EACH LOZENGE MUCOUS MEM PRN (12:27)
--- NOTE | 2022-11-23 12:56 | P.PN ---
Subjective HISTORY OF PRESENT ILLNESS: This is a 77-year-old female with a past medical history significant for hyperlipidemia and former nicotine dependence. 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 We have been asked to see the patient in consultation for chest pain. Patient examined at the bedside. Patient states that she began to feel unwell on Sunday. Patient states on Sunday morning to began to have chest discomfort. She states that she was coughing quite a bit at home. She states the chest pain was worse with coughing and deep inspiration. She reports having fever and chills at home. She states that she did not feel short of breath initially but she feels short of breath this morning. The patient was found to have pneumonia and was started on antibiotics. * EKG sinus mechanism with no signs of acute ischemia * Chest xray reticular nodule infiltrate within the left upper lobe; correlate for pneumonia * Laboratory data: WBC 15.2. Hemoglobin 11.5. Platelet count 236. Sodium 120. Potassium 3.8. BUN 35. Creatinine 0.90. Magnesium 1.9. Troponin negative 3. * Current home cardiac medications include simvastatin 10 mg at night and aspirin 81 mg daily 11/23/2022 Patient examined this morning at the bedside. Patient states her chest pain has resolved. She continues to report shortness of breath. She reports a frequent cough with sputum production. Echocardiogram completed revealing ejection fraction 55-60% with no wall motion abnormalities, trace to mild mitral tricuspi d and aortic insufficiency. PHYSICAL EXAM: VITAL SIGNS: Reviewed. GENERAL: Well-developed in no acute distress. HEENT: Head is normocephalic. Pupils are equal, round. Sclerae anicteric. Mucous membranes of the mouth are moist. Neck supple. No JVD or thyromegaly LUNGS: Respirations even and unlabored. Lungs essentially clear to auscultation bilaterally. HEART: Regular rate and rhythm. S1 and S2 heard. ABDOMEN: Soft. Nondistended. Nontender. EXTREMITIES: Normal range of motion. No clubbing or cyanosis. Peripheral pulses intact. No lower extremity edema NEUROLOGIC: Awake and alert. Oriented x 3. ASSESSMENT: Pneumonia Chest pain, pleuritic, troponin negative 3 Hyponatremia Leukocytosis with fever Hyperlipidemia Former nicotine dependence PLAN: Continue current cardiac medications Recommend outpatient stress testing once patient's acute medical conditions have resolved We will sign off. Please reconsult if needed. Nurse practitioner note has been reviewed by physician. Signing provider agrees with the documented findings, assessment, and plan of care. Objective - Vital Signs Vital signs: Vital Signs Temp 100.8 F H 11/23/22 12:00 Pulse 83 11/23/22 12:11 Resp 18 11/23/22 12:00 BP 117/57 11/23/22 12:00 Pulse Ox 95 11/23/22 12:00 FiO2 Intake & Output 11/22/22 11/23/22 11/23/22 18:59 06:59 18:59 Intake Total 521 Balance 521 Intake: Oral 521 Other: Voiding Method Toilet - Labs CBC & Chem 7: 11/23/22 07:39 11/23/22 07:39 Labs: Abnormal Lab Results - Last 24 Hours (Table) 11/22/22 11/23/22 11/23/22 Range/Units 10:28 07:39 07:39 WBC 10.8 H (3.8-10.6) k/uL RBC 3.61 L (3.80-5.40) m/uL Neutrophils # 8.7 H (1.3-7.7) k/uL Lymphocytes # 0.5 L (1.0-4.8) k/uL Monocytes # 1.1 H (0-1.0) k/uL Sodium 125 L (137-145) mmol/L Carbon Dioxide 21 L (22-30) mmol/L Creatinine 0.48 L (0.52-1.04) mg/dL Glucose 103 H (74-99) mg/dL Calcium 7.8 L (8.4-10.2) mg/dL AST 255 H (14-36) U/L ALT 181 H (4-34) U/L Alkaline Phosphatase 182 H (38-126) U/L Total Protein 4.9 L (6.3-8.2) g/dL Albumin 2.5 L (3.5-5.0) g/dL Procalcitonin 5.33 H (0.02-0.09) ng/mL Microbiology - Last 24 Hours (Table) 11/22/22 17:09 Gram Stain - Preliminary Sputum 11/21/22 20:01 Blood Culture - Preliminary Blood 11/21/22 20:15 Blood Culture - Preliminary Blood
--- NOTE | 2022-11-23 15:10 | US ---
EXAMINATION TYPE: US abdomen complete DATE OF EXAM: 11/23/2022 COMPARISON: US 10/25/14, CT 10/24/14 CLINICAL INDICATION: Female, 77 years old with history of elevated LFTs; Elevated LFTs TECHNIQUE: Multiple sonographic images of the abdomen are obtained. FINDINGS: EXAM MEASUREMENTS: Liver Length: 16.9 cm Gallbladder Wall: 0.3 cm CBD: 0.53 cm Spleen: 6.7 cm Right Kidney: 10.7 x 5.5 x 4.6 cm Left Kidney: 10.6 x 5.4 x 4.8 cm MECHANICAL CAD DRAFTER NOTES: Limited due to gas. Pancreas: Limited visibility. Liver: increased echogenicity. Appears coarse. Anechoic area seen within left lobe: 2.4 x 1.9 x 1.8 c m. Gallbladder: Questionable hyperechoic area seen near the neck versus fold: 0.8 x 0.5 x 0.5 cm. Evidence for sonographic Steele's sign: No CBD: Appears wnl Spleen: Slightly limited. Right Kidney: No hydronephrosis or masses seen increased echotexture to the kidney parenchyma Left Kidney: Multiple anechoic areas seen within the left kidney, largest seen laterally measures: 1. 4 x 1.4 x 1.1 cm. Increased echotexture to the kidney parenchyma Upper IVC: Appears wnl Abd Aorta: Great amount of plaque seen within. Proximal segment appears ectatic. Iliacs were obscur ed. Appearance of possible left pleural effusion in spleen imaging. IMPRESSION: Limited evaluation due to gas. 1. Subtle nodularity to the contour of the liver with coarsened echotexture correlate for cirrhosis. 2. Hepatic cyst. 3. Gallbladder folds. 4. Severe atherosclerosis. 5. Trace ascites 6. Increased echotexture to kidneys correlate for medical renal disease.
--- NOTE | 2022-11-23 16:33 | P.PN ---
Subjective Progress Note Date: 11/23/22 This is a pleasant 77 year old female with medical history of COPD, skin cancer, breast cancer with radiation, acevedo's disease, former smoker, hyponatremia. Presents to the with left sided chest pain radiates to the back reports as worse with deep breathing. Patient was recently diagnosed with covid pneumonia back in July of 2022, and a second hospitalization for hand cellulitis. Has been on and off antibiotics. Patient recently had a molar extracted with oral surgeon Dr. Cerna and has had pain to the left mandible since and felt possibly infected. Had fever of 104 at home. Sunday patient was evaluated in the [facility] had a facial CT done showing no drainable abscess of the tooth extraction site. Carlos mancilla had viral panel done was negative for covid, influenza and RSV and patient was sent home. Patient returns to the not improving now with productive cough and shortness of breath. Worried about infection. Patient is requiring oxygen at 2L nasal cannula. Chest xray reveals a reticulonodular infiltrate within the left upper lobe, correlate for pneumonia or atypical pneumonia. There are COPD c hanges. Cardiology consulted for the chest pain. Echocardiogram has been ordered, troponin level is negative x 3. Patient does have significant elevated procalcitonin level at 5.33. Patient does have leukocytosis, and sputum culture and blood culture are ordered. Patient is started on antibiotics and admitted for pneumonia and cardiac work up. 11/23/2022 Patient evaluated today resting in bed. Reports feeling achy fatigued and continues with congested cough. Infectious disease asking to evaluate the patient, continues on antibiotics IV ceftriaxone and PO azithromycin. Blood culture and sputum culture pending. Patient is being hydrated. Remains febrile T max 100.8 today. LFTs elevated at abdominal ultrasound ordered reveals subtle nodularity contour of the liver correlate for cirrhosis, hepatic cyst, gallbladder folds, severe atherosclerosis, trace ascites, increased echotexture to kidneys correlate for medical renal disease. Continues on IV fluids sodium has improved up to 125. White count 10.8. Patient is weaned to 2L of oxygen. Echocardiogram shows normal LV systolic function, REVIEW OF SYSTEMS: CONSTITUTIONAL: Reports fever and malaise. HEENT: No recent visual problems or hearing problems. Denied any sore throat. Reports dull achy pain to the left mandible. CARDIOVASCULAR: No chest pain, orthopnea, PND, no palpitations, no syncope. PULMONARY: No shortness of breath, Reports cough with sputum, no hemoptysis. GASTROINTESTINAL: No diarrhea, no nausea, no vomiting, no abdominal pain. NEUROLOGICAL: No headaches, no weakness, no numbness. PHYSICAL EXAMINATION: GENERAL: The patient is alert and oriented x3, not in any acute distress. Well developed, well nourished. HEENT: Pupils are round and equally reacting to light. EOMI. No scleral icterus. No conjunctival pallor. Normocephalic, atraumatic. No pharyngeal erythema. No thyromegaly. Gum line is not reddened no facial swelling or erythema. CARDIOVASCULAR: S1 and S2 present. No murmurs, rubs, or gallops. PULMONARY: Chest is diminished with congested cough ABDOMEN: Soft, nontender, nondistended, normoactive bowel sounds. No palpable organomegaly. MUSCULOSKELETAL: No joint swelling or deformity. EXTREMITIES: No cyanosis, clubbing, or pedal edema. NEUROLOGICAL: Gross neurological examination did not reveal any focal deficits. SKIN: No rashes. Assessment Acute hypoxic respiratory failure secondary to acute COPD exacerbation and community acquired pneumonia present on admission Leukocytosis/fever and Sepsis secondary to above Chest pain pleuritic in nature ACS has been ruled out Hyponatremia from dehydration and poor oral intake, does have issues with low sodium follows with nephrology outpatient Elevated transaminases no evidence for acute cholecystitis on imaging. Hyperlipidemia Former smoker History of Acevedo's esophagus with hiatal hernia History of skin cancer Hx breast cancer with lumpectomy and radiation on hormone therapy Recent hospitalization for acute covid infection GI prophylaxis DVT prophylaxis Plan Cardiology consultation Outpatient stress test recommended when medically stable Blood culture and sputum culture pending Continue empiric antibiotics and infectious disease consultation Continue supportive care Follow up labs in AM The impression and plan of care has been dictated by Dea Polo, Nurse Practitioner as directed. Dr. Balbina MD I have performed a history and physical examination and medical decision making of this patient, discussed the same with the dictator, and agree with the dictators assessment and plan as written, documented as a scribe. Based on total visit time, I have performed more than 50% of this visit. Objective - Vital Signs Vital signs: Vital Signs Temp 98.5 F 11/23/22 08:00 Pulse 93 11/23/22 08:55 Resp 18 11/23/22 08:00 BP 131/69 11/23/22 08:00 Pulse Ox 93 L 11/23/22 08:00 FiO2 Intake & Output 11/22/22 11/23/22 11/23/22 18:59 06:59 18:59 Intake Total 521 Balance 521 Intake: Oral 521 Other: Voiding Method Toilet - Labs CBC & Chem 7: 11/23/22 07:39 11/23/22 07:39 Labs: Abnormal Lab Results - Last 24 Hours (Table) 11/22/22 11/22/22 11/22/22 Range/Units 10:28 10:28 10:28 WBC 15.2 H (3.8-10.6) k/uL RBC 3.53 L (3.80-5.40) m/uL Hct 33.0 L (34.0-46.0) % Neutrophils # 13.7 H (1.3-7.7) k/uL Lymphocytes # 0.3 L (1.0-4.8) k/uL Monocytes # (0-1.0) k/uL Sodium 124 L (137-145) mmol/L Chloride 95 L (98-107) mmol/L Carbon Dioxide 19 L (22-30) mmol/L BUN 20 H (7-17) mg/dL Creatinine (0.52-1.04) mg/dL Glucose 125 H (74-99) mg/dL Calcium 8.0 L (8.4-10.2) mg/dL AST 39 H (14-36) U/L ALT 42 H (4-34) U/L Alkaline Phosphatase (38-126) U/L Total Protein 5.0 L (6.3-8.2) g/dL Albumin 2.7 L (3.5-5.0) g/dL Procalcitonin 5.33 H (0.02-0.09) ng/mL 11/23/22 11/23/22 Range/Units 07:39 07:39 WBC 10.8 H (3.8-10.6) k/uL RBC 3.61 L (3.80-5.40) m/uL Hct (34.0-46.0) % Neutrophils # 8.7 H (1.3-7.7) k/uL Lymphocytes # 0.5 L (1.0-4.8) k/uL Monocytes # 1.1 H (0-1.0) k/uL Sodium 125 L (137-145) mmol/L Chloride (98-107) mmol/L Carbon Dioxide 21 L (22-30) mmol/L BUN (7-17) mg/dL Creatinine 0.48 L (0.52-1.04) mg/dL Glucose 103 H (74-99) mg/dL Calcium 7.8 L (8.4-10.2) mg/dL AST 255 H (14-36) U/L ALT 181 H (4-34) U/L Alkaline Phosphatase 182 H (38-126) U/L Total Protein 4.9 L (6.3-8.2) g/dL Albumin 2.5 L (3.5-5.0) g/dL Procalcitonin (0.02-0.09) ng/mL Microbiology - Last 24 Hours (Table) 11/22/22 17:09 Gram Stain - Preliminary Sputum 11/21/22 20:01 Blood Culture - Preliminary Blood 11/21/22 20:15 Blood Culture - Preliminary Blood Assessment and Plan Time with Patient: Less than 30
[2022-11-23] MEDS: bisacodyL 10 MG SUPP RECTAL PRN (18:42)
--- NOTE | 2022-11-23 20:06 | P.CONS ---
History of Present Illness - Reason for Consult Consult date: 11/23/22 Sepsis Requesting physician: Dea Polo - Chief Complaint Shortness of breath and cough X few days - History of Present Illness Patient is a 77-year-old female with a past medical history significant for COPD breast cancer previous history of smoking COVID-19 infection July 2022 recently he did have a problem with the infected tooth that has been extracted patient presented to [facility] ER 2 days ago for evaluation of left-sided chest pain that was radiating to her back worse with taking a deep breath also complaining of shortness of breath and has episode of diaphoresis patient subsequent wellbeing of cough which has been moderate intens ity with no stimulus. No hemoptysis patient denies having any nausea no vomiting or choking before abdominal pain or any diarrhea patient did have a low-grade fever 100.7 the 27th and 100.5 F last night patient was mildly hypoxic with O2 sats of 90% room air she is currently 96% on 2 L nasal cannula oxygen patient did have vital of 18.6 with a left shift creatinine has been normal levels of the mildly elevated procalcitonin was 5.33 blood culture has been obtained which are currently pending patient did have a chest x-ray left airspace opacity compatible with pneumonia and COPD changes patient has been treated with Rocephin and Zithromax infectious was consulted for further management of antibiotic therapy Review of Systems Positive point and negatives has been mentioned in the HPI, complete review of systems was performed and all other systems are negative Past Medical History Past Medical History: Cancer, COPD Additional Past Medical History / Comment(s): HIATAL HERNIA, SKIN CANCER, NEWLY DIAGNOSED BREAST CANCER- had radiation only, JAEGER'S DISEASE History of Any Multi-Drug Resistant Organisms: None Reported Past Surgical History: Breast Surgery, Tubal Ligation Additional Past Surgical History / Comment(s): BRONCHOSCOPY, BREAST BX, EGD., PROCEDURE TO "CUT NERVES IN NECK" Past Anesthesia/Blood Transfusion Reactions: Motion Sickness, Postoperative Nausea & Vomiting (PONV) Past Psychological History: No Psychological Hx Reported Additional Psychological History / Comment(s): . Smoking Status: Former smoker Past Alcohol Use History: None Reported Additional Past Alcohol Use History / Comment(s): STARTED SMOKING AT AGE 19 QUIT JULY 2016 Past Drug Use History: None Reported - Past Family History Brother(s) Family Medical History: Cancer Additional Family Medical History / Comment(s): BROTHER # 1 PANCREATIC CANCER. BROTHER #2 KIDNEY CANCER. Medications and Allergies Home Medications Medication Instructions Recorded Confirmed Type Omeprazole [PriLOSEC] 20 mg PO DAILY 03/31/14 11/21/22 History Albuterol Sulfate [Ventolin HFA] 2 puff INHALATION RT-Q6H PRN 04/21/14 11/21/22 History Vitamin B Complex 1 cap PO DAILY 09/22/14 11/21/22 History Vitamin E (Dl,Tocopheryl Acet) 1,000 unit PO DAILY 09/22/14 11/21/22 History [Vitamin E] Denosumab [Prolia] 60 mg SQ Q180D 10/24/14 11/21/22 History Aspirin [Adult Low Dose Aspirin EC] 81 mg PO DAILY 04/04/16 11/21/22 History Biotin 5 mg PO DAILY 10/11/18 11/21/22 History Lutein 20 mg PO DAILY 11/03/20 11/21/22 History Tiotropium 2.5 Mcg/Puff [Spiriva 2 puff INHALATION RT-DAILY 11/03/20 11/21/22 History Respimat 2.5 Mcg] Zinc 50 mg PO DAILY 05/09/21 11/21/22 History Anastrozole [Arimidex] 1 mg PO DAILY 11/17/21 11/21/22 History Ascorbic Acid [Vitamin C] 1,000 mg PO DAILY 08/24/22 11/21/22 History Cholecalciferol [Vitamin D3 (125 125 mcg PO DAILY 08/24/22 11/21/22 History Mcg = 5000 Iu)] Magnesium 250 mg PO BID 08/24/22 11/21/22 History Vitamin A 2,400 mcg PO DAILY 08/24/22 11/21/22 History Calcium Carbonate [Calcium] 600 mg PO BID 09/20/22 11/21/22 History Fluticasone/Vilanterol [Breo 1 puff INHALATION RT-DAILY 09/20/22 11/21/22 History Ellipta 200-25 Mcg Inhaler] Mupirocin 2% Oint [Bactroban 2% 1 applic TOPICAL TID 09/20/22 11/21/22 History Oint] Benzonatate [Tessalon Perles] 100 mg PO TID PRN #10 cap 11/28/22 Rx Ciprofloxacin HCl [Cipro] 500 mg PO BID 7 Days #14 tab 11/28/22 Rx Furosemide [Lasix] 40 mg PO DAILY 30 Days #30 tablet 11/28/22 Rx traMADol HCl [Ultram] 50 mg PO BID #4 tab 11/28/22 Rx Allergies Allergy/AdvReac Type Severity Reaction Status Date / Time bupropion HCl Allergy Rash/Hives Verified 11/21/22 17:35 [From Wellbutrin] Physical Exam Vitals: Vital Signs Temp Pulse Pulse Resp BP Pulse Ox 11/23/22 12:03 88 11/23/22 08:55 93 11/23/22 08:43 89 11/23/22 08:00 98.5 F 92 18 131/69 93 L 11/23/22 03:30 99.1 F 73 17 116/56 93 L 11/22/22 23:15 100.5 F H 101 H 18 125/59 93 L 11/22/22 19:55 99.6 F 98 17 132/73 93 L 11/22/22 16:00 98.1 F 91 18 118/62 94 L 11/22/22 14:00 94 18 Intake and Output 11/22/22 11/23/22 11/23/22 22:59 06:59 14:59 Intake Total 120 Balance 120 Intake: Oral 120 Other: Voiding Method Toilet Toilet GENERAL DESCRIPTION: Elderly female lying in bed, no distress. No tachypnea or accessory muscle of respiration use. HEENT: Shows Pallor , no scleral icterus. Oral mucous membrane is dry. No pharyngeal erythema or thrush NECK: Trachea central, no thyromegaly. LUNGS: Unlabored breathing. Decreased breath sound at the base. No wheeze or crackle. HEART: S1, S2, regular rate and rhythm. No loud murmur ABDOMEN: Soft, no tenderness , guarding or rigidity, no organomegaly EXTREMITIES: No edema of feet. SKIN: No rash, no masses palpable. NEUROLOGICAL: The patient is awake, alert, oriented x3, mood and affect normal. Results CBC & Chem 7: 11/27/22 07:17 11/28/22 10:03 Labs: Abnormal Lab Results - Last 24 Hours (Table) 11/22/22 11/23/22 11/23/22 Range/Units 10:28 07:39 07:39 WBC 10.8 H (3.8-10.6) k/uL RBC 3.61 L (3.80-5.40) m/uL Neutrophils # 8.7 H (1.3-7.7) k/uL Lymphocytes # 0.5 L (1.0-4.8) k/uL Monocytes # 1.1 H (0-1.0) k/uL Sodium 125 L (137-145) mmol/L Carbon Dioxide 21 L (22-30) mmol/L Creatinine 0.48 L (0.52-1.04) mg/dL Glucose 103 H (74-99) mg/dL Calcium 7.8 L (8.4-10.2) mg/dL AST 255 H (14-36) U/L ALT 181 H (4-34) U/L Alkaline Phosphatase 182 H (38-126) U/L Total Protein 4.9 L (6.3-8.2) g/dL Albumin 2.5 L (3.5-5.0) g/dL Procalcitonin 5.33 H (0.02-0.09) ng/mL Microbiology - Last 24 Hours (Table) 11/22/22 17:09 Gram Stain - Preliminary Sputum 11/21/22 20:01 Blood Culture - Preliminary Blood 11/21/22 20:15 Blood Culture - Preliminary Blood Assessment and Plan (1) Pneumonia Current Visit: Yes Status: Acute Code(s): J18.9 - PNEUMONIA, UNSPECIFIED ORGANISM SNOMED Code(s): 231931038 Plan: 1patient present to hospital with sepsis in this patient who did have a fever elevated white count patient did have a cough or sputum production with evidence of left retrocardiac infiltrate and high procalcitonin likely source being pneumonia possible community-acquired as the patient has shown some clinical improvement as white count is trending down with Rocephin and Zithromax therapy 2-mild elevated liver enzyme but no abdominal pain or tenderness ultrasound has been ordered 3-continue with Rocephin and Zithromax while waiting for the culture to finalize We will follow on clinical condition and cultures to further adjust medication if needed Thank you for this consultation we will follow the patient along with you Time with Patient: Greater than 30
[2022-11-23] MEDS: ATORVASTATIN 10 MG TAB PO SCH (20:16)
[2022-11-23] MEDS: BENZONATATE 100 MG CAP PO PRN (20:16)
[2022-11-23] MEDS: diphenhydrAMINE 25 MG CAP PO PRN (21:38)
[2022-11-24] MEDS: ACETAMINOPHEN TAB 325 MG TAB PO PRN ×3 (06:06→21:50)
[2022-11-24] MEDS: BENZONATATE 100 MG CAP PO PRN ×2 (06:06→20:19)
[2022-11-24] MEDS: PANTOPRAZOLE 40 MG TABLET PO SCH (06:06)
[2022-11-24 07:09] LABS: Basophils % (A) 0 %; Eosinophils # (A) 0.2 k/uL (0-0.7); Eosinophils % (A) 3 %; HCT 32.1 % (34.0-46.0); HGB 10.9 gm/dL (11.4-16.0); Lymphocytes # (A) 0.6 k/uL (1.0-4.8); Lymphocytes % (A) 8 %; MCH 32.4 pg (25.0-35.0); MCHC 34.1 g/dL (31.0-37.0); MCV 95.1 fL (80.0-100.0); Mean Platelet Volume 7.3; Monocytes % (A) 14 %; Neutrophils # (A) 5.4 k/uL (1.3-7.7); Neutrophils % (A) 72 %; Platelet Count 268 k/uL (150-450); RBC 3.37 m/uL (3.80-5.40); WBC 7.5 k/uL (3.8-10.6)
[2022-11-24 07:20] LABS: ALT 234 U/L (4-34); AST 242 U/L (14-36); African American GFR (CKD) >90 (>60 ml/min/1.73 sqM); Albumin 2.4 g/dL (3.5-5.0); Alkaline Phosphatase 233 U/L (38-126); Anion Gap 6 mmol/L; Blood Urea Nitrogen 8 mg/dL (7-17); Calcium 7.4 mg/dL (8.4-10.2); Carbon Dioxide 21 mmol/L (22-30); Chloride 98 mmol/L (98-107); Glucose 100 mg/dL (74-99); Non-African American GFR(CKD) >90 (>60 ml/min/1.73 sqM); Potassium 3.9 mmol/L (3.5-5.1); Sodium 125 mmol/L (137-145); Total Bilirubin 0.4 mg/dL (0.2-1.3); Total Protein 4.7 g/dL (6.3-8.2)
[2022-11-24] MEDS: SYMBICORT 160-4.5 MCG INHALER INHALATION SCH ×2 (09:04→21:07)
[2022-11-24] MEDS: IPRATROPIUM 0.5 MG/2.5 ML NEBU INHALATION SCH ×3 (09:04→16:33)
[2022-11-24] MEDS: AZITHROMYCIN 1,200 MG/30 ML BOTTLE PO SCH (09:35)
[2022-11-24] MEDS: ASPIRIN 81 MG PO SCH (09:35)
[2022-11-24] MEDS: ZINC SULFATE 220 MG CAP PO SCH (09:35)
[2022-11-24] MEDS: ASCORBIC ACID 500 MG TAB PO SCH (09:35)
[2022-11-24] MEDS: CHOLECALCIFEROL 125 MCG (5000 IU) TABLET PO SCH (09:35)
[2022-11-24] MEDS: CALCIUM CARBONATE 500 MG CHEWABLE PO SCH ×2 (09:35→20:19)
[2022-11-24] MEDS: MAGNESIUM OXIDE 400 MG TAB PO SCH ×2 (09:35→20:19)
[2022-11-24] MEDS: HEPARIN SODIUM,PORCINE/PF 5,000 UNIT/0.5 ML SYRINGE SQ SCH ×2 (09:35→20:19)
[2022-11-24] MEDS: ANASTROZOLE 1 MG TAB PO SCH (09:36)
--- NOTE | 2022-11-24 14:39 | P.PN ---
Subjective Progress Note Date: 11/24/22 This is a pleasant 77 year old female with medical history of COPD, skin cancer, breast cancer with radiation, acevedo's disease, former smoker, hyponatremia. Presents to the with left sided chest pain radiates to the back reports as worse with deep breathing. Patient was recently diagnosed with covid pneumonia back in July of 2022, and a second hospitalization for hand cellulitis. Has been on and off antibiotics. Patient recently had a molar extracted with oral surgeon Dr. Cerna and has had pain to the left mandible since and felt possibly infected. Had fever of 104 at home. Sunday patient was evaluated in the [facility] had a facial CT done showing no drainable abscess of the tooth extraction site. Carlos mancilla had viral panel done was negative for covid, influenza and RSV and patient was sent home. Patient returns to the [facility] not improving now with productive cough and shortness of breath. Worried about infection. Patient is requiring oxygen at 2L nasal cannula. Chest xray reveals a reticulonodular infiltrate within the left upper lobe, correlate for pneumonia or atypical pneumonia. There are COPD c hanges. Cardiology consulted for the chest pain. Echocardiogram has been ordered, troponin level is negative x 3. Patient does have significant elevated procalcitonin level at 5.33. Patient does have leukocytosis, and sputum culture and blood culture are ordered. Patient is started on antibiotics and admitted for pneumonia and cardiac work up. 11/23/2022 Patient evaluated today resting in bed. Reports feeling achy fatigued and continues with congested cough. Infectious disease asking to evaluate the patient, continues on antibiotics IV ceftriaxone and PO azithromycin. Blood culture and sputum culture pending. Patient is being hydrated. Remains febrile T max 100.8 today. LFTs elevated at abdominal ultrasound ordered reveals subtle nodularity contour of the liver correlate for cirrhosis, hepatic cyst, gallbladder folds, severe atherosclerosis, trace ascites, increased echotexture to kidneys correlate for medical renal disease. Continues on IV fluids sodium has improved up to 125. White count 10.8. Patient is weaned to 2L of oxygen. Echocardiogram shows normal LV systolic function 11/24/2022 Patient evaluated today sitting up in chair. Overall feels improved however reports continued cough and reports abdominal muscles are sore from this. Sputum culture showing gram negative bacilli and patient remains on IV ceftriaxone. ID following. Had issue with urinary retention overnight, patient did move bowels are the retention has resolved. Patient is receiving supportive care for the cough. Patient reports low appetite, ensure will be ordered. REVIEW OF SYSTEMS: CONSTITUTIONAL: Reports fever and malaise. HEENT: No recent visual problems or hearing problems. Denied any sore throat. Reports dull achy pain to the left mandible. CARDIOVASCULAR: No chest pain, orthopnea, PND, no palpitations, no syncope. PULMONARY: No shortness of breath, Reports cough with sputum, no hemoptysis. GASTROINTESTINAL: No diarrhea, no nausea, no vomiting, no abdominal pain. NEUROLOGICAL: No headaches, no weakness, no numbness. PHYSICAL EXAMINATION: GENERAL: The patient is alert and oriented x3, not in any acute distress. Well developed, well nourished. HEENT: Pupils are round and equally reacting to light. EOMI. No scleral icterus. No conjunctival pallor. Normocephalic, atraumatic. No pharyngeal erythema. No thyromegaly. Gum line is not reddened no facial swelling or erythema. CARDIOVASCULAR: S1 and S2 present. No murmurs, rubs, or gallops. PULMONARY: Chest is diminished with congested cough ABDOMEN: Soft, nontender, nondistended, normoactive bowel sounds. No palpable organomegaly. MUSCULOSKELETAL: No joint swelling or deformity. EXTREMITIES: No cyanosis, clubbing, or pedal edema. NEUROLOGICAL: Gross neurological examination did not reveal any focal deficits. SKIN: No rashes. Assessment -Acute hypoxic respiratory failure secondary to acute COPD exacerbation and community acquired pneumonia present on admission -Sputum culture showing gram negative bacilli preliminary -Leukocytosis/fever and Sepsis secondary to above -Chest pain pleuritic in nature ACS has been ruled out -Hyponatremia from dehydration and poor oral intake, does have issues with low sodium follows with nephrology outpatient -Elevated transaminases no evidence for acute cholecystitis on imaging likely due to sepsis. -Hyperlipidemia -Former smoker -History of Acevedo's esophagus with hiatal hernia -History of skin cancer -Hx breast cancer with lumpectomy and radiation on hormone therapy -Recent hospitalization for acute covid infection GI prophylaxis DVT prophylaxis Plan Cardiology signed off - recommending outpatient stress test recommended when medically stable Pending final sputum culture preliminary showing gram neg bacilli patient remains on IV ceftriaxone Started on oral prednisone burst and taper Continue supportive care, pain managment and bowel regimen Follow up labs in AM The impression and plan of care has been dictated by Dea Polo, Nurse Practitioner as directed. Dr. Balbina MD I have performed a history and physical examination and medical decision making of this patient, discussed the same with the dictator, and agree with the dictators assessment and plan as written, documented as a scribe. Based on total visit time, I have performed more than 50% of this visit. Objective - Vital Signs Vital signs: Vital Signs Temp 99 F 11/24/22 12:00 Pulse 84 11/24/22 12:00 Resp 20 11/24/22 12:00 BP 132/67 11/24/22 12:00 Pulse Ox 96 11/24/22 12:00 FiO2 Intake & Output 11/23/22 11/24/22 11/24/22 18:59 06:59 18:59 Intake Total 620 440 Output Total 1350 800 Balance 620 -1350 -360 Intake: Intake, IV Titration 500 Amount Sodium Chloride 0.9% 1, 500 000 ml @ 75 mls/hr IV . [id number] G[facility] Rx#:[id number] Oral 120 440 Output: Urine 1350 800 Other: Voiding Method Bedside Commode Bedside Commode # Voids 1 1 # Bowel Movements 1 1 - Labs CBC & Chem 7: 11/24/22 06:46 11/24/22 06:46 Labs: Abnormal Lab Results - Last 24 Hours (Table) 11/24/22 11/24/22 Range/Units 06:46 06:46 RBC 3.37 L (3.80-5.40) m/uL Hgb 10.9 L (11.4-16.0) gm/dL Hct 32.1 L (34.0-46.0) % Lymphocytes # 0.6 L (1.0-4.8) k/uL Sodium 125 L (137-145) mmol/L Carbon Dioxide 21 L (22-30) mmol/L Creatinine 0.40 L (0.52-1.04) mg/dL Glucose 100 H (74-99) mg/dL Calcium 7.4 L (8.4-10.2) mg/dL AST 242 H (14-36) U/L ALT 234 H (4-34) U/L Alkaline Phosphatase 233 H (38-126) U/L Total Protein 4.7 L (6.3-8.2) g/dL Albumin 2.4 L (3.5-5.0) g/dL Microbiology - Last 24 Hours (Table) 11/22/22 17:09 Gram Stain - Preliminary Sputum Sputum Culture - Preliminary Gram Neg Bacilli 11/21/22 20:01 Blood Culture - Preliminary Blood 11/21/22 20:15 Blood Culture - Preliminary Blood Assessment and Plan Time with Patient: Less than 30
[2022-11-24] MEDS: predniSONE 20 MG TAB PO SCH (15:42)
[2022-11-24] MEDS ORDERED: IPRATROPIUM-ALBUTEROL 3 ML NEB INHALATION PRN (16:04)
[2022-11-24] MEDS: ATORVASTATIN 10 MG TAB PO SCH (20:19)
[2022-11-24] MEDS: IPRATROPIUM-ALBUTEROL 3 ML NEB INHALATION SCH (21:07)
[2022-11-24] MEDS: diphenhydrAMINE 25 MG CAP PO PRN (21:50)
--- NOTE | 2022-11-24 22:14 | P.PN ---
Subjective Progress Note Date: 11/24/22 Principal diagnosis: Pneumonia Patient is a 77-year female past medical significant for breast cancer COPD presenting to the hospital left-sided chest pain shortness of breath and cough patient has been diagnosed with left-sided pneumonia. On today's evaluation that is 11/24/2022 patient did have a low-grade fever 100.4 this afternoon patient is feeling slightly better breathing comfortably still complaining of cough with occasional sputum no nausea vomiting abdominal pain or diarrhea Objective - Vital Signs Vital signs: Vital Signs Temp 100.4 F H 11/24/22 15:41 Pulse 85 11/24/22 21:09 Resp 20 11/24/22 15:41 BP 151/65 11/24/22 15:41 Pulse Ox 95 11/24/22 15:41 FiO2 Intake & Output 11/24/22 11/24/22 11/25/22 06:59 18:59 06:59 Intake Total 550 Output Total 1350 800 750 Balance -1350 -250 -750 Intake: Oral 550 Output: Urine 1350 800 750 Other: Voiding Method Bedside Commode # Voids 1 1 # Bowel Movements 1 1 - Exam GENERAL DESCRIPTION: Elderly female lying in bed in no distress RESPIRATORY SYSTEM: Unlabored breathing , decreased breath sounds at bases HEART: S1 S2 regular rate and rhythm ,no loud murmurs ABDOMEN: Soft , no tenderness EXTREMITIES: No edema feet - Labs CBC & Chem 7: 11/24/22 06:46 11/24/22 06:46 Labs: Abnormal Lab Results - Last 24 Hours (Table) 11/24/22 11/24/22 Range/Units 06:46 06:46 RBC 3.37 L (3.80-5.40) m/uL Hgb 10.9 L (11.4-16.0) gm/dL Hct 32.1 L (34.0-46.0) % Lymphocytes # 0.6 L (1.0-4.8) k/uL Sodium 125 L (137-145) mmol/L Carbon Dioxide 21 L (22-30) mmol/L Creatinine 0.40 L (0.52-1.04) mg/dL Glucose 100 H (74-99) mg/dL Calcium 7.4 L (8.4-10.2) mg/dL AST 242 H (14-36) U/L ALT 234 H (4-34) U/L Alkaline Phosphatase 233 H (38-126) U/L Total Protein 4.7 L (6.3-8.2) g/dL Albumin 2.4 L (3.5-5.0) g/dL Microbiology - Last 24 Hours (Table) 11/22/22 17:09 Gram Stain - Preliminary Sputum Sputum Culture - Preliminary Gram Neg Bacilli 11/21/22 20:01 Blood Culture - Preliminary Blood 11/21/22 20:15 Blood Culture - Preliminary Blood Assessment and Plan (1) Pneumonia Current Visit: Yes Status: Acute Code(s): J18.9 - PNEUMONIA, UNSPECIFIED ORGANISM SNOMED Code(s): 747650517 Plan: 1patient present to hospital with sepsis in this patient who did have a fever elevated white count patient did have a cough or sputum production with evidence of left retrocardiac infiltrate and high procalcitonin likely source being pneumonia possible community-acquired as the patient has shown some clinical improvement as white count is trending down with Rocephin and Zithromax therapy 2-mild elevated liver enzyme but no abdominal pain or tenderness ultrasound has been ordered 3patient sputum is currently growing gram-negative we will switch antibiotic therapy to cefepime while waiting for the culture to finalize and monitor clinical course closely Time with Patient: Less than 30
[2022-11-25] MEDS: CEFEPIME 2 GM in SODIUM CHLORIDE 0.9% 100 ML IVPB SCH ×4 (00:36→23:34)
[2022-11-25] MEDS: PANTOPRAZOLE 40 MG TABLET PO SCH (06:01)
[2022-11-25 07:04] LABS: ALT 255 U/L (4-34); AST 183 U/L (14-36); African American GFR (CKD) >90 (>60 ml/min/1.73 sqM); Albumin 2.5 g/dL (3.5-5.0); Alkaline Phosphatase 267 U/L (38-126); Anion Gap 8 mmol/L; Blood Urea Nitrogen 9 mg/dL (7-17); Calcium 7.8 mg/dL (8.4-10.2); Carbon Dioxide 21 mmol/L (22-30); Chloride 98 mmol/L (98-107); Glucose 154 mg/dL (74-99); Magnesium 1.8 mg/dL (1.6-2.3); Non-African American GFR(CKD) >90 (>60 ml/min/1.73 sqM); Potassium 4.2 mmol/L (3.5-5.1); Sodium 127 mmol/L (137-145); Total Bilirubin 0.3 mg/dL (0.2-1.3)
[2022-11-25] MEDS ORDERED: FUROSEMIDE 10 MG/ML 4 ML VIAL IV SCH (09:00)
[2022-11-25] MEDS: IPRATROPIUM-ALBUTEROL 3 ML NEB INHALATION SCH ×4 (09:01→21:03)
[2022-11-25] MEDS: SYMBICORT 160-4.5 MCG INHALER INHALATION SCH ×2 (09:02→21:03)
[2022-11-25] MEDS: FUROSEMIDE 10 MG/ML 4 ML VIAL IV SCH (09:56)
[2022-11-25] MEDS: ASCORBIC ACID 500 MG TAB PO SCH (09:57)
[2022-11-25] MEDS: MAGNESIUM OXIDE 400 MG TAB PO SCH ×2 (09:57→19:43)
[2022-11-25] MEDS: HEPARIN SODIUM,PORCINE/PF 5,000 UNIT/0.5 ML SYRINGE SQ SCH ×2 (09:57→19:43)
[2022-11-25] MEDS: CALCIUM CARBONATE 500 MG CHEWABLE PO SCH ×2 (09:57→19:43)
[2022-11-25] MEDS: CHOLECALCIFEROL 125 MCG (5000 IU) TABLET PO SCH (09:57)
[2022-11-25] MEDS: predniSONE 20 MG TAB PO SCH (09:57)
[2022-11-25] MEDS: ASPIRIN 81 MG PO SCH (09:58)
[2022-11-25] MEDS: ZINC SULFATE 220 MG CAP PO SCH (09:58)
[2022-11-25] MEDS: ANASTROZOLE 1 MG TAB PO SCH (09:58)
--- NOTE | 2022-11-25 14:59 | P.PN ---
Subjective Progress Note Date: 11/25/22 Principal diagnosis: Pneumonia Patient is a 77-year female past medical significant for breast cancer COPD presenting to the hospital left-sided chest pain shortness of breath and cough patient has been diagnosed with left-sided pneumonia. On today's evaluation that is 11/25/2022, the patient is afebrile , patient is feeling slightly better , the patient is breathing comfortably on 2 L nasal cannula oxygen, patient denies any chest pain cough is decreased intensity no nausea no vomiting no abdominal pain or diarrhea Objective - Vital Signs Vital signs: Vital Signs Temp 97.9 F 11/25/22 12:00 Pulse 92 11/25/22 12:15 Resp 17 11/25/22 12:00 BP 123/72 11/25/22 12:00 Pulse Ox 96 11/25/22 12:00 FiO2 Intake & Output 11/24/22 11/25/22 11/25/22 18:59 06:59 18:59 Intake Total 550 540 0 Output Total 800 750 Balance -250 -210 0 Intake: Oral 550 540 0 Output: Urine 800 750 Other: Voiding Method Bedside Commode Bedside Commode # Voids 1 1 # Bowel Movements 1 - Exam GENERAL DESCRIPTION: Elderly female lying in bed in no distress RESPIRATORY SYSTEM: Unlabored breathing , decreased breath sounds at bases HEART: S1 S2 regular rate and rhythm ,no loud murmurs ABDOMEN: Soft , no tenderness EXTREMITIES: No edema feet - Labs CBC & Chem 7: 11/24/22 06:46 11/25/22 06:07 Labs: Abnormal Lab Results - Last 24 Hours (Table) 11/25/22 Range/Units 06:07 Sodium 127 L (137-145) mmol/L Carbon Dioxide 21 L (22-30) mmol/L Creatinine 0.37 L (0.52-1.04) mg/dL Glucose 154 H (74-99) mg/dL Calcium 7.8 L (8.4-10.2) mg/dL AST 183 H (14-36) U/L ALT 255 H (4-34) U/L Alkaline Phosphatase 267 H (38-126) U/L Total Protein 5.0 L (6.3-8.2) g/dL Albumin 2.5 L (3.5-5.0) g/dL Microbiology - Last 24 Hours (Table) 11/22/22 17:09 Gram Stain - Final Sputum Sputum Culture - Final Pseudomonas aeruginosa 11/21/22 20:01 Blood Culture - Preliminary Blood 11/21/22 20:15 Blood Culture - Preliminary Blood Assessment and Plan (1) Pneumonia Current Visit: Yes Status: Acute Code(s): J18.9 - PNEUMONIA, UNSPECIFIED ORGANISM SNOMED Code(s): 829900880 Plan: 1patient present to hospital with sepsis in this patient who did have a fever elevated white count patient did have a cough or sputum production with evidence of left retrocardiac infiltrate and high procalcitonin likely source being pneumonia possible community-acquired as the patient has shown some clinical improvement as white count is trending down with Rocephin and Zithromax therapy 2-mild elevated liver enzyme but no abdominal pain or tenderness ultrasound has been ordered 3patient sputum is currently growing Pseudomonas aeruginosa, we will continue the patient on cefepime for another day or 2 for transitioning her to oral antibiotic, discussed with the admitting team Time with Patient: Less than 30
--- NOTE | 2022-11-25 16:23 | P.PN ---
Subjective Progress Note Date: 11/25/22 This is a pleasant 77 year old female with medical history of COPD, skin cancer, breast cancer with radiation, acevedo's disease, former smoker, hyponatremia. Presents to the with left sided chest pain radiates to the back reports as worse with deep breathing. Patient was recently diagnosed with covid pneumonia back in July of 2022, and a second hospitalization for hand cellulitis. Has been on and off antibiotics. Patient recently had a molar extracted with oral surgeon Dr. Cerna and has had pain to the left mandible since and felt possibly infected. Had fever of 104 at home. Sunday patient was evaluated in the [facility] had a facial CT done showing no drainable abscess of the tooth extraction site. Carlos mancilla had viral panel done was negative for covid, influenza and RSV and patient was sent home. Patient returns to the [facility] not improving now with productive cough and shortness of breath. Worried about infection. Patient is requiring oxygen at 2L nasal cannula. Chest xray reveals a reticulonodular infiltrate within the left upper lobe, correlate for pneumonia or atypical pneumonia. There are COPD c hanges. Cardiology consulted for the chest pain. Echocardiogram has been ordered, troponin level is negative x 3. Patient does have significant elevated procalcitonin level at 5.33. Patient does have leukocytosis, and sputum culture and blood culture are ordered. Patient is started on antibiotics and admitted for pneumonia and cardiac work up. 11/23/2022 Patient evaluated today resting in bed. Reports feeling achy fatigued and continues with congested cough. Infectious disease asking to evaluate the patient, continues on antibiotics IV ceftriaxone and PO azithromycin. Blood culture and sputum culture pending. Patient is being hydrated. Remains febrile T max 100.8 today. LFTs elevated at abdominal ultrasound ordered reveals subtle nodularity contour of the liver correlate for cirrhosis, hepatic cyst, gallbladder folds, severe atherosclerosis, trace ascites, increased echotexture to kidneys correlate for medical renal disease. Continues on IV fluids sodium has improved up to 125. White count 10.8. Patient is weaned to 2L of oxygen. Echocardiogram shows normal LV systolic function 11/24/2022 Patient evaluated today sitting up in chair. Overall feels improved however reports continued cough and reports abdominal muscles are sore from this. Sputum culture showing gram negative bacilli and patient remains on IV ceftriaxone. ID following. Had issue with urinary retention overnight, patient did move bowels are the retention has resolved. Patient is receiving supportive care for the cough. Patient reports low appetite, ensure will be ordered. 11/25/2022 Patient is evaluated today sitting up in bed. Feels slightly improved as compared to yesterday. On 2L nasal cannula and discussed with nursing weaning attempt. Sputum culture has finalized to pseudomonas and patient continues on IV cefazolin. Fluids have been discontinued and patient to receive a dose of IV lasix today. LFTs remain elevated likely from hepatic congestion and expected to improve. Continues with productive cough. Patient has been started on oral prednisone daily. Continues to report no appetite. Sodium has improved to 127 off the IV fluids. REVIEW OF SYSTEMS: CONSTITUTIONAL: Reports fever and malaise. HEENT: No recent visual problems or hearing problems. Denied any sore throat. Reports dull achy pain to the left mandible. CARDIOVASCULAR: No chest pain, orthopnea, PND, no palpitations, no syncope. PULMONARY: Reports shortness of breath. , Reports cough with sputum, no hemoptysis. GASTROINTESTINAL: No diarrhea, no nausea, no vomiting, no abdominal pain. NEUROLOGICAL: No headaches, no weakness, no numbness. PHYSICAL EXAMINATION: GENERAL: The patient is alert and oriented x3, not in any acute distress. Well developed, well nourished. HEENT: Pupils are round and equally reacting to light. EOMI. No scleral icterus. No conjunctival pallor. Normocephalic, atraumatic. No pharyngeal erythema. No thyromegaly. Gum line is not reddened no facial swelling or erythema. CARDIOVASCULAR: S1 and S2 present. No murmurs, rubs, or gallops. PULMONARY: Chest is diminished with congested cough ABDOMEN: Soft, nontender, nondistended, normoactive bowel sounds. No palpable organomegaly. MUSCULOSKELETAL: No joint swelling or deformity. EXTREMITIES: No cyanosis, clubbing, or pedal edema. NEUROLOGICAL: Gross neurological examination did not reveal any focal deficits. SKIN: No rashes. Assessment -Acute hypoxic respiratory failure secondary to acute COPD exacerbation and community acquired pneumonia present on admission -Sputum culture showing pseudomonas -Leukocytosis/fever and Sepsis secondary to above -Chest pain pleuritic in nature ACS has been ruled out -Hyponatremia from dehydration and poor oral intake, does have issues with low sodium follows with nephrology outpatient -Elevated transaminases no evidence for acute cholecystitis on imaging likely due to sepsis vs hepatic congestion -Volume overload -Hyperlipidemia -Former smoker -History of Acevedo's esophagus with hiatal hernia -History of skin cancer -Hx breast cancer with lumpectomy and radiation on hormone therapy -Recent hospitalization for acute covid infection GI prophylaxis DVT prophylaxis Plan Cardiology signed off - recommending outpatient stress test recommended when medically stable Continues on IV cefepime and final sputum culture reveals pseudomonas Started on oral prednisone burst and taper Continue supportive care, pain managment and bowel regimen Continue to encourage incentive spirometer 10 x an hour while awake wean oxygen as tolerated. Follow up labs in AM PT/OT consultation pending The impression and plan of care has been dictated by Dea Polo Nurse Practitioner as directed. Dr. Balbina MD I have performed a history and physical examination and medical decision making of this patient, discussed the same with the dictator, and agree with the dictators assessment and plan as written, documented as a scribe. Based on total visit time, I have performed more than 50% of this visit. Objective - Vital Signs Vital signs: Vital Signs Temp 97.9 F 11/25/22 12:00 Pulse 92 11/25/22 12:15 Resp 17 11/25/22 12:00 BP 123/72 11/25/22 12:00 Pulse Ox 96 11/25/22 12:00 FiO2 Intake & Output 11/24/22 11/25/22 11/25/22 18:59 06:59 18:59 Intake Total 550 540 180 Output Total 800 750 Balance -250 -210 180 Intake: Oral 550 540 180 Output: Urine 800 750 Other: Voiding Method Bedside Commode Toilet # Voids 1 1 # Bowel Movements 1 - Labs CBC & Chem 7: 11/24/22 06:46 11/25/22 06:07 Labs: Abnormal Lab Results - Last 24 Hours (Table) 11/25/22 Range/Units 06:07 Sodium 127 L (137-145) mmol/L Carbon Dioxide 21 L (22-30) mmol/L Creatinine 0.37 L (0.52-1.04) mg/dL Glucose 154 H (74-99) mg/dL Calcium 7.8 L (8.4-10.2) mg/dL AST 183 H (14-36) U/L ALT 255 H (4-34) U/L Alkaline Phosphatase 267 H (38-126) U/L Total Protein 5.0 L (6.3-8.2) g/dL Albumin 2.5 L (3.5-5.0) g/dL Microbiology - Last 24 Hours (Table) 11/22/22 17:09 Gram Stain - Final Sputum Sputum Culture - Final Pseudomonas aeruginosa 11/21/22 20:01 Blood Culture - Preliminary Blood 11/21/22 20:15 Blood Culture - Preliminary Blood Assessment and Plan Time with Patient: Less than 30
[2022-11-25] MEDS: ATORVASTATIN 10 MG TAB PO SCH (19:42)
[2022-11-25] MEDS: diphenhydrAMINE 25 MG CAP PO PRN (21:33)
[2022-11-25] MEDS: ACETAMINOPHEN TAB 325 MG TAB PO PRN (21:33)
[2022-11-26] MEDS: ACETAMINOPHEN TAB 325 MG TAB PO PRN (03:48)
[2022-11-26] MEDS: PANTOPRAZOLE 40 MG TABLET PO SCH (06:40)
[2022-11-26] MEDS: CEFEPIME 2 GM in SODIUM CHLORIDE 0.9% 100 ML IVPB SCH ×2 (06:40→15:11)
[2022-11-26 08:11] LABS: Basophils % (A) 0 %; Eosinophils % (A) 0 %; HCT 32.9 % (34.0-46.0); HGB 10.9 gm/dL (11.4-16.0); Lymphocytes # (A) 0.9 k/uL (1.0-4.8); Lymphocytes % (A) 9 %; MCH 31.6 pg (25.0-35.0); MCHC 33.2 g/dL (31.0-37.0); MCV 95.2 fL (80.0-100.0); Mean Platelet Volume 7.9; Monocytes # (A) 1.3 k/uL (0-1.0); Monocytes % (A) 13 %; Neutrophils # (A) 7.5 k/uL (1.3-7.7); Neutrophils % (A) 76 %; Platelet Count 369 k/uL (150-450); RBC 3.45 m/uL (3.80-5.40); RDW 13.1 % (11.5-15.5); WBC 9.8 k/uL (3.8-10.6)
[2022-11-26 08:30] LABS: ALT 389 U/L (4-34); AST 335 U/L (14-36); African American GFR (CKD) >90 (>60 ml/min/1.73 sqM); Albumin 2.5 g/dL (3.5-5.0); Alkaline Phosphatase 281 U/L (38-126); Anion Gap 9 mmol/L; Blood Urea Nitrogen 17 mg/dL (7-17); Calcium 8.5 mg/dL (8.4-10.2); Carbon Dioxide 24 mmol/L (22-30); Chloride 94 mmol/L (98-107); Glucose 96 mg/dL (74-99); Non-African American GFR(CKD) >90 (>60 ml/min/1.73 sqM); Potassium 4.2 mmol/L (3.5-5.1); Sodium 127 mmol/L (137-145); Total Bilirubin 0.3 mg/dL (0.2-1.3); Total Protein 4.9 g/dL (6.3-8.2)
[2022-11-26] MEDS: SYMBICORT 160-4.5 MCG INHALER INHALATION SCH ×2 (09:04→20:34)
[2022-11-26] MEDS: IPRATROPIUM-ALBUTEROL 3 ML NEB INHALATION SCH ×4 (09:04→20:34)
[2022-11-26] MEDS: ZINC SULFATE 220 MG CAP PO SCH (09:07)
[2022-11-26] MEDS: ASPIRIN 81 MG PO SCH (09:07)
[2022-11-26] MEDS: predniSONE 20 MG TAB PO SCH (09:07)
[2022-11-26] MEDS: ASCORBIC ACID 500 MG TAB PO SCH (09:07)
[2022-11-26] MEDS: CALCIUM CARBONATE 500 MG CHEWABLE PO SCH ×2 (09:07→20:49)
[2022-11-26] MEDS: MAGNESIUM OXIDE 400 MG TAB PO SCH ×2 (09:07→20:49)
[2022-11-26] MEDS: CHOLECALCIFEROL 125 MCG (5000 IU) TABLET PO SCH (09:07)
[2022-11-26] MEDS: HEPARIN SODIUM,PORCINE/PF 5,000 UNIT/0.5 ML SYRINGE SQ SCH ×2 (09:08→20:49)
[2022-11-26] MEDS: FUROSEMIDE 10 MG/ML 4 ML VIAL IV SCH (09:08)
[2022-11-26] MEDS: ANASTROZOLE 1 MG TAB PO SCH (09:08)
--- NOTE | 2022-11-26 13:37 | P.PN ---
Subjective Progress Note Date: 11/26/22 This is a pleasant 77 year old female with medical history of COPD, skin cancer, breast cancer with radiation, acevedo's disease, former smoker, hyponatremia. Presents to the with left sided chest pain radiates to the back reports as worse with deep breathing. Patient was recently diagnosed with covid pneumonia back in July of 2022, and a second hospitalization for hand cellulitis. Has been on and off antibiotics. Patient recently had a molar extracted with oral surgeon Dr. Cerna and has had pain to the left mandible since and felt possibly infected. Had fever of 104 at home. Sunday patient was evaluated in the [facility] had a facial CT done showing no drainable abscess of the tooth extraction site. Carlos mancilla had viral panel done was negative for covid, influenza and RSV and patient was sent home. Patient returns to the [facility] not improving now with productive cough and shortness of breath. Worried about infection. Patient is requiring oxygen at 2L nasal cannula. Chest xray reveals a reticulonodular infiltrate within the left upper lobe, correlate for pneumonia or atypical pneumonia. There are COPD c hanges. Cardiology consulted for the chest pain. Echocardiogram has been ordered, troponin level is negative x 3. Patient does have significant elevated procalcitonin level at 5.33. Patient does have leukocytosis, and sputum culture and blood culture are ordered. Patient is started on antibiotics and admitted for pneumonia and cardiac work up. 11/23/2022 Patient evaluated today resting in bed. Reports feeling achy fatigued and continues with congested cough. Infectious disease asking to evaluate the patient, continues on antibiotics IV ceftriaxone and PO azithromycin. Blood culture and sputum culture pending. Patient is being hydrated. Remains febrile T max 100.8 today. LFTs elevated at abdominal ultrasound ordered reveals subtle nodularity contour of the liver correlate for cirrhosis, hepatic cyst, gallbladder folds, severe atherosclerosis, trace ascites, increased echotexture to kidneys correlate for medical renal disease. Continues on IV fluids sodium has improved up to 125. White count 10.8. Patient is weaned to 2L of oxygen. Echocardiogram shows normal LV systolic function 11/24/2022 Patient evaluated today sitting up in chair. Overall feels improved however reports continued cough and reports abdominal muscles are sore from this. Sputum culture showing gram negative bacilli and patient remains on IV ceftriaxone. ID following. Had issue with urinary retention overnight, patient did move bowels are the retention has resolved. Patient is receiving supportive care for the cough. Patient reports low appetite, ensure will be ordered. 11/25/2022 Patient is evaluated today sitting up in bed. Feels slightly improved as compared to yesterday. On 2L nasal cannula and discussed with nursing weaning attempt. Sputum culture has finalized to pseudomonas and patient continues on IV cefepime. Fluids have been discontinued and patient to receive a dose of IV lasix today. LFTs remain elevated likely from hepatic congestion and expected to improve. Continues with productive cough. Patient has been started on oral prednisone daily. Continues to report no appetite. Sodium has improved to 127 off the IV fluids. 11/26/2022 Patient is evaluated today on the medical floor being treated for pseudomonas pneumonia and continues on IV cefepime. Started on IV lasix with no improvement in sodium stable at 127. LFT's continue to worsen with AST at 335, ALT 389, and alk phos 281. Hepatitis panel is ordered. Patient is afebrile, heart rate 111, blood pressure 152/76. Continues on nasal cannula at 2L and patient reports improvement in shortness of breath. Using incentive spirometer. REVIEW OF SYSTEMS: CONSTITUTIONAL: Reports fever and malaise. HEENT: No recent visual problems or hearing problems. Denied any sore throat. Reports dull achy pain to the left mandible. CARDIOVASCULAR: No chest pain, orthopnea, PND, no palpitations, no syncope. PULMONARY: Reports shortness of breath. , Reports cough with sputum, no hemoptysis. GASTROINTESTINAL: No diarrhea, no nausea, no vomiting, no abdominal pain. NEUROLOGICAL: No headaches, no weakness, no numbness. PHYSICAL EXAMINATION: GENERAL: The patient is alert and oriented x3, not in any acute distress. Well developed, well nourished. HEENT: Pupils are round and equally reacting to light. EOMI. No scleral icterus. No conjunctival pallor. Normocephalic, atraumatic. No pharyngeal erythema. No thyromegaly. Gum line is not reddened no facial swelling or erythema. CARDIOVASCULAR: S1 and S2 present. No murmurs, rubs, or gallops. PULMONARY: Chest is diminished with congested cough ABDOMEN: Soft, nontender, nondistended, normoactive bowel sounds. No palpable organomegaly. MUSCULOSKELETAL: No joint swelling or deformity. EXTREMITIES: No cyanosis, clubbing, or pedal edema. NEUROLOGICAL: Gross neurological examination did not reveal any focal deficits. SKIN: No rashes. Assessment -Acute hypoxic respiratory failure secondary to acute COPD exacerbation and community acquired pneumonia present on admission -Pseudomonas pneumonia -Leukocytosis/fever and Sepsis secondary to above -Chest pain pleuritic in nature ACS has been ruled out -Hyponatremia from dehydration and poor oral intake, does have issues with low sodium follows with nephrology outpatient -Elevated transaminases no evidence for acute cholecystitis on imaging likely due to sepsis vs hepatic congestion -Hyperlipidemia -Former smoker -History of Acevedo's esophagus with hiatal hernia -History of skin cancer -Hx breast cancer with lumpectomy and radiation on hormone therapy -Recent hospitalization for acute covid infection GI prophylaxis DVT prophylaxis Plan Cardiology signed off - recommending outpatient stress test when medically stable Continues on IV cefepime and final sputum culture reveals pseudomonas Started on oral prednisone burst and taper Continue supportive care, pain managment and bowel regimen Continue to encourage incentive spirometer 10 x an hour while awake wean oxygen as tolerated. Hepatitis panel, amylase and lipase ordered Follow up labs in AM PT/OT consultation pending The impression and plan of care has been dictated by Dea Polo, Nurse Practitioner as directed. Dr. Balbina MD I have performed a history and physical examination and medical decision making of this patient, discussed the same with the dictator, and agree with the dictators assessment and plan as written, documented as a scribe. Based on total visit time, I have performed more than 50% of this visit. Objective - Vital Signs Vital signs: Vital Signs Temp 97.7 F 11/25/22 20:00 Pulse 95 11/26/22 09:04 Resp 24 11/26/22 04:00 BP 167/75 11/26/22 04:00 Pulse Ox 95 11/26/22 09:07 FiO2 Intake & Output 11/25/22 11/26/22 11/26/22 18:59 06:59 18:59 Intake Total 800 180 Output Total 600 2550 Balance 200 -2550 180 Intake: Intake, IV Titration 200 Amount Cefepime 2 gm In Sodium 200 Chloride 0.9% 100 ml @ 25 mls/hr IVPB Q8H [facility] Rx#: [id number] Oral 600 180 Output: Urine 600 2550 Other: Voiding Method Toilet Toilet - Labs CBC & Chem 7: 11/26/22 06:38 11/26/22 06:38 Labs: Abnormal Lab Results - Last 24 Hours (Table) 11/26/22 11/26/22 Range/Units 06:38 06:38 RBC 3.45 L (3.80-5.40) m/uL Hgb 10.9 L (11.4-16.0) gm/dL Hct 32.9 L (34.0-46.0) % Lymphocytes # 0.9 L (1.0-4.8) k/uL Monocytes # 1.3 H (0-1.0) k/uL Sodium 127 L (137-145) mmol/L Chloride 94 L (98-107) mmol/L Creatinine 0.49 L (0.52-1.04) mg/dL AST 335 H (14-36) U/L ALT 389 H (4-34) U/L Alkaline Phosphatase 281 H (38-126) U/L Total Protein 4.9 L (6.3-8.2) g/dL Albumin 2.5 L (3.5-5.0) g/dL Microbiology - Last 24 Hours (Table) 11/25/22 16:27 Gram Stain - Preliminary Sputum 11/22/22 17:09 Gram Stain - Final Sputum Sputum Culture - Final Pseudomonas aeruginosa Assessment and Plan Time with Patient: Less than 30
[2022-11-26 14:35] LABS: Amylase 54 U/L (30-110); Lipase 123 U/L (23-300)
--- NOTE | 2022-11-26 17:04 | P.PN ---
Subjective Progress Note Date: 11/26/22 Principal diagnosis: Pneumonia Patient is a 77-year female past medical significant for breast cancer COPD presenting to the hospital left-sided chest pain shortness of breath and cough patient has been diagnosed with left-sided pneumonia. On today's evaluation that is 11/26/2022, the patient remains to be afebrile , patient is breathing comfortably on 2 L nasal cannula oxygen, patient denies any chest pain, the patient cough is decreased intensity and mostly dry in nature, no nausea no vomiting no abdominal pain or diarrhea Objective - Vital Signs Vital signs: Vital Signs Temp 97.7 F 11/26/22 12:00 Pulse 111 H 11/26/22 12:49 Resp 19 11/26/22 12:00 BP 152/76 11/26/22 12:00 Pulse Ox 95 11/26/22 12:00 FiO2 Intake & Output 11/25/22 11/26/22 11/26/22 18:59 06:59 18:59 Intake Total 800 360 Output Total 600 2550 1300 Balance 200 -2550 -940 Intake: Intake, IV Titration 200 Amount Cefepime 2 gm In Sodium 200 Chloride 0.9% 100 ml @ 25 mls/hr IVPB Q8H [facility] Rx#: [id number] Oral 600 360 Output: Urine 600 2550 1300 Other: Voiding Method Toilet Toilet Toilet # Voids 1 - Exam GENERAL DESCRIPTION: Elderly female lying in bed in no distress RESPIRATORY SYSTEM: Unlabored breathing , decreased breath sounds at bases HEART: S1 S2 regular rate and rhythm ,no loud murmurs ABDOMEN: Soft , no tenderness EXTREMITIES: No edema feet - Labs CBC & Chem 7: 11/26/22 06:38 11/26/22 06:38 Labs: Abnormal Lab Results - Last 24 Hours (Table) 11/26/22 11/26/22 Range/Units 06:38 06:38 RBC 3.45 L (3.80-5.40) m/uL Hgb 10.9 L (11.4-16.0) gm/dL Hct 32.9 L (34.0-46.0) % Lymphocytes # 0.9 L (1.0-4.8) k/uL Monocytes # 1.3 H (0-1.0) k/uL Sodium 127 L (137-145) mmol/L Chloride 94 L (98-107) mmol/L Creatinine 0.49 L (0.52-1.04) mg/dL AST 335 H (14-36) U/L ALT 389 H (4-34) U/L Alkaline Phosphatase 281 H (38-126) U/L Total Protein 4.9 L (6.3-8.2) g/dL Albumin 2.5 L (3.5-5.0) g/dL Microbiology - Last 24 Hours (Table) 11/25/22 16:27 Gram Stain - Preliminary Sputum Assessment and Plan (1) Pneumonia Current Visit: Yes Status: Acute Code(s): J18.9 - PNEUMONIA, UNSPECIFIED ORGANISM SNOMED Code(s): 379198879 Plan: 1patient present to hospital with sepsis in this patient who did have a fever elevated white count patient did have a cough or sputum production with evidence of left retrocardiac infiltrate and high procalcitonin likely source being pneumonia possible community-acquired as the patient has shown some clinical improvement as white count is trending down with Rocephin and Zithromax therapy 2-mild elevated liver enzyme but no abdominal pain or tenderness ultrasound has been ordered 3patient sputum do Pseudomonas aeruginosa, we will continue the patient on cefepime while inpatient and transition her to oral Cipro on discharge Time with Patient: Less than 30
[2022-11-26] MEDS: ATORVASTATIN 10 MG TAB PO SCH (20:49)
[2022-11-26] MEDS: traMADol 50 MG TAB PO PRN (21:49)
[2022-11-26] MEDS: diphenhydrAMINE 25 MG CAP PO PRN (21:50)
[2022-11-27] MEDS: CEFEPIME 2 GM in SODIUM CHLORIDE 0.9% 100 ML IVPB SCH ×4 (00:39→22:21)
[2022-11-27] MEDS: PANTOPRAZOLE 40 MG TABLET PO SCH (06:04)
[2022-11-27] MEDS: traMADol 50 MG TAB PO PRN ×2 (06:04→22:19)
[2022-11-27 06:42] LABS: Hepatitis A Antibody IgM Nonreactive; Hepatitis B Core IgM Nonreactive; Hepatitis B Surface Antigen Nonreactive; Hepatitis C IgG Antibody Nonreactive
[2022-11-27 08:33] LABS: Basophils % (A) 0 %; Eosinophils # (A) 0.1 k/uL (0-0.7); Eosinophils % (A) 1 %; HCT 35.1 % (34.0-46.0); HGB 11.5 gm/dL (11.4-16.0); Lymphocytes # (A) 1.5 k/uL (1.0-4.8); Lymphocytes % (A) 14 %; MCH 30.4 pg (25.0-35.0); MCHC 32.7 g/dL (31.0-37.0); MCV 93.2 fL (80.0-100.0); Mean Platelet Volume 8.3; Monocytes % (A) 9 %; Neutrophils % (A) 73 %; Platelet Count 442 k/uL (150-450); RBC 3.77 m/uL (3.80-5.40); RDW 13.3 % (11.5-15.5); WBC 10.9 k/uL (3.8-10.6)
[2022-11-27] MEDS: HEPARIN SODIUM,PORCINE/PF 5,000 UNIT/0.5 ML SYRINGE SQ SCH ×2 (09:02→20:15)
[2022-11-27] MEDS: MAGNESIUM OXIDE 400 MG TAB PO SCH ×2 (09:03→20:15)
[2022-11-27] MEDS: ASCORBIC ACID 500 MG TAB PO SCH (09:03)
[2022-11-27] MEDS: ASPIRIN 81 MG PO SCH (09:03)
[2022-11-27] MEDS: ANASTROZOLE 1 MG TAB PO SCH (09:03)
[2022-11-27] MEDS: ZINC SULFATE 220 MG CAP PO SCH (09:03)
[2022-11-27] MEDS: CALCIUM CARBONATE 500 MG CHEWABLE PO SCH ×2 (09:03→20:15)
[2022-11-27] MEDS: FUROSEMIDE 10 MG/ML 4 ML VIAL IV SCH (09:03)
[2022-11-27] MEDS: predniSONE 20 MG TAB PO SCH (09:03)
[2022-11-27] MEDS: CHOLECALCIFEROL 125 MCG (5000 IU) TABLET PO SCH (09:03)
[2022-11-27 09:04] LABS: ALT 589 U/L (4-34); AST 426 U/L (14-36); African American GFR (CKD) >90 (>60 ml/min/1.73 sqM); Albumin 2.9 g/dL (3.5-5.0); Alkaline Phosphatase 289 U/L (38-126); Anion Gap 8 mmol/L; Blood Urea Nitrogen 21 mg/dL (7-17); Calcium 9.2 mg/dL (8.4-10.2); Carbon Dioxide 27 mmol/L (22-30); Chloride 89 mmol/L (98-107); Glucose 93 mg/dL (74-99); Magnesium 1.6 mg/dL (1.6-2.3); Non-African American GFR(CKD) >90 (>60 ml/min/1.73 sqM); Potassium 4.2 mmol/L (3.5-5.1); Sodium 124 mmol/L (137-145); Total Bilirubin 0.4 mg/dL (0.2-1.3); Total Protein 5.5 g/dL (6.3-8.2)
[2022-11-27] MEDS: SYMBICORT 160-4.5 MCG INHALER INHALATION SCH ×2 (09:27→20:00)
[2022-11-27] MEDS: IPRATROPIUM-ALBUTEROL 3 ML NEB INHALATION SCH ×4 (09:27→20:00)
--- NOTE | 2022-11-27 10:36 | P.NPCON ---
History of Present Illness - Reason for Consult hyponatremia - History of Present Illness Patient is a 77-year-old female with history of COPD, breast cancer with radiation therapy, Jaeger's esophagus chronic hyponatremia who is admitted to the hospital with complaints of increasing shortness of breath. History of covid pneumonia in July 2022 Recently seen in the ER for fever and pain in the left mandible after tooth extraction. Facial CT showed no evidence of abscess and patient was discharged home. She returns now with worsening shortness of breath. Patient also had fever. Chest x-ray shows infiltrate in the left upper lobe. Sputum culture is growing pseudomonas aeruginosa Sodium was 120 on admission and patient was maintained on normal saline. Sodium had improved to 125 and 127 yesterday. IV fluids were discontinued and patient was started on Lasix on 11/25/2022. Sodium today is at 124. Blood pressure is not low. Patient has chronic hyponatremia and follows in the office. Recently her sodium has been in the 130 range. Patient has been trying to maintain good oral protein intake with some degree of fluid restriction. Previous urine osmolality in July was low at 146. Urine osmolality from this admission not done yet. Patient has been voiding. It looks like patient had issues with urine retention earlier on admission. I do not see a recent bladder scan. Review of Systems As per HPI. Other systems negative Past Medical History Past Medical History: Cancer, COPD Additional Past Medical History / Comment(s): HIATAL HERNIA, SKIN CANCER, NEWLY DIAGNOSED BREAST CANCER- had radiation only, JAEGER'S DISEASE History of Any Multi-Drug Resistant Organisms: None Reported Past Surgical History: Breast Surgery, Tubal Ligation Additional Past Surgical History / Comment(s): BRONCHOSCOPY, BREAST BX, EGD., PROCEDURE TO "CUT NERVES IN NECK" Past Anesthesia/Blood Transfusion Reactions: Motion Sickness, Postoperative Nausea & Vomiting (PONV) Past Psychological History: No Psychological Hx Reported Additional Psychological History / Comment(s): . Smoking Status: Former smoker Past Alcohol Use History: None Reported Additional Past Alcohol Use History / Comment(s): STARTED SMOKING AT AGE 19 QUIT JULY 2016 Past Drug Use History: None Reported - Past Family History Brother(s) Family Medical History: Cancer Additional Family Medical History / Comment(s): BROTHER # 1 PANCREATIC CANCER. BROTHER #2 KIDNEY CANCER. Medications and Allergies Home Medications Medication Instructions Recorded Confirmed Type Omeprazole [PriLOSEC] 20 mg PO DAILY 03/31/14 11/21/22 History Albuterol Sulfate [Ventolin HFA] 2 puff INHALATION RT-Q6H PRN 04/21/14 11/21/22 History Vitamin B Complex 1 cap PO DAILY 09/22/14 11/21/22 History Vitamin E (Dl,Tocopheryl Acet) 1,000 unit PO DAILY 09/22/14 11/21/22 History [Vitamin E] Acetaminophen/Diphenhydramine 2 tab PO HS 10/24/14 11/21/22 History [Tylenol PM 500-25mg] Denosumab [Prolia] 60 mg SQ Q180D 10/24/14 11/21/22 History Aspirin [Adult Low Dose Aspirin EC] 81 mg PO DAILY 04/04/16 11/21/22 History Biotin 5 mg PO DAILY 10/11/18 11/21/22 History Lutein 20 mg PO DAILY 11/03/20 11/21/22 History Tiotropium 2.5 Mcg/Puff [Spiriva 2 puff INHALATION RT-DAILY 11/03/20 11/21/22 History Respimat 2.5 Mcg] Zinc 50 mg PO DAILY 05/09/21 11/21/22 History Anastrozole [Arimidex] 1 mg PO DAILY 11/17/21 11/21/22 History Acetaminophen [Tylenol Extra 1,000 mg PO DAILY 08/24/22 11/21/22 History Strength] Ascorbic Acid [Vitamin C] 1,000 mg PO DAILY 08/24/22 11/21/22 History Cholecalciferol [Vitamin D3 (125 125 mcg PO DAILY 08/24/22 11/21/22 History Mcg = 5000 Iu)] Magnesium 250 mg PO BID 08/24/22 11/21/22 History Simvastatin [Zocor] 10 mg PO HS 08/24/22 11/21/22 History Vitamin A 2,400 mcg PO DAILY 08/24/22 11/21/22 History Calcium Carbonate [Calcium] 600 mg PO BID 09/20/22 11/21/22 History Fluticasone/Vilanterol [Breo 1 puff INHALATION RT-DAILY 09/20/22 11/21/22 History Ellipta 200-25 Mcg Inhaler] Mupirocin 2% Oint [Bactroban 2% 1 applic TOPICAL TID 09/20/22 11/21/22 History Oint] Amoxic-Pot Clav 875-125Mg 1 tab PO BID 11/21/22 11/21/22 History [Augmentin 875-125] Allergies Allergy/AdvReac Type Severity Reaction Status Date / Time bupropion HCl Allergy Rash/Hives Verified 11/21/22 17:35 [From Wellbutrin] Physical Exam Vitals: Vital Signs Temp Pulse Pulse Resp BP Pulse Ox 11/27/22 09:40 100 11/27/22 09:27 100 11/27/22 09:00 98 F 85 17 131/68 96 11/27/22 04:00 98.3 F 85 16 155/74 96 11/27/22 02:00 91 18 11/27/22 00:00 98.1 F 91 18 149/74 97 11/26/22 20:49 100 11/26/22 20:35 108 H 11/26/22 20:00 97.7 F 96 18 166/76 93 L 11/26/22 16:46 110 H 11/26/22 16:37 112 H 11/26/22 15:44 98.1 F 96 17 135/68 94 L 11/26/22 12:49 111 H 11/26/22 12:37 109 H 11/26/22 12:00 97.7 F 94 19 152/76 95 Intake and Output 11/26/22 11/27/22 11/27/22 22:59 06:59 14:59 Intake Total 180 180 Output Total 910 700 Balance -730 -700 180 Intake: Oral 180 180 Output: Urine 910 700 Other: Voiding Method Toilet Toilet Toilet Weight 51.8 kg Patient is awake, comfortable, no acute distress Examination of the heart S1 and S2 Examination of the lungs decreased breath sounds at the bases, occasional wh eezing heard Abdomen is soft nontender Examination of lower extremity shows no significant edema 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 Hyponatremia, hypovolemic initially and improved with normal saline. Saline was discontinued due to volume overload and patient was started on IV Lasix 2 days ago. Sodium has dropped again. Urine osmolality and random urine sodium has been ordered. I will continue off of IV fluids and check a chest x-ray. Need to rule out urine retention. If there is no urine retention I will add sodium chloride tab 1. 2. Pseudomonas aeruginosa pneumonia maintained on cefepime 3. Acute hypoxic respiratory failure secondary to community-acquired pneumonia and COPD exacerbation 4. Acute COPD exacerbation maintained on steroids 5. History of breast cancer with lumpectomy and radiation therapy maintained on hormonal therapy 6. History of Jaeger's esophagitis with hiatal hernia 7. Elevated liver enzymes, maintained on statins. No evidence of gallstones on ultrasound. Plan: DC Lipitor Check urine osmolality and random urine sodium Check bladder scan and rule out urine retention Add sodium chloride 1 if there is no urine retention. Continue to maintain increase oral protein intake If urine osmolality is high patient will be given a dose of Samsca. Repeat sodium this evening Thank you for the consultation. We will continue to follow the patient with you during her hospitalization
--- NOTE | 2022-11-27 10:51 | XR ---
EXAMINATION TYPE: XR chest 1V DATE OF EXAM: 11/27/2022 HISTORY: Shortness of breath. COMPARISON: 11/22/2022 TECHNIQUE: Single view of the chest is submitted. FINDINGS: Demonstrated are scattered senescent parenchymal change. There is no evidence for focal infiltrate. Small bilateral pleural effusions left greater than right. Resolution of left-sided infiltrate. The heart is stable. Hilar and mediastinal structures are within normal limits. Degenerative changes are seen of the dorsal spine. IMPRESSION: 1. Small pleural effusions. Near-complete resolution of left-sided infiltrate.
[2022-11-27] MEDS ORDERED: TOLVAPTAN 15 MG TABLET PO ONE (12:45)
--- NOTE | 2022-11-27 13:59 | P.CNPUL ---
History of Present Illness Consult date: 11/27/22 Requesting physician: Fidencio Donnelly Reason for consult: dyspnea, cough, COPD, hypoxemia, pneumonia, abnormal CXR/CT Chief complaint: Pneumonia. History of present illness: Pulmonary consult dated 11/27/2022. 77-year-old female with a history of COPD and breast cancer, who presents to the emergency department, on 11/21/2022, complaining of chest pain, and weakness. The patient apparently had some pain taking a deep breath, and subsequent was admitted with a diagnosis of pneumonia. The patient apparently was also found to have Pseudomonas in her sputum, and is on cefepime, which is effective against her Pseudomonas. The patient does have a history of COPD from previous heavy tobacco use. She quit smoking in 2017. Her primary care physician is Dr. Alanna Morgan. She also sees Dr. Katia Han for her breast cancer. She also sees a copier operator as well. The patient does not see a associate sales manager for her COPD. She's currently on a short acting beta agonist, Spiriva, and Breo. She is on 2 L of oxygen currently, but does not use oxygen at home, and is also getting saline at [facility]. She is feeling much better. She is hoping to be discharged soon. Her medical history includes breast cancer, COPD, hiatal hernia, skin cancer, and previous tobacco use. Most recent laboratory data includes a white count of 10.9, within normal hemoglobin, hematocrit, and platelet count. In addition, sodium is 124, potassium 4.2, chlorides 89, CO2 27, BUN 21, creatinine 0.49. Her AST is 426, her ALT is 589, and her alkaline phosphatase is 289. The patient tested negative for hepatitis serology. Her urinary Legionella antigen was negative as well. The sputum did reveal Pseudomonas. Her most recent chest x-ray shows improved infiltrates. Review of Systems REVIEW OF SYSTEMS: CONSTITUTIONAL: Weakness. NEUROLOGIC: [ Negative.] HEENT: [ Negative.] CARDIAC: [Negative.] PULMONARY: Shortness of breath, chest pain, cough, sputum production. GI: [Negative.] : [Negative.] RHEUMATOLOGIC: [ Negative.] IMMUNOLOGIC: [ Negative.] ENDOCRINE: [Negative. ] DERMATOLOGIC: [Negative.] Past Medical History Past Medical History: Cancer, COPD Additional Past Medical History / Comment(s): HIATAL HERNIA, SKIN CANCER, NEWLY DIAGNOSED BREAST CANCER- had radiation only, JAEGER'S DISEASE History of Any Multi-Drug Resistant Organisms: None Reported Past Surgical History: Breast Surgery, Tubal Ligation Additional Past Surgical History / Comment(s): BRONCHOSCOPY, BREAST BX, EGD., PROCEDURE TO "CUT NERVES IN NECK" Past Anesthesia/Blood Transfusion Reactions: Motion Sickness, Postoperative Nausea & Vomiting (PONV) Past Psychological History: No Psychological Hx Reported Additional Psychological History / Comment(s): . Smoking Status: Former smoker Past Alcohol Use History: None Reported Additional Past Alcohol Use History / Comment(s): STARTED SMOKING AT AGE 19 QUIT JULY 2016 Past Drug Use History: None Reported - Past Family History Brother(s) Family Medical History: Cancer Additional Family Medical History / Comment(s): BROTHER # 1 PANCREATIC CANCER. BROTHER #2 KIDNEY CANCER. Medications and Allergies Home Medications Medication Instructions Recorded Confirmed Type Omeprazole [PriLOSEC] 20 mg PO DAILY 03/31/14 11/21/22 History Albuterol Sulfate [Ventolin HFA] 2 puff INHALATION RT-Q6H PRN 04/21/14 11/21/22 History Vitamin B Complex 1 cap PO DAILY 09/22/14 11/21/22 History Vitamin E (Dl,Tocopheryl Acet) 1,000 unit PO DAILY 09/22/14 11/21/22 History [Vitamin E] Acetaminophen/Diphenhydramine 2 tab PO HS 10/24/14 11/21/22 History [Tylenol PM 500-25mg] Denosumab [Prolia] 60 mg SQ Q180D 10/24/14 11/21/22 History Aspirin [Adult Low Dose Aspirin EC] 81 mg PO DAILY 04/04/16 11/21/22 History Biotin 5 mg PO DAILY 10/11/18 11/21/22 History Lutein 20 mg PO DAILY 11/03/20 11/21/22 History Tiotropium 2.5 Mcg/Puff [Spiriva 2 puff INHALATION RT-DAILY 11/03/20 11/21/22 History Respimat 2.5 Mcg] Zinc 50 mg PO DAILY 05/09/21 11/21/22 History Anastrozole [Arimidex] 1 mg PO DAILY 11/17/21 11/21/22 History Acetaminophen [Tylenol Extra 1,000 mg PO DAILY 08/24/22 11/21/22 History Strength] Ascorbic Acid [Vitamin C] 1,000 mg PO DAILY 08/24/22 11/21/22 History Cholecalciferol [Vitamin D3 (125 125 mcg PO DAILY 08/24/22 11/21/22 History Mcg = 5000 Iu)] Magnesium 250 mg PO BID 08/24/22 11/21/22 History Simvastatin [Zocor] 10 mg PO HS 08/24/22 11/21/22 History Vitamin A 2,400 mcg PO DAILY 08/24/22 11/21/22 History Calcium Carbonate [Calcium] 600 mg PO BID 09/20/22 11/21/22 History Fluticasone/Vilanterol [Breo 1 puff INHALATION RT-DAILY 09/20/22 11/21/22 History Ellipta 200-25 Mcg Inhaler] Mupirocin 2% Oint [Bactroban 2% 1 applic TOPICAL TID 09/20/22 11/21/22 History Oint] Amoxic-Pot Clav 875-125Mg 1 tab PO BID 11/21/22 11/21/22 History [Augmentin 875-125] Allergies Allergy/AdvReac Type Severity Reaction Status Date / Time bupropion HCl Allergy Rash/Hives Verified 11/21/22 17:35 [From Wellbutrin] Physical Exam Osteopathic Statement: *. No significant issues noted on an osteopathic structural exam other than those noted in the History and Physical/Consult. Vitals: Vital Signs Temp Pulse Pulse Resp BP Pulse Ox 11/27/22 12:55 98 11/27/22 12:45 94 11/27/22 11:15 106 H 18 135/75 94 L 11/27/22 09:40 100 11/27/22 09:27 100 11/27/22 09:00 98 F 85 17 131/68 96 11/27/22 04:00 98.3 F 85 16 155/74 96 11/27/22 02:00 91 18 11/27/22 00:00 98.1 F 91 18 149/74 97 11/26/22 20:49 100 11/26/22 20:35 108 H 11/26/22 20:00 97.7 F 96 18 166/76 93 L 11/26/22 16:46 110 H 11/26/22 16:37 112 H 11/26/22 15:44 98.1 F 96 17 135/68 94 L Intake and Output 11/26/22 11/27/22 11/27/22 22:59 06:59 14:59 Intake Total 180 180 Output Total 910 700 338 Balance -730 -700 -158 Intake: Oral 180 180 Output: Urine 910 700 200 Post Void Residual 138 Other: Voiding Method Toilet Toilet Toilet # Voids 1 Weight 51.8 kg No acute distress, oriented 3. Currently on 2 L of oxygen. No conversational dyspnea or use of accessory muscles. HEENT examination is grossly unremarkable. Mucous membranes are moist. No oral lesions. Neck supple. Full range of motion. No adenopathy thyromegaly or neck vein distention. Cardiovascular examination reveals regular rhythm rate. S1-S2 normal. No S3 or S4. No discernible murmur noted. Heart rate 94 bpm. Lungs reveal minimal adventitious lung sounds. Scattered rhonchi. No wheezes. Breath sounds equal bilaterally. No crackles. Abdomen soft bowel sounds are heard. No masses or tenderness. Extremities are intact. No cyanosis clubbing or edema. Skin is without rash or lesion. Neurologic examination is brief but nonfocal. Results - Laboratory Findings CBC and BMP: 11/27/22 07:17 11/27/22 07:17 PT/INR, D-dimer PT 10.9 sec (9.0-12.0) 11/21/22 16:46 INR 1.0 (<1.2) 11/21/22 16:46 Abnormal lab findings: Abnormal Labs 11/21/22 11/21/22 11/22/22 16:46 16:46 10:28 WBC 18.6 H 15.2 H RBC 3.53 L Hgb Hct 33.0 L Neutrophils # 17.3 H 13.7 H Lymphocytes # 0.4 L 0.3 L Monocytes # Sodium 120 L Chloride 88 L Carbon Dioxide 21 L BUN 35 H Creatinine Glucose 126 H Calcium AST 57 H ALT 54 H Alkaline Phosphatase Total Protein 6.0 L Albumin 3.4 L Procalcitonin 11/22/22 11/22/22 11/23/22 10:28 10:28 07:39 WBC 10.8 H RBC 3.61 L Hgb Hct Neutrophils # 8.7 H Lymphocytes # 0.5 L Monocytes # 1.1 H Sodium 124 L Chloride 95 L Carbon Dioxide 19 L BUN 20 H Creatinine Glucose 125 H Calcium 8.0 L AST 39 H ALT 42 H Alkaline Phosphatase Total Protein 5.0 L Albumin 2.7 L Procalcitonin 5.33 H 11/23/22 11/24/22 11/24/22 07:39 06:46 06:46 WBC RBC 3.37 L Hgb 10.9 L Hct 32.1 L Neutrophils # Lymphocytes # 0.6 L Monocytes # Sodium 125 L 125 L Chloride Carbon Dioxide 21 L 21 L BUN Creatinine 0.48 L 0.40 L Glucose 103 H 100 H Calcium 7.8 L 7.4 L AST 255 H 242 H ALT 181 H 234 H Alkaline Phosphatase 182 H 233 H Total Protein 4.9 L 4.7 L Albumin 2.5 L 2.4 L Procalcitonin 11/25/22 11/26/22 11/26/22 06:07 06:38 06:38 WBC RBC 3.45 L Hgb 10.9 L Hct 32.9 L Neutrophils # Lymphocytes # 0.9 L Monocytes # 1.3 H Sodium 127 L 127 L Chloride 94 L Carbon Dioxide 21 L BUN Creatinine 0.37 L 0.49 L Glucose 154 H Calcium 7.8 L AST 183 H 335 H ALT 255 H 389 H Alkaline Phosphatase 267 H 281 H Total Protein 5.0 L 4.9 L Albumin 2.5 L 2.5 L Procalcitonin 11/27/22 11/27/22 07:17 07:17 WBC 10.9 H RBC 3.77 L Hgb Hct Neutrophils # 8.0 H Lymphocytes # Monocytes # Sodium 124 L Chloride 89 L Carbon Dioxide BUN 21 H Creatinine 0.49 L Glucose Calcium AST 426 H ALT 589 H Alkaline Phosphatase 289 H Total Protein 5.5 L Albumin 2.9 L Procalcitonin - Diagnostic Findings Chest x-ray: image reviewed Assessment and Plan Assessment: Acute pneumonia, secondary to pseudomonas aeruginosa, and a patient with underlying COPD. History of previous tobacco use, and COPD. History of breast cancer. Hyponatremia. History of hiatal hernia. History of skin cancer. Prior history of coronavirus infection. Plan: Plan dated 11/27/2022. The patient has been in the hospital now for about 7 days. She's currently on cefepime for pseudomonas aeruginosa pneumonia, involving the left lung. She also has a history of COPD, treated as an outpatient, with appropriate medications including a Ventolin inhaler, Spiriva, and Breo. The patient quit smoking in 2017. She does have a history of breast cancer. She also follows with a copier operator. Additional recommendations and suggestions are forthcoming. The patient is hoping to be discharged soon. She may need oxygen on discharge. This will be evaluated prior to discharge. Time with Patient: Greater than 30
--- NOTE | 2022-11-27 14:34 | P.PN ---
Subjective Progress Note Date: 11/27/22 This is a pleasant 77 year old female with medical history of COPD, skin cancer, breast cancer with radiation, acevedo's disease, former smoker, hyponatremia. Presents to the with left sided chest pain radiates to the back reports as worse with deep breathing. Patient was recently diagnosed with covid pneumonia back in July of 2022, and a second hospitalization for hand cellulitis. Has been on and off antibiotics. Patient recently had a molar extracted with oral surgeon Dr. Cerna and has had pain to the left mandible since and felt possibly infected. Had fever of 104 at home. Sunday patient was evaluated in the [facility] had a facial CT done showing no drainable abscess of the tooth extraction site. Patient had viral panel done was negative for covid, influenza and RSV and patient was sent home. Patient returns to the [facility] not improving now with productive cough and shortness of breath. Worried about infection. Patient is requiring oxygen at 2L nasal cannula. Chest xray reveals a reticulonodular infiltrate within the left upper lobe, correlate for pneumonia or atypical pneumonia. There are COPD changes. Cardiology consulted for the chest pain. Echocardiogram has been ordered, troponin level is negative x 3. Patient does have significant elevated procalcitonin level at 5.33. Patient does have leukocytosis, and sputum culture and blood culture are ordered. Patient is started on antibiotics and admitted for pneumonia and cardiac work up. 11/23/2022 Patient evaluated today resting in bed. Reports feeling achy fatigued and continues with congested cough. Infectious disease asking to evaluate the patient, continues on antibiotics IV ceftriaxone and PO azithromycin. Blood culture and sputum culture pending. Patient is being hydrated. Remains febrile T max 100.8 today. LFTs elevated at abdominal ultrasound ordered reveals subtle nodularity contour of the liver correlate for cirrhosis, hepatic cyst, gallbladder folds, severe atherosclerosis, trace ascites, increased echotexture to kidneys correlate for medical renal disease. Continues on IV fluids sodium has improved up to 125. White count 10.8. Patient is weaned to 2L of oxygen. Echocardiogram shows normal LV systolic function 11/24/2022 Patient evaluated today sitting up in chair. Overall feels improved however reports continued cough and reports abdominal muscles are sore from this. Sputum culture showing gram negative bacilli and patient remains on IV ceftriaxone. ID following. Had issue with urinary retention overnight, patient did move bowels are the retention has resolved. Patient is receiving supportive care for the cough. Patient reports low appetite, ensure will be ordered. 11/25/2022 Patient is evaluated today sitting up in bed. Feels slightly improved as compared to yesterday. On 2L nasal cannula and discussed with nursing weaning attempt. Sputum culture has finalized to pseudomonas and patient continues on IV cefepime. Fluids have been discontinued and patient to receive a dose of IV lasix today. LFTs remain elevated likely from hepatic congestion and expected to improve. Continues with productive cough. Patient has been started on oral prednisone daily. Continues to report no appetite. Sodium has improved to 127 off the IV fluids. 11/26/2022 Patient is evaluated today on the medical floor being treated for pseudomonas pneumonia and continues on IV cefepime. Started on IV lasix with no improvement in sodium stable at 127. LFT's continue to worsen with AST at 335, ALT 389, and alk phos 281. Hepatitis panel is ordered. Patient is afebrile, heart rate 111, blood pressure 152/76. Continues on nasal cannula at 2L and patient reports improvement in shortness of breath. Using incentive spirometer. 11/27/2022 Patient is seen and evaluated in follow-up maintained on IV antibiotics with infectious disease following. Initial sputum culture showing Pseudomonas with sensitivities and repeat sputum culture showing Chetna. Patient does not normally wear oxygen in the outpatient setting with case management following and has provided a prescription to provide oxygen to manage COPD in the outpatient setting. Patient's chest x-ray today shows some small pleural effusions with near complete resolution of the left-sided infiltrate. Patient reports she does not follow with a real estate specialist and continues to require oxygen we'll consult pulmonary and appreciate input and recommendations. Sodium is chronically low and currently 124 with nephrology following and considering a dose of Samsca. Patient is currently afebrile and requesting when she could go home. REVIEW OF SYSTEMS: CONSTITUTIONAL: Reports improvement in fever and malaise. HEENT: No recent visual problems or hearing problems. Denied any sore throat. CARDIOVASCULAR: No chest pain, orthopnea, PND, no palpitations, no syncope. PULMONARY: Reports shortness of breath that is improving although requiring oxy gen. , Reports cough with sputum, no hemoptysis. GASTROINTESTINAL: No diarrhea, no nausea, no vomiting, no abdominal pain. NEUROLOGICAL: No headaches, no weakness, no numbness. PHYSICAL EXAMINATION: GENERAL: The patient is alert and oriented x3, thin built, elderly appearing. Well developed HEENT: Pupils are round and equally reacting to light. EOMI. No scleral icterus. No conjunctival pallor. Normocephalic, atraumatic. No pharyngeal erythema. No thyromegaly. Gum line is not reddened no facial swelling or erythema. CARDIOVASCULAR: S1 and S2 present. No murmurs, rubs, or gallops. PULMONARY: Chest is diminished with congested cough ABDOMEN: Soft, nontender, nondistended, normoactive bowel sounds. No palpable organomegaly. MUSCULOSKELETAL: No joint swelling or deformity. EXTREMITIES: No cyanosis, clubbing, or pedal edema. NEUROLOGICAL: Gross neurological examination did not reveal any focal deficits. SKIN: No rashes. Assessment: -Acute hypoxic respiratory failure secondary to acute COPD exacerbation and community acquired pneumonia present on admission -Pseudomonas pneumonia -Leukocytosis/fever and Sepsis secondary to above -Chest pain pleuritic in nature ACS has been ruled out -Hyponatremia from dehydration and poor oral intake, does have issues with low sodium follows with nephrology outpatient -Elevated transaminases no evidence for acute cholecystitis on imaging likely due to sepsis vs hepatic congestion -Hyperlipidemia -Former smoker -History of Acevedo's esophagus with hiatal hernia -History of skin cancer -Hx breast cancer with lumpectomy and radiation on hormone therapy -Recent hospitalization for acute covid infection -GI prophylaxis -DVT prophylaxis Plan: Cardiology signed off - recommending outpatient stress test when medically stable Continues on IV cefepime and final sputum culture reveals pseudomonas, ID following and will discuss further with discharge antibiotics. Repeat sputum culture showing Chetna Started on oral prednisone burst and taper. Patient continues to have shortness of breath requiring oxygen and will consult pulmonary and appreciate input and recommendations. Patient reports she does not follow with a real estate specialist outpatient and will need resources Case management following as patient will require oxygen on discharge to manage COPD at 2 L. Continue to encourage incentive spirometer 10 x an hour while awake Chest x-ray from today reviewed showing some improvement in aeration awaiting PT/OT therapy consultation and will likely go home on discharge with home care. Case management following arranging for discharge oxygen when necessary supplies for discharge planning Follow up labs in AM Likely discharge in 24 hours The impression and plan of care has been dictated by Kimberlee Billy, Nurse Practitioner as directed. Dr. Andrzej MD I have performed a history and examination and MDM of this patient, discussed the same with the dictator, and agree with the dictator's assessment and plan as written ,documented as a scribe. Based on total visit time, I have performed more than 50% of the visit. Objective - Vital Signs Vital signs: Vital Signs Temp 98 F 11/27/22 09:00 Pulse 98 11/27/22 12:55 Resp 18 11/27/22 11:15 BP 135/75 11/27/22 11:15 Pulse Ox 94 L 11/27/22 11:15 FiO2 Intake & Output 11/26/22 11/27/22 11/27/22 18:59 06:59 18:59 Intake Total 540 360 Output Total 1300 1610 338 Balance -760 -1610 22 Weight 51.8 kg Intake: Oral 540 360 Output: Urine 1300 1610 200 Post Void Residual 138 Other: Voiding Method Toilet Toilet Toilet # Voids 1 1 - Labs CBC & Chem 7: 11/27/22 07:17 11/27/22 07:17 Labs: Abnormal Lab Results - Last 24 Hours (Table) 11/27/22 11/27/22 Range/Units 07:17 07:17 WBC 10.9 H (3.8-10.6) k/uL RBC 3.77 L (3.80-5.40) m/uL Neutrophils # 8.0 H (1.3-7.7) k/uL Sodium 124 L (137-145) mmol/L Chloride 89 L (98-107) mmol/L BUN 21 H (7-17) mg/dL Creatinine 0.49 L (0.52-1.04) mg/dL AST 426 H (14-36) U/L ALT 589 H (4-34) U/L Alkaline Phosphatase 289 H (38-126) U/L Total Protein 5.5 L (6.3-8.2) g/dL Albumin 2.9 L (3.5-5.0) g/dL Microbiology - Last 24 Hours (Table) 11/25/22 16:27 Gram Stain - Preliminary Sputum Sputum Culture - Preliminary Chetna albicans 11/21/22 20:01 Blood Culture - Final Blood 11/21/22 20:15 Blood Culture - Final Blood
[2022-11-27] MEDS: diphenhydrAMINE 25 MG CAP PO PRN (22:20)
[2022-11-28] MEDS: traMADol 50 MG TAB PO PRN ×2 (03:36→22:08)
[2022-11-28] MEDS: BENZONATATE 100 MG CAP PO PRN (03:37)
[2022-11-28] MEDS: CEFEPIME 2 GM in SODIUM CHLORIDE 0.9% 100 ML IVPB SCH ×3 (06:26→23:13)
[2022-11-28] MEDS: IPRATROPIUM-ALBUTEROL 3 ML NEB INHALATION SCH ×4 (08:18→20:23)
[2022-11-28] MEDS: SYMBICORT 160-4.5 MCG INHALER INHALATION SCH ×2 (08:18→20:23)
[2022-11-28] MEDS: PANTOPRAZOLE 40 MG TABLET PO SCH (09:00)
[2022-11-28] MEDS: HEPARIN SODIUM,PORCINE/PF 5,000 UNIT/0.5 ML SYRINGE SQ SCH ×2 (09:01→21:02)
[2022-11-28] MEDS: ANASTROZOLE 1 MG TAB PO SCH (09:01)
[2022-11-28] MEDS: ASPIRIN 81 MG PO SCH (09:01)
[2022-11-28] MEDS: CALCIUM CARBONATE 500 MG CHEWABLE PO SCH ×2 (09:01→21:02)
[2022-11-28] MEDS: CHOLECALCIFEROL 125 MCG (5000 IU) TABLET PO SCH (09:01)
[2022-11-28] MEDS: ASCORBIC ACID 500 MG TAB PO SCH (09:01)
[2022-11-28] MEDS: predniSONE 20 MG TAB PO SCH (09:02)
[2022-11-28] MEDS: MAGNESIUM OXIDE 400 MG TAB PO SCH ×2 (09:02→21:02)
[2022-11-28] MEDS: ZINC SULFATE 220 MG CAP PO SCH (09:02)
[2022-11-28] MEDS: FUROSEMIDE 10 MG/ML 4 ML VIAL IV SCH (10:30)
[2022-11-28 11:31] LABS: African American GFR (CKD) >90 (>60 ml/min/1.73 sqM); Anion Gap 9 mmol/L; Blood Urea Nitrogen 31 mg/dL (7-17); Calcium 9.4 mg/dL (8.4-10.2); Carbon Dioxide 31 mmol/L (22-30); Chloride 89 mmol/L (98-107); Glucose 103 mg/dL (74-99); Non-African American GFR(CKD) >90 (>60 ml/min/1.73 sqM); Potassium 4.4 mmol/L (3.5-5.1); Sodium 129 mmol/L (137-145)
--- NOTE | 2022-11-28 12:08 | P.PN ---
Subjective Progress Note Date: 11/28/22 77-year-old female with a history of COPD and breast cancer, who presents to the emergency department, on 11/21/2022, complaining of chest pain, and weakness. The patient apparently had some pain taking a deep breath, and subsequent was admitted with a diagnosis of pneumonia. The patient apparently was also found to have Pseudomonas in her sputum, and is on cefepime, which is effective against her Pseudomonas. The patient does have a history of COPD from previous heavy tobacco use. She quit smoking in 2017. Her primary care physician is Dr. Alanna Morgan. She also sees Dr. Katia Han for her breast cancer. She also sees a winery worker as well. The patient does not see a air traffic control operator for her COPD. She's currently on a short acting beta agonist, Spiriva, and Breo. She is on 2 L of oxygen currently, but does not use oxygen at home, and is also getting saline at KVO. She is feeling much better. She is hoping to be discharged soon. Her medical history includes breast cancer, COPD, hiatal hernia, skin cancer, and previous tobacco use. Most recent laboratory data includes a white count of 10.9, within normal hemoglobin, hematocrit, and platelet count. In addition, sodium is 124, potassium 4.2, chlorides 89, CO2 27, BUN 21, creatinine 0.49. Her AST is 426, her ALT is 589, and her alkaline phosphatase is 289. The patient tested negative for hepatitis serology. Her ur inary Legionella antigen was negative as well. The sputum did reveal Pseudomonas. Her most recent chest x-ray shows improved infiltrates. The patient is seen today 11/28/2022 in follow-up on the regular medical floor. She is currently sitting up in bed. Awake and alert in no acute distress. Ma intaining good O2 saturations in the mid 90s on 2 L/m per nasal cannula. She's been afebrile. Hemodynamically stable. Sputum culture positive for pseudomonas aeruginosa. Sodium 129. Potassium 4.4. Bicarb 31. BUN 31. Creatinine 0.57. Glucose 103. Urine osmolality 266. Random urine sodium 86. She remains on DuoNeb inhalations, Symbicort, prednisone taper. Heparin for DVT prophylaxis. Antibiotics in the form of cefepime. Objective - Vital Signs Vital signs: Vital Signs Temp 98.1 F 11/28/22 07:46 Pulse 82 11/28/22 11:47 Resp 18 11/28/22 07:46 BP 148/73 11/28/22 07:46 Pulse Ox 95 11/28/22 08:19 FiO2 Intake & Output 11/27/22 11/28/22 11/28/22 18:59 06:59 18:59 Intake Total 540 700 Output Total 338 625 Balance 202 75 Intake: Intake, IV Titration 100 Amount Cefepime 2 gm In Sodium 100 Chloride 0.9% 100 ml @ 25 mls/hr IVPB Q8H [facility] Rx#: [id number] Oral 540 600 Output: Urine 200 625 Post Void Residual 138 Other: Voiding Method Toilet Toilet # Voids 1 2 # Bowel Movements 1 - Exam GENERAL EXAM: Alert, pleasant 77-year-old female, on 2 L nasal cannula, comfortable in no apparent distress. HEAD: Normocephalic. EYES: Normal reaction of pupils, equal size. NOSE: Clear with pink turbinates. THROAT: No erythema or exudates. NECK: No masses, no JVD. CHEST: No chest wall deformity. LUNGS: Equal air entry with few scattered rhonchi. CVS: S1 and S2 normal with no audible murmur, regular rhythm. ABDOMEN: No hepatosplenomegaly, normal bowel sounds, no guarding or rigidity. SPINE: No scoliosis or deformity SKIN: No rashes CENTRAL NERVOUS SYSTEM: No focal deficits, tone is normal in all 4 extremities. EXTREMITIES: There is no peripheral edema. No clubbing, no cyanosis. Peripheral pulses are intact. - Labs CBC & Chem 7: 11/27/22 07:17 11/28/22 10:03 Labs: Abnormal Lab Results - Last 24 Hours (Table) 11/28/22 Range/Units 10:03 Sodium 129 L (137-145) mmol/L Chloride 89 L (98-107) mmol/L Carbon Dioxide 31 H (22-30) mmol/L BUN 31 H (7-17) mg/dL Glucose 103 H (74-99) mg/dL Microbiology - Last 24 Hours (Table) 11/25/22 16:27 Gram Stain - Final Sputum Sputum Culture - Final Chetna albicans Assessment and Plan Assessment: Acute pneumonia, secondary to pseudomonas aeruginosa, in a patient with underlying COPD. History of previous tobacco use, and COPD. History of breast cancer. Hyponatremia. History of hiatal hernia. History of skin cancer. Prior history of coronavirus infection. Plan: The patient was seen and evaluated Labs and medications are reviewed Cleared for discharge from the pulmonary standpoint Antibiotics per ID services Continue her home pulmonary medications Complete a prednisone taper Follow up with Dr. Patricia in our office in 1-2 weeks I have personally seen and examined the patient, performed the documentation and the assessment and plan as written. Number of minutes spent on the visit: 10.
--- NOTE | 2022-11-28 12:11 | P.PN ---
Subjective Patient is seen for follow-up for hyponatremia. Patient is mildly hypervolemic. Maintained on IV Lasix. [facility] with improvement in serum sodium. Sodium is 129 today. Patient states she is breathing better. She feels much better today. Trying to increase oral intake particularly protein. Objective - Vital Signs Vital signs: Vital Signs Temp 98.1 F 11/28/22 07:46 Pulse 82 11/28/22 11:47 Resp 18 11/28/22 07:46 BP 148/73 11/28/22 07:46 Pulse Ox 95 11/28/22 08:19 FiO2 Intake & Output 11/27/22 11/28/22 11/28/22 18:59 06:59 18:59 Intake Total 540 700 Output Total 338 625 Balance 202 75 Intake: Intake, IV Titration 100 Amount Cefepime 2 gm In Sodium 100 Chloride 0.9% 100 ml @ 25 mls/hr IVPB Q8H [facility] Rx#: [id number] Oral 540 600 Output: Urine 200 625 Post Void Residual 138 Other: Voiding Method Toilet Toilet # Voids 1 2 # Bowel Movements 1 - Exam Patient is awake, comfortable, no acute distress Examination of the heart S1 and S2 Examination of the lungs decreased breath sounds at the bases, occasional wheezing heard Abdomen is soft nontender Examination of lower extremity shows no significant edema [employer] exam grossly intact - Labs CBC & Chem 7: 11/27/22 07:17 11/28/22 10:03 Labs: Abnormal Lab Results - Last 24 Hours (Table) 11/28/22 Range/Units 10:03 Sodium 129 L (137-145) mmol/L Chloride 89 L (98-107) mmol/L Carbon Dioxide 31 H (22-30) mmol/L BUN 31 H (7-17) mg/dL Glucose 103 H (74-99) mg/dL Microbiology - Last 24 Hours (Table) 11/25/22 16:27 Gram Stain - Final Sputum Sputum Culture - Final Chetna albicans Assessment and Plan Assessment: 1. Hyponatremia, hypovolemic initially and improved with normal saline. Now hypervolemic and maintained on IV Lasix. Urine osmolality 266 with a random urine sodium of 86. This is while patient was already on IV Lasix. Status post Samsca with improvement in serum sodium. 2. Pseudomonas aeruginosa pneumonia maintained on cefepime 3. Acute hypoxic respiratory failure secondary to community-acquired pneumonia and COPD exacerbation 4. Acute COPD exacerbation maintained on steroids 5. History of breast cancer with lumpectomy and radiation therapy maintained on hormonal therapy 6. History of Hansen's esophagitis with hiatal hernia 7. Elevated liver enzymes, maintained on statins. No evidence of gallstones on ultrasound. Plan: Repeat sodium in a.m. Continue with current dose of IV Lasix Continue to maintain increased protein intake.
--- NOTE | 2022-11-28 14:46 | P.PN ---
Subjective Progress Note Date: 11/28/22 This is a pleasant 77 year old female with medical history of COPD, skin cancer, breast cancer with radiation, acevedo's disease, former smoker, hyponatremia. Presents to the with left sided chest pain radiates to the back reports as worse with deep breathing. Patient was recently diagnosed with covid pneumonia back in July of 2022, and a second hospitalization for hand cellulitis. Has been on and off antibiotics. Patient recently had a molar extracted with oral surgeon Dr. Cerna and has had pain to the left mandible since and felt possibly infected. Had fever of 104 at home. Sunday patient was evaluated in the [facility] had a facial CT done showing no drainable abscess of the tooth extraction site. Patient had viral panel done was negative for covid, influenza and RSV and patient was sent home. Patient returns to the [facility] not improving now with productive cough and shortness of breath. Worried about infection. Patient is requiring oxygen at 2L nasal cannula. Chest xray reveals a reticulonodular infiltrate within the left upper lobe, correlate for pneumonia or atypical pneumonia. There are COPD changes. Cardiology consulted for the chest pain. Echocardiogram has been ordered, troponin level is negative x 3. Patient does have significant elevated procalcitonin level at 5.33. Patient does have leukocytosis, and sputum culture and blood culture are ordered. Patient is started on antibiotics and admitted for pneumonia and cardiac work up. 11/23/2022 Patient evaluated today resting in bed. Reports feeling achy fatigued and continues with congested cough. Infectious disease asking to evaluate the patient, continues on antibiotics IV ceftriaxone and PO azithromycin. Blood culture and sputum culture pending. Patient is being hydrated. Remains febrile T max 100.8 today. LFTs elevated at abdominal ultrasound ordered reveals subtle nodularity contour of the liver correlate for cirrhosis, hepatic cyst, gallbladder folds, severe atherosclerosis, trace ascites, increased echotexture to kidneys correlate for medical renal disease. Continues on IV fluids sodium has improved up to 125. White count 10.8. Patient is weaned to 2L of oxygen. Echocardiogram shows normal LV systolic function 11/24/2022 Patient evaluated today sitting up in chair. Overall feels improved however reports continued cough and reports abdominal muscles are sore from this. Sputum culture showing gram negative bacilli and patient remains on IV ceftriaxone. ID following. Had issue with urinary retention overnight, patient did move bowels are the retention has resolved. Patient is receiving supportive care for the cough. Patient reports low appetite, ensure will be ordered. 11/25/2022 Patient is evaluated today sitting up in bed. Feels slightly improved as compared to yesterday. On 2L nasal cannula and discussed with nursing weaning attempt. Sputum culture has finalized to pseudomonas and patient continues on IV cefepime. Fluids have been discontinued and patient to receive a dose of IV lasix today. LFTs remain elevated likely from hepatic congestion and expected to improve. Continues with productive cough. Patient has been started on oral prednisone daily. Continues to report no appetite. Sodium has improved to 127 off the IV fluids. 11/26/2022 Patient is evaluated today on the medical floor being treated for pseudomonas pneumonia and continues on IV cefepime. Started on IV lasix with no improvement in sodium stable at 127. LFT's continue to worsen with AST at 335, ALT 389, and alk phos 281. Hepatitis panel is ordered. Patient is afebrile, heart rate 111, blood pressure 152/76. Continues on nasal cannula at 2L and patient reports improvement in shortness of breath. Using incentive spirometer. 11/27/2022 Patient is seen and evaluated in follow-up maintained on IV antibiotics with infectious disease following. Initial sputum culture showing Pseudomonas with sensitivities and repeat sputum culture showing Chetna. Patient does not normally wear oxygen in the outpatient setting with case management following and has provided a prescription to provide oxygen to manage COPD in the outpatient setting. Patient's chest x-ray today shows some small pleural effusions with near complete resolution of the left-sided infiltrate. Patient reports she does not follow with a blood bank specialist and continues to require oxygen we'll consult pulmonary and appreciate input and recommendations. Sodium is chronically low and currently 124 with nephrology following and considering a dose of Samsca. Patient is currently afebrile and requesting when she could go home. 11/28/2022 Patient is seen and evaluated in follow-up today currently continued on IV antibiotics with multiple medical consultations following. Patient will transition to oral Cipro on discharge. Oxygen requirements have been arranged for the outpatient setting and patient will go home on 2 L of oxygen to manage COPD. Recommend pulmonary follow-up outpatient. Patient was initially scheduled for discharge possibly today although no open pharmacy that accepts her insurance and unable to obtain medications. Nephrology following as well and patient is status post 1 dose of Samsca yesterday and sodium improved to 127 today. Patient does follow with nephrology outpatient. Patient is currently maintained on IV Lasix daily and will continue recommend follow-up labs. Patient is afebrile with no reports of chest pain or worsening shortness of breath. Patient was age is to go home although willing to wait due to medications. REVIEW OF SYSTEMS: CONSTITUTIONAL: Reports improvement in fever and malaise. HEENT: No recent visual problems or hearing problems. Denied any sore throat. CARDIOVASCULAR: No chest pain, orthopnea, PND, no palpitations, no syncope. PULMONARY: Reports shortness of breath that is improving although requiring oxygen. , Reports cough with sputum, no hemoptysis. GASTROINTESTINAL: No diarrhea, no nausea, no vomiting, no abdominal pain. NEUROLOGICAL: No headaches, no weakness, no numbness. PHYSICAL EXAMINATION: GENERAL: The patient is alert and oriented x3, thin built, elderly appearing. Well developed HEENT: Pupils are round and equally reacting to light. EOMI. No scleral icterus. No conjunctival pallor. Normocephalic, atraumatic. No pharyngeal erythema. No thyromegaly. Gum line is not reddened no facial swelling or erythema. CARDIOVASCULAR: S1 and S2 present. No murmurs, rubs, or gallops. PULMONARY: Chest is diminished with congested cough ABDOMEN: Soft, nontender, nondistended, normoactive bowel sounds. No palpable organomegaly. MUSCULOSKELETAL: No joint swelling or deformity. EXTREMITIES: No cyanosis, clubbing, or pedal edema. NEUROLOGICAL: Gross neurological examination did not reveal any focal deficits. SKIN: No rashes. Assessment: -Acute hypoxic respiratory failure secondary to acute COPD exacerbation and community acquired pneumonia present on admission -Pseudomonas pneumonia -Leukocytosis/fever and Sepsis secondary to above -Chest pain pleuritic in nature ACS has been ruled out -Hyponatremia from dehydration and poor oral intake, does have issues with low sodium follows with nephrology outpatient -Elevated transaminases no evidence for acute cholecystitis on imaging likely due to sepsis vs hepatic congestion -Hyperlipidemia -Former smoker -History of Acevedo's esophagus with hiatal hernia -History of skin cancer -Hx breast cancer with lumpectomy and radiation on hormone therapy -Recent hospitalization for acute covid infection -GI prophylaxis -DVT prophylaxis Plan: Recommend continue with current medications and management with multiple medical Consultations following. Plans for discharge in a.m. to arrange for medications here at the pharmacy. Due to the holiday no pharmacies opened and attempted [facility] on which is the only open pharmacy although they do not accept her insurance. Cardiology signed off - recommending outpatient stress test when medically stable Continues on IV cefepime and final sputum culture reveals pseudomonas, ID following and will go home on oral Cipro for 7 days Started on oral prednisone burst and taper. Patient continues to have shortness of breath requiring oxygen and will consult pulmonary and appreciate input and recommendations. Patient reports she does not follow with a blood bank specialist outpatient and will need resources Case management following as patient will require oxygen on discharge to manage COPD at 2 L. Continue to encourage incentive spirometer 10 x an hour while awake Follow up labs in AM and will discuss further with nephrology about Lasix therapy on discharge Probable discharge in 24 hours The impression and plan of care has been dictated by Kimberlee Billy, Nurse Practitioner as directed. Dr. Andrzej MD I have performed a history and examination and MDM of this patient, discussed the same with the dictator, and agree with the dictator's assessment and plan as written ,documented as a scribe. Based on total visit time, I have performed more than 50% of the visit. Objective - Vital Signs Vital signs: Vital Signs Temp 98.1 F 11/28/22 07:46 Pulse 89 11/28/22 08:33 Resp 18 11/28/22 07:46 BP 148/73 11/28/22 07:46 Pulse Ox 95 11/28/22 08:19 FiO2 Intake & Output 11/27/22 11/28/22 11/28/22 18:59 06:59 18:59 Intake Total 540 700 Output Total 338 625 Balance 202 75 Intake: Intake, IV Titration 100 Amount Cefepime 2 gm In Sodium 100 Chloride 0.9% 100 ml @ 25 mls/hr IVPB Q8H [facility] Rx#: [id number] Oral 540 600 Output: Urine 200 625 Post Void Residual 138 Other: Voiding Method Toilet Toilet # Voids 1 2 # Bowel Movements 1 - Labs CBC & Chem 7: 11/27/22 07:17 11/28/22 10:03 Labs: Microbiology - Last 24 Hours (Table) 11/25/22 16:27 Gram Stain - Preliminary Sputum Sputum Culture - Preliminary Chetna albicans
--- NOTE | 2022-11-28 15:12 | P.PN ---
Subjective Progress Note Date: 11/27/22 Principal diagnosis: Pneumonia Patient is a 77-year female past medical significant for breast cancer COPD presenting to the hospital left-sided chest pain shortness of breath and cough patient has been diagnosed with left-sided pneumonia. On today's evaluation that is 11/27/2022, the patient continues to be afebrile , patient is breathing comfortably on 2 L nasal cannula oxygen, patient denies any chest pain, the patient cough as decreased intensity and not bringing up any sputum, no nausea no vomiting no abdominal pain or diarrhea Objective - Vital Signs Vital signs: Vital Signs Temp 98 F 11/27/22 09:00 Pulse 98 11/27/22 12:55 Resp 18 11/27/22 11:15 BP 135/75 11/27/22 11:15 Pulse Ox 94 L 11/27/22 11:15 FiO2 Intake & Output 11/26/22 11/27/22 11/27/22 18:59 06:59 18:59 Intake Total 540 180 Output Total 1300 1610 338 Balance -760 -1610 -158 Weight 51.8 kg Intake: Oral 540 180 Output: Urine 1300 1610 200 Post Void Residual 138 Other: Voiding Method Toilet Toilet Toilet # Voids 1 1 - Exam GENERAL DESCRIPTION: Elderly female lying in bed in no distress RESPIRATORY SYSTEM: Unlabored breathing , decreased breath sounds at bases HEART: S1 S2 regular rate and rhythm ,no loud murmurs ABDOMEN: Soft , no tenderness EXTREMITIES: No edema feet - Labs CBC & Chem 7: 11/27/22 07:17 11/28/22 10:03 Labs: Abnormal Lab Results - Last 24 Hours (Table) 11/27/22 11/27/22 Range/Units 07:17 07:17 WBC 10.9 H (3.8-10.6) k/uL RBC 3.77 L (3.80-5.40) m/uL Neutrophils # 8.0 H (1.3-7.7) k/uL Sodium 124 L (137-145) mmol/L Chloride 89 L (98-107) mmol/L BUN 21 H (7-17) mg/dL Creatinine 0.49 L (0.52-1.04) mg/dL AST 426 H (14-36) U/L ALT 589 H (4-34) U/L Alkaline Phosphatase 289 H (38-126) U/L Total Protein 5.5 L (6.3-8.2) g/dL Albumin 2.9 L (3.5-5.0) g/dL Microbiology - Last 24 Hours (Table) 11/25/22 16:27 Gram Stain - Preliminary Sputum Sputum Culture - Preliminary Chetna albicans 11/21/22 20:01 Blood Culture - Final Blood 11/21/22 20:15 Blood Culture - Final Blood Assessment and Plan (1) Pneumonia Current Visit: Yes Status: Acute Code(s): J18.9 - PNEUMONIA, UNSPECIFIED ORGANISM SNOMED Code(s): 862652522 Plan: 1patient present to hospital with sepsis in this patient who did have a fever elevated white count patient did have a cough or sputum production with evidence of left retrocardiac infiltrate and high procalcitonin likely source being pneumonia possible community-acquired as the patient has shown some clinical improvement as white count is trending down with Rocephin and Zithromax therapy 2-mild elevated liver enzyme but no abdominal pain or tenderness ultrasound has been ordered 3patient sputum do Pseudomonas aeruginosa, patient has shown clinical improvement on cefepime which will be continued while inpatient and transition her to oral Cipro on discharge Time with Patient: Less than 30
--- NOTE | 2022-11-28 15:12 | P.PN ---
Subjective Progress Note Date: 11/28/22 Principal diagnosis: Pneumonia Patient is a 77-year female past medical significant for breast cancer COPD presenting to the hospital left-sided chest pain shortness of breath and cough patient has been diagnosed with left-sided pneumonia. On today's evaluation that is 11/28/2022, the patient remains to be afebrile , patient is breathing comfortably on 2 L nasal cannula oxygen, patient denies any chest pain, the patient cough has decreased in intensity and mostly dry in nature but denies any nausea no vomiting no abdominal pain or diarrhea Objective - Vital Signs Vital signs: Vital Signs Temp 98.1 F 11/28/22 07:46 Pulse 82 11/28/22 11:47 Resp 18 11/28/22 07:46 BP 148/73 11/28/22 07:46 Pulse Ox 95 11/28/22 08:19 FiO2 Intake & Output 11/27/22 11/28/22 11/28/22 18:59 06:59 18:59 Intake Total 540 700 Output Total 338 625 Balance 202 75 Intake: Intake, IV Titration 100 Amount Cefepime 2 gm In Sodium 100 Chloride 0.9% 100 ml @ 25 mls/hr IVPB Q8H [facility] Rx#: [id number] Oral 540 600 Output: Urine 200 625 Post Void Residual 138 Other: Voiding Method Toilet Toilet # Voids 1 2 # Bowel Movements 1 - Exam GENERAL DESCRIPTION: Elderly female lying in bed in no distress RESPIRATORY SYSTEM: Unlabored breathing , decreased breath sounds at bases HEART: S1 S2 regular rate and rhythm ,no loud murmurs ABDOMEN: Soft , no tenderness EXTREMITIES: No edema feet - Labs CBC & Chem 7: 11/27/22 07:17 11/28/22 10:03 Labs: Abnormal Lab Results - Last 24 Hours (Table) 11/28/22 Range/Units 10:03 Sodium 129 L (137-145) mmol/L Chloride 89 L (98-107) mmol/L Carbon Dioxide 31 H (22-30) mmol/L BUN 31 H (7-17) mg/dL Glucose 103 H (74-99) mg/dL Microbiology - Last 24 Hours (Table) 11/25/22 16:27 Gram Stain - Final Sputum Sputum Culture - Final Chetna albicans Assessment and Plan (1) Pneumonia Current Visit: Yes Status: Acute Code(s): J18.9 - PNEUMONIA, UNSPECIFIED ORGANISM SNOMED Code(s): 976928378 Plan: 1patient present to hospital with sepsis in this patient who did have a fever elevated white count patient did have a cough or sputum production with evidence of left retrocardiac infiltrate and high procalcitonin likely source being pneumonia possible community-acquired as the patient has shown some clinical improvement as white count is trending down with Rocephin and Zithromax therapy 2-mild elevated liver enzyme but no abdominal pain or tenderness ultrasound has been ordered 3patient sputum do Pseudomonas aeruginosa, patient has shown clinical improvement on cefepime, patient finish therapy with oral Cipro 7 days discussed with OCCUPATIONAL THERAPY ASSIST For admitting team Time with Patient: Less than 30
[2022-11-28] MEDS: bisacodyL 10 MG SUPP RECTAL PRN (21:13)
[2022-11-28] MEDS: diphenhydrAMINE 25 MG CAP PO PRN (22:09)
[2022-11-29] MEDS: CEFEPIME 2 GM in SODIUM CHLORIDE 0.9% 100 ML IVPB SCH (06:06)
[2022-11-29] MEDS: IPRATROPIUM-ALBUTEROL 3 ML NEB INHALATION SCH ×2 (07:28→11:52)
[2022-11-29] MEDS: SYMBICORT 160-4.5 MCG INHALER INHALATION SCH (07:28)
[2022-11-29 08:32] VITALS: BP 158/73; RESP 15; TEMP 97.4
[2022-11-29] MEDS: ASCORBIC ACID 500 MG TAB PO SCH (08:54)
[2022-11-29] MEDS: MAGNESIUM OXIDE 400 MG TAB PO SCH (08:54)
[2022-11-29] MEDS: ASPIRIN 81 MG PO SCH (08:54)
[2022-11-29] MEDS: HEPARIN SODIUM,PORCINE/PF 5,000 UNIT/0.5 ML SYRINGE SQ SCH (08:54)
[2022-11-29] MEDS: CHOLECALCIFEROL 125 MCG (5000 IU) TABLET PO SCH (08:54)
[2022-11-29] MEDS: PANTOPRAZOLE 40 MG TABLET PO SCH (08:54)
[2022-11-29] MEDS: CALCIUM CARBONATE 500 MG CHEWABLE PO SCH (08:54)
[2022-11-29] MEDS: ANASTROZOLE 1 MG TAB PO SCH (08:55)
[2022-11-29] MEDS: predniSONE 20 MG TAB PO SCH (08:55)
[2022-11-29] MEDS: ZINC SULFATE 220 MG CAP PO SCH (08:55)
[2022-11-29] MEDS: FUROSEMIDE 10 MG/ML 4 ML VIAL IV SCH (08:55)
[2022-11-29] MEDS ORDERED: CIPROFLOXACIN HCL 500 MG TAB PO SCH (09:00)
[2022-11-29 10:08] LABS: African American GFR (CKD) >90 (>60 ml/min/1.73 sqM); Anion Gap 10 mmol/L; Blood Urea Nitrogen 36 mg/dL (7-17); Calcium 9.7 mg/dL (8.4-10.2); Carbon Dioxide 29 mmol/L (22-30); Chloride 89 mmol/L (98-107); Glucose 123 mg/dL (74-99); Non-African American GFR(CKD) 84 (>60 ml/min/1.73 sqM); Potassium 4.1 mmol/L (3.5-5.1); Sodium 128 mmol/L (137-145)
[2022-11-29 12:00] VITALS: PULSE 73
--- NOTE | 2022-11-29 12:06 | P.PN ---
Subjective Progress Note Date: 11/29/22 77-year-old female with a history of COPD and breast cancer, who presents to the emergency department, on 11/21/2022, complaining of chest pain, and weakness. The patient apparently had some pain taking a deep breath, and subsequent was admitted with a diagnosis of pneumonia. The patient apparently was also found to have Pseudomonas in her sputum, and is on cefepime, which is effective against her Pseudomonas. The patient does have a history of COPD from previous heavy tobacco use. She quit smoking in 2017. Her primary care physician is Dr. Alanna Morgan. She also sees Dr. Katia Han for her breast cancer. She also sees a acute specialist as well. 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 She's currently on a short acting beta agonist, Spiriva, and Breo. She is on 2 L of oxygen currently, but does not use oxygen at home, and is also getting saline at KVO. She is feeling much better. She is hoping to be discharged soon. Her medical history includes breast cancer, COPD, hiatal hernia, skin cancer, and previous tobacco use. Most recent laboratory data includes a white count of 10.9, within normal hemoglobin, hematocrit, and platelet count. In addition, sodium is 124, potassium 4.2, chlorides 89, CO2 27, BUN 21, creatinine 0.49. Her AST is 426, her ALT is 589, and her alkaline phosphatase is 289. The patient tested negative for hepatitis serology. Her ur inary Legionella antigen was negative as well. The sputum did reveal Pseudomonas. Her most recent chest x-ray shows improved infiltrates. The patient is seen today 11/28/2022 in follow-up on the regular medical floor. She is currently sitting up in bed. Awake and alert in no acute distress. Ma intaining good O2 saturations in the mid 90s on 2 L/m per nasal cannula. She's been afebrile. Hemodynamically stable. Sputum culture positive for pseudomonas aeruginosa. Sodium 129. Potassium 4.4. Bicarb 31. BUN 31. Creatinine 0.57. Glucose 103. Urine osmolality 266. Random urine sodium 86. She remains on DuoNeb inhalations, Symbicort, prednisone taper. Heparin for DVT prophylaxis. Antibiotics in the form of cefepime. The patient is seen today 11/29/2022 in follow-up on the regular medical floor. She is maintaining good O2 saturations in the mid 90s on 2 L/m per nasal cannula. She's been afebrile. Sputum culture was positive for pseudomonas aeruginosa and Chetna. Sodium 128. Potassium 4.1. Bicarb 29. BUN to 36. Creatinine 0.70. Glucose 123. She is continued on DuoNeb inhalations, Symbicort, prednisone. Antibiotics in the form of cefepime. Remains on diuretics. Heparin for DVT prophylaxis. Objective - Vital Signs Vital signs: Vital Signs Temp 97.4 F L 11/29/22 07:41 Pulse 73 11/29/22 11:59 Resp 15 11/29/22 07:41 BP 158/73 11/29/22 07:41 Pulse Ox 94 L 11/29/22 07:41 FiO2 Intake & Output 11/28/22 11/29/22 11/29/22 18:59 06:59 18:59 Intake Total 600 Balance 600 Intake: Oral 600 Other: Voiding Method Toilet # Voids 3 1 - Exam GENERAL EXAM: Alert, 77-year-old female, on 2 L nasal cannula, comfortable in no apparent distress. HEAD: Normocephalic. EYES: Normal reaction of pupils, equal size. NOSE: Clear with pink turbinates. THROAT: No erythema or exudates. NECK: No masses, no JVD. CHEST: No chest wall deformity. LUNGS: Equal air entry with few scattered rhonchi. CVS: S1 and S2 normal with no audible murmur, regular rhythm. ABDOMEN: No hepatosplenomegaly, normal bowel sounds, no guarding or rigidity. SPINE: No scoliosis or deformity SKIN: No rashes CENTRAL NERVOUS SYSTEM: No focal deficits, tone is normal in all 4 extremities. EXTREMITIES: There is no peripheral edema. No clubbing, no cyanosis. Peripheral pulses are intact. - Labs CBC & Chem 7: 11/27/22 07:17 11/29/22 09:36 Labs: Abnormal Lab Results - Last 24 Hours (Table) 11/29/22 Range/Units 09:36 Sodium 128 L (137-145) mmol/L Chloride 89 L (98-107) mmol/L BUN 36 H (7-17) mg/dL Glucose 123 H (74-99) mg/dL Microbiology - Last 24 Hours (Table) 11/25/22 16:27 Gram Stain - Final Sputum Sputum Culture - Final Chetna albicans Assessment and Plan Assessment: Acute pneumonia, secondary to pseudomonas aeruginosa, in a patient with u nderlying COPD History of previous tobacco use, and COPD History of breast cancer Hyponatremia History of hiatal hernia History of skin cancer Prior history of coronavirus infection Plan: The patient was seen and evaluated Labs and medications are reviewed Cleared for discharge from the pulmonary standpoint Cefepime discontinued Ciprofloxacin 500 mg twice a day 7 days Continue her home pulmonary medications Complete a prednisone taper Follow up with Dr. Patricia in our office in 1-2 weeks I have personally seen and examined the patient, performed the documentation and the assessment and plan as written. Number of minutes spent on the visit: 10.
--- NOTE | 2022-11-29 13:01 | P.PN ---
Subjective Patient is seen for follow-up for hyponatremia. Patient is mildly hypervolemic. Maintained on IV Lasix. Status post Samsca with improvement in serum sodium. Sodium is 128 today. Patient states she is breathing better. She feels much better today. Trying to increase oral intake particularly protein. wants to go home. Objective - Vital Signs Vital signs: Vital Signs Temp 97.4 F L 11/29/22 07:41 Pulse 73 11/29/22 11:59 Resp 15 11/29/22 07:41 BP 158/73 11/29/22 07:41 Pulse Ox 94 L 11/29/22 07:41 FiO2 Intake & Output 11/28/22 11/29/22 11/29/22 18:59 06:59 18:59 Intake Total 600 Balance 600 Intake: Oral 600 Other: Voiding Method Toilet # Voids 3 1 - Exam Patient is awake, comfortable, no acute distress Examination of the heart S1 and S2 Examination of the lungs decreased breath sounds at the bases, occasional wheezing heard Abdomen is soft nontender Examination of lower extremity shows no significant edema HIGH [employer]ER exam grossly intact - Labs CBC & Chem 7: 11/27/22 07:17 11/29/22 09:36 Labs: Abnormal Lab Results - Last 24 Hours (Table) 11/29/22 Range/Units 09:36 Sodium 128 L (137-145) mmol/L Chloride 89 L (98-107) mmol/L BUN 36 H (7-17) mg/dL Glucose 123 H (74-99) mg/dL Microbiology - Last 24 Hours (Table) 11/25/22 16:27 Gram Stain - Final Sputum Sputum Culture - Final Chetna albicans Assessment and Plan Assessment: 1. Hyponatremia, hypovolemic initially and improved with normal saline. Now hypervolemic and maintained on IV Lasix. Urine osmolality 266 with a random urine sodium of 86. This is while patient was already on IV Lasix. Status post Samsca with improvement in serum sodium. 2. Pseudomonas aeruginosa pneumonia maintained on cefepime 3. Acute hypoxic respiratory failure secondary to community-acquired pneumonia and COPD exacerbation 4. Acute COPD exacerbation maintained on steroids 5. History of breast cancer with lumpectomy and radiation therapy maintained on hormonal therapy 6. History of Hansen's esophagitis with hiatal hernia 7. Elevated liver enzymes, maintained on statins. No evidence of gallstones on ultrasound. Plan: Repeat Samsca today Maintained fluid restriction Continue with Lasix 40 mg twice a day os to discharge Follow-up in the office in one week Repeat labs in 2-3 days post discharge. Continue to maintain increased protein intake.
[2022-11-29 13:15] VITALS: BMI 20.2
[2022-11-29] MEDS ORDERED: TOLVAPTAN 15 MG TABLET PO ONE (13:30)
== END 2022-11-29 14:33 | disposition home health service (06) | DRG 871 ==
LOC: EC 15:50 → 3SCARD 20:02 → 5NMEDONC 11-27 20:44
PROVIDERS: ADMIT Internal Medicine; ATTEND Internal Medicine
DX: A41.52 Sepsis due to Pseudomonas (principal); B37.1 Pulmonary candidiasis; J15.1 Pneumonia due to Pseudomonas; J96.01 Acute respiratory failure with hypoxia; J44.0 Chronic obstructive pulmonary disease with (acute) lower respiratory infection; J44.1 Chronic obstructive pulmonary disease with (acute) exacerbation; E87.1 Hypo-osmolality and hyponatremia; Z20.822 Contact with and (suspected) exposure to COVID-19; K44.9 Diaphragmatic hernia without obstruction or gangrene; E86.0 Dehydration; R33.9 Retention of urine, unspecified; E78.5 Hyperlipidemia, unspecified; E87.70 Fluid overload, unspecified; R74.01 Elevation of levels of liver transaminase levels; Z88.8 Allergy status to other drugs, medicaments and biological substances; Z87.01 Personal history of pneumonia (recurrent); Z86.16 Personal history of COVID-19; Z85.828 Personal history of other malignant neoplasm of skin; Z85.3 Personal history of malignant neoplasm of breast; Z79.899 Other long term (current) drug therapy; Z79.82 Long term (current) use of aspirin; Z79.811 Long term (current) use of aromatase inhibitors; Z87.891 Personal history of nicotine dependence
CPT/HCPCS: 36415; 71045; 71046; 76700; 80048; 80053; 80074; 82150; 83690; 83735; 83880; 83935; 84145; 84300; 84484; 85025; 85610; 85730; 87040; 87070; 87077; 87186; 87205; 87449; 93005; 93306; 94640; 94760; 96361; 96365; 96375; 99285

== ENCOUNTER 2022-12-10 13:25 | Emergency (ER) | payer MEDICARE, OTHER ==
[2022-12-10] MEDS ORDERED: SODIUM CHLORIDE 0.9% 500 ML 500 ML IV STA (13:36)
[2022-12-10 13:37] VITALS: RESP 20
--- NOTE | 2022-12-10 13:56 | ED ---
Weakness HPI - General Chief complaint: Recheck/Abnormal Lab/Rx Stated complaint: Lightheaded, Not feeling right Time Seen by Provider: 12/10/22 13:36 Source: patient, EMS, RN notes reviewed, old records reviewed Mode of arrival: EMS Limitations: no limitations - History of Present Illness Initial comments: This is a 77-year-old female to the emergency department he no ear not doing over the for evaluation this patient presents today for evaluation regards to anxiety. Patient has significant concern for [employer] abnormalities. Patient is doing some sodium will contacts at home as well as potassium and concern for kidney function. Patient states that she is very anxious short of breath and concerned about her electrolytes. Patient's been pain walking for a few days which is now causing her to have concerned about her heart. MD Complaint: generalized weakness, lack of energy, difficulty walking (anxiety) -: hour(s) Severity: moderate Severity scale (1-10): 7 Quality: numbness Consistency: constant Improves with: none Worsens with: none Context: recent illness, history of similar Associated Symptoms: loss of appetite, nausea/vomiting, shortness of breath - Related Data Home Medications Medication Instructions Recorded Confirmed Omeprazole [PriLOSEC] 20 mg PO DAILY 03/31/14 11/21/22 Albuterol Sulfate [Ventolin HFA] 2 puff INHALATION RT-Q6H PRN 04/21/14 11/21/22 Vitamin B Complex 1 cap PO DAILY 09/22/14 11/21/22 Vitamin E (Dl,Tocopheryl Acet) 1,000 unit PO DAILY 09/22/14 11/21/22 [Vitamin E] Denosumab [Prolia] 60 mg SQ Q180D 10/24/14 11/21/22 Aspirin [Adult Low Dose Aspirin EC] 81 mg PO DAILY 04/04/16 11/21/22 Biotin 5 mg PO DAILY 10/11/18 11/21/22 Lutein 20 mg PO DAILY 11/03/20 11/21/22 Tiotropium 2.5 Mcg/Puff [Spiriva 2 puff INHALATION RT-DAILY 11/03/20 11/21/22 Respimat 2.5 Mcg] Zinc 50 mg PO DAILY 05/09/21 11/21/22 Anastrozole [Arimidex] 1 mg PO DAILY 11/17/21 11/21/22 Ascorbic Acid [Vitamin C] 1,000 mg PO DAILY 08/24/22 11/21/22 Cholecalciferol [Vitamin D3 (125 125 mcg PO DAILY 08/24/22 11/21/22 Mcg = 5000 Iu)] Magnesium 250 mg PO BID 08/24/22 11/21/22 Vitamin A 2,400 mcg PO DAILY 08/24/22 11/21/22 Calcium Carbonate [Calcium] 600 mg PO BID 09/20/22 11/21/22 Fluticasone/Vilanterol [Breo 1 puff INHALATION RT-DAILY 09/20/22 11/21/22 Ellipta 200-25 Mcg Inhaler] Mupirocin 2% Oint [Bactroban 2% 1 applic TOPICAL TID 09/20/22 11/21/22 Oint] Previous Rx's Medication Instructions Recorded Benzonatate [Tessalon Perles] 100 mg PO TID PRN #10 cap 11/28/22 Benzonatate [Tessalon Perle] 200 mg PO TID PRN #10 capsule 11/29/22 Ciprofloxacin HCl [Cipro] 500 mg PO BID 7 Days #14 tab 11/29/22 Furosemide [Lasix] 40 mg PO DAILY #30 tablet 11/29/22 predniSONE 10 mg PO DIRECTED #30 tab 11/29/22 traMADol HCl [Ultram] 50 mg PO TID #4 tab 11/29/22 Allergies Allergy/AdvReac Type Severity Reaction Status Date / Time bupropion HCl Allergy Rash/Hives Verified 12/10/22 13:38 [From Wellbutrin] Review of Systems ROS Statement: Those systems with pertinent positive or pertinent negative responses have been documented in the HPI. ROS Other: All systems not noted in ROS Statement are negative. Past Medical History Past Medical History: Cancer, COPD Additional Past Medical History / Comment(s): HIATAL HERNIA, SKIN CANCER, NEWLY DIAGNOSED BREAST CANCER- had radiation only (2020), JAEGER'S DISEASE, hyponatremia (2022) History of Any Multi-Drug Resistant Organisms: None Reported Past Surgical History: Breast Surgery, Tubal Ligation Additional Past Surgical History / Comment(s): BRONCHOSCOPY, BREAST BX, EGD., PROCEDURE TO "CUT NERVES IN NECK" Past Anesthesia/Blood Transfusion Reactions: Motion Sickness, Postoperative Nausea & Vomiting (PONV) Past Psychological History: No Psychological Hx Reported Smoking Status: Former smoker Past Alcohol Use History: None Reported Past Drug Use History: None Reported - Past Family History Brother(s) Family Medical History: Cancer Additional Family Medical History / Comment(s): BROTHER # 1 PANCREATIC CANCER. BROTHER #2 KIDNEY CANCER. General Exam Limitations: no limitations General appearance: alert, in no apparent distress Head exam: Present: atraumatic, normocephalic, normal inspection Eye exam: Present: normal appearance, PERRL, EOMI. Absent: scleral icterus, conjunctival injection, periorbital swelling ENT exam: Present: normal exam, mucous membranes moist Neck exam: Present: normal inspection. Absent: tenderness, meningismus, lymphadenopathy Respiratory exam: Present: normal lung sounds bilaterally. Absent: respiratory distress, wheezes, rales, rhonchi, stridor Cardiovascular Exam: Present: regular rate, normal rhythm, normal heart sounds. Absent: systolic murmur, diastolic murmur, rubs, gallop, clicks GI/Abdominal exam: Present: soft, normal bowel sounds. Absent: distended, tenderness, guarding, rebound, rigid Extremities exam: Present: normal inspection, full ROM, normal capillary refill. Absent: tenderness, pedal edema, joint swelling, calf tenderness Back exam: Present: normal inspection Neurological exam: Present: alert, oriented X3, CN II-XII intact Psychiatric exam: Present: normal affect, normal mood Skin exam: Present: warm, dry, intact, normal color. Absent: rash Course Vital Signs 12/10/22 12/10/22 12/10/22 13:32 13:49 15:02 Temperature 97.5 F L Pulse Rate 87 83 Respiratory 20 20 Rate Blood Pressure 112/62 145/75 O2 Sat by Pulse 97 98 Oximetry 12/10/22 15:41 Temperature 97.8 F Pulse Rate 85 Respiratory 20 Rate Blood Pressure 124/80 O2 Sat by Pulse 96 Oximetry - Reevaluation(s) Reevaluation #1: 12/10/22 15:35 Medical record is reviewed Reevaluation #2: 12/10/22 15:35 patient feels better with decreased anxiety Reevaluation #3: 12/10/22 15:36 patient for results and questions are answered patient feels good for discharge home Reevaluation #4: 12/10/22 13:56 Was pt. sent in by a medical professional or institution? @ -no Did you speak to anyone other than the patient for history? @ -no Did you review nursing and triage notes? @ -agree Were old charts reviewed? @ -yes Differential Diagnosis? @ -prior EKG interpreted by me (3pts min.)? @ -yes X-rays interpreted by me (1pt min.)? @ -no CT interpreted by me (1pt min.)? @ -no U/S interpreted by me (1pt. min.)? @ -no What testing was considered but not performed? (CT, X-rays, U/S, labs)? Why? @ -no What meds were considered but not given? Why? @ -no Did you discuss the management of the patient with other professionals? @ -no Did you reconcile home meds? @ -no Was smoking cessation discussed for >3mins.? @ -no Was critical care preformed (if so, how long)? @ -no Were there social determinants of health that impacted care today? How? (Homelessness, low income, unemployed, alcoholism, drug addiction, transportation, low edu. Level, literacy, decrease access to med. care, senior living, rehab)? @ -no Was there de-escalation of care discussed even if they declined? (Discuss DNR or withdrawal of care, Hospice)? @ -no What co-morbidities impacted this encounter? (DM, HTN, Smoking, COPD, CAD, Cancer, CVA, Hep., AIDS, mental health diagnosis, sleep apnea, morbid obesity)? @ -none Was patient admitted / discharged? @ -77 female to the emergency department for evaluation of weakness believes that she has electrolyte derangement. Electrolytes are rechecked here in the ER patient is reassured that she is within acceptable limits although sodium is low. Patient will will be discharged home to continue follow-up outpatient Discharged Undiagnosed new problem with uncertain prognosis? @ -no Drug Therapy requiring intensive monitoring for toxicity (Heparin, Nitro, Insulin, Cardizem)? @ -no Were any procedures done? @ -no Diagnosis/symptom? @ -Anxiety, hyponatremia Acute, or Chronic, or Acute on Chronic? @ -acute Uncomplicated (without systemic symptoms) or Complicated (systemic symptoms)? @ -complicated Side effects of treatment? @ -no Exacerbation, Progression, or Severe Exacerbation] @ -no Poses a threat to life or bodily function? @ -no Reevaluation #5: 12/10/22 13:56 Differential Weakness: Hypoglycemia, shock, sepsis, hyponatremia, anemia, infection, OK, ETOH, adverse medicine reaction, overdose, stroke, this is not meant to be an all-inclusive list. EKG Findings - EKG Comments: EKG Findings:: EKG is sinus 83 MO 149 QRS 83 QTC 399 - EKG Results: EKG: interpreted by DRU Medical Decision Making - Medical Decision Making 77 female to the emergency department for evaluation of weakness believes that she has electrolyte derangement. Electrolytes are rechecked here in the ER patient is reassured that she is within acceptable limits although sodium is low. Patient will will be discharged home to continue follow-up outpatient - Lab Data Result diagrams: 12/10/22 13:41 12/10/22 13:41 Lab Results 12/10/22 12/10/22 12/10/22 Range/Units 13:41 13:41 13:41 WBC 10.9 H (3.8-10.6) k/uL RBC 4.60 (3.80-5.40) m/uL Hgb 14.7 D (11.4-16.0) gm/dL Hct 44.3 (34.0-46.0) % MCV 96.3 (80.0-100.0) fL MCH 31.9 (25.0-35.0) pg MCHC 33.1 (31.0-37.0) g/dL RDW 13.6 (11.5-15.5) % Plt Count 615 H (150-450) k/uL MPV 7.0 Neutrophils % 87 % Lymphocytes % 8 % Monocytes % 4 % Eosinophils % 1 % Basophils % 0 % Neutrophils # 9.4 H (1.3-7.7) k/uL Lymphocytes # 0.9 L (1.0-4.8) k/uL Monocytes # 0.4 (0-1.0) k/uL Eosinophils # 0.1 (0-0.7) k/uL Basophils # 0.0 (0-0.2) k/uL PT 10.5 (9.0-12.0) sec INR 1.0 (<1.2) APTT 22.1 (22.0-30.0) sec Sodium 132 L (137-145) mmol/L Potassium 4.6 (3.5-5.1) mmol/L Chloride 92 L (98-107) mmol/L Carbon Dioxide 29 (22-30) mmol/L Anion Gap 11 mmol/L BUN 68 H (7-17) mg/dL Creatinine 0.89 (0.52-1.04) mg/dL Est GFR (CKD-EPI)AfAm 73 (>60 ml/min/1.73 sqM) Est GFR (CKD-EPI)NonAf 63 (>60 ml/min/1.73 sqM) Glucose 142 H (74-99) mg/dL Plasma Lactic Acid Mohit (0.7-2.0) mmol/L Calcium 9.8 (8.4-10.2) mg/dL Phosphorus 5.3 H (2.5-4.5) mg/dL Magnesium 2.0 (1.6-2.3) mg/dL Total Bilirubin 1.0 (0.2-1.3) mg/dL AST 40 H (14-36) U/L ALT 50 H (4-34) U/L Alkaline Phosphatase 122 (38-126) U/L Troponin I (0.000-0.034) ng/mL NT-Pro-B Natriuret Pep pg/mL Total Protein 7.2 (6.3-8.2) g/dL Albumin 4.3 (3.5-5.0) g/dL TSH <0.015 L (0.465-4.680) mIU/L Urine Color Urine Appearance (Clear) Urine pH (5.0-8.0) Ur Specific [place] (1.001-1.035) Urine Protein (Negative) Urine Glucose (UA) (Negative) Urine Ketones (Negative) Urine Blood (Negative) Urine Nitrite (Negative) Urine Bilirubin (Negative) Urine Urobilinogen (<2.0) mg/dL Ur Leukocyte Esterase (Negative) Urine RBC (0-5) /hpf Urine WBC (0-5) /hpf Ur Squamous Epith Cells (0-4) /hpf Hyaline Casts (0-2) /lpf Urine Mucus (None) /hpf 12/10/22 12/10/22 12/10/22 Range/Units 13:41 13:41 13:41 WBC (3.8-10.6) k/uL RBC (3.80-5.40) m/uL Hgb (11.4-16.0) gm/dL Hct (34.0-46.0) % MCV (80.0-100.0) fL MCH (25.0-35.0) pg MCHC (31.0-37.0) g/dL RDW (11.5-15.5) % Plt Count (150-450) k/uL MPV Neutrophils % % Lymphocytes % % Monocytes % % Eosinophils % % Basophils % % Neutrophils # (1.3-7.7) k/uL Lymphocytes # (1.0-4.8) k/uL Monocytes # (0-1.0) k/uL Eosinophils # (0-0.7) k/uL Basophils # (0-0.2) k/uL PT (9.0-12.0) sec INR (<1.2) APTT (22.0-30.0) sec Sodium (137-145) mmol/L Potassium (3.5-5.1) mmol/L Chloride (98-107) mmol/L Carbon Dioxide (22-30) mmol/L Anion Gap mmol/L BUN (7-17) mg/dL Creatinine (0.52-1.04) mg/dL Est GFR (CKD-EPI)AfAm (>60 ml/min/1.73 sqM) Est GFR (CKD-EPI)NonAf (>60 ml/min/1.73 sqM) Glucose (74-99) mg/dL Plasma Lactic Acid Mohit 1.3 (0.7-2.0) mmol/L Calcium (8.4-10.2) mg/dL Phosphorus (2.5-4.5) mg/dL Magnesium (1.6-2.3) mg/dL Total Bilirubin (0.2-1.3) mg/dL AST (14-36) U/L ALT (4-34) U/L Alkaline Phosphatase (38-126) U/L Troponin I <0.012 (0.000-0.034) ng/mL NT-Pro-B Natriuret Pep 277 pg/mL Total Protein (6.3-8.2) g/dL Albumin (3.5-5.0) g/dL TSH (0.465-4.680) mIU/L Urine Color Urine Appearance (Clear) Urine pH (5.0-8.0) Ur Specific [place] (1.001-1.035) Urine Protein (Negative) Urine Glucose (UA) (Negative) Urine Ketones (Negative) Urine Blood (Negative) Urine Nitrite (Negative) Urine Bilirubin (Negative) Urine Urobilinogen (<2.0) mg/dL Ur Leukocyte Esterase (Negative) Urine RBC (0-5) /hpf Urine WBC (0-5) /hpf Ur Squamous Epith Cells (0-4) /hpf Hyaline Casts (0-2) /lpf Urine Mucus (None) /hpf 12/10/22 Range/Units 13:41 WBC (3.8-10.6) k/uL RBC (3.80-5.40) m/uL Hgb (11.4-16.0) gm/dL Hct (34.0-46.0) % MCV (80.0-100.0) fL MCH (25.0-35.0) pg MCHC (31.0-37.0) g/dL RDW (11.5-15.5) % Plt Count (150-450) k/uL MPV Neutrophils % % Lymphocytes % % Monocytes % % Eosinophils % % Basophils % % Neutrophils # (1.3-7.7) k/uL Lymphocytes # (1.0-4.8) k/uL Monocytes # (0-1.0) k/uL Eosinophils # (0-0.7) k/uL Basophils # (0-0.2) k/uL PT (9.0-12.0) sec INR (<1.2) APTT (22.0-30.0) sec Sodium (137-145) mmol/L Potassium (3.5-5.1) mmol/L Chloride (98-107) mmol/L Carbon Dioxide (22-30) mmol/L Anion Gap mmol/L BUN (7-17) mg/dL Creatinine (0.52-1.04) mg/dL Est GFR (CKD-EPI)AfAm (>60 ml/min/1.73 sqM) Est GFR (CKD-EPI)NonAf (>60 ml/min/1.73 sqM) Glucose (74-99) mg/dL Plasma Lactic Acid Mohit (0.7-2.0) mmol/L Calcium (8.4-10.2) mg/dL Phosphorus (2.5-4.5) mg/dL Magnesium (1.6-2.3) mg/dL Total Bilirubin (0.2-1.3) mg/dL AST (14-36) U/L ALT (4-34) U/L Alkaline Phosphatase (38-126) U/L Troponin I (0.000-0.034) ng/mL NT-Pro-B Natriuret Pep pg/mL Total Protein (6.3-8.2) g/dL Albumin (3.5-5.0) g/dL TSH (0.465-4.680) mIU/L Urine Color Yellow Urine Appearance Clear (Clear) Urine pH 5.5 (5.0-8.0) Ur Specific [place] 1.012 (1.001-1.035) Urine Protein 1+ H (Negative) Urine Glucose (UA) Negative (Negative) Urine Ketones Negative (Negative) Urine Blood Trace H (Negative) Urine Nitrite Negative (Negative) Urine Bilirubin Negative (Negative) Urine Urobilinogen <2.0 (<2.0) mg/dL Ur Leukocyte Esterase Negative (Negative) Urine RBC 9 H (0-5) /hpf Urine WBC 1 (0-5) /hpf Ur Squamous Epith Cells 1 (0-4) /hpf Hyaline Casts 4 H (0-2) /lpf Urine Mucus Rare H (None) /hpf - EKG Data -: EKG Interpreted by Me (EKG is sinus 83 MO 149 QRS 83 QTC 399) Disposition Clinical Impression: Weakness, Hyponatremia, Anxiety Disposition: ADMITTED IP TO THIS [facility] Condition: Fair Is patient prescribed a controlled substance at d/c from ED?: No Referrals: Armando Morgan DO [Primary Care Provider] - 1-2 days Time of Disposition: 15:30
[2022-12-10 14:09] LABS: Basophils % (A) 0 %; Eosinophils # (A) 0.1 k/uL (0-0.7); Eosinophils % (A) 1 %; HCT 44.3 % (34.0-46.0); Lymphocytes # (A) 0.9 k/uL (1.0-4.8); Lymphocytes % (A) 8 %; MCH 31.9 pg (25.0-35.0); MCHC 33.1 g/dL (31.0-37.0); MCV 96.3 fL (80.0-100.0); Monocytes # (A) 0.4 k/uL (0-1.0); Monocytes % (A) 4 %; Neutrophils # (A) 9.4 k/uL (1.3-7.7); Neutrophils % (A) 87 %; Platelet Count 615 k/uL (150-450); RDW 13.6 % (11.5-15.5); WBC 10.9 k/uL (3.8-10.6)
[2022-12-10 14:21] LABS: HGB 14.7 gm/dL (11.4-16.0)
[2022-12-10 14:24] LABS: ALT 50 U/L (4-34); African American GFR (CKD) 73 (>60 ml/min/1.73 sqM); Albumin 4.3 g/dL (3.5-5.0); Anion Gap 11 mmol/L; Blood Urea Nitrogen 68 mg/dL (7-17); Calcium 9.8 mg/dL (8.4-10.2); Carbon Dioxide 29 mmol/L (22-30); Chloride 92 mmol/L (98-107); Glucose 142 mg/dL (74-99); Non-African American GFR(CKD) 63 (>60 ml/min/1.73 sqM); Phosphorus 5.3 mg/dL (2.5-4.5); Sodium 132 mmol/L (137-145); Total Protein 7.2 g/dL (6.3-8.2)
[2022-12-10 14:25] LABS: AST 40 U/L (14-36); Alkaline Phosphatase 122 U/L (38-126); Potassium 4.6 mmol/L (3.5-5.1)
[2022-12-10 14:27] LABS: Partial Thromboplastin Time 22.1 sec (22.0-30.0); Prothrombin Time 10.5 sec (9.0-12.0)
[2022-12-10 15:13] LABS: Appearance,Urine Clear (Clear); Bilirubin,Urine Negative (Negative); Blood,Urine Trace (Negative); Color,Urine Yellow; Glucose,Urine (UA) Negative (Negative); Hyaline Casts,Urine 4 /lpf (0-2); Ketones,Urine Negative (Negative); Leukocyte Esterase,Urine Negative (Negative); Mucus,Urine Rare /hpf; Nitrite,Urine Negative (Negative); PH, Urine 5.5 (5.0-8.0); Protein,Urine 1+ (Negative); RBC,Urine 9 /hpf (0-5); Specific Gravity,Urine 1.012 (1.001-1.035); Squamous Epithelial Cell,Urine 1 /hpf (0-4); Urobilinogen,Urine <2.0 mg/dL (<2.0); WBC,Urine 1 /hpf (0-5)
[2022-12-10 15:43] VITALS: BP 124/80; PULSE 85; TEMP 97.8
== END 2022-12-10 15:47 | disposition other institution (70) ==
LOC: EC 13:25
DX: E87.1 Hypo-osmolality and hyponatremia (principal); R53.1 Weakness; F41.9 Anxiety disorder, unspecified; J44.9 Chronic obstructive pulmonary disease, unspecified; Z87.891 Personal history of nicotine dependence; Z88.8 Allergy status to other drugs, medicaments and biological substances; Z79.82 Long term (current) use of aspirin; Z79.51 Long term (current) use of inhaled steroids; Z79.899 Other long term (current) drug therapy
CPT/HCPCS: 36415; 80053; 81001; 83605; 83735; 83880; 84100; 84443; 84484; 85025; 85610; 85730; 93005; 99285

== ENCOUNTER 2022-12-16 12:26 | Emergency (ER) | payer MEDICARE, OTHER ==
--- NOTE | 2022-12-16 13:15 | ED ---
General Adult HPI - General Chief complaint: Back Pain/Injury Stated complaint: Back Pain Time Seen by Provider: 12/16/22 12:28 Source: patient Mode of arrival: EMS Limitations: physical limitation - History of Present Illness Initial comments: Dictation was produced using [employer] dictation software. please excuse any grammatical, word or spelling errors. Chief Complaint: 77-year-old female with past medical history of breast cancer presents to the ER for back pain History of Present Illness: 77-year-old female presents emergency Department with back pain. Patient's history of chronic back pain. Patient was recently admitted for pneumonia. She just discharge. States she was vacuuming home when she felt like that may have exacerbated her back pain. Denies any fall. No saddle anesthesia. No loss of control of bowel or bladder. It is nonradiating. Denies any fevers. The ROS documented in this emergency department record has been reviewed and confirmed by me. Those systems with pertinent positive or negative responses have been documented in the HPI. All other systems are other negative and/or noncontributory. - Related Data Home Medications Medication Instructions Recorded Confirmed Omeprazole [PriLOSEC] 20 mg PO DAILY 03/31/14 11/21/22 Albuterol Sulfate [Ventolin HFA] 2 puff INHALATION RT-Q6H PRN 04/21/14 11/21/22 Vitamin B Complex 1 cap PO DAILY 09/22/14 11/21/22 Vitamin E (Dl,Tocopheryl Acet) 1,000 unit PO DAILY 09/22/14 11/21/22 [Vitamin E] Denosumab [Prolia] 60 mg SQ Q180D 10/24/14 11/21/22 Aspirin [Adult Low Dose Aspirin EC] 81 mg PO DAILY 04/04/16 11/21/22 Biotin 5 mg PO DAILY 10/11/18 11/21/22 Lutein 20 mg PO DAILY 11/03/20 11/21/22 Tiotropium 2.5 Mcg/Puff [Spiriva 2 puff INHALATION RT-DAILY 11/03/20 11/21/22 Respimat 2.5 Mcg] Zinc 50 mg PO DAILY 05/09/21 11/21/22 Anastrozole [Arimidex] 1 mg PO DAILY 11/17/21 11/21/22 Ascorbic Acid [Vitamin C] 1,000 mg PO DAILY 08/24/22 11/21/22 Cholecalciferol [Vitamin D3 (125 125 mcg PO DAILY 08/24/22 11/21/22 Mcg = 5000 Iu)] Magnesium 250 mg PO BID 08/24/22 11/21/22 Vitamin A 2,400 mcg PO DAILY 08/24/22 11/21/22 Calcium Carbonate [Calcium] 600 mg PO BID 09/20/22 11/21/22 Fluticasone/Vilanterol [Breo 1 puff INHALATION RT-DAILY 09/20/22 11/21/22 Ellipta 200-25 Mcg Inhaler] Mupirocin 2% Oint [Bactroban 2% 1 applic TOPICAL TID 09/20/22 11/21/22 Oint] Previous Rx's Medication Instructions Recorded Benzonatate [Tessalon Perles] 100 mg PO TID PRN #10 cap 11/28/22 Benzonatate [Tessalon Perle] 200 mg PO TID PRN #10 capsule 11/29/22 Ciprofloxacin HCl [Cipro] 500 mg PO BID 7 Days #14 tab 11/29/22 Furosemide [Lasix] 40 mg PO DAILY #30 tablet 11/29/22 predniSONE 10 mg PO DIRECTED #30 tab 11/29/22 traMADol HCl [Ultram] 50 mg PO TID #4 tab 11/29/22 Allergies Allergy/AdvReac Type Severity Reaction Status Date / Time bupropion HCl Allergy Rash/Hives Verified 12/10/22 13:38 [From Wellbutrin] Review of Systems ROS Statement: Those systems with pertinent positive or pertinent negative responses have been documented in the HPI. ROS Other: All systems not noted in ROS Statement are negative. Past Medical History Past Medical History: Cancer, COPD Additional Past Medical History / Comment(s): HIATAL HERNIA, SKIN CANCER, NEWLY DIAGNOSED BREAST CANCER- had radiation only (2020), JAEGER'S DISEASE, hyponatremia (2022) History of Any Multi-Drug Resistant Organisms: None Reported Past Surgical History: Breast Surgery, Tubal Ligation Additional Past Surgical History / Comment(s): BRONCHOSCOPY, BREAST BX, EGD., PROCEDURE TO "CUT NERVES IN NECK" Past Anesthesia/Blood Transfusion Reactions: Motion Sickness, Postoperative Nausea & Vomiting (PONV) Past Psychological History: No Psychological Hx Reported Smoking Status: Former smoker Past Alcohol Use History: None Reported Past Drug Use History: None Reported - Past Family History Brother(s) Family Medical History: Cancer Additional Family Medical History / Comment(s): BROTHER # 1 PANCREATIC CANCER. BROTHER #2 KIDNEY CANCER. General Exam - General Exam Comments Initial Comments: PHYSICAL EXAM: General Impression: Alert and oriented x3, not in acute distress HEENT: Normocephalic atraumatic, extra-ocular movements intact, pupils equal and reactive to light bilaterally, mucous membranes moist. Cardiovascular: Heart regular rate and rhythm Chest: Able to complete full sentences, no retractions, no tachypnea Abdomen: abdomen soft, non-tender, non-distended, no organomegaly Musculoskeletal: Pulses present and equal in all extremities, no peripheral edema Motor: no focal deficits noted Neurological: CN II-XII grossly intact, no focal motor or sensory deficits noted Skin: Intact with no visualized rashes Psych: Normal affect and mood Limitations: physical limitation Course Vital Signs 12/16/22 12:28 Temperature 98 F Pulse Rate 85 Respiratory 18 Rate Blood Pressure 116/70 O2 Sat by Pulse 97 Oximetry Medical Decision Making - Medical Decision Making Was pt. sent in by a medical professional or institution (, PA, NURSE INSTRUCTOR, urgent care, hospital, or longterm...) When possible be specific @ -No Did you speak to anyone other than the patient for history (EMS, parent, family, police, friend...)? What history was obtained from this source @ -No Did you review nursing and triage notes (agree or disagree)? Why? @ -I reviewed and agree with nursing and triage notes Were old charts reviewed (outside hosp., previous admission, EMS record, old EKG, old radiological studies, urgent care reports/EKG's, longterm records)? Report findings @ -No old charts were reviewed Differential Diagnosis (chest pain, altered mental status, abdominal pain women, abdominal pain men, vaginal bleeding, musculoskeletal, weakness, fever, dyspnea, syncope, headache, dizziness, GI bleed, back pain, seizure, CVA, palpatations, mental health)? @ -Differential Back Pain: Strain, zoster, cauda equina syndrome, epidural abscess, vertebral osteomyelitis, discitis, fracture, subluxation, disc herniation, DJD, spinal stenosis, dissection, AAA, pancreatitis, peptic ulcer disease, pyelonephritis, kidney stone, this is not meant to be an all-inclusive list. EKG interpreted by me (3pts min.). @ -None done X-rays interpreted by me (1pt min.). @ -None done CT interpreted by me (1pt min.). @ -Computed tomography scan of the lumbar spine shows no acute fractures U/S interpreted by me (1pt. min.). @ -None done What testing was considered but not performed or refused? (CT, X-rays, U/S, labs)? Why? @ -None What meds were considered but not given or refused? Why? @ -None Did you discuss the management of the patient with other professionals (professionals i.e. , PA, NURSE INSTRUCTOR, lab, RT, psych nurse, social science manager, environmental services coordinator, te acher, targeting acquisition officer, case checker)? Give summary @ -No Was smoking cessation discussed for >3mins.? @ -No Was critical care preformed (if so, how long)? @ -No Were there social determinants of health that impacted care today? How? (Homelessness, low income, unemployed, alcoholism, drug addiction, transportation, low edu. Level, literacy, decrease access to med. care, group home, rehab)? @ -No Was there de-escalation of care discussed even if they declined (Discuss DNR or withdrawal of care, Hospice)? DNR status @ -No What co-morbidities impacted this encounter? (DM, HTN, Smoking, COPD, CAD, Cancer, CVA, ARF, Chemo, Hep., AIDS, mental health diagnosis, sleep apnea, morbid obesity)? @ -None Was patient admitted / discharged? Hospital course, mention meds given and rou te, prescriptions, significant lab abnormalities, going to OR and other pertinent info. @ -77-year-old female presents with atraumatic back pain. Patient is elderly and does have some high-risk features. Vital signs upon arrival are within acceptable limits. CT of the lumbar spine shows no acute processes. Patient requested sodium levels be checked. Sodium is 129. Patient has chronic hyponatremia. Patient discharged. Told to follow up with primary care doctor. Undiagnosed new problem with uncertain prognosis? @ -No Drug Therapy requiring intensive monitoring for toxicity (Heparin, Nitro, Insulin, Cardizem)? @ -No Were any procedures done? @ -No Diagnosis/symptom? Acute, or Chronic, or Acute on Chronic? Uncomplicated (without systemic symptoms) or Complicated (systemic symptoms)? @ -1. Back strain Side effects of treatment? @ -No Exacerbation, Progression, or Severe Exacerbation? @ -No Poses a threat to life or bodily function? How? (Chest pain, USA, GA, pneumonia, PE, COPD, DKA, ARF, appy, cholecystitis, CVA, Diverticulitis, Homicidal, Suicidal, threat to staff... and all critical care pts) @ -No - Lab Data Result diagrams: 12/16/22 13:01 12/16/22 13:01 Lab Results 12/16/22 12/16/22 Range/Units 13:01 13:01 WBC 12.4 H (3.8-10.6) k/uL RBC 3.47 L (3.80-5.40) m/uL Hgb 11.5 D (11.4-16.0) gm/dL Hct 32.8 L (34.0-46.0) % MCV 94.5 (80.0-100.0) fL MCH 33.0 (25.0-35.0) pg MCHC 35.0 (31.0-37.0) g/dL RDW 13.6 (11.5-15.5) % Plt Count 206 (150-450) k/uL MPV 8.0 Neutrophils % 84 % Lymphocytes % 6 % Monocytes % 8 % Eosinophils % 0 % Basophils % 0 % Neutrophils # 10.4 H (1.3-7.7) k/uL Lymphocytes # 0.7 L (1.0-4.8) k/uL Monocytes # 1.0 (0-1.0) k/uL Eosinophils # 0.0 (0-0.7) k/uL Basophils # 0.0 (0-0.2) k/uL Sodium 129 L (137-145) mmol/L Potassium 3.6 (3.5-5.1) mmol/L Chloride 94 L (98-107) mmol/L Carbon Dioxide 25 (22-30) mmol/L Anion Gap 10 mmol/L BUN 37 H (7-17) mg/dL Creatinine 0.73 (0.52-1.04) mg/dL Est GFR (CKD-EPI)AfAm >90 (>60 ml/min/1.73 sqM) Est GFR (CKD-EPI)NonAf 81 (>60 ml/min/1.73 sqM) Glucose 146 H (74-99) mg/dL Calcium 8.2 L (8.4-10.2) mg/dL Disposition Clinical Impression: Back strain Disposition: HOME SELF-CARE Condition: Good Instructions (If sedation given, give patient instructions): Acute Low Back Pain (ED) Is patient prescribed a controlled substance at d/c from ED?: No Referrals: Armando Morgan DO [Primary Care Provider] - 1-2 days Time of Disposition: 14:14
[2022-12-16 13:32] LABS: Basophils % (A) 0 %; Eosinophils % (A) 0 %; HCT 32.8 % (34.0-46.0); Lymphocytes # (A) 0.7 k/uL (1.0-4.8); Lymphocytes % (A) 6 %; MCV 94.5 fL (80.0-100.0); Monocytes % (A) 8 %; Neutrophils # (A) 10.4 k/uL (1.3-7.7); Neutrophils % (A) 84 %; Platelet Count 206 k/uL (150-450); RBC 3.47 m/uL (3.80-5.40); RDW 13.6 % (11.5-15.5); WBC 12.4 k/uL (3.8-10.6)
[2022-12-16 13:35] LABS: African American GFR (CKD) >90 (>60 ml/min/1.73 sqM); Anion Gap 10 mmol/L; Blood Urea Nitrogen 37 mg/dL (7-17); Calcium 8.2 mg/dL (8.4-10.2); Carbon Dioxide 25 mmol/L (22-30); Chloride 94 mmol/L (98-107); Glucose 146 mg/dL (74-99); Non-African American GFR(CKD) 81 (>60 ml/min/1.73 sqM); Potassium 3.6 mmol/L (3.5-5.1); Sodium 129 mmol/L (137-145)
[2022-12-16 13:37] LABS: HGB 11.5 gm/dL (11.4-16.0)
--- NOTE | 2022-12-16 13:59 | CT ---
EXAMINATION TYPE: CT lumbar spine wo con CT DLP: 368 mGycm, Automated exposure control for dose reduction was used. DATE OF EXAM: 12/16/2022 1:39 PM COMPARISON: None. CLINICAL INDICATION:Female, 77 years old with history of back pain; PHH, Lower back pain TECHNIQUE: Multiple axial images were obtained from the midportion of T11 through the sacroiliac malu nts. Soft tissue and bone windows in coronal and sagittal planes were obtained and reviewed. FINDINGS: Alignment: There are 5 lumbar type vertebral bodies with no spondylolisthesis. Mild S-shaped scolioti c curvature. Bone: No evidence of fracture is identified. Diffuse bone demineralization. Sacral Tarlov cysts. Bas trop's disease. Level degenerative disease most pronounced at L4-L5 with disc space narrowing, endpla te sclerosis, osteophytosis, and vacuum disc disease. Discs: T12-L1: No spinal canal or neural foraminal stenosis is identified. L1-L2: No spinal canal or neural foraminal stenosis is identified. L2-L3: Broad-based disc bulge with ligamentum flavum buckling and bilateral facet arthropathy contrib uting to mild spinal canal stenosis. The neural foramen are patent bilaterally. L3-L4: Broad-based disc bulge with ligamentum flavum buckling facet arthropathy contributing to mild spinal canal stenosis. Left neural foramen is patent. Mild to moderate right neural foraminal stenosi s. L4-L5: Broad-based disc bulge with ligamentum flavum buckling and facet arthropathy contributing to mild spinal canal stenosis. Mild left neural foraminal stenosis. The right neural foramen is patent. L5-S1: Broad based disc bulge without significant spinal canal stenosis. Bilateral facet arthropathy. Neural foramen are patent bilaterally. Other: Small hiatal hernia. Nonobstructive bilateral renal calculi. Moderate to severe atheroscleroti c calcification of the aorta and its branches. Bibasilar dependent subsequent atelectasis. Emphysemat ous changes. IMPRESSION: 1. No evidence of fracture of the lumbar spine. 2. Mild multilevel degenerative disc disease and facet arthropathy. This is most pronounced at L3-L5 as described above. 3. Nonobstructive bilateral renal calculi.
[2022-12-16] MEDS ORDERED: SODIUM CHLORIDE 0.9% 500 ML 500 ML IV STA (14:04)
[2022-12-16 15:27] VITALS: BP 133/70; PULSE 82; RESP 16; TEMP 97.9
== END 2022-12-16 15:27 | disposition home or self-care (01) ==
LOC: EC 12:26
DX: S39.012A Strain of muscle, fascia and tendon of lower back, initial encounter (principal); N20.0 Calculus of kidney; M47.816 Spondylosis without myelopathy or radiculopathy, lumbar region; M51.36 Other intervertebral disc degeneration, lumbar region; J44.9 Chronic obstructive pulmonary disease, unspecified; Z87.891 Personal history of nicotine dependence; Z79.82 Long term (current) use of aspirin; Z79.51 Long term (current) use of inhaled steroids; Z88.8 Allergy status to other drugs, medicaments and biological substances; Z79.899 Other long term (current) drug therapy; X58.XXXA Exposure to other specified factors, initial encounter
CPT/HCPCS: 36415; 72131; 80048; 85025; 99284

== ENCOUNTER → 2023-04-02 | Outpatient (CLI) | payer MEDICARE, OTHER ==
--- NOTE | 2023-04-02 09:48 | MM ---
Reason for Exam: Hx of breast cancer, conservation therapy. Last screening mammogram was performed 12 month(s) ago. Patient History: Menarche at age 15. Patient has no children. Postmenopausal. Other cancer, age 70. Breast cancer, left, age 75. Excisional Biopsy on the Left side. 06/28/2021, Lumpectomy on the Left side. Malignant Core Biopsy. 04/25/2021, Malignant Core Biopsy on the left side. 06/10/2013, Benign Core Biopsy on the right side. 2021, Radiation Therapy on the left side. 06/10/2013, Cancelled Right Mammotome on the right side. Tissue Density: The breast tissue is heterogeneously dense. This may lower the sensitivity of mammography. Findings: Analyzed By CAD. Pattern appears symmetrical and stable. There is a core marker within the upper outer right breast. Benign-appearing calcifications are present. Surgical clips are in the outer left breast on the exaggerated lateral craniocaudal view. No significant interval changes are evident. No suspicious groups of microcalcifications, spiculated or lobular masses, architectural distortion or other secondary signs of malignancy are mammographically apparent. Overall Assessment: Benign, BI-RAD 2 Management: Diagnostic Mammogram of both breasts in 1 year. A negative mammogram report should not preclude additional follow up of suspicious palpable abnormalities. Patient should continue monthly self breast exam. A clinical breast exam by your physician is recommended on an annual basis and results should be correlated with mammographic findings. Electronically signed and approved by: Too Rahman D.O. Radiologis
== END | disposition home or self-care (01) ==
LOC: RADMAMWWP 09:24
PROVIDERS: ATTEND Surgery
DX: R92.333 Mammographic heterogeneous density, bilateral breasts (principal); Z85.3 Personal history of malignant neoplasm of breast; Z78.0 Asymptomatic menopausal state
CPT/HCPCS: 77066; G0279; 77062

== ENCOUNTER → 2023-04-05 | Outpatient (CLI) | payer MEDICARE, OTHER ==
[2023-04-05 15:41] VITALS: BP 141/76; PULSE 75; RESP 16; TEMP 97.6
--- NOTE | 2023-04-05 15:55 | P.PN ---
Subjective Progress Note Date: 04/05/23 invasive lobular cancer left breast [id number]- (dx. 2020) 06/16/21 left breast invasive lobular cancer Roxy is a 76 -year-old white female status post bilateral screening mammogram on [id number]. This revealed an area of concern in the left breast for which an ultrasound was recommended. This was performed on [id number] and revealed an 0.9 x 0.7 cm irregular lesion at 3:00 and biopsy was recommended. Biopsy was done on [id number] which revealed invasive lobular carcinoma. The patient was seen in consultation for Dr. Morgan. The patient did not feel anything of concern in her breast. She had had breast biopsies in the past and these have always been benign. She was not complaining of any nipple discharge or skin changes. She was not complaining of any trauma or infection in the breast. Her case was presented at tumor board and genetic testing and MRI of the breast was suggested. She was given the option of genetic testing which she declined. She had a bilateral MRI performed on 1821. This really feel the lesion of concern in the left breast with no additional lesions in the left breast and no evidence for any suspicious lesion in the right breast. She also had a bilateral breast ultrasound which revealed in the right axillary area most likely a lipoma. No new lesion of concern was identified in the left breast. This was performed on [id number]. 11-17-21 [id number] invasive lobular cancer left breast The patient underwent a left breast lumpectomy and SNB on 06-28-21. Questioin isolated tumor cell in sentinal node. finished radiation on 08-22-21 Patient is on Anestrazole US right breast done on 11-08-21 benign BIRAD 2 She is not complaining of any new nodules in her breast. 03-30-22 The patient had a bilateral mammogram on 03-30-22. She does not complain of any new lumps pressor nodules of concern in either breast. The patient is continuin g the anastrozole and is tolerating that without difficulty. 09-28-22 left breast lumpectomy and SNB on 06-28-21. Question of isolated tumor cell in sentinal node. note radiation oncology 06-21-22 reviewed left breast mammogram 09-28-22 BIRAD 2 follow up bilateral mammogram in 6 months The patient was concerned about a small lump in her left breast scar, she was evaluated by Dr. Combs and he felt it was scar tissue. As no lumps masses or nodules of concern. 04-05-23 left breast lumpectomy and SNB on 06-28-21. Question of isolated tumor cell in sentinel node. 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 Drugs: none - Constitutional Constitutional: Reports sweats - EENT Comment: macular degeneration Eyes: denies blurred vision, denies pain Ears: bilateral: decreased hearing Ears, nose, mouth and throat: Denies headache, Denies sore throat - Breasts Breasts: bilateral: as per HPI - Cardiovascular Cardiovascular: Reports shortness of breath, Denies chest pain - Respiratory Comment: COPD/smoker - Gastrointestinal Gastrointestinal: Reports as per HPI, Denies abdominal pain, Denies diarrhea, Denies nausea, Denies vomiting - Menstruation Menstruation: Reports postmenopausal - Musculoskeletal Musculoskeletal: Reports as per HPI - Integumentary Integumentary: Denies pruritus, Denies rash - Neurological Neurological: Denies numbness, Denies weakness - Psychiatric Psychiatric: Reports anxiety - Endocrine Endocrine: Denies fatigue, Denies weight change - Hematologic/Lymphatic Comment: none - Allergic/Immunologic Allergic/Immunologic: Reports as per HPI Objective - Vital Signs Vital signs: Vital Signs Temp 97.6 F 04/05/23 15:28 Pulse 75 04/05/23 15:28 Resp 16 04/05/23 15:28 BP 141/76 04/05/23 15:28 Pulse Ox 98 04/05/23 15:28 FiO2 Intake & Output 04/04/23 04/05/23 04/05/23 18:59 06:59 18:59 Weight 48.988 kg - Constitutional General appearance: Present: cooperative - EENT Eyes: Present: EOMI ENT: Present: hearing grossly normal - Neck Neck: Present: normal ROM - Respiratory Respiratory: bilateral: CTA - Cardiovascular Heart sounds: normal: S1, S2 - Integumentary Integumentary: Present: normal turgor - Musculoskeletal Musculoskeletal: Present: gait normal - Psychiatric Psychiatric: Present: A&O x's 3, appropriate affect, intact judgment & insight - Additional findings Additional findings: Breast Exam: BRA: 34A Inspection: Well-healed scar left breast from prior surgery, bilateral grade 2 ptosis Palpation: Right breast: Multi positional exam fibrocystic changes no discrete dominant masses or notches of concern Right axilla: no adenopathy of concern soft tissue fullness posterior area of the axilla consistent with a lipoma Left breast: Well-healed scar from prior surgery, no dominant masses or nodules of concern multi-positional exam Left axilla: No adenopathy of concern Assessment and Plan Assessment: Impression: Stage I invasive lobular carcinoma left breast/status post lumpectomy, sentinel node biopsy, radiation therapy, patient on anastrozole, patient did not have any chemotherapy 2020 Plan: Continue anastrozole Continue follow-up with medical and radiation oncology follow up in 6 months bilateral mammogram in 1 year CC: Dr. Morgan
== END | disposition home or self-care (01) ==
LOC: WWCWWP 14:29
PROVIDERS: ATTEND Surgery
DX: D05.02 Lobular carcinoma in situ of left breast (principal); J44.9 Chronic obstructive pulmonary disease, unspecified; M19.90 Unspecified osteoarthritis, unspecified site; E78.00 Pure hypercholesterolemia, unspecified; K22.70 Barrett's esophagus without dysplasia; Z78.0 Asymptomatic menopausal state; Z79.811 Long term (current) use of aromatase inhibitors; Z79.82 Long term (current) use of aspirin; Z17.1 Estrogen receptor negative status [ER-]; Z87.891 Personal history of nicotine dependence; Z88.8 Allergy status to other drugs, medicaments and biological substances

== ENCOUNTER → 2023-05-14 | Outpatient (CLI) | payer MEDICARE, OTHER ==
[~2023-05-14] MED LIST changes: -DENOSUMAB 60 MG/ML 1 ML SYRINGE SQ NR; +DENOSUMAB 60 MG/ML 1 ML SYRINGE SQ ONE
[2023-05-14 13:30] VITALS: BP 120/74; PULSE 102; RESP 18; TEMP 98
== END ==
LOC: PROCWHC3 12:59
PROVIDERS: ATTEND Family Medicine
DX: M81.0 Age-related osteoporosis without current pathological fracture (principal)
CPT/HCPCS: 96372; J0897

== ENCOUNTER 2023-09-13 11:10 | Inpatient (IN) | payer MEDICARE, OTHER ==
[2023-09-13 11:57] LABS: Basophils % (A) 0 %; Eosinophils # (A) 0.3 k/uL (0-0.7); Eosinophils % (A) 4 %; HCT 40.9 % (34.0-46.0); HGB 13.4 gm/dL (11.4-16.0); Lymphocytes # (A) 0.4 k/uL (1.0-4.8); Lymphocytes % (A) 5 %; MCH 30.1 pg (25.0-35.0); MCHC 32.7 g/dL (31.0-37.0); MCV 92.3 fL (80.0-100.0); Monocytes # (A) 0.5 k/uL (0-1.0); Monocytes % (A) 6 %; Neutrophils # (A) 6.3 k/uL (1.3-7.7); Neutrophils % (A) 82 %; Platelet Count 355 k/uL (150-450); RBC 4.43 m/uL (3.80-5.40); RDW 13.1 % (11.5-15.5); WBC 7.7 k/uL (3.8-10.6)
[2023-09-13 11:58] LABS: Appearance,Urine Clear (Clear); Bilirubin,Urine Negative (Negative); Blood,Urine Moderate (Negative); Color,Urine Yellow; Glucose,Urine (UA) Negative (Negative); Ketones,Urine 1+ (Negative); Leukocyte Esterase,Urine Negative (Negative); Mucus,Urine Rare /hpf; Nitrite,Urine Negative (Negative); PH, Urine 6.5 (5.0-8.0); Protein,Urine 1+ (Negative); RBC,Urine 26 /hpf (0-5); Specific Gravity,Urine 1.008 (1.001-1.035); Squamous Epithelial Cell,Urine <1 /hpf (0-4); Urobilinogen,Urine <2.0 mg/dL (<2.0); WBC,Urine 2 /hpf (0-5)
--- NOTE | 2023-09-13 12:20 | ED ---
Female Urogenital HPI - General Chief complaint: Urogenital Stated complaint: Urogenital Time Seen by Provider: 09/13/23 11:26 Source: patient, RN notes reviewed Mode of arrival: ambulatory Limitations: no limitations - History of Present Illness Initial comments: This is a 78-year-old female presents to the emergency department with complaint of a urinary tract infection. Endorses continuous dysuria and a burning sensation in the pelvic region in addition to hematuria, fatigue, mild right CVA and flank pain. Admits to nausea, no vomiting, fatigue, decrease in appetite, and generalized body aches. Patient states that she has been on 3 different an tibiotics over the course of about a month. Patient was started on Keflex and therefore she was started on Cipro completed the full course. Patient is currently on Macrobid. Patient states that a culture of her urine was sent which revealed Klebsiella infection. Patient denies history of hospitalizations due to urinary tract infections and/or kidney infections. Patient currently denies fevers, vaginal bleeding or discharge. Denies history of neprholithiasis. - Related Data Home Medications Medication Instructions Recorded Confirmed Omeprazole [PriLOSEC] 20 mg PO DAILY 03/31/14 09/13/23 Albuterol Sulfate [Ventolin HFA] 2 puff INHALATION RT-Q6H PRN 04/21/14 09/13/23 Vitamin B Complex 1 cap PO DAILY 09/22/14 09/13/23 Vitamin E (Dl,Tocopheryl Acet) 1,000 unit PO DAILY 09/22/14 09/13/23 [Vitamin E] Denosumab [Prolia] 60 mg SQ Q180D 10/24/14 09/13/23 Aspirin [Adult Low Dose Aspirin EC] 81 mg PO DAILY 04/04/16 09/13/23 Biotin 5 mg PO DAILY 10/11/18 09/13/23 Lutein 20 mg PO DAILY 11/03/20 09/13/23 Zinc 50 mg PO DAILY 05/09/21 09/13/23 Anastrozole [Arimidex] 1 mg PO DAILY 11/17/21 09/13/23 Ascorbic Acid [Vitamin C] 1,000 mg PO DAILY 08/24/22 09/13/23 Cholecalciferol [Vitamin D3 (125 125 mcg PO DAILY 08/24/22 09/13/23 Mcg = 5000 Iu)] Magnesium 250 mg PO BID 08/24/22 09/13/23 Calcium Carbonate [Calcium] 600 mg PO BID 09/20/22 09/13/23 Simvastatin [Zocor] 20 mg PO HS 04/05/23 09/13/23 Fluticasone/Umeclidin/Vilanter 1 puff INHALATION RT-DAILY 09/13/23 09/13/23 [Trelegy Ellipta 200-62.5-25] Nitrofurantoin Monohyd/M-Cryst 100 mg PO BID 09/13/23 09/13/23 [Macrobid] Previous Rx's Medication Instructions Recorded Furosemide [Lasix] 40 mg PO DAILY #30 tablet 11/29/22 Allergies Allergy/AdvReac Type Severity Reaction Status Date / Time bupropion HCl Allergy Rash/Hives Verified 09/13/23 12:29 [From Wellbutrin] Review of Systems ROS Statement: Those systems with pertinent positive or pertinent negative responses have been documented in the HPI. ROS Other: All systems not noted in ROS Statement are negative. Past Medical History Past Medical History: Cancer, COPD Additional Past Medical History / Comment(s): HIATAL HERNIA, SKIN CANCER, NEWLY DIAGNOSED BREAST CANCER- had radiation only (2020), JAEGER'S DISEASE, hyponatremia (2022) History of Any Multi-Drug Resistant Organisms: None Reported Past Surgical History: Breast Surgery, Tubal Ligation Additional Past Surgical History / Comment(s): BRONCHOSCOPY, BREAST BX, EGD., PROCEDURE TO "CUT NERVES IN NECK" Past Anesthesia/Blood Transfusion Reactions: Motion Sickness, Postoperative Nausea & Vomiting (PONV) Past Psychological History: No Psychological Hx Reported Smoking Status: Never smoker - Past Family History Brother(s) Family Medical History: Cancer Additional Family Medical History / Comment(s): BROTHER # 1 PANCREATIC CANCER. BROTHER #2 KIDNEY CANCER. General Exam Limitations: no limitations Course Vital Signs 09/13/23 09/13/23 11:12 16:31 Temperature 97.5 F L Pulse Rate 108 H 94 Respiratory 18 20 Rate Blood Pressure 124/77 147/84 O2 Sat by Pulse 96 95 Oximetry Medical Decision Making - Medical Decision Making Was pt. sent in by a medical professional or institution (, PA, SLATE ROOFER, urgent care, hospital, or intermediate...) When possible be specific @ -No Did you speak to anyone other than the patient for history (EMS, parent, family, police, friend...)? What history was obtained from this source @ -No Did you review nursing and triage notes (agree or disagree)? Why? @ -I reviewed and agree with nursing and triage notes Were old charts reviewed (outside hosp., previous admission, EMS record, old EKG, old radiological studies, urgent care reports/EKG's, intermediate records)? Report findings @ -No old charts were reviewed Differential Diagnosis (chest pain, altered mental status, abdominal pain women, abdominal pain men, vaginal bleeding, weakness, fever, dyspnea, syncope, headache, dizziness, GI bleed, back pain, seizure, CVA, palpatations, mental health, musculoskeletal)? @ -Differential Abdominal Pain Women: Appendicitis, Cholecystitis, diverticulosis, ischemic bowel, pancreatitis, hepatitis, UTI, gastroenteritis, AAA, incarcerated hernia, bowel obstruction, constipation, inflammatory bowel, hepatitis, peptic ulcer disease, splenic infarction, perforated viscus, vulvitis, ovarian torsion, PID, kidney stone, placenta abruption, this is not meant to be an all-inclusive list EKG interpreted by me (3pts min.). @ -None X-rays interpreted by me (1pt min.). @ -None done CT interpreted by me (1pt min.). @ -CT abdomen pelvis with contrast no suspicious abnormality, calcifications in the lower and small nonobstructing renal stones bilaterally, hiatal hernia U/S interpreted by me (1pt. min.). @ -None done What testing was considered but not performed or refused? (CT, X-rays, U/S, labs)? Why? @ -None What meds were considered but not given or refused? Why? @ -None Did you discuss the management of the patient with other professionals (professionals i.e. , PA, [employer]ATE ROOFER, lab, RT, psych nurse, social studies department chair, mangle press catcher, teacher, professional security officer, medical case manager)? Give summary @ Spoke with Dr. Tabares, [facility] internal medicine, who is in agreement with observation admission for correction of hyponatremia. Also recommended consult infectious disease for evaluation of recurrent UTI type sytmpoms. Was smoking cessation discussed for >3mins.? @ -No Was critical care preformed (if so, how long)? @ -No Were there social determinants of health that impacted care today? How? (Homelessness, low income, unemployed, alcoholism, drug addiction, transportation, low edu. Level, literacy, decrease access to med. care, penitentiary, rehab)? @ -No Was there de-escalation of care discussed even if they declined (Discuss DNR or withdrawal of care, Hospice)? DNR status @ -No What co-morbidities impacted this encounter? (DM, HTN, Smoking, COPD, CAD, Cancer, CVA, ARF, Chemo, Hep., AIDS, mental health diagnosis, sleep apnea, morbid obesity)? @ -None Was patient admitted / discharged? Hospital course, mention meds given and route, prescriptions, significant lab abnormalities, going to OR and other pertinent info. @ -78-year-old female with complaint of recurrent urinary tract infections. On examination patient noted to have 10-year-old right CVA tenderness. Abdominal examination unremarkable for signs of tenderness, rebound tenderness, rigidity. CBC unremarkable. CMP revealed hyponatremia of 125, low chloride of 94, increaed BUN 26 and creatinine low at 0.50. 1000ml fluid bolus given. Patient's lactic acid nonelevated. Urinalysis reveals 1+ protein and ketones, moderate blood and 26 white blood cells, no signs of infection. On pelvic examination, Due to patient's recurrent urinary tract infection symptoms in addition to nausea, patient sent for CT abdomen/pelvis, no acute intra-abdominal process or pathology noted. Discussion with patient she may benefit from overnight observation admission to correct hyponatremia and fluid resuscitation. Patient is in agreement with this. I spoke with Dr. Pathak from admission observation, he recommended referral to ID for management of recurrent UTI. Discussed with Dr. Nesbitt Undiagnosed new problem with uncertain prognosis? @ -No Drug Therapy requiring intensive monitoring Notoxicity (Heparin, Nitro, Insulin, Cardizem)? @ -No Were any procedures done? @ -No Diagnosis/Notom? @ -hyponatremia, dysuria,Nourrent UTI Acute, or Chronic, or Acute on Chronic? @ -acute Uncomplicated (without systemic symptoms) or Complicated (systemic symptoms)? @ -uncomplicated Side effects of treatment? @ -No Exacerbation, Progression, or Severe ExacerbNon? @ -No Poses a threat to life or bodily function? HNo(Chest pain, USA, LA, pneumonia, PE, COPD, DKA, ARF, appy, cholecystitis, CVA, Diverticulitis, Homicidal, Suicidal, threat to staff... and all critical care pts) @ -No - Lab Data Result diagrams: 09/13/23 11:50 09/13/23 11:50 Lab Results 09/13/23 09/13/23 09/13/23 Range/Units 11:15 11:50 11:50 WBC 7.7 (3.8-10.6) k/uL RBC 4.43 (3.80-5.40) m/uL Hgb 13.4 (11.4-16.0) gm/dL Hct 40.9 (34.0-46.0) % MCV 92.3 (80.0-100.0) fL MCH 30.1 (25.0-35.0) pg MCHC 32.7 (31.0-37.0) g/dL RDW 13.1 (11.5-15.5) % Plt Count 355 (150-450) k/uL MPV 7.0 Neutrophils % 82 % Lymphocytes % 5 % Monocytes % 6 % Eosinophils % 4 % Basophils % 0 % Neutrophils # 6.3 (1.3-7.7) k/uL Lymphocytes # 0.4 L (1.0-4.8) k/uL Monocytes # 0.5 (0-1.0) k/uL Eosinophils # 0.3 (0-0.7) k/uL Basophils # 0.0 (0-0.2) k/uL Sodium 125 L (137-145) mmol/L Potassium 3.9 (3.5-5.1) mmol/L Chloride 94 L (98-107) mmol/L Carbon Dioxide 22 (22-30) mmol/L Anion Gap 9 mmol/L BUN 26 H (7-17) mg/dL Creatinine 0.50 L (0.52-1.04) mg/dL Est GFR (CKD-EPI)AfAm >90 (>60 ml/min/1.73 sqM) Est GFR (CKD-EPI)NonAf >90 (>60 ml/min/1.73 sqM) Glucose 115 H (74-99) mg/dL Plasma Lactic Acid Mohit (0.7-2.0) mmol/L Calcium 9.2 (8.4-10.2) mg/dL Total Bilirubin 0.6 (0.2-1.3) mg/dL AST 30 (14-36) U/L ALT 25 (4-34) U/L Alkaline Phosphatase 64 (38-126) U/L Total Protein 6.7 (6.3-8.2) g/dL Albumin 3.8 (3.5-5.0) g/dL Urine Color Yellow Urine Appearance Clear (Clear) Urine pH 6.5 (5.0-8.0) Ur Specific Mullan 1.008 (1.001-1.035) Urine Protein 1+ H (Negative) Urine Glucose (UA) Negative (Negative) Urine Ketones 1+ H (Negative) Urine Blood Moderate H (Negative) Urine Nitrite Negative (Negative) Urine Bilirubin Negative (Negative) Urine Urobilinogen <2.0 (<2.0) mg/dL Ur Leukocyte Esterase Negative (Negative) Urine RBC 26 H (0-5) /hpf Urine WBC 2 (0-5) /hpf Ur Squamous Epith Cells <1 (0-4) /hpf Urine Mucus Rare H (None) /hpf 09/13/23 Range/Units 11:50 WBC (3.8-10.6) k/uL RBC (3.80-5.40) m/uL Hgb (11.4-16.0) gm/dL Hct (34.0-46.0) % MCV (80.0-100.0) fL MCH (25.0-35.0) pg MCHC (31.0-37.0) g/dL RDW (11.5-15.5) % Plt Count (150-450) k/uL MPV Neutrophils % % Lymphocytes % % Monocytes % % Eosinophils % % Basophils % % Neutrophils # (1.3-7.7) k/uL Lymphocytes # (1.0-4.8) k/uL Monocytes # (0-1.0) k/uL Eosinophils # (0-0.7) k/uL Basophils # (0-0.2) k/uL Sodium (137-145) mmol/L Potassium (3.5-5.1) mmol/L Chloride (98-107) mmol/L Carbon Dioxide (22-30) mmol/L Anion Gap mmol/L BUN (7-17) mg/dL Creatinine (0.52-1.04) mg/dL Est GFR (CKD-EPI)AfAm (>60 ml/min/1.73 sqM) Est GFR (CKD-EPI)NonAf (>60 ml/min/1.73 sqM) Glucose (74-99) mg/dL Plasma Lactic Acid Mohit 1.1 (0.7-2.0) mmol/L Calcium (8.4-10.2) mg/dL Total Bilirubin (0.2-1.3) mg/dL AST (14-36) U/L ALT (4-34) U/L Alkaline Phosphatase (38-126) U/L Total Protein (6.3-8.2) g/dL Albumin (3.5-5.0) g/dL Urine Color Urine Appearance (Clear) Urine pH (5.0-8.0) Ur Specific Mullan (1.001-1.035) Urine Protein (Negative) Urine Glucose (UA) (Negative) Urine Ketones (Negative) Urine Blood (Negative) Urine Nitrite (Negative) Urine Bilirubin (Negative) Urine Urobilinogen (<2.0) mg/dL Ur Leukocyte Esterase (Negative) Urine RBC (0-5) /hpf Urine WBC (0-5) /hpf Ur Squamous Epith Cells (0-4) /hpf Urine Mucus (None) /hpf Disposition Clinical Impression: Hyponatremia, Dysuria Disposition: ADMITTED IP TO THIS HOSP Is patient prescribed a controlled substance at d/c from ED?: No Decision to Admit Reason: Admit from EC Decision Date: 09/13/23 Decision Time: 15:00
[2023-09-13 12:34] LABS: ALT 25 U/L (4-34); AST 30 U/L (14-36); African American GFR (CKD) >90 (>60 ml/min/1.73 sqM); Albumin 3.8 g/dL (3.5-5.0); Alkaline Phosphatase 64 U/L (38-126); Anion Gap 9 mmol/L; Blood Urea Nitrogen 26 mg/dL (7-17); Calcium 9.2 mg/dL (8.4-10.2); Carbon Dioxide 22 mmol/L (22-30); Chloride 94 mmol/L (98-107); Glucose 115 mg/dL (74-99); Non-African American GFR(CKD) >90 (>60 ml/min/1.73 sqM); Potassium 3.9 mmol/L (3.5-5.1); Sodium 125 mmol/L (137-145); Total Bilirubin 0.6 mg/dL (0.2-1.3); Total Protein 6.7 g/dL (6.3-8.2)
--- NOTE | 2023-09-13 13:16 | CT ---
EXAMINATION TYPE: CT abdomen pelvis w con DATE OF EXAM: 09/13/2023 COMPARISON: 10/24/2014 INDICATION: resistant UTI DLP: 382.2 mGycm, Automated exposure control for dose reduction was used. CONTRAST: 100 mL of Isovue 300. Study performed without Oral Contrast TECHNIQUE: Axial images were obtained from above the diaphragm to the pubic rami in the axial plane a t 5 mm thick sections. Reconstructed images are reviewed on the computer in the coronal plane. FINDINGS: Limited CT sections are obtained the lung bases. The lung bases are clear. There is a small hiatal hernia present. CT ABDOMEN: Liver: Normal Spleen: Normal Pancreas: Normal Adrenal glands: The adrenal glands are normal. Gallbladder: Normal Kidneys: No masses are evident. No hydronephrosis is present. Small renal stones may be present wit hout evidence of obstruction. Multiple small cortical renal cysts are present. Aorta: Calcifications within the aorta. There may be some severe narrowing within the midportion, exa mple image series 201 image 16. Inferior vena cava: Normal. CT PELVIS: Loops of bowel within the abdomen and pelvis are normal. The study is without oral contrast limit ing bowel evaluation. Appendix: Not identified. No dilated tubular structure or inflammatory changes are evident. Urinary bladder: Normal. Genitourinary structures: Uterus is unremarkable. Adnexa appear within normal limits. Osseous structures: No suspicious lytic or sclerotic lesions. Degenerative disc changes are within th e lumbar spine. IMPRESSION: 1. No suspicious abnormality to account for recalcitrant UTI. 2. Calcification within the aorta may be contributing to severe narrowing within the proximal to mid portion. 3. There may be small nonobstructing renal stones present bilaterally. 4. Hiatal hernia
[2023-09-13] MEDS: SODIUM CHLORIDE 0.9% 1,000 ML IV STA (13:22)
[2023-09-13] MEDS ORDERED: NALOXONE 0.4 MG/ML 1 ML VIAL IV PRN (15:01)
[2023-09-13] MEDS ORDERED: IBUPROFEN 400 MG TAB PO PRN (15:01)
[2023-09-13] MEDS: FLUCONAZOLE 100 MG TAB PO ONE (16:27)
[2023-09-13] MEDS: SODIUM CHLORIDE 0.9% 1,000 ML IV SCH (16:30)
--- NOTE | 2023-09-13 22:44 | P.CONS ---
History of Present Illness - Reason for Consult Consult date: 09/13/23 - History of Present Illness Patient is a 78-year-old female with a past medical history significant for hiatal hernia skin cancer breast cancer COPD and did have a history of recurrent UTI apparently recently has been treated with the 3 different courses of antibiotic by her primary care physician including Keflex Cipro and Macrobid patient now presenting to the hospital concerning for fatigue weakness did have nausea but no vomiting complaining of some dysuria and burning sensation to the ER physician but no hematuria apparently the patient recently has an outpatient culture positive for Klebsiella that was done by her primary care physician that was resistant to Macrobid for the patient was advised to go to the hospital on arrival to the ER the patient was afebrile and no fever have recorded subsequently patient was mildly tachycardic but not hypotensive or hypoxic white count was 7.7 creatinine 0.50 urine dip shows moderate blood leukocyte history was negative WBC was only 2 patient did have abdominal pelvis CT no suspicious abnormality to account for recurrent UTI patient has been admitted to the hospital infectious disease was consulted for further management of antibiotic therapy Past Medical History Past Medical History: Cancer, COPD Additional Past Medical History / Comment(s): HIATAL HERNIA, SKIN CANCER, NEWLY DIAGNOSED BREAST CANCER- had radiation only (2020), JAEGER'S DISEASE, hyponatremia (2022) History of Any Multi-Drug Resistant Organisms: None Reported Past Surgical History: Breast Surgery, Tubal Ligation Additional Past Surgical History / Comment(s): BRONCHOSCOPY, BREAST BX, EGD., PROCEDURE TO "CUT NERVES IN NECK" Past Anesthesia/Blood Transfusion Reactions: Motion Sickness, Postoperative Nausea & Vomiting (PONV) Past Psychological History: No Psychological Hx Reported Smoking Status: Never smoker - Past Family History Brother(s) Family Medical History: Cancer Additional Family Medical History / Comment(s): BROTHER # 1 PANCREATIC CANCER. BROTHER #2 KIDNEY CANCER. Medications and Allergies Home Medications Medication Instructions Recorded Confirmed Type Omeprazole [PriLOSEC] 20 mg PO DAILY 03/31/14 09/13/23 History Albuterol Sulfate [Ventolin HFA] 2 puff INHALATION RT-Q6H PRN 04/21/14 09/13/23 History Vitamin B Complex 1 cap PO DAILY 09/22/14 09/13/23 History Vitamin E (Dl,Tocopheryl Acet) 1,000 unit PO DAILY 09/22/14 09/13/23 History [Vitamin E] Denosumab [Prolia] 60 mg SQ Q180D 10/24/14 09/13/23 History Aspirin [Adult Low Dose Aspirin EC] 81 mg PO DAILY 04/04/16 09/13/23 History Biotin 5 mg PO DAILY 10/11/18 09/13/23 History Lutein 20 mg PO DAILY 11/03/20 09/13/23 History Zinc 50 mg PO DAILY 05/09/21 09/13/23 History Anastrozole [Arimidex] 1 mg PO DAILY 11/17/21 09/13/23 History Ascorbic Acid [Vitamin C] 1,000 mg PO DAILY 08/24/22 09/13/23 History Cholecalciferol [Vitamin D3 (125 125 mcg PO DAILY 08/24/22 09/13/23 History Mcg = 5000 Iu)] Magnesium 250 mg PO BID 08/24/22 09/13/23 History Calcium Carbonate [Calcium] 600 mg PO BID 09/20/22 09/13/23 History Furosemide [Lasix] 40 mg PO DAILY #30 tablet 11/29/22 09/13/23 Rx Simvastatin [Zocor] 20 mg PO HS 04/05/23 09/13/23 History Fluticasone/Umeclidin/Vilanter 1 puff INHALATION RT-DAILY 09/13/23 09/13/23 History [Trelegy Ellipta 200-62.5-25] Nitrofurantoin Monohyd/M-Cryst 100 mg PO BID 09/13/23 09/13/23 History [Macrobid] Acetaminophen/Diphenhydramine 2 tab PO HS 09/14/23 09/14/23 History [Tylenol PM 500-25mg] Allergies Allergy/AdvReac Type Severity Reaction Status Date / Time bupropion HCl Allergy Rash/Hives Verified 09/13/23 12:29 [From Wellbutrin] Physical Exam Vitals: Vital Signs Temp Pulse Resp BP Pulse Ox 09/13/23 11:12 97.5 F L 108 H 18 124/77 96 Intake and Output 09/13/23 09/13/23 09/13/23 06:59 14:59 22:59 Other: Weight 47.627 kg Results CBC & Chem 7: 09/13/23 11:50 09/14/23 10:08 Labs: Abnormal Lab Results - Last 24 Hours (Table) 09/13/23 09/13/23 09/13/23 Range/Units 11:15 11:50 11:50 Lymphocytes # 0.4 L (1.0-4.8) k/uL Sodium 125 L (137-145) mmol/L Chloride 94 L (98-107) mmol/L BUN 26 H (7-17) mg/dL Creatinine 0.50 L (0.52-1.04) mg/dL Glucose 115 H (74-99) mg/dL Urine Protein 1+ H (Negative) Urine Ketones 1+ H (Negative) Urine Blood Moderate H (Negative) Urine RBC 26 H (0-5) /hpf Urine Mucus Rare H (None) /hpf Assessment and Plan Plan: 1patient presented to hospital with generalized weakness not feeling well nausea but no vomiting did have some discomfort and pressure in the pelvic area question of possible vaginal candidiasis and this patient has been exposed to multiple courses of antibiotic recently and UA obtained this admission did not show any leukocyte Estrace or WBC and CT abdominal pelvis was negative for any structural abnormality 2-we will consider short course of Diflucan and no need for systemic antibiotic therapy Questions were answered We will follow on clinical condition and cultures to further adjust medication if needed Thank you for this consultation we will follow the patient along with you Dictation was produced using [employer] dictation software. please excuse any grammatical, word or spelling errors. Time with Patient: Greater than 30
[2023-09-14] MEDS: ACETAMINOPHEN TAB 325 MG TAB PO PRN (02:09)
[2023-09-14] MEDS: FLUCONAZOLE 100 MG TAB PO SCH (09:18)
[2023-09-14] MEDS ORDERED: ALBUTEROL NEBULIZED 2.5 MG/3 ML INHALATION PRN (09:49)
[2023-09-14 11:09] LABS: ALT 19 U/L (4-34); AST 21 U/L (14-36); African American GFR (CKD) >90 (>60 ml/min/1.73 sqM); Albumin 2.9 g/dL (3.5-5.0); Albumin/Globulin Ratio 1.2; Alkaline Phosphatase 58 U/L (38-126); Anion Gap 9 mmol/L; Blood Urea Nitrogen 18 mg/dL (7-17); Calcium 8.4 mg/dL (8.4-10.2); Carbon Dioxide 20 mmol/L (22-30); Chloride 102 mmol/L (98-107); Globulin 2.4 g/dL; Glucose 122 mg/dL (74-99); Magnesium 1.8 mg/dL (1.6-2.3); Non-African American GFR(CKD) >90 (>60 ml/min/1.73 sqM); Potassium 3.3 mmol/L (3.5-5.1); Sodium 131 mmol/L (137-145); Total Bilirubin 0.3 mg/dL (0.2-1.3); Total Protein 5.3 g/dL (6.3-8.2)
[2023-09-14] MEDS: ASCORBIC ACID 500 MG TAB PO SCH (11:43)
[2023-09-14] MEDS: ASPIRIN 81 MG PO SCH (11:43)
[2023-09-14] MEDS: ANASTROZOLE 1 MG TAB PO SCH (11:43)
[2023-09-14] MEDS: NON FORMULARY DRUG (Biotin [Biotin] 5 MG Capsule) PO SCH (11:44)
[2023-09-14] MEDS: CHOLECALCIFEROL 125 MCG (5000 IU) TABLET PO SCH (11:44)
[2023-09-14] MEDS: NON FORMULARY DRUG (Lutein [Lutein] 20 MG Capsule) PO SCH (11:44)
[2023-09-14] MEDS: MAGNESIUM OXIDE 400 MG TAB PO SCH (11:45)
[2023-09-14] MEDS: PANTOPRAZOLE 40 MG TABLET PO SCH (11:45)
[2023-09-14] MEDS: NON FORMULARY DRUG (Vitamin B Complex [Vitamin B Complex] 1 EACH Capsule) PO SCH (11:45)
[2023-09-14] MEDS: VITAMIN E (DL,TOCOPHERYL ACET) 400 UNIT (180 MG) CAP PO SCH (11:46)
[2023-09-14] MEDS: ZINC SULFATE 220 MG CAP PO SCH (11:46)
[2023-09-14] MEDS: IPRATROPIUM 0.5 MG/2.5 ML NEBU INHALATION SCH (12:00)
[2023-09-14] MEDS: PHENAZOPYRIDINE 100 MG TAB PO SCH (12:10)
--- NOTE | 2023-09-14 12:39 | HP ---
HISTORY AND PHYSICAL CHIEF COMPLAINT: Recurrent UTI with failure of outpatient treatment. HISTORY OF PRESENT ILLNESS: This is a 78-year-old woman with a past medical history of recurrent UTI, was complaining of still persistent dysuria. The patient had 3 courses of antibiotics and the patient also had hyponatremia, sodium 124. The patient was admitted for further evaluation and treatment. There is no history of any fever, rigors, or chills at this time. Infectious Disease is following the patient closely. CAT scan did not show any acute abnormality. PAST MEDICAL HISTORY: Reviewed include recurrent UTIs, hyponatremia, COPD, hiatal hernia. Rest of the history and rest of chart is also reviewed. HOME MEDICATIONS: Tylenol, Zocor, rest of the medications are reviewed. ALLERGIES: Wellbutrin. FAMILY HISTORY: History of cancer in the family. SOCIAL HISTORY: Previous history of smoking. REVIEW OF SYSTEMS: A 14-point review is negative except as mentioned earlier. PHYSICAL EXAMINATION: VITAL SIGNS: Pulse is 97, blood pressure 150/83, respirations 20. HEENT: Conjunctivae normal. NECK: No jugular venous distention. CARDIOVASCULAR: S1, S2. RESPIRATIONS: Diminished at the bases. No rhonchi, no crackles. ABDOMEN: Soft, nontender. LEGS: No edema. NERVOUS SYSTEM: No focal deficits. SKIN: No ulcer, rash, bleeding. JOINTS: No active deforming arthropathy. LABORATORY DATA: Reviewed. ASSESSMENT: 1. Recurrent UTI with failure of outpatient treatment. 2. Hyponatremia. 3. Hypokalemia. 4. Persistent dysuria. 5. Chronic obstructive pulmonary disease. 6. Remote history of nicotine dependence. RECOMMENDATIONS AND DISCUSSION: This 78-year-old woman presented with multiple complex medical issues, we will monitor the patient closely. Continue the current medications. Continue the empiric antibiotics, follow the cultures. Closely follow with Infectious Disease. Guarded prognosis. Further recommendations to follow. MMODL / IJN: [id number] /
--- NOTE | 2023-09-14 16:04 | P.PN ---
Subjective Progress Note Date: 09/14/23 Principal diagnosis: Reason for follow-up is recurrent UTI and possible vaginal candidiasis Patient is a 78-year-old female with a past medical history significant for hiatal hernia skin cancer breast cancer COPD and did have a history of recurrent UTI apparently recently has been treated with the 3 different courses of antibiotic by her primary care physician including Angela Nova and Cecile patient now presenting to the hospital concerning for fatigue weakness along with nausea dysuria and burning sensation. On today's evaluation that is 09/14/2023,the patient denies any fever or any chills, patient is breathing comfortably on room air, the patient denies chest pain shortness of breath and no significant cough, patient denies abdominal pain, no nausea vomiting or diarrhea and urinary symptom has some improved. Patient creatinine 0.43 Objective - Vital Signs Vital signs: Vital Signs Temp 97.7 F 09/14/23 07:10 Pulse 77 09/14/23 07:10 Resp 18 09/14/23 07:10 BP 133/68 09/14/23 07:10 Pulse Ox 96 09/14/23 07:10 FiO2 Intake & Output 09/13/23 09/14/23 09/14/23 18:59 06:59 18:59 Weight 47.627 kg 47.627 kg Other: Voiding Method Toilet Toilet # Voids 1 - Exam GENERAL DESCRIPTION: An elderly female lying in bed in no distress RESPIRATORY SYSTEM: Unlabored breathing , decreased breath sounds at bases HEART: S1 S2 regular rate and rhythm , ABDOMEN: Soft , no tenderness EXTREMITIES: No edema feet - Labs CBC & Chem 7: 09/13/23 11:50 09/14/23 10:08 Labs: Abnormal Lab Results - Last 24 Hours (Table) 09/13/23 09/13/23 09/13/23 Range/Units 11:15 11:50 11:50 Lymphocytes # 0.4 L (1.0-4.8) k/uL Sodium 125 L (137-145) mmol/L Chloride 94 L (98-107) mmol/L BUN 26 H (7-17) mg/dL Creatinine 0.50 L (0.52-1.04) mg/dL Glucose 115 H (74-99) mg/dL Urine Protein 1+ H (Negative) Urine Ketones 1+ H (Negative) Urine Blood Moderate H (Negative) Urine RBC 26 H (0-5) /hpf Urine Mucus Rare H (None) /hpf Assessment and Plan (1) Recurrent UTI Current Visit: Yes Status: Acute Code(s): N39.0 - URINARY TRACT INFECTION, SITE NOT SPECIFIED SNOMED Code(s): 495508237 (2) Vaginal candidiasis Current Visit: Yes Status: Acute Code(s): B37.31 - ACUTE CANDIDIASIS OF VULVA AND VAGINA SNOMED Code(s): 45565484 Plan: 1patient presented to hospital with generalized weakness not feeling well nausea but no vomiting did have some discomfort and pressure in the pelvic area question of possible vaginal candidiasis and this patient has been exposed to multiple courses of antibiotic recently and UA obtained this admission did not show any leukocyte Estrace or WBC and CT abdominal pelvis was negative for any structural abnormality 2-plan is for short course of Diflucan and no need for systemic antibiotic therapy, Rocephin should be discontinued Dictation was produced using [employer] dictation software. please excuse any grammatical, word or spelling errors. Time with Patient: Less than 30
[2023-09-14 16:25] VITALS: BMI 18.6
[2023-09-14] MEDS: SYMBICORT 80-4.5 MCG INHALER INHALATION SCH (19:21)
[2023-09-14] MEDS: ATORVASTATIN 10 MG TAB PO SCH (20:22)
[2023-09-14] MEDS: CALCIUM CARBONATE 500 MG CHEWABLE PO SCH (20:22)
[2023-09-14] MEDS: ACETAMINOPHEN TAB 500 MG TAB PO SCH (20:23)
[2023-09-14] MEDS: diphenhydrAMINE 25 MG CAP PO SCH (20:23)
[2023-09-14] MEDS: HEPARIN SODIUM,PORCINE 5,000 UNIT/ML 1 ML VIAL SQ SCH (20:24)
[2023-09-15] MEDS ORDERED: IPRATROPIUM 0.5 MG/2.5 ML NEBU INHALATION SCH (08:00)
[2023-09-15] MEDS: FUROSEMIDE 40 MG TAB PO SCH (09:03)
[2023-09-15 09:17] LABS: Basophils # (A) 0.04 X 10*3/uL (0.00-0.10); Basophils % (A) 0.9 %; Eosinophils # (A) 0.71 X 10*3/uL (0.04-0.35); Eosinophils % (A) 15.2 %; HCT 33.1 % (37.2-46.3); HGB 11.2 g/dL (12.0-15.0); Immature Grans, Automated 0 %; Lymphocytes # (A) 1.06 X 10*3/uL (0.90-5.00); Lymphocytes % (A) 22.7 %; MCHC 33.8 g/dL (32.0-37.0); MCV 88.7 FL (80.0-97.0); Mean Platelet Volume 10.1 FL (9.5-12.2); Monocytes # (A) 0.85 X 10*3/uL (0.20-1.00); Monocytes % (A) 18.2 %; NRBC Per 100 WBC 0 X 10*3/uL (0.00-0.01); Neutrophils # (A) 2.01 X 10*3/uL (1.80-7.70); Platelet Count 328 X 10*3/uL (140-440); RBC 3.73 X 10*6/uL (4.10-5.20); WBC 4.67 X 10*3/uL (4.50-10.00)
[2023-09-15 10:51] LABS: Blood Urea Nitrogen 19.2 mg/dL (9.0-27.0); Calcium 8.7 mg/dL (8.7-10.3); Carbon Dioxide 20.9 mmol/L (21.6-31.8); Chloride 103 mmol/L (96-109); Glucose 87 mg/dL (70-110); Potassium 3.8 mmol/L (3.5-5.5); Sodium 137 mmol/L (135-145)
--- NOTE | 2023-09-15 13:03 | P.NPCON ---
History of Present Illness - Reason for Consult hyponatremia - History of Present Illness patient is a 78-year-old female with history of COPD who was admitted to the hospital with complaints of abdominal discomfort and burning sensation while passing urine. Patient was treated with antibiotics as outpatient. She had 2 previous courses of antibiotics with no improvement in symptoms. Patient was also complaining of nausea. History of recent left ankle fracture currently in place. Patient has history of hyponatremia previously however she was last seen at our office in June at which time the serum sodium was normal. Upon admission patient is noted to have a sodium of 125. She is been maintained on normal saline and sodium is up to 137 today. Patient did report decreased oral intake a few days prior to admission. Review of Systems as per HPI Past Medical History Past Medical History: Cancer, COPD Additional Past Medical History / Comment(s): HIATAL HERNIA, SKIN CANCER, NEWLY DIAGNOSED BREAST CANCER- had radiation only (2020), JAEGER'S DISEASE, hyponatremia (2022) History of Any Multi-Drug Resistant Organisms: None Reported Past Surgical History: Breast Surgery, Tubal Ligation Additional Past Surgical History / Comment(s): BRONCHOSCOPY, BREAST BX, EGD., PROCEDURE TO "CUT NERVES IN NECK" Past Anesthesia/Blood Transfusion Reactions: Motion Sickness, Postoperative Nausea & Vomiting (PONV) Past Psychological History: No Psychological Hx Reported Smoking Status: Never smoker - Past Family History Brother(s) Family Medical History: Cancer Additional Family Medical History / Comment(s): BROTHER # 1 PANCREATIC CANCER. BROTHER #2 KIDNEY CANCER. Medications and Allergies Home Medications Medication Instructions Recorded Confirmed Type Omeprazole [PriLOSEC] 20 mg PO DAILY 03/31/14 09/13/23 History Albuterol Sulfate [Ventolin HFA] 2 puff INHALATION RT-Q6H PRN 04/21/14 09/13/23 History Vitamin B Complex 1 cap PO DAILY 09/22/14 09/13/23 History Vitamin E (Dl,Tocopheryl Acet) 1,000 unit PO DAILY 09/22/14 09/13/23 History [Vitamin E] Denosumab [Prolia] 60 mg SQ Q180D 10/24/14 09/13/23 History Aspirin [Adult Low Dose Aspirin EC] 81 mg PO DAILY 04/04/16 09/13/23 History Biotin 5 mg PO DAILY 10/11/18 09/13/23 History Lutein 20 mg PO DAILY 11/03/20 09/13/23 History Zinc 50 mg PO DAILY 05/09/21 09/13/23 History Anastrozole [Arimidex] 1 mg PO DAILY 11/17/21 09/13/23 History Ascorbic Acid [Vitamin C] 1,000 mg PO DAILY 08/24/22 09/13/23 History Cholecalciferol [Vitamin D3 (125 125 mcg PO DAILY 08/24/22 09/13/23 History Mcg = 5000 Iu)] Magnesium 250 mg PO BID 08/24/22 09/13/23 History Calcium Carbonate [Calcium] 600 mg PO BID 09/20/22 09/13/23 History Furosemide [Lasix] 40 mg PO DAILY #30 tablet 11/29/22 09/13/23 Rx Simvastatin [Zocor] 20 mg PO HS 04/05/23 09/13/23 History Fluticasone/Umeclidin/Vilanter 1 puff INHALATION RT-DAILY 09/13/23 09/13/23 History [Trelegy Ellipta 200-62.5-25] Nitrofurantoin Monohyd/M-Cryst 100 mg PO BID 09/13/23 09/13/23 History [Macrobid] Acetaminophen/Diphenhydramine 2 tab PO HS 09/14/23 09/14/23 History [Tylenol PM 500-25mg] Allergies Allergy/AdvReac Type Severity Reaction Status Date / Time bupropion HCl Allergy Rash/Hives Verified 09/13/23 12:29 [From Wellbutrin] Physical Exam Vitals: Vital Signs Temp Pulse Pulse Resp BP BP Pulse Ox 09/15/23 12:39 97.6 F 90 20 161/81 95 09/15/23 11:56 95 09/15/23 11:46 93 09/15/23 08:29 84 09/15/23 08:14 82 09/15/23 07:20 98.0 F 79 20 162/82 96 09/15/23 02:00 98 F 79 17 145/75 94 L 09/14/23 21:50 98.4 F 84 16 156/84 94 L 09/14/23 19:32 78 09/14/23 19:22 74 09/14/23 15:49 80 09/14/23 15:41 76 09/14/23 15:38 97.8 F 86 16 161/79 95 09/14/23 13:38 98.4 F 92 16 157/80 94 L Intake and Output 09/14/23 09/15/23 09/15/23 22:59 06:59 14:59 Intake Total 950 1500 Balance 950 1500 Intake: Intake, IV Titration 950 900 Amount Sodium Chloride 0.9% 1, 900 900 000 ml @ 75 mls/hr IV . [id number] [facility] Rx#:[id number] cefTRIAXone 1 gm In 50 Sodium Chloride 0.9% 50 ml @ 100 mls/hr IVPB Q24HR [facility] Rx#:[id number] Oral 600 Other: Voiding Method Toilet Toilet # Voids 3 2 1 # Bowel Movements 1 Weight 47.627 kg patient is awake, comfortable, no acute distress Examination of the heart S1 and S2 Examination of the lungs bilateral breath sounds are heard Abdomen is soft nontender Examination of lower extremity shows no evidence of edema left ankle brace noted DEV TECHNICAL MGR exam grossly intact Results - Lab Results Most recent lab results Calcium 8.7 mg/dL (8.7-10.3) 09/15/23 04:01 Magnesium 1.8 mg/dL (1.6-2.3) 09/14/23 10:08 09/15/23 04:01 09/15/23 04:01 Assessment and Plan Assessment: 1. Hypovolemic hyponatremia currently improved with normal saline 2. Recent left ankle fracture 3. UTI status post treatment as outpatient. 4. Vaginal candidiasis 5. Hypokalemia status post replacement Plan: continue with normal saline Encourage increase oral intake Repeat labs in a.m. Thank you for the consultation. We will continue to follow the patient with you during her hospitalization.
--- NOTE | 2023-09-15 14:51 | PN ---
PROGRESS NOTE DATE OF SERVICE: 09/15/2023 SUBJECTIVE: This is a 78-year-old woman, who was admitted with recurrent UTI with failure of outpatient treatment, is being closely monitored. The patient also has mild hypokalemia, improved. PHYSICAL EXAMINATION: VITAL SIGNS: On exam, pulse is 90, blood pressure 161/81, and respirations 20. CHEST: Clear to auscultation. ABDOMEN: Soft. NERVOUS SYSTEM: Nonfocal. LABORATORY DATA: Noted. Sodium is 137. ASSESSMENT: 1. Recurrent urinary tract infection with failure of outpatient treatment. 2. Hyponatremia. 3. Hypokalemia. 4. Persistent dysuria. 5. Chronic obstructive pulmonary disease. 6. History of nicotine dependence. RECOMMENDATIONS: Recommend to continue current management and treatment. Otherwise, the patient is symptomatically improving at this time. I would continue to monitor. Cultures are negative. Recommend repeat labs in the morning. Further recommendations to follow. Increase ambulation. MMODL / IJN: [id number] /
--- NOTE | 2023-09-15 22:53 | P.PN ---
Subjective Progress Note Date: 09/15/23 Principal diagnosis: Reason for follow-up is recurrent UTI and possible vaginal candidiasis Patient is a 78-year-old female with a past medical history significant for hiatal hernia skin cancer breast cancer COPD and did have a history of recurrent UTI apparently recently has been treated with the 3 different courses of antibiotic by her primary care physician including Angela Benavidezro and Macrobid patient now presenting to the hospital concerning for fatigue weakness along with nausea dysuria and burning sensation. On today's evaluation that is 09/15/2023,the patient remains to be afebrile, patient is on room air not requiring supplemental oxygen and denies any s hortness of breath no chest pain or cough.Patient denies having any nausea or vomiting, no abdominal pain and no diarrhea has been reported. Patient white count is 4.67 creatinine 0.5 Objective - Vital Signs Vital signs: Vital Signs Temp 98.0 F 09/15/23 07:20 Pulse 95 09/15/23 11:56 Resp 20 09/15/23 07:20 BP 162/82 09/15/23 07:20 Pulse Ox 96 09/15/23 07:20 FiO2 Intake & Output 09/14/23 09/15/23 09/15/23 18:59 06:59 18:59 Intake Total 950 1500 Balance 950 1500 Weight 47.627 kg Intake: Intake, IV Titration 950 900 Amount Sodium Chloride 0.9% 1, 900 900 000 ml @ 75 mls/hr IV . [id number] [facility] Rx#:[id number] cefTRIAXone 1 gm In 50 Sodium Chloride 0.9% 50 ml @ 100 mls/hr IVPB Q24HR [facility] Rx#:[id number] Oral 600 Other: Voiding Method Toilet Toilet Toilet # Voids 3 2 1 # Bowel Movements 1 - Exam GENERAL DESCRIPTION: An elderly female lying in bed in no distress RESPIRATORY SYSTEM: Unlabored breathing , decreased breath sounds at bases HEART: S1 S2 regular rate and rhythm , ABDOMEN: Soft , no tenderness EXTREMITIES: No edema feet - Labs CBC & Chem 7: 09/15/23 04:01 09/15/23 04:01 Labs: Abnormal Lab Results - Last 24 Hours (Table) 09/15/23 09/15/23 Range/Units 04:01 04:01 RBC 3.73 L (4.10-5.20) X 10*6/uL Hgb 11.2 L (12.0-15.0) g/dL Hct 33.1 L (37.2-46.3) % Eosinophils # 0.71 H (0.04-0.35) X 10*3/uL Carbon Dioxide 20.9 L (21.6-31.8) mmol/L Anion Gap 13.10 H (4.00-12.00) mmol/L Creatinine 0.5 L (0.6-1.5) mg/dL BUN/Creatinine Ratio 38.40 H (12.00-20.00) Ratio Assessment and Plan (1) Recurrent UTI Current Visit: Yes Status: Acute Code(s): N39.0 - URINARY TRACT INFECTION, SITE NOT SPECIFIED SNOMED Code(s): 929490915 (2) Vaginal candidiasis Current Visit: Yes Status: Acute Code(s): B37.31 - ACUTE CANDIDIASIS OF VULVA AND VAGINA SNOMED Code(s): 12544058 Plan: 1patient presented to hospital with generalized weakness not feeling well nausea but no vomiting did have some discomfort and pressure in the pelvic area question of possible vaginal candidiasis and this patient has been exposed to multiple courses of antibiotic recently and UA obtained this admission did not show any leukocyte Estrace or WBC and CT abdominal pelvis was negative for any structural abnormality 2-patient seem to have some clinical improvement continue with Diflucan for another 2 to 3 days Dictation was produced using [employer] dictation software. please excuse any grammatical, word or spelling errors. Time with Patient: Less than 30
[2023-09-16 10:56] LABS: BUN/Creat Ratio 36.75 Ratio (12.00-20.00); Blood Urea Nitrogen 14.7 mg/dL (9.0-27.0); Calcium 6.7 mg/dL (8.7-10.3); Carbon Dioxide 16.3 mmol/L (21.6-31.8); Chloride 114 mmol/L (96-109); Glucose 72 mg/dL (70-110); Potassium 2.9 mmol/L (3.5-5.5); Sodium 140 mmol/L (135-145)
--- NOTE | 2023-09-16 12:12 | P.PN ---
Subjective Patient is seen for follow-up for hyponatremia, mostly hypovolemic and improved with normal saline. Serum sodium up to 140 today. Potassium was 2.9. Patient is voiding well. Objective - Vital Signs Vital signs: Vital Signs Temp 97.4 F L 09/16/23 07:22 Pulse 88 09/16/23 08:01 Resp 16 09/16/23 07:22 BP 145/78 09/16/23 07:22 Pulse Ox 96 09/16/23 07:22 FiO2 Intake & Output 09/15/23 09/16/23 09/16/23 18:59 06:59 18:59 Intake Total 900 Balance 900 Intake: Intake, IV Titration 900 Amount Sodium Chloride 0.9% 1, 900 000 ml @ 75 mls/hr IV . [id number] [facility] Rx#:[id number] Other: Voiding Method Toilet Toilet Toilet # Voids 1 3 - Exam patient is awake, comfortable, no acute distress Examination of the heart S1 and S2 Examination of the lungs bilateral breath sounds are heard Abdomen is soft nontender Examination of lower extremity shows no evidence of edema left ankle brace noted VEGETABLE I [employer] exam grossly intact - Labs CBC & Chem 7: 09/15/23 04:01 09/16/23 06:34 Labs: Abnormal Lab Results - Last 24 Hours (Table) 09/16/23 Range/Units 06:34 Potassium 2.9 L (3.5-5.5) mmol/L Chloride 114 H (96-109) mmol/L Carbon Dioxide 16.3 L (21.6-31.8) mmol/L Creatinine 0.4 L (0.6-1.5) mg/dL BUN/Creatinine Ratio 36.75 H (12.00-20.00) Ratio Calcium 6.7 L (8.7-10.3) mg/dL Assessment and Plan Assessment: 1. Hypovolemic hyponatremia currently improved with normal saline 2. Recent left ankle fracture 3. UTI status post treatment as outpatient. 4. Vaginal candidiasis 5. Hypokalemia status post replacement Plan: DC IV fluids Hold Lasix for 1 to 2 days Okay for discharge from nephrology standpoint. Follow-up with outpatient in about 1 to 2 weeks. Repeat labs in 1 week post discharge. Replace potassium
[2023-09-16 12:58] LABS: Basophils # (A) 0.1 k/uL (0-0.2); Basophils % (A) 1 %; Eosinophils # (A) 0.6 k/uL (0-0.7); Eosinophils % (A) 12 %; HCT 38.9 % (34.0-46.0); HGB 12.7 gm/dL (11.4-16.0); Lymphocytes # (A) 1.4 k/uL (1.0-4.8); Lymphocytes % (A) 26 %; MCH 31.2 pg (25.0-35.0); MCHC 32.8 g/dL (31.0-37.0); MCV 95.2 fL (80.0-100.0); Mean Platelet Volume 7.5; Monocytes # (A) 0.5 k/uL (0-1.0); Monocytes % (A) 10 %; Neutrophils # (A) 2.5 k/uL (1.3-7.7); Neutrophils % (A) 48 %; Platelet Count 390 k/uL (150-450); RBC 4.08 m/uL (3.80-5.40); RDW 13.3 % (11.5-15.5); WBC 5.3 k/uL (3.8-10.6)
[2023-09-16] MEDS: POTASSIUM CHLORIDE ER 20 MEQ TAB.ER PO SCH (13:43)
--- NOTE | 2023-09-16 14:00 | PN ---
PROGRESS NOTE DATE OF SERVICE: 09/16/2023 SUBJECTIVE: This is a 78-year-old woman who was admitted with recurrent UTI and acute abnormalities, being closely monitored. No chest pain, no palpitations, no fever. OBJECTIVE: VITAL SIGNS: Pulse 77, blood pressure 140/70, respirations 16. CHEST: Clear to auscultation. CARDIOVASCULAR: S1, S2. ABDOMEN: Soft. NERVOUS SYSTEM: No focal deficits. LABORATORY DATA: Potassium 2.9, rest of the labs are noted. ASSESSMENT: 1. Recurrent UTI with failure of outpatient treatment. 2. Hyponatremia. 3. Hypokalemia. 4. Persistent dysuria. 5. COPD. 6. History of nicotine dependence. RECOMMENDATIONS: Recommended to continue current management, continue symptomatic treatment, and we will replace potassium. We will repeat labs. Continue with magnesium. Guarded prognosis. Further recommendations to follow. [id number] / TORIN: [id number] /
[2023-09-16] MEDS: SENNOSIDES 8.6 MG TAB PO PRN (15:49)
[2023-09-16 19:04] LABS: African American GFR (CKD) 66 (>60 ml/min/1.73 sqM); Anion Gap 7 mmol/L; Blood Urea Nitrogen 25 mg/dL (7-17); Calcium 9.5 mg/dL (8.4-10.2); Carbon Dioxide 27 mmol/L (22-30); Chloride 98 mmol/L (98-107); Glucose 107 mg/dL (74-99); Non-African American GFR(CKD) 57 (>60 ml/min/1.73 sqM); Potassium 4.7 mmol/L (3.5-5.1); Sodium 132 mmol/L (137-145)
[2023-09-16 20:47] VITALS: RESP 16
[2023-09-17 11:15] LABS: Basophils # (A) 0.07 X 10*3/uL (0.00-0.10); Basophils % (A) 1.5 %; Eosinophils # (A) 0.86 X 10*3/uL (0.04-0.35); Eosinophils % (A) 18.1 %; HCT 36.5 % (37.2-46.3); HGB 12.1 g/dL (12.0-15.0); Immature Grans, Automated 0 %; Lymphocytes # (A) 1.67 X 10*3/uL (0.90-5.00); Lymphocytes % (A) 35.2 %; MCHC 33.2 g/dL (32.0-37.0); MCV 90.6 FL (80.0-97.0); Mean Platelet Volume 10.3 FL (9.5-12.2); Monocytes # (A) 0.62 X 10*3/uL (0.20-1.00); Monocytes % (A) 13.1 %; NRBC Per 100 WBC 0 X 10*3/uL (0.00-0.01); Neutrophils # (A) 1.52 X 10*3/uL (1.80-7.70); Neutrophils % (A) 32.1 %; Platelet Count 428 X 10*3/uL (140-440); RBC 4.03 X 10*6/uL (4.10-5.20); WBC 4.74 X 10*3/uL (4.50-10.00)
--- NOTE | 2023-09-17 11:22 | P.PN ---
Subjective Patient is seen in follow-up for hyponatremia. Sodium level 132 as of yesterday evening. Lasix discontinued yesterday. Denies chest pain or shortness of breath. Vital signs are stable. General: No acute distress. HEENT: Head exam is unremarkable. LUNGS: No audible rhonchi or wheezes. HEART: Rate and Rhythm are regular. ABDOMEN: Nontender. EXTREMITITES: No edema. Objective - Vital Signs Vital signs: Vital Signs Temp 97.7 F 09/17/23 07:18 Pulse 100 09/17/23 08:17 Resp 16 09/17/23 07:18 BP 162/76 09/17/23 07:18 Pulse Ox 95 09/17/23 07:18 FiO2 Intake & Output 09/16/23 09/17/23 09/17/23 18:59 06:59 18:59 Other: Voiding Method Toilet # Voids 3 3 - Labs CBC & Chem 7: 09/17/23 07:12 09/16/23 18:05 Labs: Abnormal Lab Results - Last 24 Hours (Table) 09/16/23 09/17/23 Range/Units 18:05 07:12 RBC 4.03 L (4.10-5.20) X 10*6/uL Hct 36.5 L (37.2-46.3) % Neutrophils # 1.52 L (1.80-7.70) X 10*3/uL Eosinophils # 0.86 H (0.04-0.35) X 10*3/uL Sodium 132 L (137-145) mmol/L BUN 25 H (7-17) mg/dL Glucose 107 H (74-99) mg/dL Assessment and Plan Plan: Assessment: 1. Hypovolemic hyponatremia improved with IV hydration. Patient was also receiving Lasix which was stopped yesterday. 2. Hypokalemia from poor intake and diuretics. Replaced. Better. 3. UTI on antibiotics. 4. History of breast cancer. Plan: Hep-Lock IV fluids. Continue to hold off on diuretics. Add 1500 cc fluid restriction. Encouraged oral intake. Repeat labs in the morning.
[2023-09-17 11:54] LABS: BUN/Creat Ratio 29.14 Ratio (12.00-20.00); Blood Urea Nitrogen 20.4 mg/dL (9.0-27.0); Calcium 9.9 mg/dL (8.7-10.3); Carbon Dioxide 26.6 mmol/L (21.6-31.8); Chloride 100 mmol/L (96-109); Glucose 89 mg/dL (70-110); Potassium 5.1 mmol/L (3.5-5.5); Sodium 136 mmol/L (135-145)
[2023-09-17 12:55] VITALS: BP 156/79; PULSE 110; TEMP 97.6
== END 2023-09-17 15:15 | disposition home or self-care (01) | DRG 690 ==
LOC: EC 11:10 → 4SSUR 15:45 → 5NMEDONC 09-14 00:12
PROVIDERS: ADMIT Internal Medicine; ATTEND Internal Medicine
DX: N39.0 Urinary tract infection, site not specified (principal); E87.1 Hypo-osmolality and hyponatremia; Z16.29 Resistance to other single specified antibiotic; J44.9 Chronic obstructive pulmonary disease, unspecified; E87.6 Hypokalemia; E86.1 Hypovolemia; B96.1 Klebsiella pneumoniae [K. pneumoniae] as the cause of diseases classified elsewhere; B37.31 Acute candidiasis of vulva and vagina; S82.892D Other fracture of left lower leg, subsequent encounter for closed fracture with routine healing; Z87.891 Personal history of nicotine dependence; Z86.73 Personal history of transient ischemic attack (TIA), and cerebral infarction without residual deficits; Z79.82 Long term (current) use of aspirin; Z79.899 Other long term (current) drug therapy; Z85.3 Personal history of malignant neoplasm of breast; Z85.828 Personal history of other malignant neoplasm of skin; Z87.440 Personal history of urinary (tract) infections; Z79.811 Long term (current) use of aromatase inhibitors; Z79.51 Long term (current) use of inhaled steroids; Z88.8 Allergy status to other drugs, medicaments and biological substances; Z92.3 Personal history of irradiation
CPT/HCPCS: 36415; 74177; 80048; 80053; 81001; 83605; 83735; 85025; 85652; 86140; 94640; 96360; 96361; 99285

== ENCOUNTER → 2023-10-05 | Outpatient (CLI) | payer MEDICARE, OTHER ==
[2023-10-05 13:40] VITALS: BP 124/76; PULSE 90; RESP 17; TEMP 98.4
--- NOTE | 2023-10-05 13:47 | P.PN ---
Subjective Progress Note Date: 10/05/23 Principal diagnosis: Stage IA T1cN0 (i+)[id number]-PC+Pr+ left breast 07-13-21 Roxy is a 78-year-old female status post left breast lumpectomy and sentinel node biopsy on 06-28-2021. There was a question of isolated tumor cells in the sentinel node. She underwent radiation therapy and finished this on 08-22-2021. She is taking anastrozole with no complications She had a bilateral mammogram on 04-02-2023 which was BI-RADS 2 Complaining of any new lumps masses or nodules of concern. 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 Drugs: none - Constitutional Constitutional: Reports sweats - EENT Comment: macular degeneration Eyes: denies blurred vision, denies pain Ears: bilateral: decreased hearing Ears, nose, mouth and throat: Denies headache, Denies sore throat - Breasts Breasts: bilateral: as per HPI - Cardiovascular Cardiovascular: Reports shortness of breath, Denies chest pain - Respiratory Comment: COPD/smoker - Gastrointestinal Gastrointestinal: Reports as per HPI, Denies abdominal pain, Denies diarrhea, Denies nausea, Denies vomiting - Menstruation Menstruation: Reports postmenopausal - Musculoskeletal Musculoskeletal: Reports as per HPI - Integumentary Integumentary: Denies pruritus, Denies rash - Neurological Neurological: Denies numbness, Denies weakness - Psychiatric Psychiatric: Reports anxiety - Endocrine Endocrine: Denies fatigue, Denies weight change - Hematologic/Lymphatic Comment: none - Allergic/Immunologic Allergic/Immunologic: Reports as per HPI Objective - Vital Signs Vital signs: Vital Signs Temp 98.4 F 10/05/23 13:17 Pulse 90 10/05/23 13:17 Resp 17 10/05/23 13:17 BP 124/76 10/05/23 13:17 Pulse Ox 96 10/05/23 13:17 FiO2 Intake & Output 10/04/23 10/05/23 10/05/23 18:59 06:59 18:59 Weight 48.988 kg - Constitutional General appearance: Present: cooperative - EENT Eyes: Present: EOMI ENT: Present: hearing grossly normal - Neck Neck: Present: normal ROM - Respiratory Respiratory: bilateral: CTA - Cardiovascular Heart sounds: normal: S1, S2 - Gastrointestinal General gastrointestinal: Present: soft - Integumentary Integumentary: Present: normal turgor - Musculoskeletal Musculoskeletal: Present: gait normal - Psychiatric Psychiatric: Present: A&O x's 3, appropriate affect, intact judgment & insight - Additional findings Additional findings: Breast Exam: BRA: 34A Inspection: Well-healed scar left breast from prior surgery, bilateral grade 2 ptosis Palpation: Right breast: Multi positional exam fibrocystic changes no discrete dominant masses or nodules of concern Right axilla: no adenopathy of concern soft tissue fullness posterior area of the axilla consistent with a lipoma Left breast: Well-healed scar from prior surgery, no dominant masses or nodules of concern multi-positional exam Left axilla: No adenopathy of concern Assessment and Plan Assessment: Impression: Stage I invasive lobular carcinoma left breast/status post lumpectomy, sentinel node biopsy, radiation therapy, patient on anastrozole, patient did not have any chemotherapy 2020 Plan: Continue anastrozole Continue follow-up with medical and radiation oncology follow up in 6 months bilateral mammogram in March 2024 with examination CC: Dr. Morgan
== END ==
LOC: WWCWWP 12:21
PROVIDERS: ATTEND Surgery
DX: C50.912 Malignant neoplasm of unspecified site of left female breast (principal); F17.210 Nicotine dependence, cigarettes, uncomplicated; Z48.817 Encounter for surgical aftercare following surgery on the skin and subcutaneous tissue; Z98.890 Other specified postprocedural states; Z92.3 Personal history of irradiation; Z17.0 Estrogen receptor positive status [ER+]; Z88.8 Allergy status to other drugs, medicaments and biological substances

== ENCOUNTER → 2023-11-15 | Outpatient (CLI) | payer MEDICARE, OTHER ==
[2023-11-15 13:57] VITALS: BP 146/80; PULSE 98; RESP 14; TEMP 97.5
[2023-11-15] MEDS: DENOSUMAB 60 MG/ML 1 ML SYRINGE SQ NR (13:57)
== END ==
LOC: PROCWHC3 13:49
PROVIDERS: ATTEND Family Medicine
DX: M81.0 Age-related osteoporosis without current pathological fracture (principal)
CPT/HCPCS: 96372; J0897

== ENCOUNTER 2024-01-08 11:20 | Emergency (ER) | payer MEDICARE, OTHER ==
--- NOTE | 2024-02-01 11:30 | CT ---
Patient Roxy Rush ID [id number] Order # CTA CHEST EXAMINATION TYPE: CT chest angio for PE DATE OF EXAM: 01/08/2024 INDICATION: Short of breath, left chest pain CT DLP: 179.8 mGycm, Automated exposure control for dose reduction was used. CONTRAST: Patient injected with 100 mL of Isovue 370. COMPARISON: No comparison images downtime PACS TECHNIQUE: CT of the chest is performed on a spiral scan at 2 mm thick sections. Study is performed with intravenous contrast timed for evaluation for pulmonary embolism. This will limit additional po rtions of the evaluation. 3-D MIP images reconstructed by the technologist are reviewed on the compu ter in the coronal and sagittal planes. FINDINGS: No persistent filling defects are evident to suggest an acute pulmonary embolism. No mediastinal or hilar adenopathy enlarged by CT criteria is evident. The ascending aorta diameter at the level of the main pulmonary artery is 3.3 cm. The main pulmonary artery diameter at the bifurcation is 2.1 cm. Note is made of reflux into the inferior vena cava There is a 1.6 x 1.6 cm density within the medial posterior left apex. Series 401 image 17. This has some extension along the major fissure. Limited CT sections were through the upper abdomen. There is a small ventral hernia. There is a 2 c m hepatic cyst in the left lobe liver. IMPRESSION: 1. No acute pulmonary embolism. 2. Left apical lung mass. Follow-up recommended. Neoplasm, pneumonia and atelectasis within the diffe rential. 3. Left lobe liver cyst.
--- NOTE | 2024-02-13 06:50 | XR ---
Patient Roxy Hanley ID [id number] Order # EXAMINATION TYPE: XR chest 2V DATE OF EXAM: 01/08/2024 COMPARISON: None on downtime PACS INDICATION: Left-sided chest pain short of breath TECHNIQUE: Frontal and lateral views of the chest are obtained. FINDINGS: The heart size is normal. The pulmonary vasculature is normal. There is an irregular density at the left lung base. Infiltrate or mass should be considered. Summat ion density with ribs could be considered. Follow-up is recommended. There is an infiltrate at the left apex. Consider atelectasis or pneumonia. Chronic changes may be pr esent. Follow up exams are recommended. Hyperinflation and flattened diaphragms is present compatible with COPD. IMPRESSION: 1. Rounded density at the left base with increased lung markings left upper lobe. Follow-up is recomm ended.
== END 2024-01-08 17:00 | disposition home or self-care (01) ==
LOC: EC 11:20
CPT/HCPCS: 71046; 71275; 93005; 99285

== ENCOUNTER → 2024-02-06 | Outpatient (CLI) | payer MEDICARE, OTHER ==
--- NOTE | 2024-02-06 13:32 | BD ---
EXAMINATION TYPE: Axial Bone Density DATE OF EXAM: 02/06/2024 CLINICAL HISTORY: 78 years old Female. ICD-10 CODE: M81.0 AGE-RELATED OSTEOPOROSIS W/O CURRENT PATHO LO Height: 61.5 Weight: 108 FRAX RISK QUESTIONS: Family History (Parent hip fracture): no History of Fracture in Adulthood: yes ,ankle Secondary Osteoporosis: no RISK FACTORS HISTORY OF: Surgery to Spine/Hip(right/left)/Wrist (right/left): no MEDICATIONS: Thyroid Medications no: Osteoporosis Medications: yes Which medication: Prolia How Long: since 2014 EXAM MEASUREMENTS: Bone mineral densitometry was performed using the [employer] System. Bone mineral density as measured about the Lumbar spine is: ----- L1-L4(G/cm2): 1.382 T Score Values are as follows: ----- L1: 0.8 ----- L2: 0.5 ----- L3: 1.5 ----- L4: 3.2 ----- L1-L4: 1.7 Z Score Values are as follows: ----- L1: 3.1 ----- L2: 2.9 ----- L3: 3.8 ----- L4: 5.5 ----- L1-L4: 4.0 Bone mineral density has: Increased 6.9% since study of: 07/11/2021 Bone mineral density about the R hip (g/cm2): 0.783 Bone mineral density about the L hip (g/cm2): 0.825 T Score values are as follows: -----R Neck: -2.3 -----L Neck: -1.9 -----R Total: -1.8 -----L Total: -1.5 Z Score values are as follows: -----R Neck: 0.1 -----L Neck: 0.5 -----R Total: 0.5 -----L Total: 0.8 Bone mineral density has: Decreased 1.1% since study of: 07/11/2021 FRAX%s: The graph provided illustrates a 20.4% chance for a major osteoporotic fx and a 6.3% chance f or the hips probability for fx in 10 years time. IMPRESSION: Osteopenia (T Score between -2.5 and -1). There is slightly increased risk of fracture and the patient may be considered for treatment. Re-Screen 2-5 years. NOTE: T-SCORE=SD OF THE YOUNG ADULT MEAN.
== END | disposition home or self-care (01) ==
LOC: RADBDWWP 12:50
PROVIDERS: ATTEND Family Medicine
DX: M81.0 Age-related osteoporosis without current pathological fracture
CPT/HCPCS: 77080

== ENCOUNTER → 2024-02-11 | Outpatient (CLI) | payer MEDICARE, OTHER ==
[2024-02-11 13:17] LABS: African American GFR (CKD) 79 (>60 ml/min/1.73 sqM); Blood Urea Nitrogen 25 mg/dL (7-17); Non-African American GFR(CKD) 69 (>60 ml/min/1.73 sqM)
--- NOTE | 2024-02-12 12:39 | CT ---
EXAMINATION TYPE: CT chest w con DATE OF EXAM: 02/11/2024 COMPARISON: 01/08/2024 HISTORY: 78-year-old female R91.8, Abnormal findings of lung field, recent pneumonia TECHNIQUE: Contiguous axial scanning of the chest after the administration of 100 mL of Isovue 300. Coronal/sagittal reconstructions performed. CT DLP: 254mGycm. Automatic exposure control utilized for a dose reduction. FINDINGS: Suspect a partially visualized 4.0 cm lipoma overlying the lateral margin of the upper right latissim us musculature, axial image 18 and coronal image 44. The heart is normal size without pericardial effusion. Three-vessel coronary artery calcifications ar e present. Mild aortic valvular calcifications. Ectatic ascending aorta 3.6 cm with mild atherosclerotic arch calcifications and given that shortness of breath anatomy. Focal moderate stenosis of the left subclavian artery just prior to the vertebral artery takeoff. Borderline ectasia or descending thoracic aorta at 2.6 cm. No thoracic lymphadenopathy by CT size criteria. A few surgical clips are noted within the posterior aspect of the left breast. Strandy subpleural scarring posterior lower lobes. Moderate to advanced emphysema. There is a residua l irregular opacity posterior left upper lobe measuring 1.6 x 1.0 cm. Curvilinear scar extending from this location. 4 mm anterior left upper lobe pulmonary nodule, axial image 16, 3 mm anterior left upper lobe pulmonary nodule, axial image 19. Stable 4 mm left mid lung pulmonary nodule, axial image 41. 3 mm lateral right lower lobe pulmonary nodule, axial image 47. Most of these nodules were not well assessed on the prior study due to the presence of airspace disea se. Possible severe stenoses at the origin of the celiac axis and SMA and left renal artery as well. Ther e is moderate stenosis origin of the right renal artery. There is extensive atherosclerotic calcifica tion narrowing the lumen of the mid abdominal aorta down to 5 mm. Bones: Accentuated midthoracic kyphosis. Mild multilevel degenerative disc disease. IMPRESSION: 1. COPD with moderate to advanced emphysema. The previous airspace disease in the posterior left uppe r lobe has largely resolved. However, there is residual irregular focal opacity measuring 1.6 x 1.0 c m. Postinfectious scarring is suspected. 3 month follow-up CT to ensure stability and exclude early n eoplasm. 2. A few pulmonary nodules measuring up to 4 mm should be reassessed at that time as well. 3. Prominent atherosclerotic changes in the visualized abdominal aorta. Possible severe stenoses alejandrina ac axis and SMA origins and at least moderate at the renal artery origins. Bulky calcification narrow s the mid abdominal aortic lumen down to 5 mm. Also, moderate focal stenosis proximal left subclavian artery. 4. Suspect a 4.0 cm lipoma overlying the lateral margin of the upper right latissimus musculature. Co rrelate for any palpable abnormality here. 5. Three-vessel coronary artery calcifications. [facility], , 02/12/2024 12:37 PM
== END | disposition home or self-care (01) ==
LOC: RADCTMAIN 12:27
PROVIDERS: ATTEND Family Medicine
DX: R91.8 Other nonspecific abnormal finding of lung field
CPT/HCPCS: 36415; 71260; 82565; 84520

== ENCOUNTER → 2024-04-03 | Outpatient (CLI) | payer MEDICARE, OTHER ==
--- NOTE | 2024-04-03 11:39 | MM ---
Reason for Exam: Hx of breast cancer, conservation therapy. Last screening mammogram was performed 12 month(s) ago. Patient History: Menarche at age 15. Patient has no children. Postmenopausal. Other cancer, age 70. Breast cancer, left, age 75. Excisional Biopsy on the Left side. 06/28/2021, Lumpectomy on the Left side. Malignant Core Biopsy. 04/25/2021, Malignant Core Biopsy on the left side. 06/10/2013, Benign Core Biopsy on the right side. 2021, Radiation Therapy on the left side. 06/10/2013, Cancelled Right Mammotome on the right side. Tissue Density: The breasts are heterogeneously dense, which may obscure small masses. Findings: Analyzed By CAD. The pattern is symmetrical. Core marker is within the right breast. Coarse calcifications in the outer right breast. Prior lumpectomy surgical clips are within the upper outer left breast partially visualized. There is a focal asymmetric density within the medial right craniocaudal view may have been present previously. Compression view and mediolateral view and attention to this region are negative. Findings likely related to a summation density. No suspicious groups of microcalcifications, spiculated or lobular masses, architectural distortion or other secondary signs of malignancy are mammographically apparent. Overall Assessment: Benign, BI-RAD 2 Management: Diagnostic Mammogram of both breasts in 1 year. A negative mammogram report should not preclude additional follow up of suspicious palpable abnormalities. Patient should continue monthly self breast exam. A clinical breast exam by your physician is recommended on an annual basis and results should be correlated with mammographic findings. Note on Iwona scores and lifetime risk: 1. A Iwona score greater than 3% is considered moderate risk. If this is the case, consider specialist referral to assess eligibility for a risk reducing agent. 2. If overall lifetime risk for the development of breast cancer is 20% or higher, the patient may qualify for future screening with alternating mammogram and breast MRI. [facility], , 04/03/2024 11:36 AM. Electronically signed and approved by: Too Rahman D.O. Radiologis
== END | disposition home or self-care (01) ==
LOC: RADMAMWWP 10:39
PROVIDERS: ATTEND Surgery
DX: C50.919 Malignant neoplasm of unspecified site of unspecified female breast (principal); R92.333 Mammographic heterogeneous density, bilateral breasts; Z85.3 Personal history of malignant neoplasm of breast; Z78.0 Asymptomatic menopausal state
CPT/HCPCS: 77066; G0279; 77062

== ENCOUNTER → 2024-04-10 | Outpatient (CLI) | payer MEDICARE, OTHER ==
[2024-04-10 11:48] VITALS: BP 125/74; PULSE 94; RESP 17; TEMP 97.8
--- NOTE | 2024-04-10 11:55 | P.PN ---
Subjective Progress Note Date: 04/10/24 04-10-24 Principal diagnosis: Stage IA T1cN0 ([id number]+ left breast 07-13-21 Roxy is a 78-year-old female status post left breast lumpectomy and sentinel node biopsy on 06-28-2021. There was a question of isolated tumor cells in the sentinel node. She underwent radiation therapy and finished this on 08-22-2021. She is taking anastrozole with no complications She had a bilateral mammogram on 04-03-24 which was BI-RADS 2 She was admitted several times during the past year 2022 with COVID, cat bite, and pneumonia She broke her ankle left in Jun. 2023 She is not complaining of any lumps masses or nodules in the breast, however she does have near the posterior axilla on the right an area of fullness which we believe is most likely consistent with a lipoma. Increased in size slightly. Caffeine: none nicotine: stopped in July 2016 chocolate: occasional used to be an alcoholic stopped 2012; no liver damage Family History: brother: pancreatic cancer brother: kidney cancer paternal aunt: colon cancer Hormonal History: menarche: 15 G0 menopause: 51 BCP: 2 years in hormones: none Surgical History: bilateral breast biopsies skin cancers removed basal cell (follows with dermatology) tubaligation left lumpectomy and SNB Medical History: COPD osteoarthritis high cholesterol Hansen's esophagitis hospitalized twice secondary to dehydration in past several months ? 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 Drugs: none - Constitutional Constitutional: Reports sweats - EENT Comment: macular degeneration Eyes: denies blurred vision, denies pain Ears: bilateral: decreased hearing Ears, nose, mouth and throat: Denies headache, Denies sore throat - Breasts Breasts: bilateral: as per HPI - Cardiovascular Cardiovascular: Reports shortness of breath, Denies chest pain - Respiratory Comment: COPD/smoker - Gastrointestinal Gastrointestinal: Reports as per HPI, Denies abdominal pain, Denies diarrhea, Denies nausea, Denies vomiting - Menstruation Menstruation: Reports postmenopausal - Musculoskeletal Musculoskeletal: Reports as per HPI - Integumentary Integumentary: Denies pruritus, Denies rash - Neurological Neurological: Denies numbness, Denies weakness - Psychiatric Psychiatric: Reports anxiety - Endocrine Endocrine: Denies fatigue, Denies weight change - Hematologic/Lymphatic Comment: none - Allergic/Immunologic Allergic/Immunologic: Reports as per HPI Objective - Vital Signs Vital signs: Intake & Output 04/09/24 04/10/24 04/10/24 18:59 06:59 18:59 Weight 49.442 kg - Constitutional General appearance: Present: cooperative - EENT Eyes: Present: EOMI ENT: Present: hearing grossly normal - Neck Neck: Present: normal ROM - Respiratory Respiratory: bilateral: CTA - Cardiovascular Rhythm: regular Heart sounds: normal: S1, S2 - Integumentary Integumentary: Present: normal turgor - Musculoskeletal Musculoskeletal: Present: gait normal - Psychiatric Psychiatric: Present: A&O x's 3, appropriate affect, intact judgment & insight - Additional findings Additional findings: Breast Exam: BRA: 34A Inspection: Well-healed scar left breast from prior surgery, bilateral grade 2 ptosis Palpation: Right breast: Multi positional exam fibrocystic changes no discrete dominant masses or nodules of concern Right axilla: no adenopathy of concern soft tissue fullness posterior area of the axilla consistent with a lipoma about 8 by 4 cm in size Left breast: Well-healed scar from prior surgery, no dominant masses or nodules of concern multi-positional exam Left axilla: No adenopathy of concern Assessment and Plan Assessment: Impression: Stage I invasive lobular carcinoma left breast/status post lumpectomy, sentinel node biopsy, radiation therapy, patient on anastrozole, patient did not have any chemotherapy 2020 Mass right axilla Plan: Continue anastrozole Continue follow-up with medical and radiation oncology follow up in 6 months bilateral mammogram in March 2025 with examination Patient in the operating room soft tissue mass right axilla Clearance from Dr. Morgan CC: Dr. Morgan
== END ==
LOC: WWCWWP 11:19
PROVIDERS: ATTEND Surgery
DX: Z48.817 Encounter for surgical aftercare following surgery on the skin and subcutaneous tissue (principal); C50.912 Malignant neoplasm of unspecified site of left female breast; R22.2 Localized swelling, mass and lump, trunk; F17.210 Nicotine dependence, cigarettes, uncomplicated; Z92.3 Personal history of irradiation; Z17.0 Estrogen receptor positive status [ER+]; Z17.21 Progesterone receptor positive status; Z88.8 Allergy status to other drugs, medicaments and biological substances

== ENCOUNTER → 2024-05-30 | Outpatient (CLI) | payer MEDICARE, OTHER ==
[2024-05-30 12:57] VITALS: BP 127/84; PULSE 83; RESP 16; TEMP 97.5
[2024-05-30] MEDS: DENOSUMAB 60 MG/ML 1 ML SYRINGE SQ NR (12:57)
== END ==
LOC: PROCWHC3 12:39
PROVIDERS: ATTEND Family Medicine
DX: M81.0 Age-related osteoporosis without current pathological fracture (principal)
CPT/HCPCS: 96372; J0897

== ENCOUNTER → 2024-06-19 | Outpatient (CLI) | payer MEDICARE, OTHER ==
[2024-06-19 14:17] LABS: African American GFR (CKD) 88 (>60 ml/min/1.73 sqM); Blood Urea Nitrogen 30 mg/dL (7-17); Non-African American GFR(CKD) 77 (>60 ml/min/1.73 sqM)
--- NOTE | 2024-06-21 09:07 | CT ---
EXAMINATION TYPE: CT chest w con DATE OF EXAM: 06/19/2024 2:52 PM COMPARISON: None. CLINICAL INDICATION: Female, 79 years old with history of R91.1 SOLITARY PULMONARY NODULE, Lung Nodul e. TECHNIQUE: Axial images were obtained at 5 mm thick sections. Reconstructed images are reviewed on [employer] computer in the coronal plane. Contrast used:80 ml mL of Isovue 300 with IV Contrast, (none if empty) Oral contrast used: (none if empty) CT DLP: 136.5 mGycm, Automated exposure control for dose reduction was used. FINDINGS: Portion of the thyroid visualized is normal. There is a focal area of increased density within the left apex along the major fissure measuring 0.5 cm. Series 4 image 9. Adjacent increased lung markings are present. Findings however are significant ly improved from the 02/11/2024 exam. Tiny 0.2 cm nodule is less prominent in the anterior left upper lung field. Series 4 image 16.There is faint density within the periphery of the right lung 0.4 cm, s eries 4 image 40. This is slightly more prominent than prior which can be related to volume averaging . There is a 0.4 cm nodule anterior right mid lung measuring 0.4 cm. This may be new from comparison se billie 4 image 32. Short-term follow-up of this finding is recommended Advanced emphysematous changes are present greater in the upper lung lopez. No enlarged mediastinal or hilar adenopathy is evident. The ascending aorta diameter at the level o f the main pulmonary artery is 3.5 cm. The main pulmonary artery diameter at the bifurcation is 2.3 cm. Coronary artery calcification is present. Limited CT sections are obtained through the upper abdomen. Left lobe hepatic cyst is noted. IMPRESSION: 1. New 0.4 cm nodule right mid lung. Short-term follow-up in 6 months is recommended for reevaluation . 2. Advanced emphysematous changes. 3. Additional lung findings appear present previously and stable or improved over the interval. [facility], Workstation: [id number], 06/21/2024 9:05 AM
== END | disposition home or self-care (01) ==
LOC: RADCTMAIN 13:36
PROVIDERS: ATTEND Internal Medicine Critical Care Medicine
DX: J43.9 Emphysema, unspecified (principal); R91.1 Solitary pulmonary nodule
CPT/HCPCS: 82565; 84520; 71260; 36415; Q9967

== ENCOUNTER → 2024-09-02 | Day surgery (SDC) | payer MEDICARE, OTHER ==
[~2024-09-02] MED LIST changes: -DENOSUMAB 60 MG/ML 1 ML SYRINGE SQ ONE; +LIDOCAINE 2% (PF) 20 MG/ML 5 ML VIAL ONE; +PROPOFOL 10 MG/ML 20 ML VIAL IV ONE
[2024-09-02 06:43] VITALS: TEMP 97.9
[2024-09-02] MEDS: IV FLUID CONTINUATION 1,000 ML IV ONE (06:55)
[2024-09-02] MEDS: ONDANSETRON 4 MG/2 ML VIAL IVP ONE (06:56)
[2024-09-02] MEDS: LACTATED RINGERS 1,000 ML IV SCH (06:58)
--- NOTE | 2024-09-02 07:27 | P.PCN ---
Date of Procedure: 09/02/24 Procedure(s) Performed: Brief history: Patient is a pleasant 79-year-old white female scheduled for an elective upper endoscopy as well as colonoscopy as a part of evaluation of GERD/Hansen's esophagus and screening for colon cancer Procedure performed: Esophagogastroduodenoscopy with biopsy Colonoscopy with snare polypectomy Preoperative diagnosis: GERD/Hansen's esophagus Screening for colon cancer Anesthesia: MAC Procedure: After informed consent was obtained from the patient was brought into the endoscopy unit and IV sedation was administered by anesthesia under continuous monitoring. Initially upper endoscopy was done. The Olympus GF 160 video endoscope was inserted inserted into the mouth and esophagus intubated without any difficulty and was gradually advanced into the stomach and duodenum and carefully examined. The bulb and second part of the duodenum appeared normal. The scope was then withdrawn into the stomach adequately insufflated with air and upon careful examination the antrum and body, cardia and fundus appeared normal. The scope was then withdrawn into the esophagus. Small hiatal hernia noted. The GE junction was located at 35 cm to the incisors. There was a long segment of Hansen's esophagus extending from 20 to 35 cm from the incisors and multiple biopsies were done from this area. Distal esophagus appeared normal and the patient tolerated the procedure well. At this time the patient continued to remain sedation. Initial digital rectal examination was normal. Olympus CF 160 video colonoscope was then inserted into the rectum and gradually advanced to the cecum without any difficulty. Careful examination was performed as the scope was gradually being withdrawn. The prep was excellent. The cecum, ascending colon, transverse colon, descending colon, sigmoid colon and rectum appeared normal. In the rectosigmoid colon there was a 5 mm polyp that was removed by cold snare polypectomy. Scattered sigmoid diverticulosis seen. Retroflexion was performed in the rectum and no lesions were noted. Patient tolerated the procedure well. Impression: 1. Upper endoscopy revealed small hiatal hernia long segment of Hansen's esophagus extending from 28 to 35 cm from the incisors s/p multiple biopsies 2. Colonoscopy revealed 5 mm rectosigmoid polyp status post polypectomy and scattered sigmoid diverticulosis Recommendations: Findings of this examination were discussed with the patient as well as her family. She was advised to follow-up with the biopsy results. If the biopsy confirms the presence of Hansen's esophagus she can have repeat upper endoscopy in 3 years.
[2024-09-02 07:43] VITALS: BP 115/64; PULSE 73; RESP 16
== END ==
LOC: ORWHC2ENDO 05:53
PROVIDERS: ATTEND Internal Medicine Gastroenterology
DX: Z12.11 Encounter for screening for malignant neoplasm of colon (principal); K22.70 Barrett's esophagus without dysplasia; D12.7 Benign neoplasm of rectosigmoid junction; K57.30 Diverticulosis of large intestine without perforation or abscess without bleeding; K44.9 Diaphragmatic hernia without obstruction or gangrene
CPT/HCPCS: 45385; 43239; J2405; J2704; J2003; 88305

== ENCOUNTER → 2024-12-05 | Outpatient (CLI) | payer MEDICARE, OTHER ==
[2024-12-05] MEDS: DENOSUMAB 60 MG/ML 1 ML SYRINGE SQ NR (13:34)
[2024-12-05 13:38] VITALS: BP 148/80; PULSE 68; RESP 16; TEMP 97.9
== END ==
LOC: PROCWHC3 13:25
PROVIDERS: ATTEND Family Medicine
DX: M81.0 Age-related osteoporosis without current pathological fracture (principal)
CPT/HCPCS: 96372; J0897

== ENCOUNTER → 2024-12-17 | Outpatient (CLI) | payer MEDICARE, OTHER ==
[2024-12-17 12:24] LABS: African American GFR (CKD) >90 (>60 ml/min/1.73 sqM); Blood Urea Nitrogen 22 mg/dL (7-17); Non-African American GFR(CKD) 81 (>60 ml/min/1.73 sqM)
--- NOTE | 2024-12-19 00:49 | CT ---
EXAMINATION TYPE: CT chest w con DATE OF EXAM: 12/17/2024 12:39 PM COMPARISON: 06/19/2024 CLINICAL INDICATION: Female, 79 years old with history of R91.1 SOLITARY PULMONARY NODULE, Follow up for Lung Nodule. TECHNIQUE: Axial images were obtained at 5 mm thick sections. Reconstructed images are reviewed on [employer] computer in the coronal plane. Contrast used:100 ml mL of Isovue 300 with IV Contrast, (none if empty) Oral contrast used: (none if empty) CT DLP: 211 mGycm, Automated exposure control for dose reduction was used. FINDINGS: Portion of the thyroid visualized is normal. There is some focal increased density within the left apex. The linear appearance is less nodular alan n the comparison. No interval growth is evident. Findings related to scarring. Moderate emphysematous changes are present. Punctate nodular density in the periphery of the anterior right lung series 428 appears smaller fidelina rison. There is a new irregular density with groundglass opacity surrounding this measures 1.9 cm. Example i mages series 4 image 25. Findings suspicious for neoplasm. This was not present previously. No enlarged mediastinal or hilar adenopathy is evident. The ascending aorta diameter at the level o f the main pulmonary artery is 3.5 cm. The main pulmonary artery diameter at the bifurcation is 2.3 cm. No significant coronary artery calcifications. Limited CT sections are obtained through the upper abdomen. Abdomen is essentially unremarkable. IMPRESSION: 1. New area of increased density within the periphery of the right midlung suspicious. Neoplasm and i nfectious etiology are within the additional workup is recommended. 2. Previous nodules appear stable. [facility], , 12/19/2024 12:47 AM
== END | disposition home or self-care (01) ==
LOC: RADCTMAIN 11:38
PROVIDERS: ATTEND Internal Medicine Critical Care Medicine
DX: R91.1 Solitary pulmonary nodule (principal)
CPT/HCPCS: 82565; 84520; 71260; 36415; Q9967